=== PATIENT | female | born 1940 | race Caucasian/White ===

== ENCOUNTER 2016-08-02 05:22 | Inpatient (IN) | payer MEDICARE, OTHER ==
--- NOTE | 2016-08-02 05:38 | EDM.PDOC ---
<Rell Yoder M - Last Filed: 08/02/16 05:27> ED HPI GENERAL MEDICAL PROBLEM - General Chief Complaint: Cardiovascular Problem Stated Complaint: AMB Time Seen by Provider: 08/02/16 05:25 Source of Information: Reports: EMS History Limitations: Reports: Altered mental status - History of Present Illness INITIAL COMMENTS - FREE TEXT/NARRATIVE: This 76 yo female patient was brought to the ED by [facility] due to altered mentation. EMS reported that the patient was able to answer some questions, but could not speak in full sentences. The patient's spouse reports the patient was normal when they went to bed last night (2230), but her blood pressure was low ( systolic of upper 90's). This morning at about 0430, the reports the patient woke up shaking. The patient's heart rate was in the 140-150 and her blood pressure was 112/102, according to the . Over the past couple of days, the patient's blood pressure had been running low and she has been decreasing her blood pressure medications. Last night, the patient had several drinks with dinner, but was doing fine. The patient has a past history of CHF and atrial fib. Onset: today Onset Date: 08/02/16 Onset Time: 04:30 Duration: Constant Location: Reports: generalized Severity: severe Improves with: Reports: None Worsens with: Reports: None Associated Symptoms: Reports: weakness Treatments INSTRUCTOR OF EDUCATION: Reports: Oxygen - Related Data Allergies Allergy/AdvReac Type Severity Reaction Status Date / Time codeine Allergy Vomiting Verified 08/02/16 05:57 Home Meds: Home Meds Folic Acid 0.4 mg PO DAILY 08/01/13 [History] Gabapentin [Neurontin] 100 mg PO BID 08/01/13 [History] Methotrexate [Rheumatrex] 2.5 mg PO ASDIRECTED 08/01/13 [History] Warfarin Sodium [Jantoven] 3 mg PO DAILY 09/25/15 [History] Albuterol Sulfate [Proair Respiclick] 90 mcg IH ASDIRECTED PRN 08/02/16 [History ] Carvedilol [Carvedilol] 12.5 mg PO BID 08/02/16 [History] Fluticasone/Salmeterol [Advair Diskus 250-50] 1 puff INH BID 08/02/16 [History] Furosemide [Lasix] 20 mg PO DAILY 08/02/16 [History] Losartan [Cozaar] 25 mg PO BID 08/02/16 [History] Pravastatin [Pravachol] 40 mg PO DAILY 08/02/16 [History] Spironolactone [Aldactone] 25 mg PO DAILY 08/02/16 [History] Tolterodine Tartrate [Detrol LA] 4 mg PO DAILY 08/02/16 [History] Past Medical History HEENT History: Reports: Impaired vision Cardiovascular History: Reports: Hypertension, Other (see below) Other Cardiovascular History: Pt. reports of cardiac issues secondary to past chemotherapy Musculoskeletal History: Reports: Osteoarthritis, RA Oncologic (Cancer) History: Reports: Breast - Past Surgical History HEENT Surgical History: Reports: Cataract surgery GI Surgical History: Reports: Cholecystectomy Female Surgical History: Reports: Mastectomy Social & Family History - Tobacco Use Smoking Status *Q: Never Smoker Second Hand Smoke Exposure: No - Alcohol Use Days Per Week of Alcohol Use: 7 Number of Drinks Per Day: 1 Total Drinks Per Week: 7 - Recreational Drug Use Recreational Drug Use: No ED ROS GENERAL - Review of Systems Review Of Systems: ROS reveals no pertinent complaints other than HPI. ED EXAM, GENERAL - Physical Exam Exam: See Below Exam Limited By: Altered mental status General Appearance: alert, obtunded Eye Exam: bilateral eye: EOMI, normal inspection, PERRL Ears: normal external exam, normal canal, hearing grossly normal, normal TMs Nose: normal inspection, normal mucosa, no blood Throat/Mouth: Normal inspection, Normal lips, Normal teeth, Normal gums, Normal oropharynx, Normal voice, No airway compromise Head: atraumatic, normocephalic Neck: normal inspection, supple, non-tender, full range of motion Respiratory/Chest: no respiratory distress, lungs clear, normal breath sounds, no accessory muscle use, chest non-tender Cardiovascular: tachycardia, irregularly irregular GI/Abdominal: normal bowel sounds, soft, non tender, no organomegaly, no distention, no abnormal bruit, no mass (Female) Exam: Deferred Rectal (Female) Exam: Deferred Back Exam: normal inspection, full range of motion, NT Extremities: normal range of motion, non-tender, normal capillary refill, pedal edema (2+) Neurological: alert, oriented (upon return from CT), CN II-XII intact, normal cognition, confused (initially) Psychiatric: normal affect, normal mood Skin Exam: Warm, Dry, Intact, Normal color, No rash Lymphatic: no adenopathy Course - Vital Signs Last Recorded V/S: Last Vital Signs Temp 37.6 C 08/02/16 05:27 Pulse 132 H 08/02/16 05:27 Resp BP 142/101 H 08/02/16 05:27 Pulse Ox - Orders/Labs/Meds Orders: Active Orders 24 hr Category Date Time Status Sodium Chloride 0.9% [Normal Saline] 1,000 ml Med 08/02/16 06:45 Active IV ASDIRECTED Medication Orders Sodium Chloride (Normal Saline) 1,000 mls @ 125 mls/hr IV ASDIRECTED CHERRY Last Admin: 08/02/16 06:48 Dose: 125 mls/hr Labs: Laboratory Tests 08/02/16 08/02/16 08/02/16 Range/Units 05:33 05:33 05:33 WBC 10.6 H (5.0-10.0) 10^3/uL RBC 3.86 L (4.2-5.4) 10^6/uL Hgb 12.4 (12.0-16.0) g/dL Hct 37.7 (37.0-47.0) % MCV 97.7 (80-100) fL MCH 32.1 (27.0-34.0) pg MCHC 32.9 L (33.0-35.0) g/dL Plt Count 152 (150-450) 10^3/uL Neut % (Auto) 90.0 H (42.2-75.2) % Lymph % (Auto) 4.1 L (20.5-50.1) % Peach % (Auto) 4.5 (2-8) % Eos % (Auto) 1.2 (1.0-3.0) % Baso % (Auto) 0.2 (0.0-1.0) % PT 27.7 H (9.0-12.0) SEC INR 2.7 H (0.9-1.2) Sodium 134 L (135-145) mmol/L Potassium 5.2 H (3.6-5.0) mmol/L Chloride 103 (101-111) mmol/L Carbon Dioxide 23.0 (21.0-31.0) mmol/L Anion Gap 13.2 BUN 43 H (7-18) mg/dL Creatinine 1.5 H (0.6-1.3) mg/dL Est Cr Clr Drug Dosing 26.69 mL/min Estimated GFR (MDRD) 34 BUN/Creatinine Ratio 28.66 Glucose 139 H (74-105) mg/dL Calcium 9.0 (8.4-10.2) mg/dl Total Bilirubin 0.8 (0.2-1.0) mg/dL AST 23 (10-42) IU/L ALT 19 (10-60) IU/L Alkaline Phosphatase 72 (42-121) IU/L Troponin I 0.05 H* (0.00-0.02) ng/ml B-Natriuretic Peptide 653 H (0-100) pg/ml Total Protein 6.6 L (6.7-8.2) g/dl Albumin 3.8 (3.2-5.5) g/dl Globulin 2.8 Albumin/Globulin Ratio 1.36 Meds: Medications Generic Name Dose Route Start Last Admin Trade Name Freq PRN Reason Stop Dose Admin Sodium Chloride 1,000 mls @ 125 mls/hr 08/02/16 06:45 08/02/16 06:48 Normal Saline IV 125 mls/hr ASDIRECTED CHERRY Administration Discontinued Medications Generic Name Dose Route Start Last Admin Trade Name Freq PRN Reason Stop Dose Admin Diltiazem HCl 10 mg 08/02/16 05:51 08/02/16 05:58 Diltiazem IVPUSH 08/02/16 05:52 10 mg ONETIME ONE Administration - Re-Assessments/Exams Free Text/Narrative Re-Assessment/Exam: 08/02/16 05:56 The patient was initially confused and non-verbal upon arrival in the ED. Once the patient returned from the CT, the patient was able to answer questions in full sentences. The patient was oriented to person, place, but was slightly confused as to the date. Departure - Departure Disposition: Admitted As Inpatient 64 Clinical Impression: Atrial fibrillation with rapid ventricular response, Elevated troponin, History of CHF (congestive heart failure) <Jordin Calderon - Last Filed: 08/02/16 08:43> ED HPI GENERAL MEDICAL PROBLEM - General Source of Information: Reports: Family, Old records, RN, RN notes reviewed - History of Present Illness Quality: Reports: Other (denies pain) EKG INTERPRETATION EKG Date: 08/02/16 Time: 05:28 Rhythm: a-fib Rate (beats/min): 145 Bridgman: normal (baseline wander) P-wave: absent QRS: normal ST-T: depressed (probably rate related) QT: normal Comparison: NA - no prior EKG Departure - Departure Time of Disposition: 07:30 (admit to Dr. Wilkinson) Condition: serious
[2016-08-02] MEDS ORDERED: Diltiazem 25 MG/5 ML SDV IVPUSH ONE (05:51)
[2016-08-02] MEDS ORDERED: Sodium Chloride 0.9% 1,000 ML IV SCH (06:45)
[2016-08-02] MEDS ORDERED: ALBUTEROL SULFATE 90 MCG INH PRN (08:47)
[2016-08-02] MEDS ORDERED: Sodium Chloride 0.9% 10 ML Syringe FLUSH PRN (08:51)
[2016-08-02] MEDS ORDERED: Zolpidem 5 MG Tab PO PRN (08:51)
[2016-08-02] MEDS ORDERED: Morphine 2 MG/ML Syringe IVPUSH PRN (08:51)
[2016-08-02] MEDS ORDERED: Polyethylene Glycol 3350 Powder 17 GM Packet PO PRN (08:51)
[2016-08-02] MEDS ORDERED: Ondansetron 4 MG/2 ML SDV IVPUSH PRN (08:51)
[2016-08-02] MEDS ORDERED: Acetaminophen 325 MG Tab PO PRN (08:51)
[2016-08-02] MEDS ORDERED: SALMETEROL INH SCH (09:00)
[2016-08-02] MEDS ORDERED: Tolterodine 2 MG Cap.ER PO SCH (09:00)
[2016-08-02] MEDS ORDERED: Losartan 25 MG Tab PO SCH (09:00)
[2016-08-02] MEDS ORDERED: Spironolactone 25 MG Tab PO SCH (09:00)
[2016-08-02] MEDS ORDERED: METHOTREXATE 2.5 MG PO SCH (09:00)
[2016-08-02] MEDS ORDERED: FLUTICASONE INH SCH (09:00)
[2016-08-02] MEDS ORDERED: Pravastatin 20 MG Tab PO SCH (09:00)
[2016-08-02] MEDS ORDERED: FOLIC ACID 0.4 MG PO SCH (09:00)
[2016-08-02] MEDS ORDERED: Furosemide 20 MG Tab PO SCH (09:00)
[2016-08-02] MEDS ORDERED: Gabapentin 100 MG Cap PO SCH (09:00)
--- NOTE | 2016-08-02 09:10 | PCM.HP ---
H&P History of Present Illness - General Date of Service: 08/02/16 Admit Problem/Dx: Admission Diagnosis/Problem Admission Diagnosis/Problem Atrial fibrillation Source of Information: Patient, Family History Limitations: Reports: No limitations - History of Present Illness Initial Comments - Free Text/Narative: 76 yo female patient past medical history of atrial fibrillation, cardiomyopathy , dyslipidemia, hypertension, rheumatoid arthritis, breast cancer was brought to the ED by ambulance due to altered mentation. EMS reported that the patient was able to answer some questions, but could not speak in full sentences. The patient's reports the patient was normal when they went to bed last night (0), but her blood pressure was low (systolic of upper 90's). This morning at about 0430, he reported that the patient woke up shaking and was confused. The patient's heart rate was in the 140-150 and her blood pressure was 112/102, according to the . Over the past couple of days, the patient 's blood pressure had been running low so they called primary care provider office last Tuesday who suggested decrease in her losartan to half. Last night, the patient had 2 alcohol drinks with dinner, but was doing fine. she usually drinks one glass of wine with dinner. The patient has a past history of CHF and atrial fib. while in [place] she was admitted for acute congestive heart failure last April. During the hospitalization she lost 14 pounds. Also she had pulmonary function tests and was diagnosed with asthma. She has no history of smoking. She was placed on Advair And albuterol inhaler. she has not have asthma symptoms for the last few months. Others symptoms today a spell dry cough at home. patient denies fever, headache, sinus congestion, sore throat, chest pain, chest tightness, shortness breath, abdominal pain, urinary symptoms , increase in leg swelling, unilateral weakness, numbness, tingling, or areas of symptoms. she has appointment with her collar cutter at [facility] next month to discuss defibrillator insertion. Last echocardiogram was done last and showed with ejection fraction of 25-30% in the emergency room her heart rate was 132, EKG showed lateral fibrillation but no ST elevation. Chest x-ray did not show acute findings. WBC 10.6, hemoglobin 12.4, neutrophils 90.0, INR 2.7, sodium 134, potassium 5.2, creatinine 1.5 ( baseline is 0.9), troponin 0.05, BNP 653. she received Cardizem 10 mg IV once and both heart rate and mental status improved - Related Data Allergies/Adverse Reactions: Allergies Allergy/AdvReac Type Severity Reaction Status Date / Time codeine Allergy Vomiting Verified 08/02/16 05:57 Home Medications: Home Meds Methotrexate [Rheumatrex] 2.5 mg PO ASDIRECTED 08/01/13 [History] RX: Folic Acid 0.4 mg PO DAILY 08/01/13 [History] RX: Gabapentin [Neurontin] 100 mg PO BID 08/01/13 [History] Warfarin Sodium [Jantoven] 3 mg PO DAILY 09/25/15 [History] Albuterol Sulfate [Proair Respiclick] 90 mcg IH ASDIRECTED PRN 08/02/16 [History ] Fluticasone/Salmeterol [Advair Diskus 250-50] 1 puff INH BID 08/02/16 [History] Furosemide [Lasix] 20 mg PO DAILY 08/02/16 [History] Losartan [Cozaar] 12.5 mg PO BID 08/02/16 [History] RX: Carvedilol 25 mg PO BID 08/02/16 [History] RX: Non-Formulary Medication [NF Drug] 1 cap PO DAILY 08/02/16 [History] RX: Non-Formulary Medication [NF Drug] 1 pack PO DAILY 08/02/16 [History] RX: Pravastatin [Pravachol] 40 mg PO DAILY 08/02/16 [History] Spironolactone [Aldactone] 25 mg PO DAILY 08/02/16 [History] Tolterodine Tartrate [Detrol LA] 4 mg PO DAILY 08/02/16 [History] Past Medical History HEENT History: Reports: Impaired vision Cardiovascular History: Reports: Afib, Hypertension, Other (see below) Other Cardiovascular History: Pt. reports of cardiac issues secondary to past chemotherapy Respiratory History: Reports: Asthma, COPD, Other (see below) Other Respiratory History: questionable COPD Musculoskeletal History: Reports: Osteoarthritis, RA Oncologic (Cancer) History: Reports: Breast, Other (see below) Other Oncologic History: unspecified skin cancer - Infectious Disease History Infectious Disease History: Reports: Chicken pox, Measles, Shingles - Past Surgical History HEENT Surgical History: Reports: Cataract surgery GI Surgical History: Reports: Cholecystectomy Female Surgical History: Reports: Mastectomy Social & Family History - Family History Family Medical History: Unobtainable - Tobacco Use Smoking Status *Q: Never Smoker Second Hand Smoke Exposure: No - Caffeine Use Caffeine Use: Reports: Coffee - Alcohol Use Days Per Week of Alcohol Use: 7 Number of Drinks Per Day: 1 Total Drinks Per Week: 7 Date of Last Drink: 08/01/16 - Recreational Drug Use Recreational Drug Use: No H&P Review of Systems - Review of Systems: Review Of Systems: See Below General: Reports: no symptoms HEENT: Reports: no symptoms Pulmonary: Denies: Shortness of Breath, Wheezing Cardiovascular: Denies: chest pain, palpitations, syncope Gastrointestinal: Reports: No symptoms Genitourinary: Reports: no symptoms Musculoskeletal: Reports: no symptoms Skin: Reports: no symptoms Psychiatric: Reports: no symptoms Neurological: Reports: No Symptoms Hematologic/Lymphatic: Reports: no symptoms Immunologic: Reports: no symptoms Exam - Exam Exam: See Below - Vital Signs Vital Signs: Last Vital Signs Temp 37.6 C 08/02/16 05:27 Pulse 132 H 08/02/16 05:27 Resp BP 142/101 H 08/02/16 05:27 Pulse Ox Weight: 64.864 kg - Exam General: alert, oriented, cooperative. No: mild distress, moderate distress, severe distress, sedated, lethargic HEENT: Conjunctiva clear, EACs clear, EOMI, Hearing intact, Mucosa moist & pink , Nares patent, Normal nasal septum, Posterior pharynx clear, Pupils equal, Pupils reactive, TMs clear Neck: supple, trachea midline Lungs: Clear to auscultation, Normal respiratory effort. No: Decreased breath sounds, Crackles, Rales, Rhonchi, Rub, Stridor, Wheezing Cardiovascular: tachycardia ( ) Abdomen: normal bowel sounds, soft. No: organomegaly, peritoneal signs, distention, guarding, rigidity, rebound (Female) Exam: Deferred Rectal (Female) Exam: Deferred Back Exam: normal inspection Extremities: normal pulses, edema (+1in lower extremities ebilaterally). No: clubbing, cyanosis, calf tenderness Neurological: cranial nerves intact, reflexes equal bilateral, strength equal bilateral Neuro Extensive - Mental Status: alert, oriented x3, normal mood/affect, normal cognition Neuro Extensive - Motor, Sensory, Reflexes: CN II-XII intact, normal reflexes Psychiatric: normal affect, normal mood - Patient Data Result Diagrams: 08/02/16 05:33 08/02/16 05:33 *Q Meaningful Use (ADM) - VTE *Q VTE Criteria *Q: - Stroke *Q Stroke Criteria *Q: - AMI *Q AMI Criteria *Q: - Problem List (1) Chronic systolic (congestive) heart failure SNOMED Code(s): 312074766, 328702622 ICD Code: I50.22 - CHRONIC SYSTOLIC (CONGESTIVE) HEART FAILURE Status: Chronic Current Visit: Yes (2) Acute encephalopathy SNOMED Code(s): 3795119 ICD Code: G93.40 - ENCEPHALOPATHY, UNSPECIFIED Status: Acute Current Visit: Yes (3) Acute kidney injury SNOMED Code(s): 76414591 ICD Code: N17.9 - ACUTE KIDNEY FAILURE, UNSPECIFIED Status: Acute Current Visit: Yes (4) Hyperkalemia SNOMED Code(s): 14545615 ICD Code: E87.5 - HYPERKALEMIA Status: Acute Current Visit: Yes (5) Chronic anticoagulation SNOMED Code(s): 979407690 ICD Code: Z79.01 - UNDERCOVER AGENT (CURRENT) USE OF ANTICOAGULANTS Status: Chronic Current Visit: Yes (6) Rheumatoid arthritis SNOMED Code(s): 86668997 ICD Code: M06.9 - RHEUMATOID ARTHRITIS, UNSPECIFIED Status: Chronic Current Visit: Yes (7) Atrial fibrillation with rapid ventricular response SNOMED Code(s): 417424547139096 ICD Code: I48.91 - UNSPECIFIED ATRIAL FIBRILLATION Status: Acute Priority : High Current Visit: Yes (8) Elevated troponin SNOMED Code(s): 472578585, 008438471 ICD Code: R74.8 - ABNORMAL LEVELS OF OTHER SERUM ENZYMES Status: Acute Current Visit: Yes Problem List Initiated/Reviewed/Updated: Yes Orders Last 24hrs: Active Orders 24 hr Category Date Time Status Patient Status [ADT] Routine ADT 08/02/16 08:51 Ordered Bedrest Bathroom Privileges [RC] ASDIRECTED Care 08/02/16 08:51 Ordered Cardiac Monitoring [RC] CONTINUOUS Care 08/02/16 08:53 Ordered Communication Order [RC] ROUTINE Care 08/02/16 08:59 Ordered Height and Weight [RC] DAILY Care 08/02/16 08:51 Ordered Intake and Output [RC] Q6H Care 08/02/16 08:53 Ordered Oxygen Therapy [RC] PRN Care 08/02/16 08:51 Ordered VTE/DVT Education [RC] PER UNIT ROUTINE Care 08/02/16 08:51 Ordered Vital Signs [RC] Q4H Care 08/02/16 08:51 Ordered Nothing per Oral Now Diet [DIET] Diet 08/02/16 Breakfast Active BASIC METABOLIC PANEL,BMP [CHEM] AM Lab 08/03/16 05:11 Ordered CBC WITH AUTO DIFF [HEME] AM Lab 08/03/16 05:11 Ordered CK W CKMB [CHEM] Q8H Lab 08/02/16 11:59 Ordered CK W CKMB [CHEM] Q8H Lab 08/02/16 19:59 Ordered MAGNESIUM [CHEM] Routine Lab 08/02/16 08:51 Ordered TROPONIN I [CHEM] Q8H Lab 08/02/16 11:59 Ordered TROPONIN I [CHEM] Q8H Lab 08/02/16 19:59 Ordered Acetaminophen [Tylenol] Med 08/02/16 08:51 Ordered 650 mg PO Q4H PRN Albuterol Sulfate [Proair Respiclick] Med 08/02/16 08:47 Ordered 90 mcg IH ASDIRECTED PRN Carvedilol [Coreg] Med 08/02/16 09:00 Ordered 12.5 mg PO BID Fluticasone/Salmeterol [Advair Diskus 250-50] Med 08/02/16 09:00 Ordered 1 puff INH BID Folic Acid [Folic Acid] Med 08/02/16 09:00 Ordered 0.4 mg PO DAILY Furosemide [Lasix] Med 08/02/16 09:00 Ordered 20 mg PO DAILY Gabapentin [Neurontin] Med 08/02/16 09:00 Ordered 100 mg PO BID Losartan [Cozaar] Med 08/02/16 09:00 Ordered 25 mg PO Q24H Methotrexate [Rheumatrex] Med 08/02/16 09:00 Ordered 2.5 mg PO ASDIRECTED Morphine Med 08/02/16 08:51 Ordered 2 mg IVPUSH Q2H PRN Ondansetron [Zofran] Med 08/02/16 08:51 Ordered 4 mg IVPUSH Q6H PRN Polyethylene Glycol 3350 [MiraLAX] Med 08/02/16 08:51 Ordered 17 gm PO DAILY PRN Pravastatin Sodium Med 08/02/16 09:00 Ordered 40 mg PO DAILY Sodium Chloride 0.9% [Saline Flush] Med 08/02/16 08:51 Ordered 10 ml FLUSH ASDIRECTED PRN Spironolactone [Aldactone] Med 08/02/16 09:00 Ordered 25 mg PO DAILY Tolterodine Tartrate [Detrol LA] Med 08/02/16 09:00 Ordered 4 mg PO DAILY Warfarin Sodium Med 08/02/16 09:00 Ordered 3 mg PO DAILY Zolpidem [Ambien] Med 08/02/16 08:51 Ordered 5 mg PO BEDTIME PRN Saline Lock Insert [OM.PC] Routine Oth 08/02/16 08:51 Ordered Resuscitation Status Routine Resus Stat 08/02/16 08:51 Ordered Medication Orders Acetaminophen (Tylenol) 650 mg PO Q4H PRN PRN Reason: Pain (Mild 1-3)/fever Carvedilol (Coreg) 12.5 mg PO BID CHERRY Furosemide (Lasix) 20 mg PO DAILY CHERRY Gabapentin (Neurontin) 100 mg PO BID CHERRY Sodium Chloride (Normal Saline) 1,000 mls @ 125 mls/hr IV ASDIRECTED CHERRY Last Admin: 08/02/16 06:48 Dose: 125 mls/hr Losartan Potassium (Cozaar) 25 mg PO Q24H CHERRY Morphine Sulfate (Morphine) 2 mg IVPUSH Q2H PRN PRN Reason: Pain (severe 7-10) Non-Formulary Medication (Albuterol Sulfate [Proair Respiclick]) 90 mcg IH ASDIRECTED PRN PRN Reason: Dyspnea Non-Formulary Medication (Fluticasone/Salmeterol [Advair Diskus 250-50]) 1 puff INH BID CHERRY Non-Formulary Medication (Folic Acid [Folic Acid]) 0.4 mg PO DAILY CHERRY Non-Formulary Medication (Methotrexate [Rheumatrex]) 2.5 mg PO ASDIRECTED CHERRY Non-Formulary Medication (Pravastatin Sodium) 40 mg PO DAILY CHERRY Non-Formulary Medication (Tolterodine Tartrate [Detrol La]) 4 mg PO DAILY CHERRY Non-Formulary Medication (Warfarin Sodium) 3 mg PO DAILY CHERRY Ondansetron HCl (Zofran) 4 mg IVPUSH Q6H PRN PRN Reason: Nausea/Vomiting Polyethylene Glycol (Miralax) 17 gm PO DAILY PRN PRN Reason: Constipation Sodium Chloride (Saline Flush) 10 ml FLUSH ASDIRECTED PRN PRN Reason: Keep Vein Open Spironolactone (Aldactone) 25 mg PO DAILY CHERRY Zolpidem Tartrate (Ambien) 5 mg PO BEDTIME PRN PRN Reason: Sleep Assessment/Plan Comment:: atrial fibrillation with RVR Patient received Cardizem 10 mg IV once and heart rate and mental status improved we'll continue with home dose of carvedilol placed on telemetry and if heart rate goes up again then we'll consider consulting with collar cutter Continue warfarin I'll check TSH and magnesium Hypotension, Multifactorial Control the heart rate Hold Lasix and losartan today and decrease the dose of both medications to half tomorrow Elevated troponin, mild, could be do to atrial fibrillation with RVR and his acute kidney injury We'll repeat troponin and CK-MB in 6 hours. If troponin increases then we'll consult collar cutter Acute kidney injury Patient last 2 pounds in one week 500 cc of IV normal saline decrease Lasix from 20-10 mg p.o. daily. Hold the Lasix dose today Decrease losartan from 12.5 mg twice a day to 12.5 mg once a day. Hold losartan today Spell of cough Resolved No signs of pneumonia. We'll watch clinically and if she coughs again we will consider treating for possible pneumonia. At that status family and they agreed with this plan. Hyperkalemia, mild We give one dose of Kayexalate Acute encephalopathy, most likely from atrial fibrillation with RVR Resolved CT of the head did not show any acute findings Chronic anticoagulation for a true fibrillation Continue on same dose of Coumadin as INR is therapeutic Rheumatoid arthritis, chronic No flare up Continue on methotrexate history of asthma Recently diagnosed No signs of acute exacerbation continue with Advair scheduled, and albuterol as needed no need for pharmaceutical DVT prophylaxis since she is on Coumadin She wants to be full code repeat the troponin was elevated at 0.12. I spoke with collar cutter at [facility] , Dr. Romo, would not think that to troponin elevation is due to cardiac issue at this time and she did not recommend any further cardiac workup rather she recommended sepsis workup. 2 sets of blood cultures, urinalysis, urine culture, lactic acid are ordered. Zosyn was started empirically. I cannot exclude pneumonia at this time considering her spell of cough and confusion. Another 500 cc of normal saline is ordered to be given as a bolus. she will resume oral intake. I discussed the plan with her and her and they both agreed with the plan. I offered them transferred to higher care facility but they wanted stay here at our facility as long as there is no significant deterioration in her condition.
[2016-08-02] MEDS ORDERED: Carvedilol 6.25 MG Tab PO SCH (09:15)
[2016-08-02] MEDS ORDERED: Sodium Polystyrene Sulfonate 15 GM/60 ML Susp 60 ML Bot PO ONE (09:22)
[2016-08-02] MEDS ORDERED: Sodium Chloride 0.9% 500 ML IV SCH ×3 (09:30→17:30)
[2016-08-02] MEDS ORDERED: Carvedilol 25 MG Tab PO SCH (10:30)
[2016-08-02] MEDS ORDERED: AREDS PO SCH (12:00)
[2016-08-02] MEDS ORDERED: [UNRECOGNIZED DRUG - OTHER] PO SCH (12:00)
[2016-08-02] MEDS ORDERED: Piperacillin/Tazobactam 3.375 GM in Sodium Chloride 0.9% 100 ML IV SCH (14:00)
[2016-08-02] MEDS ORDERED: LORazepam 2 MG/ML Syringe IVPUSH ONE (17:12)
[2016-08-02] MEDS ORDERED: LORazepam 2 MG/ML Syringe ONE (17:15)
[2016-08-02 18:57] VITALS: BP 147/97
[2016-08-03] MEDS ORDERED: Furosemide 20 MG Tab PO SCH (09:00)
[2016-08-03] MEDS ORDERED: Losartan 25 MG Tab PO SCH (09:00)
--- NOTE | 2016-08-09 12:21 | EKG ---
08/02/2016 - RADHA CARREON - TIME: 1327 hours. I reviewed the EKG and agree with the machine's reading. [facility] /[id number]
--- NOTE | 2016-08-09 12:21 | EKG ---
08/02/2016 - RADHA CARREON - TIME: 0528 hours. I reviewed the EKG and agree with the machine's reading. [facility] /[id number]
== END 2016-08-02 17:40 | DRG 308 ==
LOC: DL.ED 05:22 → UNDOADMOB 08:00 → DL.MS 08:00 → INTOOBSV 08:00 → DL.MS 08:51 → OBSVTOIN 14:58
PROVIDERS: ADMIT Family Medicine; ATTEND Family Medicine
DX: I48.91 Unspecified atrial fibrillation (principal); I50.9 Heart failure, unspecified; R79.89 Other specified abnormal findings of blood chemistry; G93.40 Encephalopathy, unspecified; I50.22 Chronic systolic (congestive) heart failure; N17.9 Acute kidney failure, unspecified; E78.5 Hyperlipidemia, unspecified; M06.9 Rheumatoid arthritis, unspecified; I42.9 Cardiomyopathy, unspecified; J45.909 Unspecified asthma, uncomplicated; I11.0 Hypertensive heart disease with heart failure; Z79.01 Long term (current) use of anticoagulants; R74.8 Abnormal levels of other serum enzymes; I95.9 Hypotension, unspecified; E87.5 Hyperkalemia; Z85.3 Personal history of malignant neoplasm of breast
CPT/HCPCS: 36415; 70450; 71010; 80053; 82550; 82553; 83605; 83735; 83880; 84443; 84484 ×2; 85025; 85610; 87040 ×2; 87077; 87186; 93005 ×2; 93010; 96361; 96374; 99285; A9270 ×6; J2543; J7030; J7040 ×2; J7050; 51702; 81001; 87086; 87088; J2060; J3490

== ENCOUNTER 2017-02-25 12:35 | Observation (INO) | payer MEDICARE, OTHER ==
--- NOTE | 2017-02-25 12:43 | EDM.PDOC ---
ED HPI GENERAL MEDICAL PROBLEM - General Chief Complaint: Cardiovascular Problem Stated Complaint: FAST HEART RATE/BP [id number] Time Seen by Provider: 02/25/17 12:42 Source of Information: Reports: Patient, Family, RN, RN Notes Reviewed History Limitations: Reports: No Limitations - History of Present Illness INITIAL COMMENTS - FREE TEXT/NARRATIVE: Pt presents to the ER with her . Pt states her heart rate has been elevated and she has had some increased sob and generalized weakness. She states this has happened in the past. Pt denies N/V/D, or fever. She states she is always cold. She denies any pain at this time. Onset: Today, Gradual Associated Symptoms: Reports: Weakness - Related Data Allergies Allergy/AdvReac Type Severity Reaction Status Date / Time codeine Allergy Vomiting Verified 02/25/17 12:47 Home Meds: Home Meds Folic Acid 0.4 mg PO DAILY 08/01/13 [History] Gabapentin [Neurontin] 100 mg PO BID 08/01/13 [History] Methotrexate [Rheumatrex] 2.5 mg PO ASDIRECTED 08/01/13 [History] Warfarin Sodium [Jantoven] 3 mg PO DAILY 09/25/15 [History] Albuterol Sulfate [Proair Respiclick] 90 mcg IH ASDIRECTED PRN 08/02/16 [History ] Carvedilol 25 mg PO BID 08/02/16 [History] Fluticasone/Salmeterol [Advair Diskus 250-50] 1 puff INH BID 08/02/16 [History] Furosemide [Lasix] 20 mg PO DAILY 08/02/16 [History] Losartan [Cozaar] 12.5 mg PO BID 08/02/16 [History] Non-Formulary Medication [NF Drug] 1 cap PO DAILY 08/02/16 [History] Non-Formulary Medication [NF Drug] 1 pack PO DAILY 08/02/16 [History] Pravastatin [Pravachol] 40 mg PO DAILY 08/02/16 [History] Spironolactone [Aldactone] 25 mg PO DAILY 08/02/16 [History] Tolterodine Tartrate [Detrol LA] 4 mg PO DAILY 08/02/16 [History] Past Medical History HEENT History: Reports: Impaired Vision Cardiovascular History: Reports: Afib, Hypertension, Other (See Below) Other Cardiovascular History: Pt. reports of cardiac issues secondary to past chemotherapy Respiratory History: Reports: Asthma, COPD, Other (See Below) Other Respiratory History: questionable COPD Musculoskeletal History: Reports: Osteoarthritis, RA Oncologic (Cancer) History: Reports: Breast, Other (See Below) Other Oncologic History: unspecified skin cancer - Infectious Disease History Infectious Disease History: Reports: Chicken Pox, Measles, Shingles - Past Surgical History HEENT Surgical History: Reports: Cataract Surgery GI Surgical History: Reports: Cholecystectomy Female Surgical History: Reports: Mastectomy Social & Family History - Family History Family Medical History: Unobtainable - Tobacco Use Smoking Status *Q: Never Smoker Second Hand Smoke Exposure: No - Caffeine Use Caffeine Use: Reports: Coffee - Alcohol Use Days Per Week of Alcohol Use: 7 Number of Drinks Per Day: 1 Total Drinks Per Week: 7 - Recreational Drug Use Recreational Drug Use: No ED ROS GENERAL - Review of Systems Review Of Systems: ROS reveals no pertinent complaints other than HPI. ED EXAM, GENERAL - Physical Exam Exam: See Below Exam Limited By: No Limitations General Appearance: Alert, WD/WN, Mild Distress Eye Exam: Bilateral Eye: EOMI, Normal Inspection Ears: Normal External Exam, Hearing Grossly Normal Nose: Normal Inspection Throat/Mouth: Normal Inspection, Normal Voice, No Airway Compromise Head: Atraumatic, Normocephalic Neck: Normal Inspection, Supple, Non-Tender, Full Range of Motion Respiratory/Chest: Chest Non-Tender, Decreased Breath Sounds (decreased air exchange), Wheezing (expiratory in the bases) Cardiovascular: Normal Peripheral Pulses, Irregularly Irregular Peripheral Pulses: 1+: Radial (L), Radial (R) GI/Abdominal: Normal Bowel Sounds, Soft, Non-Tender, No Distention (Female) Exam: Deferred Rectal (Female) Exam: Deferred Back Exam: Normal Inspection, Full Range of Motion Extremities: Normal Inspection, Normal Range of Motion, Non-Tender, No Pedal Edema, Normal Capillary Refill Neurological: Alert, Oriented, Normal Cognition, No Motor/Sensory Deficits Psychiatric: Normal Affect, Normal Mood Skin Exam: Warm, Dry, Intact, Normal Color, No Rash Lymphatic: No Adenopathy EKG INTERPRETATION EKG Date: 02/25/17 Time: 12:51 Rhythm: A-Fib Rate (Beats/Min): 126 Comparison: No Change EKG Interpretation Comments: Atrial fib with RVR Course - Vital Signs Last Recorded V/S: Last Vital Signs Temp 98.2 F 02/25/17 12:35 Pulse 118 H 02/25/17 12:40 Resp 22 H 02/25/17 12:46 BP 134/85 02/25/17 12:35 Pulse Ox 100 02/25/17 12:46 - Orders/Labs/Meds Orders: Active Orders 24 hr Category Date Time Status EKG Documentation Completion [RC] STAT Care 02/25/17 12:47 Active Peripheral IV Care [RC] . DIRECTED Care 02/25/17 12:47 Active Sodium Chloride 0.9% [Saline Flush] Med 02/25/17 12:47 Active 10 ml FLUSH ASDIRECTED PRN Peripheral IV Insertion Adult [OM.PC] Stat Oth 02/25/17 12:47 Ordered Medication Orders Sodium Chloride (Saline Flush) 10 ml FLUSH ASDIRECTED PRN PRN Reason: Keep Vein Open Last Admin: 02/25/17 13:24 Dose: 10 ml Labs: Laboratory Tests 02/25/17 02/25/17 02/25/17 Range/Units 13:03 13:03 13:03 WBC 8.5 (5.0-10.0) 10^3/uL RBC 3.71 L (4.2-5.4) 10^6/uL Hgb 11.9 L (12.0-16.0) g/dL Hct 37.7 (37.0-47.0) % MCV 101.6 H D (80-100) fL MCH 32.1 (27.0-34.0) pg MCHC 31.6 L (33.0-35.0) g/dL Plt Count 184 (150-450) 10^3/uL Neut % (Auto) 79.3 H (42.2-75.2) % Lymph % (Auto) 6.7 L (20.5-50.1) % [place] % (Auto) 11.0 H (2-8) % Eos % (Auto) 2.2 (1.0-3.0) % Baso % (Auto) 0.8 (0.0-1.0) % PT 29.4 H (9.0-12.0) SEC INR 2.9 H (0.9-1.2) APTT 41.0 H (22.0-34.0) SEC Sodium 137 (135-145) mmol/L Potassium 4.7 (3.6-5.0) mmol/L Chloride 99 L (101-111) mmol/L Carbon Dioxide 25.0 (21.0-31.0) mmol/L Anion Gap 17.7 BUN 24 H (7-18) mg/dL Creatinine 1.3 (0.6-1.3) mg/dL Est Cr Clr Drug Dosing 30.30 mL/min Estimated GFR (MDRD) 40 BUN/Creatinine Ratio 18.46 Glucose 103 (74-105) mg/dL Calcium 9.1 (8.4-10.2) mg/dl Total Bilirubin 1.1 H (0.2-1.0) mg/dL AST 27 (10-42) IU/L ALT 14 (10-60) IU/L Alkaline Phosphatase 68 (42-121) IU/L Troponin I < 0.02 (0.00-0.02) ng/ml B-Natriuretic Peptide 496 H (0-100) pg/ml Total Protein 7.4 (6.7-8.2) g/dl Albumin 4.1 (3.2-5.5) g/dl Globulin 3.3 Albumin/Globulin Ratio 1.24 Urine Color (YELLOW) Urine Appearance (CLEAR) Urine pH (5.0-9.0) Ur Specific [place] (1.005-1.030) Urine Protein (NEGATIVE) Urine Glucose (UA) (NEGATIVE) Urine Ketones (NEGATIVE) Urine Occult Blood (NEGATIVE) Urine Nitrite (NEGATIVE) Urine Bilirubin (NEGATIVE) Urine Urobilinogen (0.2-1.0) mg/dL Ur Leukocyte Esterase (NEGATIVE) Urine RBC /HPF Urine WBC (0-5/HPF) /HPF Ur Epithelial Cells /HPF Urine Bacteria (0-FEW/HPF) /HPF Urine Mucus /LPF 02/25/17 Range/Units 14:06 WBC (5.0-10.0) 10^3/uL RBC (4.2-5.4) 10^6/uL Hgb (12.0-16.0) g/dL Hct (37.0-47.0) % MCV (80-100) fL MCH (27.0-34.0) pg MCHC (33.0-35.0) g/dL Plt Count (150-450) 10^3/uL Neut % (Auto) (42.2-75.2) % Lymph % (Auto) (20.5-50.1) % [place] % (Auto) (2-8) % Eos % (Auto) (1.0-3.0) % Baso % (Auto) (0.0-1.0) % PT (9.0-12.0) SEC INR (0.9-1.2) APTT (22.0-34.0) SEC Sodium (135-145) mmol/L Potassium (3.6-5.0) mmol/L Chloride (101-111) mmol/L Carbon Dioxide (21.0-31.0) mmol/L Anion Gap BUN (7-18) mg/dL Creatinine (0.6-1.3) mg/dL Est Cr Clr Drug Dosing mL/min Estimated GFR (MDRD) BUN/Creatinine Ratio Glucose (74-105) mg/dL Calcium (8.4-10.2) mg/dl Total Bilirubin (0.2-1.0) mg/dL AST (10-42) IU/L ALT (10-60) IU/L Alkaline Phosphatase (42-121) IU/L Troponin I (0.00-0.02) ng/ml B-Natriuretic Peptide (0-100) pg/ml Total Protein (6.7-8.2) g/dl Albumin (3.2-5.5) g/dl Globulin Albumin/Globulin Ratio Urine Color Yellow (YELLOW) Urine Appearance Slightly cloudy (CLEAR) Urine pH 6.5 (5.0-9.0) Ur Specific [place] 1.015 (1.005-1.030) Urine Protein Negative (NEGATIVE) Urine Glucose (UA) Negative (NEGATIVE) Urine Ketones Negative (NEGATIVE) Urine Occult Blood Negative (NEGATIVE) Urine Nitrite Negative (NEGATIVE) Urine Bilirubin Negative (NEGATIVE) Urine Urobilinogen 0.2 (0.2-1.0) mg/dL Ur Leukocyte Esterase Negative (NEGATIVE) Urine RBC 0-5 /HPF Urine WBC 0-5 (0-5/HPF) /HPF Ur Epithelial Cells Few /HPF Urine Bacteria Rare (0-FEW/HPF) /HPF Urine Mucus Rare /LPF Meds: Medications Generic Name Dose Route Start Last Admin Trade Name Freq PRN Reason Stop Dose Admin Sodium Chloride 10 ml 02/25/17 12:47 02/25/17 13:24 Saline Flush FLUSH 10 ml ASDIRECTED PRN Administration Keep Vein Open Discontinued Medications Generic Name Dose Route Start Last Admin Trade Name Rebecca PRN Reason Stop Dose Admin Diltiazem HCl 10 mg 02/25/17 12:59 02/25/17 13:24 Diltiazem IVPUSH 02/25/17 13:00 10 mg ONETIME ONE Administration - Radiology Interpretation Free Text/Narrative:: chest xray: no acute findings See rad report Departure - Departure Time of Disposition: 14:45 Disposition: Refer to Observation Condition: Fair Clinical Impression: Atrial fibrillation with rapid ventricular response Forms: ED Department Discharge - My Orders Last 24 Hours: My Active Orders 02/25/17 12:47 EKG Documentation Completion [RC] STAT Peripheral IV Care [RC] . DIRECTED Sodium Chloride 0.9% [Saline Flush] 10 ml FLUSH ASDIRECTED PRN Peripheral IV Insertion Adult [OM.PC] Stat - Assessment/Plan Last 24 Hours: My Active Orders 02/25/17 12:47 EKG Documentation Completion [RC] STAT Peripheral IV Care [RC] . DIRECTED Sodium Chloride 0.9% [Saline Flush] 10 ml FLUSH ASDIRECTED PRN Peripheral IV Insertion Adult [OM.PC] Stat
[2017-02-25] MEDS ORDERED: Sodium Chloride 0.9% 10 ML Syringe FLUSH PRN ×2 (12:47→15:31)
[2017-02-25] MEDS ORDERED: Diltiazem 25 MG/5 ML SDV IVPUSH ONE (12:59)
--- NOTE | 2017-02-25 13:24 | CR ---
Clinical history: 77-year-old female chest pain. Interpretation: Upright AP portable chest film confirms chronic mild cardiomegaly but no new cephaliz ation of vascular flow, signs of alveolar edema or dependent pleural fluid accumulation in the interv al since to July 2016 comparison film. Curvilinear atheromatous calcifications arch of the aorta. Right mastectomy. Cervical dorsal scoliosis, signs of multilevel disc disease and arthritis of the spine. No new lung mass, hilar lymphadenopathy or focal lobar pneumonia. No atelectasis/collapse. No pneumothorax. CONCLUSION: No acute new cardiopulmonary abnormality.
[2017-02-25 13:32] LABS: CHLORIDE,CL 99 mmol/L (101-111); SODIUM,NA 137 mmol/L (135-145)
[2017-02-25] MEDS ORDERED: Acetaminophen 325 MG Tab PO PRN (15:31)
[2017-02-25] MEDS ORDERED: Zolpidem 5 MG Tab PO PRN (15:31)
[2017-02-25] MEDS ORDERED: Albuterol 0.083% 2.5 MG/3 ML Neb Soln NEB PRN (15:33)
--- NOTE | 2017-02-25 15:47 | PCM.HP ---
H&P History of Present Illness - General Date of Service: 02/25/17 Admit Problem/Dx: Admission Diagnosis/Problem Admission Diagnosis/Problem Afib, Atrial fibrillation Source of Information: Patient, Family - History of Present Illness Initial Comments - Free Text/Narative: The patient is a 77-year-old lady with a history of atrial fibrillation, hypertension, COPD. The patient has a history of episodic Rapid atrial fibrillation. Today the patient felt general weakness, mild shortness of breath, palpitation. Presented to the emergency room and was noted to have rapid atrial fibrillation. She was given IV Cardizem push. Her heart rate become better controlled. She is feeling well now. She denies any other unusual symptoms. There is no increased coffeine intake. - Related Data Allergies/Adverse Reactions: Allergies Allergy/AdvReac Type Severity Reaction Status Date / Time codeine Allergy Vomiting Verified 02/25/17 15:26 Home Medications: Home Meds Folic Acid 3 tab PO DAILY 08/01/13 [History] Gabapentin [Neurontin] 100 mg PO BID 08/01/13 [History] Methotrexate [Rheumatrex] 6 tab PO WEEKLY 08/01/13 [History] Warfarin Sodium [Jantoven] 3 mg PO ..TUE..TUE.SAT 09/25/15 [History] Carvedilol 25 mg PO BID 08/02/16 [History] Fluticasone/Salmeterol [Advair Diskus 250-50] 1 puff INH DAILY 08/02/16 [History ] Furosemide [Lasix] 10 mg PO DAILY 08/02/16 [History] Losartan [Cozaar] 12.5 mg PO BID 08/02/16 [History] Pravastatin [Pravachol] 20 mg PO DAILY 08/02/16 [History] Spironolactone [Aldactone] 12.5 mg PO DAILY 08/02/16 [History] Tolterodine Tartrate [Detrol LA] 4 mg PO DAILY 08/02/16 [History] Albuterol [Proventil Neb Soln] 2.5 mg NEB BID PRN 02/25/17 [History] Warfarin [Coumadin] 2.5 mg PO .LANGE.MON 02/25/17 [History] Past Medical History HEENT History: Reports: Impaired Vision Cardiovascular History: Reports: Afib, Hypertension, Other (See Below) Other Cardiovascular History: Pt. reports of cardiac issues secondary to past chemotherapy Respiratory History: Reports: Asthma, COPD, Other (See Below) Other Respiratory History: questionable COPD Musculoskeletal History: Reports: Osteoarthritis, RA Oncologic (Cancer) History: Reports: Breast, Other (See Below) Other Oncologic History: unspecified skin cancer - Infectious Disease History Infectious Disease History: Reports: Chicken Pox, Measles, Shingles - Past Surgical History HEENT Surgical History: Reports: Cataract Surgery GI Surgical History: Reports: Cholecystectomy Female Surgical History: Reports: Mastectomy Social & Family History - Family History Family Medical History: Unobtainable - Tobacco Use Smoking Status *Q: Never Smoker Second Hand Smoke Exposure: No - Caffeine Use Caffeine Use: Reports: Coffee - Alcohol Use Days Per Week of Alcohol Use: 7 Number of Drinks Per Day: 1 Total Drinks Per Week: 7 - Recreational Drug Use Recreational Drug Use: No H&P Review of Systems - Review of Systems: Review Of Systems: See Below General: Denies: Fever, Chills Pulmonary: Reports: Shortness of Breath. Denies: Wheezing Cardiovascular: Reports: Palpitations. Denies: Chest Pain Gastrointestinal: Denies: Abdominal Pain Genitourinary: Denies: Dysuria Musculoskeletal: Denies: Neck Pain Psychiatric: Denies: Confusion Exam - Exam Exam: See Below - Vital Signs Vital Signs: Last Vital Signs Temp 37.0 C 02/25/17 15:31 Pulse 82 02/25/17 15:31 Resp 20 02/25/17 15:31 BP 132/84 02/25/17 15:31 Pulse Ox 100 02/25/17 15:31 Weight: 66.769 kg - Exam General: Alert, Oriented Neck: Supple Lungs: Normal Respiratory Effort, Decreased Breath Sounds Cardiovascular: Irregular Rhythm. No: Tachycardia GI/Abdominal Exam: Normal Bowel Sounds, Soft, Non-Tender Extremities: Pedal Edema (trace bilateral) Neuro Extensive - Mental Status: Alert, Oriented x3, Normal Mood/Affect - Patient Data Result Diagrams: 02/25/17 13:03 02/25/17 13:03 *Q Meaningful Use (ADM) - VTE *Q VTE Criteria *Q: - Stroke *Q Stroke Criteria *Q: - AMI *Q AMI Criteria *Q: - Problem List (1) Atrial fibrillation with rapid ventricular response SNOMED Code(s): 703957308464299 ICD Code: I48.91 - UNSPECIFIED ATRIAL FIBRILLATION Status: Acute Priority : High Current Visit: Yes Problem List Initiated/Reviewed/Updated: Yes Orders Last 24hrs: Active Orders 24 hr Category Date Time Status Patient Status [ADT] Routine ADT 02/25/17 15:31 Ordered Antiembolic Devices [RC] PER UNIT ROUTINE Care 02/25/17 15:32 Ordered Oxygen Therapy [RC] PRN Care 02/25/17 15:31 Ordered Telemetry Monitoring [Cardiac Monitoring] [RC] . Care 02/25/17 15:29 Ordered DIRECTED Up With Assistance [RC] ASDIRECTED Care 02/25/17 15:31 Ordered Vital Signs [RC] Q4H Care 02/25/17 15:31 Ordered 2 Gram Sodium Diet [DIET] Diet 02/25/17 Dinner Ordered BASIC METABOLIC PANEL,BMP [CHEM] AM Lab 02/26/17 05:15 Ordered CBC WITH AUTO DIFF [HEME] AM Lab 02/26/17 05:15 Ordered INR,PT,PROTHROMBIN TIME [COAG] AM Lab 02/26/17 05:15 Ordered TSH ULTRASENSITIVE [CHEM] AM Lab 02/26/17 05:11 Ordered Acetaminophen [Tylenol] Med 02/25/17 15:31 Ordered 650 mg PO Q4H PRN Albuterol [Proventil Neb Soln] Med 02/25/17 15:33 Ordered 2.5 mg NEB BID PRN Carvedilol [Coreg] Med 02/25/17 21:00 Ordered 25 mg PO BID Fluticasone/Salmeterol [Advair Diskus 250-50] Med 02/26/17 09:00 Ordered 1 puff INH DAILY Folic Acid [Folic Acid] Med 02/26/17 09:00 Ordered 3 tab PO DAILY Furosemide [Lasix] Med 02/26/17 09:00 Ordered 10 mg PO DAILY Gabapentin [Neurontin] Med 02/25/17 21:00 Ordered 100 mg PO BID Losartan [Cozaar] Med 02/25/17 21:00 Ordered 12.5 mg PO BID Pravastatin Sodium Med 02/26/17 09:00 Ordered 20 mg PO DAILY Sodium Chloride 0.9% [Saline Flush] Med 02/25/17 15:31 Ordered 10 ml FLUSH ASDIRECTED PRN Spironolactone [Aldactone] Med 02/26/17 09:00 Ordered 12.5 mg PO DAILY Tolterodine Tartrate [Detrol LA] Med 02/26/17 09:00 Ordered 4 mg PO DAILY Warfarin Sodium Med 02/25/17 15:30 Ordered 3 mg PO .SAT Warfarin [Coumadin] Med 02/25/17 15:45 Ordered 2.5 mg PO .LANGE.MON Zolpidem [Ambien] Med 02/25/17 15:31 Ordered 5 mg PO BEDTIME PRN Antiembolic Hose [OM.PC] Per Unit Routine Oth 02/25/17 15:32 Ordered Saline Lock Insert [OM.PC] Routine Oth 02/25/17 15:31 Ordered Resuscitation Status Routine Resus Stat 02/25/17 15:31 Ordered Medication Orders Acetaminophen (Tylenol) 650 mg PO Q4H PRN PRN Reason: Pain (Mild 1-3)/fever Albuterol (Proventil Neb Soln) 2.5 mg NEB BID PRN PRN Reason: Shortness of Breath Carvedilol (Coreg) 25 mg PO BID CHERRY Furosemide (Lasix) 10 mg PO DAILY CHERRY Gabapentin (Neurontin) 100 mg PO BID CHERRY Losartan Potassium (Cozaar) 12.5 mg PO BID CHERRY Non-Formulary Medication (Fluticasone/Salmeterol [Advair Diskus 250-50]) 1 puff INH DAILY CHERRY Non-Formulary Medication (Folic Acid [Folic Acid]) 3 tab PO DAILY CHERRY Non-Formulary Medication (Pravastatin Sodium) 20 mg PO DAILY CHERRY Non-Formulary Medication (Tolterodine Tartrate [Detrol La]) 4 mg PO DAILY CHERRY Non-Formulary Medication (Warfarin Sodium) 3 mg PO ..TUE.SAT CHERRY Sodium Chloride (Saline Flush) 10 ml FLUSH ASDIRECTED PRN PRN Reason: Keep Vein Open Last Admin: 02/25/17 13:24 Dose: 10 ml Sodium Chloride (Saline Flush) 10 ml FLUSH ASDIRECTED PRN PRN Reason: Keep Vein Open Spironolactone (Aldactone) 12.5 mg PO DAILY CHERRY Warfarin Sodium (Coumadin) 2.5 mg PO .LANGE.MON CHERRY Zolpidem Tartrate (Ambien) 5 mg PO BEDTIME PRN PRN Reason: Sleep Assessment/Plan Comment:: The patient is a 77-year-old lady with a history of atrial fibrillation. She presented with palpitation, shortness of breath, generalized weakness. #1 A. fib with RVR Heart rate has improved with the administration of IV Cardizem. We will continue Coreg, monitor on telemetry. We will check TSH Continue anticoagulation with Coumadin INR appears in target range Monitor the patient on telemetry for arrhythmia #2 hypertension Continue to treat with Vahe Fitzgeraldar #3 COPD No apparent acute exacerbation #4 DVT prophylaxis will be with full dose anticoagulation with Coumadin
[2017-02-25] MEDS: Carvedilol 25 MG Tab PO SCH (18:27)
[2017-02-25] MEDS: Gabapentin 100 MG Cap PO SCH (22:06)
[2017-02-25] MEDS: Losartan 25 MG Tab PO SCH (22:06)
[2017-02-26] MEDS: Gabapentin 100 MG Cap PO SCH (08:15)
[2017-02-26] MEDS: Losartan 25 MG Tab PO SCH (08:17)
[2017-02-26] MEDS: Carvedilol 25 MG Tab PO SCH (08:19)
[2017-02-26] MEDS ORDERED: Spironolactone 25 MG Tab PO SCH (09:00)
[2017-02-26] MEDS ORDERED: SALMETEROL INH SCH (09:00)
[2017-02-26] MEDS ORDERED: Furosemide 20 MG Tab PO SCH (09:00)
[2017-02-26] MEDS ORDERED: Pravastatin 20 MG Tab PO SCH (09:00)
[2017-02-26] MEDS ORDERED: Tolterodine 2 MG Cap.ER PO SCH (09:00)
[2017-02-26] MEDS ORDERED: FLUTICASONE INH SCH (09:00)
[2017-02-26] MEDS ORDERED: Folic Acid 1 MG Tab PO SCH (09:00)
--- NOTE | 2017-02-26 09:32 | PCM.DCSUM1 ---
Discharge Summary - Hospital Course Free Text/Narrative:: The pt was admitted with A-fib and now rate is well controlled. She has received IV cardizem push while admitted and now rate is well controlled The patient is a 77-year-old lady with a history of atrial fibrillation, hypertension, COPD. The patient has a history of episodic Rapid atrial fibrillation.The patient felt general weakness, mild shortness of breath, palpitation on 02/25/17 and Presented to the emergency room and was noted to have rapid atrial fibrillation.She was given IV Cardizem push. Her heart rate is now controlled.She is feeling well now and she will be going home today ( 02/26/17). The pt gets followed by Belting Inspector at [facility] and I advised her to contact her Belting Inspector at [facility] for adjustment of Medication as soon as possible. I did not make any changes to her Medication but discussed with for medication adjustment as recommended by her automatic oven operator Pt fellt weak after shower and did not have any fall, BP checked and it was in 90's, advise to stop taking Losartan [ was taking 12.5 mg BID]. will discuss with Belting Inspector on Tuesday (02/28/17) Brief History: The patient is a 77-year-old lady with a history of atrial fibrillation, hypertension, COPD. The patient has a history of episodic Rapid atrial fibrillation.The patient felt general weakness, mild shortness of breath , palpitation on 02/25/17 and. Presented to the emergency room and was noted to have rapid atrial fibrillation.She was given IV Cardizem push. Her heart rate is now well controlled.She is feeling well today and rate is well controlled. she had felt bad after taking shower but after resting she took a walk in the hallway and felt good and still wants to go home. Advise to follow with PMD in a week time. The pt gets followed by Belting Inspector at [facility] and I advised her to contact her Belting Inspector for adjustment of Medication as soon as possible. - Discharge Data Discharge Date: 02/26/17 Discharge Disposition: Home, Self-Care 01 Condition: Good - Discharge Diagnosis/Problem(s) (1) Atrial fibrillation with rapid ventricular response SNOMED Code(s): [id number] ICD Code: I48.91 - UNSPECIFIED ATRIAL FIBRILLATION Status: Acute Priority : High - Patient Instructions Diet: Heart Healthy Diet Activity: As Tolerated Showering/Bathing: May Shower Notify Provider of: Nausea and/or Vomiting Other/Special Instructions: The patient is a 77-year-old lady with a history of atrial fibrillation, hypertension, COPD. The patient has a history of episodic Rapid atrial fibrillation.The patient had general weakness, mild shortness of breath, palpitation on 02/25/17 and Presented to the emergency room and was noted to have rapid atrial fibrillation.She was given IV Cardizem push. Her heart rate become better controlled.She is feeling well today and rate is well controlled. The pt gets followed by Belting Inspector at [facility] and I advised her to contact her Belting Inspector for adjustment of Medication as soon as possible. Advise pt not to take Losartan [ was taking 12.5 mg 2 times a day], pt felt weak after shower and BP was in 90's. will discuss with Belting Inspector on Tuesday ( 02/28/17). Advise to follow with PMD in a week. Advise to Come back to ED if not feeling well after going home. - Discharge Plan Home Medications: Home Meds Folic Acid 3 tab PO DAILY 08/01/13 [History] Gabapentin [Neurontin] 100 mg PO BID 08/01/13 [History] Methotrexate [Rheumatrex] 6 tab PO WEEKLY 08/01/13 [History] Warfarin Sodium [Jantoven] 3 mg PO ..TUE.SAT 09/25/15 [History] Carvedilol 25 mg PO BID 08/02/16 [History] Fluticasone/Salmeterol [Advair Diskus 250-50] 1 puff INH DAILY 08/02/16 [History ] Furosemide [Lasix] 10 mg PO DAILY 08/02/16 [History] Losartan [Cozaar] 12.5 mg PO BID 08/02/16 [History] Pravastatin [Pravachol] 20 mg PO DAILY 08/02/16 [History] Spironolactone [Aldactone] 12.5 mg PO DAILY 08/02/16 [History] Tolterodine Tartrate [Detrol LA] 4 mg PO DAILY 08/02/16 [History] Albuterol Sulfate [Proair Hfa] 2 puff IH Q6HR PRN 02/25/17 [History] Albuterol [Proventil Neb Soln] 2.5 mg NEB BID PRN 02/25/17 [History] Warfarin [Coumadin] 2.5 mg PO .LANGE.MON 02/25/17 [History] Patient Handouts: Atrial Fibrillation, [id number] - Discharge Summary/Plan Comment DC Time >30 min.: Yes Discharge Summary/Plan Comment: The patient is a 77-year-old lady with a history of atrial fibrillation.She presented with palpitation, shortness of breath, generalized weakness. and noted to be in rapid A-Fib #1 A. fib with RVR Heart rate has improved with the administration of IV Cardizem. -We will continue Coreg, monitor on telemetry. -Continue anticoagulation with Coumadin -INR in target range -Advise to follow with Belting Inspector at [facility] as soon as possible for adjustment of medication as recommended by her Belting Inspector #2 hypertension: BP is acceptable and Continue Coreg at 25 mg 2 times a day - will stop Cozaar [ was at 12.5 mg 2 times a day] -will continue aldactone at 12.5 mg daily -Follow with automatic oven operator at [facility] as soon possible #3 COPD No apparent acute exacerbation #4 Disposition: Will go home today and follow with Belting Inspector at [facility] as soon as possible, says he will call automatic oven operator on Tuesday ( 02/28/17) - General Info Date of Service: 02/26/17 Admission Dx/Problem (Free Text: Admission Diagnosis/Problem Admission Diagnosis/Problem Afib, Atrial fibrillation Subjective Update: She is feeling well today, no more weakness, No nausea or vomiting, No chest pain or shortness of breath Functional Status: Reports: Tolerating Diet, Ambulating, Urinating - Review of Systems General: Reports: Appetite (good). Denies: Fever, Weakness, Chills HEENT: Denies: Sinus Congestion, Sore Throat, Visual Changes Pulmonary: Denies: Shortness of Breath, Pleuritic Chest Pain, Cough, Sputum, Wheezing Cardiovascular: Denies: Chest Pain, Edema, Lightheadedness Gastrointestinal: Denies: Abdominal Pain, Difficulty Swallowing, Nausea, Vomiting Genitourinary: Denies: Dysuria, Burning, Urgency, Flank Pain Musculoskeletal: Denies: Neck Pain, Shoulder Pain, Leg Pain, Joint Pain Skin: Denies: Jaundice, Dryness, Bruising, Pruritis, Rash Neurological: Denies: Numbness, Paresthesia, Tingling, Tremors Psychiatric: Denies: Confusion, Anxiety - Patient Data Vitals - Most Recent: Last Vital Signs Temp 36.6 C 02/26/17 07:00 Pulse 94 02/26/17 08:19 Resp 20 02/26/17 07:00 BP 126/66 02/26/17 08:19 Pulse Ox 96 02/26/17 07:00 Weight - Most Recent: 66.769 kg I&O - Last 24 hours: Intake & Output 02/25/17 02/26/17 02/26/17 22:59 06:59 14:59 Intake Total 350 150 200 Output Total 300 400 Balance 50 -250 200 Lab Results - Last 24 hrs: Laboratory Results - last 24 hr 02/26/17 02/26/17 02/26/17 Range/Units 05:40 05:40 05:40 WBC 5.9 (5.0-10.0) 10^3/uL RBC 3.22 L (4.2-5.4) 10^6/uL Hgb 10.3 L D (12.0-16.0) g/dL Hct 33.2 L (37.0-47.0) % MCV 103.1 H (80-100) fL MCH 32.0 (27.0-34.0) pg MCHC 31.0 L (33.0-35.0) g/dL Plt Count 171 (150-450) 10^3/uL Neut % (Auto) 64.6 (42.2-75.2) % Lymph % (Auto) 8.5 L (20.5-50.1) % Brooke % (Auto) 20.2 H (2-8) % Eos % (Auto) 5.8 H (1.0-3.0) % Baso % (Auto) 0.9 (0.0-1.0) % Add Manual Diff Yes Neutrophils % (Manual) 66 (42-75) % Band Neutrophils % 2 % Lymphocytes % (Manual) 18 L (20-50) % Monocytes % (Manual) 10 H (2-8) % Eosinophils % (Manual) 4 H (1-3) % PT 29.1 H (9.0-12.0) SEC INR 2.9 H (0.9-1.2) Sodium 137 (135-145) mmol/L Potassium 4.2 (3.6-5.0) mmol/L Chloride 101 (101-111) mmol/L Carbon Dioxide 27.0 (21.0-31.0) mmol/L Anion Gap 13.2 BUN 24 H (7-18) mg/dL Creatinine 1.2 (0.6-1.3) mg/dL Est Cr Clr Drug Dosing 30.07 mL/min Estimated GFR (MDRD) 43 Glucose 82 (74-105) mg/dL Calcium 8.7 (8.4-10.2) mg/dl TSH, Ultra Sensitive (0.45-5.33) uIu/mL 02/26/17 Range/Units 05:40 WBC (5.0-10.0) 10^3/uL RBC (4.2-5.4) 10^6/uL Hgb (12.0-16.0) g/dL Hct (37.0-47.0) % MCV (80-100) fL MCH (27.0-34.0) pg MCHC (33.0-35.0) g/dL Plt Count (150-450) 10^3/uL Neut % (Auto) (42.2-75.2) % Lymph % (Auto) (20.5-50.1) % Brooke % (Auto) (2-8) % Eos % (Auto) (1.0-3.0) % Baso % (Auto) (0.0-1.0) % Add Manual Diff Neutrophils % (Manual) (42-75) % Band Neutrophils % % Lymphocytes % (Manual) (20-50) % Monocytes % (Manual) (2-8) % Eosinophils % (Manual) (1-3) % PT (9.0-12.0) SEC INR (0.9-1.2) Sodium (135-145) mmol/L Potassium (3.6-5.0) mmol/L Chloride (101-111) mmol/L Carbon Dioxide (21.0-31.0) mmol/L Anion Gap BUN (7-18) mg/dL Creatinine (0.6-1.3) mg/dL Est Cr Clr Drug Dosing mL/min Estimated GFR (MDRD) Glucose (74-105) mg/dL Calcium (8.4-10.2) mg/dl TSH, Ultra Sensitive 1.94 (0.45-5.33) uIu/mL Med Orders - Current: Current Medications Acetaminophen (Tylenol) 650 mg PO Q4H PRN PRN Reason: Pain (Mild 1-3)/fever Albuterol (Proventil Neb Soln) 2.5 mg NEB BID PRN PRN Reason: Shortness of Breath Carvedilol (Coreg) 25 mg PO BIDMEALS [facility] Last Admin: 02/26/17 08:19 Dose: 25 mg Folic Acid (Folic Acid) 1 mg PO DAILY [facility] Last Admin: 02/26/17 08:15 Dose: 1 mg Furosemide (Lasix) 10 mg PO DAILY [facility] Last Admin: 02/26/17 08:15 Dose: 10 mg Gabapentin (Neurontin) 100 mg PO BID [facility] Last Admin: 02/26/17 08:15 Dose: 100 mg Losartan Potassium (Cozaar) 12.5 mg PO BID [facility] Last Admin: 02/26/17 08:17 Dose: 12.5 mg Non-Formulary Medication (Fluticasone/Salmeterol [Advair Diskus 250-50]) 1 puff INH DAILY [facility] Pravastatin Sodium (Pravachol) 20 mg PO DAILY [facility] Last Admin: 02/26/17 08:16 Dose: 20 mg Sodium Chloride (Saline Flush) 10 ml FLUSH ASDIRECTED PRN PRN Reason: Keep Vein Open Last Admin: 02/25/17 13:24 Dose: 10 ml Sodium Chloride (Saline Flush) 10 ml FLUSH ASDIRECTED PRN PRN Reason: Keep Vein Open Spironolactone (Aldactone) 12.5 mg PO DAILY [facility] Last Admin: 02/26/17 08:18 Dose: 12.5 mg Tolterodine Tartrate (Detrol La 24 Hr) 4 mg PO DAILY [facility] Last Admin: 02/26/17 08:16 Dose: 4 mg Warfarin Sodium (Coumadin) 3 mg PO TuWeThFrSa@1400 [facility] Last Admin: 02/25/17 16:20 Dose: 3 mg Warfarin Sodium (Coumadin) 2.5 mg PO SuMo@1400 [facility] Zolpidem Tartrate (Ambien) 5 mg PO BEDTIME PRN PRN Reason: Sleep Discontinued Medications Diltiazem HCl (Diltiazem) 10 mg IVPUSH ONETIME ONE Stop: 02/25/17 13:00 Last Admin: 02/25/17 13:24 Dose: 10 mg - Exam Quality Assessment: Reports: DVT Prophylaxis. Denies: Supplemental Oxygen, Urine Catheter General: Reports: Alert, Oriented, Cooperative, No Acute Distress HEENT: Reports: Pupils Equal, EOMI, Mucous Membr. Moist/[place] Neck: Reports: Supple, No JVD, No Thyromegaly. Denies: Lymphadenopathy Lungs: Reports: Clear to Auscultation, Normal Respiratory Effort. Denies: Crackles, Wheezing Cardiovascular: Reports: Irregular Rhythm, Murmurs GI/Abdominal Exam: Normal Bowel Sounds, Soft, Non-Tender. No: Guarding, Rebound , Tender (Female) Exam: Deferred Rectal (Female) Exam: Deferred Back Exam: Reports: Normal Inspection, Full Range of Motion Extremities: Normal Inspection, Non-Tender, No Pedal Edema Skin: Reports: Warm, Dry, Intact Neurological: Reports: No New Focal Deficit Psy/Mental Status: Reports: Alert, Normal Affect, Normal Mood *Q Meaningful Use (DIS) - VTE *Q VTE Criteria *Q: - Stroke *Q Stroke Criteria *Q: - AMI *Q AMI Criteria *Q:
[2017-02-26 11:23] VITALS: BP 99/59
[2017-02-27] MEDS ORDERED: Warfarin 2.5 MG Tab PO SCH (14:00)
[2017-02-28] MEDS ORDERED: METHOTREXATE 2.5 MG PO SCH (09:00)
--- NOTE | 2017-03-05 12:53 | EKG ---
02/25/2017 - RADHA CARREON - A 12-lead EKG shows atrial fibrillation with rapid ventricular response with heart rate of 126. No significant ST elevation or ST depression noted on this 12-lead EKG. Nonspecific ST-T wave changes noted on lead V2 and V3. [facility] /[id number]
== END 2017-02-26 13:45 | disposition home or self-care (01) ==
LOC: DL.ED 12:35 → UNDOADMOB 15:22 → DL.MS 15:22
PROVIDERS: ADMIT Internal Medicine; ATTEND Internal Medicine
DX: I48.91 Unspecified atrial fibrillation (principal); I10 Essential (primary) hypertension; J44.9 Chronic obstructive pulmonary disease, unspecified; Z79.01 Long term (current) use of anticoagulants; Z79.899 Other long term (current) drug therapy; Z88.8 Allergy status to other drugs, medicaments and biological substances; Z90.49 Acquired absence of other specified parts of digestive tract; Z98.890 Other specified postprocedural states
CPT/HCPCS: 36415; 71010; 80048; 80053; 81001; 83880; 84443; 84484; 85025; 85610; 85730; 93005; 96374; 99285; A9270; J3490; J7050; 93010; 99217; 99284; G0378

== ENCOUNTER 2017-11-18 15:48 | Emergency (ER) | payer MEDICARE, OTHER ==
[2017-11-18 16:58] VITALS: BP 138/87
[2017-11-18] MEDS ORDERED: Bacitracin Oint 1 GM U/D Packet TOP ONE (17:02)
--- NOTE | 2017-11-18 17:08 | EDM.PDOC ---
ED HPI GENERAL MEDICAL PROBLEM - General Chief Complaint: Skin Complaint Stated Complaint: SORE ON RT LEG [id number] Time Seen by Provider: 11/18/17 16:50 Source of Information: Reports: Patient History Limitations: Reports: No Limitations - History of Present Illness INITIAL COMMENTS - FREE TEXT/NARRATIVE: This 77 yo female patient reports to the ED with a laceration to her right anterior calf. The patient reports she hit her leg on the certified recreational therapist door 2 days ago and is now concerned that she is starting to get an infection in the area. The patient is on a blood thinner due to an irregular heartrate. Onset Date: 11/16/17 Duration: Constant, Getting Worse Location: Reports: Lower Extremity, Right Quality: Reports: Other Severity: Mild Improves with: Reports: None Worsens with: Reports: None Associated Symptoms: Reports: No Other Symptoms Treatments ESTIMATOR: Reports: Dressing(s) - Related Data Allergies Allergy/AdvReac Type Severity Reaction Status Date / Time codeine Allergy Vomiting Verified 02/25/17 15:26 Home Meds: Home Meds Folic Acid 3 tab PO DAILY 08/01/13 [History] Gabapentin [Neurontin] 100 mg PO BID 08/01/13 [History] Methotrexate [Rheumatrex] 6 tab PO WEEKLY 08/01/13 [History] Warfarin Sodium [Jantoven] 3 mg PO .SAT 09/25/15 [History] Carvedilol 25 mg PO BID 08/02/16 [History] Fluticasone/Salmeterol [Advair Diskus 250-50] 1 puff INH DAILY 08/02/16 [History ] Furosemide [Lasix] 10 mg PO DAILY 08/02/16 [History] Losartan [Cozaar] 12.5 mg PO BID 08/02/16 [History] Pravastatin [Pravachol] 20 mg PO DAILY 08/02/16 [History] Spironolactone [Aldactone] 12.5 mg PO DAILY 08/02/16 [History] Tolterodine Tartrate [Detrol LA] 4 mg PO DAILY 08/02/16 [History] Albuterol Sulfate [Proair Hfa] 2 puff IH Q6HR PRN 02/25/17 [History] Albuterol [Proventil Neb Soln] 2.5 mg NEB BID PRN 02/25/17 [History] Warfarin [Coumadin] 2.5 mg PO .LANGE.MON 02/25/17 [History] Past Medical History HEENT History: Reports: Impaired Vision Cardiovascular History: Reports: Afib, Hypertension, Other (See Below) Other Cardiovascular History: Pt. reports of cardiac issues secondary to past chemotherapy Respiratory History: Reports: Asthma, COPD, Other (See Below) Other Respiratory History: questionable COPD Musculoskeletal History: Reports: Osteoarthritis, RA Oncologic (Cancer) History: Reports: Breast, Other (See Below) Other Oncologic History: unspecified skin cancer - Infectious Disease History Infectious Disease History: Reports: Chicken Pox, Measles, Shingles - Past Surgical History HEENT Surgical History: Reports: Cataract Surgery GI Surgical History: Reports: Cholecystectomy Female Surgical History: Reports: Mastectomy Social & Family History - Family History Family Medical History: Unobtainable - Tobacco Use Smoking Status *Q: Never Smoker - Caffeine Use Caffeine Use: Reports: Coffee - Recreational Drug Use Recreational Drug Use: No ED ROS GENERAL - Review of Systems Review Of Systems: ROS reveals no pertinent complaints other than HPI. ED EXAM, SKIN/RASH Exam: See Below Exam Limited By: No Limitations General Appearance: Alert, WD/WN, Mild Distress Eye Exam: Bilateral Eye: EOMI, Normal Inspection, PERRL Ears: Normal External Exam, Normal Canal, Hearing Grossly Normal, Normal TMs Nose: Normal Inspection, Normal Mucosa, No Blood Throat/Mouth: Normal Inspection, Normal Lips, Normal Teeth, Normal Gums, Normal Oropharynx, Normal Voice, No Airway Compromise Head: Atraumatic, Normocephalic Neck: Normal Inspection, Supple, Non-Tender, Full Range of Motion Respiratory/Chest: No Respiratory Distress, Lungs Clear, Normal Breath Sounds, No Accessory Muscle Use, Chest Non-Tender Cardiovascular: Tachycardia, Irregularly Irregular GI/Abdominal: Normal Bowel Sounds, Soft, Non-Tender, No Organomegaly, No Distention, No Abnormal Bruit, No Mass (Female) Exam: Deferred Rectal (Female) Exam: Deferred Back Exam: Normal Inspection, Full Range of Motion, NT Extremities: Pedal Edema, Other (laceration to the right anterior inman) Neurological: Alert, Oriented, CN II-XII Intact, Normal Cognition, Normal Gait, Normal Reflexes, No Motor/Sensory Deficits Psychiatric: Normal Affect, Normal Mood Skin: Wound/Incision Location, Skin: Lower Extremity, Right Characteristics: Other (skin tear to the right anterior inman) Associated features: Warmth, Tenderness, Swelling Lymphatic: No Adenopathy Course - Vital Signs Last Recorded V/S: Last Vital Signs Temp 36.3 C 11/18/17 16:53 Pulse 85 11/18/17 16:53 Resp 14 11/18/17 16:53 BP 138/87 11/18/17 16:53 Pulse Ox 96 11/18/17 16:53 - Orders/Labs/Meds Orders: Active Orders 24 hr Category Date Time Status Bacitracin [Bacitracin Oint 1 GM] Med 11/18/17 17:02 Once 1 dose TOP ONETIME ONE Medication Orders Bacitracin (Bacitracin Oint 1 Gm) 1 dose TOP ONETIME ONE Stop: 11/18/17 17:03 Meds: Medications Generic Name Dose Route Start Last Admin Trade Name Freq PRN Reason Stop Dose Admin Bacitracin 1 dose 11/18/17 17:02 Bacitracin Oint 1 Gm TOP 11/18/17 17:03 ONETIME ONE Departure - Departure Time of Disposition: 17:07 Disposition: Home, Self-Care 01 Condition: Fair Clinical Impression: Skin tear of right lower leg without complication Qualifiers: Encounter type: initial encounter Qualified Code(s): S81.811A - Laceration without foreign body, right lower leg, initial encounter - Discharge Information *PRESCRIPTION DRUG MONITORING PROGRAM REVIEWED*: Not Applicable *COPY OF PRESCRIPTION DRUG MONITORING REPORT IN PATIENT DEREK: Not Applicable Instructions: Nonsutured Laceration Care, Skin Tear Care, Myym-so-Ltck Care Plan Goals: The patient was advised of the examination results during the visit. The patient 's wound was dressed during the visit in the ED. The patient was encouraged to keep the area clean and dry over the next 48 hours. If the patient has any additional symptoms or concerns, the patient should visit her primary care facility or return to the emergency department. - My Orders Last 24 Hours: My Active Orders 11/18/17 17:02 Bacitracin [Bacitracin Oint 1 GM] 1 dose TOP ONETIME ONE - Assessment/Plan Last 24 Hours: My Active Orders 11/18/17 17:02 Bacitracin [Bacitracin Oint 1 GM] 1 dose TOP ONETIME ONE
== END 2017-11-18 17:17 | disposition home or self-care (01) ==
LOC: DL.ED 15:48
DX: S81.811A Laceration without foreign body, right lower leg, initial encounter (principal); I10 Essential (primary) hypertension; J44.9 Chronic obstructive pulmonary disease, unspecified; Z88.5 Allergy status to narcotic agent; Z79.899 Other long term (current) drug therapy; W22.8XXA Striking against or struck by other objects, initial encounter
CPT/HCPCS: 99282; 99283

== ENCOUNTER 2018-09-07 08:55 | Day surgery (SDC) | payer MEDICARE, OTHER ==
[~2018-09-07 08:55] MED LIST: Clindamycin Phosphate 600 MG in Sodium Chloride 0.9% 100 ML IV ONE; Lactated Ringers 1,000 ML IV SCH; Sodium Chloride 0.9% 10 ML Syringe FLUSH PRN; ceFAZolin 2 GM in Premix Bag 1 BAG IV ONE
[2018-09-07] MEDS ORDERED: fentaNYL 100 MCG/2 ML SDV IV ONE (08:56)
[2018-09-07] MEDS ORDERED: Ondansetron 4 MG/2 ML SDV IV ONE (08:56)
[2018-09-07] MEDS ORDERED: ceFAZolin/Dextrose,Iso-Osmotic 2 GM/50 ML Duplex Bag IV ONE (08:56)
[2018-09-07] MEDS ORDERED: Propofol 200 MG/20 ML SDV IV ONE (08:56)
[2018-09-07] MEDS ORDERED: Bupivacaine 0.5% 30 ML SDV INJECT ONE ×2 (08:56→12:53)
[2018-09-07] MEDS ORDERED: Midazolam 1 MG/ML 2 ML SDV IV ONE (08:56)
[2018-09-07] MEDS ORDERED: Lidocaine 1% 30 ML SDV INJECT ONE ×2 (08:56→12:53)
[2018-09-07] MEDS ORDERED: Lidocaine 1% 30 ML SDV ONE (12:09)
[2018-09-07] MEDS ORDERED: Bupivacaine 0.5% 30 ML SDV ONE (12:09)
[2018-09-07] MEDS ORDERED: Acetaminophen/oxyCODONE 325-5 MG Tab PO PRN (13:39)
--- NOTE | 2018-09-07 13:43 | PCM.OPNOTE ---
- General Post-Op/Procedure Note Date of Surgery/Procedure: 09/07/18 Operative Procedure(s): Left foot 2nd digit PIPJ arthrodesis with smart toe implant Pre Op Diagnosis: left foot hammertoe 2nd digit Post-Op Diagnosis: jesus Anesthesia Technique: Local, MAC Primary Surgeon: Hellen Travis Anesthesia Provider: Reinaldo Yousif EBL in mLs: 5 Complications: none Condition: Good Free Text/Narrative:: pt tolerated procedure well and was transported to recovery with vascular status intact to left foot digits. Well padded compression dressing applied. Post op shoe applied.
[2018-09-08 07:43] VITALS: BP 123/66
--- NOTE | 2018-09-08 12:01 | OR ---
DATE: 09/07/2018 PREOPERATIVE DIAGNOSIS: Left foot second digit hammertoe. POSTOPERATIVE DIAGNOSIS: Left foot second digit hammertoe. PROCEDURE PERFORMED: Left foot second digit proximal interphalangeal joint arthrodesis, hammertoe correction. ANESTHESIA: Local MAC with preoperative local block of 10 mL 1:1 mixture of 1% lidocaine plain and 0.5% Marcaine plain. TOURNIQUET TIME: 29 minutes, pneumatic ankle tourniquet. ESTIMATED BLOOD LOSS: Minimal. COMPLICATIONS: None. INDICATIONS: Radha is an 78-year-old female who returns for painful hammertoe of the left second toe. I have seen her in the past, we have tried different hammertoe pads and Budin splint with no relief. She reports the toe was progressively worsened to the point now where she wants it fixed. The toe was very painful with any type of shoe, mostly on the top of the toe where she gets a painful callus. The patient voiced good understanding of proposed procedure and possible complications and elects to have surgery at this time. DESCRIPTION OF PROCEDURE: The patient was taken to the operating room, lying in supine position. After adequate anesthesia induction as described above, the left foot was prepped and draped in the usual sterile fashion. A pneumatic ankle tourniquet was inflated to 225 mmHg. Attention was then directed to the left foot second digit where a linear incision was made overlying the proximal interphalangeal joint. Sharp and blunt dissection were made down to the level of the joint. A linear capsulotomy tenotomy was made at the joint and the tissue was reflected to expose the head of the proximal phalanx. A sagittal saw was used to remove the head of the proximal phalanx and the base of the middle phalanx. A Smart Toe implant size 19 was then inserted into the proximal phalanx and the middle phalanx and the joint was compressed. Fluoroscopy was used to verify proper positioning of the implant and good compression of the joint. The toe was still noted to be in a slight dorsiflexed position, so dissection was performed down to the level of the metatarsophalangeal joint of the second toe and this was released at the dorsal aspect. The toe was then noted to be in a straight rectus alignment. The area was then irrigated with copious amounts of sterile saline. Deep closure was completed with 3-0 Vicryl and skin closure was completed with 4-0 nylon. The toe was then dressed with Xeroform to incision site, fluffs, Webril, and an Familia wrap. She was placed nonweightbearing with a walker. The patient tolerated anesthesia and the procedure well, was transported to recovery room with vital status intact and vascular status intact as noted by immediate hyperemia to all digits upon deflation of the ankle tourniquet. She was then discharged home when she met hospital discharge requirements. [facility] /[id number]
== END 2018-09-07 15:30 | disposition home or self-care (01) ==
LOC: DL.SDS 08:55
PROVIDERS: ATTEND Podiatrist
DX: M20.42 Other hammer toe(s) (acquired), left foot (principal); I48.2 Chronic atrial fibrillation; I10 Essential (primary) hypertension; I42.9 Cardiomyopathy, unspecified; G62.9 Polyneuropathy, unspecified; N28.9 Disorder of kidney and ureter, unspecified; J45.909 Unspecified asthma, uncomplicated; M06.9 Rheumatoid arthritis, unspecified; E66.9 Obesity, unspecified; Z68.30 Body mass index [BMI] 30.0-30.9, adult; Z85.3 Personal history of malignant neoplasm of breast; Z79.01 Long term (current) use of anticoagulants; Z79.899 Other long term (current) drug therapy; Z88.5 Allergy status to narcotic agent; Z88.8 Allergy status to other drugs, medicaments and biological substances
CPT/HCPCS: 93005; A4217; C1776; J0690; J2001; J2250; J2405; J2704; J3010; J3490; J7120

== ENCOUNTER 2018-11-17 19:59 | Emergency (ER) | payer MEDICARE, OTHER ==
[2018-11-17 20:11] VITALS: BP 125/72; PULSE 86
[2018-11-17] MEDS ORDERED: Diphtheria,Pertussis(Acell),Tetanus Vaccine 0.5 ML SDV IM ONE (20:16)
--- NOTE | 2018-11-17 20:22 | EDM.PDOC ---
ED HPI GENERAL MEDICAL PROBLEM - General Chief Complaint: Skin Complaint Stated Complaint: leg is bleeding Time Seen by Provider: 11/17/18 20:16 Source of Information: Reports: Patient History Limitations: Reports: No Limitations - History of Present Illness INITIAL COMMENTS - FREE TEXT/NARRATIVE: bumped right lower leg onto mainstreaming facilitator door tonight. - Related Data Allergies Allergy/AdvReac Type Severity Reaction Status Date / Time benazepril Allergy Other Verified 09/07/18 09:45 codeine Allergy Vomiting Verified 09/07/18 09:45 simvastatin Allergy Other Verified 09/07/18 09:45 Home Meds: Home Meds Folic Acid 3 tab PO DAILY 08/01/13 [History] Warfarin Sodium [Jantoven] 3 mg PO .Tuesday09/25/15 [History] Carvedilol 25 mg PO BID 08/02/16 [History] Fluticasone/Salmeterol [Advair Diskus 250-50] 1 puff INH DAILY 08/02/16 [History ] Furosemide [Lasix] 20 mg PO .EVERYOTHERDAY 08/02/16 [History] Losartan [Cozaar] 25 mg PO BID 08/02/16 [History] Pravastatin [Pravachol] 40 mg PO DAILY 08/02/16 [History] Spironolactone [Aldactone] 25 mg PO .EVERYOTHERDAY 08/02/16 [History] Tolterodine Tartrate [Detrol LA] 4 mg PO DAILY 08/02/16 [History] Albuterol Sulfate [Proair Hfa] 2 puff IH Q6HR PRN 02/25/17 [History] Albuterol [Proventil Neb Soln] 2.5 mg NEB BID PRN 02/25/17 [History] Warfarin [Coumadin] 2.5 mg PO .[id number] 02/25/17 [History] predniSONE 5 mg PO DAILY 03/08/18 [History] Loratadine 10 mg PO DAILY 09/04/18 [History] Mupirocin Calcium [Mupirocin] 1 applic TOP ASDIRECTED 09/04/18 [History] Past Medical History HEENT History: Reports: Impaired Vision, Macular Degeneration Cardiovascular History: Reports: Afib, Cardiomyopathy, High Cholesterol, Hypertension, Other (See Below) Other Cardiovascular History: Pt. 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: Musculoskeletal History: Reports: Arthritis, Osteoarthritis, RA Neurological History: Reports: Neuropathy, Peripheral Psychiatric History: Reports: None Endocrine/Metabolic History: Reports: Osteoporosis Hematologic History: Reports: Anemia Immunologic History: Reports: None Oncologic (Cancer) History: Reports: Breast, Other (See Below) Other Oncologic History: unspecified skin cancer Dermatologic History: Reports: None - Infectious Disease History Infectious Disease History: Reports: Chicken Pox, Measles, Shingles - Past Surgical History Head Surgeries/Procedures: Reports: None HEENT Surgical History: Reports: Cataract Surgery Cardiovascular Surgical History: Reports: None GI Surgical History: Reports: Cholecystectomy Female Surgical History: Reports: Mastectomy Other Female Surgeries/Procedures: right sided Musculoskeletal Surgical History: Reports: None Social & Family History - Family History Family Medical History: Unobtainable - Tobacco Use Smoking Status *Q: Never Smoker - Caffeine Use Caffeine Use: Reports: Coffee Other Caffeine Use: 16. oz daily - Alcohol Use Days Per Week of Alcohol Use: 7 Number of Drinks Per Day: 1 Total Drinks Per Week: 7 - Recreational Drug Use Recreational Drug Use: No ED ROS GENERAL - Review of Systems Review Of Systems: ROS reveals no pertinent complaints other than HPI. ED EXAM, SKIN/RASH Exam: See Below Exam Limited By: No Limitations General Appearance: Alert, WD/WN, No Apparent Distress Ears: Hearing Grossly Normal Throat/Mouth: Normal Voice, No Airway Compromise Head: Atraumatic Neck: Non-Tender, Full Range of Motion Respiratory/Chest: No Respiratory Distress Cardiovascular: Regular Rate, Rhythm GI/Abdominal: Soft, Non-Tender Extremities: Other (2" size skin tear right lower leg, NV wnl) Neurological: Alert (wnl), Normal Cognition, Normal Gait, No Motor/Sensory Deficits Psychiatric: Normal Affect, Normal Mood Skin: Warm, Dry, Normal Color Location, Skin: Lower Extremity, Right Lymphatic: No Adenopathy ED SKIN PROCEDURES - Laceration/Wound Repair Right Leg Appearance: Superficial, Clean, Other (2" size skin tear) Distal NVT: Neuro & Vascular Intact, No Tendon Injury Skin Prep: Chlorhexidine (Hibiciens) Exploration/Debridement/Repair: Wound Explored, In a Bloodless Field, No Foreign Material Found Closed with: Other (pressure dressing) Lac/Wound length In cm: 0.5 Sterile Dressing Applied: Provider Tetanus Status Addressed: Yes Complications: No Course - Vital Signs Last Recorded V/S: Last Vital Signs Temp 36.1 C 11/17/18 20:10 Pulse 86 11/17/18 20:10 Resp 18 11/17/18 20:10 BP 125/72 11/17/18 20:10 Pulse Ox 93 L 11/17/18 20:10 - Orders/Labs/Meds Labs: Laboratory Tests 11/17/18 Range/Units 20:25 PT 24.4 H (9.0-12.0) SEC INR 2.5 H (0.9-1.2) Meds: Medications Discontinued Medications Generic Name Dose Route Start Last Admin Trade Name Freq PRN Reason Stop Dose Admin Diphtheria/Tetanus/Acell Pertussis 0.5 ml 11/17/18 20:16 11/17/18 20:21 Adacel IM 11/17/18 20:17 0.5 ml .ONCE ONE Administration - Re-Assessments/Exams Free Text/Narrative Re-Assessment/Exam: 11/17/18 21:03 results discussed wiht pt Departure - Departure Time of Disposition: 21:05 Disposition: Home, Self-Care 01 Condition: Good Clinical Impression: Skin tear - Discharge Information *PRESCRIPTION DRUG MONITORING PROGRAM REVIEWED*: Not Applicable *COPY OF PRESCRIPTION DRUG MONITORING REPORT IN PATIENT DEREK: Not Applicable Instructions: Skin Tear Care, [id number] Referrals: PCP,None [Ordering Only Provider] - Forms: ED Department Discharge Additional Instructions: 1) keep wound clean dry covered over the weekend 2) wound check 48 hours 3) elevate leg as much as possible over the weekend
== END 2018-11-17 21:20 | disposition home or self-care (01) ==
LOC: DL.ED 19:59
DX: S81.811A Laceration without foreign body, right lower leg, initial encounter (principal); I10 Essential (primary) hypertension; I48.91 Unspecified atrial fibrillation; M06.9 Rheumatoid arthritis, unspecified; M19.90 Unspecified osteoarthritis, unspecified site; Z23 Encounter for immunization; Z98.49 Cataract extraction status, unspecified eye; Z90.49 Acquired absence of other specified parts of digestive tract; Z79.01 Long term (current) use of anticoagulants; Z79.899 Other long term (current) drug therapy; Z88.5 Allergy status to narcotic agent; Z88.8 Allergy status to other drugs, medicaments and biological substances; W27.4XXA Contact with kitchen utensil, initial encounter; Y92.009 Unspecified place in unspecified non-institutional (private) residence as the place of occurrence of the external cause
CPT/HCPCS: 36415; 85610; 90471; 90715; 99283

== ENCOUNTER 2020-08-16 11:51 | Inpatient (IN) | payer MEDICARE, OTHER ==
[2020-08-16 13:15] LABS: ANION GAP 9.4 mEq/L (7-13); CHLORIDE,CL 100 mmol/L (98-107); SODIUM,NA 138 mmol/L (136-145)
--- NOTE | 2020-08-16 13:46 | CR ---
PROCEDURE INFORMATION: Exam: XR Chest Exam date and time: 08/16/2020 1:14 PM Age: 80 years old Clinical indication: Pain; Chest pressure; Additional info: Chest pain TECHNIQUE: Imaging protocol: XR of the chest. Views: 1 view. COMPARISON: CR Chest 1V Frontal 03/07/2018 11:55 PM and 02/25/2017 FINDINGS: Lungs: The lungs are normally expanded and clear. Pleural spaces: Normal. Heart/Mediastinum: Chronic unchanged cardiomegaly. Vasculature: Chronic aortosclerosis. Normal caliber aorta. Bones/joints: Intact and normally aligned. No suspicious lesion. IMPRESSION: No interval change or acute disease. Incidentally noted atherosclerosis and mild cardiomegaly.
[2020-08-16] MEDS ORDERED: ceFAZolin 1 GM in Sodium Chloride 0.9% 50 ML IV ONE (13:56)
--- NOTE | 2020-08-16 14:01 | EDM.PDOC ---
Scribed by Idania Dawson 08/16/20 1401 for Mariza Yeboah NP ED HPI GENERAL MEDICAL PROBLEM - General Chief Complaint: Lower Extremity Injury/Pain Stated Complaint: RIGHT LEG INFECTION/RED,SWOLLEN Time Seen by Provider: 08/16/20 12:15 Source of Information: Reports: Patient, RN, RN Notes Reviewed History Limitations: Reports: No Limitations - History of Present Illness INITIAL COMMENTS - FREE TEXT/NARRATIVE: Patient is an 80-year-old female who presents to ER with with complaint of possible infection to the right lower extremity. Patient had initially had a skin tear to the medial right lower extremity from bumping the water attendant door while it was open. She has been seeing primary, last saw primary yesterday. Skin tear was debrided and redressed. This morning the patient and noticed the lower leg has some increased swelling and erythema. She admits to drainage (clear/yellow) from wound. states patient has had the chills today. Denies known fever. Denies nausea, vomiting or diarrhea. Patient is sleepy, but patient and state that is "normal" for her. states patient generally has heart rate in the 60s and 02 sats 93-95 as he checks daily. 02 sats 88.1 on room air when getting from wheelchair to bed. No home oxygen. - Related Data Allergies Allergy/AdvReac Type Severity Reaction Status Date / Time benazepril Allergy Other Verified 08/16/20 12:12 codeine Allergy Vomiting Verified 08/16/20 12:12 simvastatin Allergy Other Verified 08/16/20 12:12 Home Meds: Home Meds Warfarin Sodium [Jantoven] 2.5 mg PO .Tuesday09/25/15 [History] Fluticasone/Salmeterol [Advair Diskus 250-50] 1 puff INH DAILY 08/02/16 [History] Furosemide [Lasix] 20 mg PO DAILY 08/02/16 [History] Losartan [Cozaar] 25 mg PO BID 08/02/16 [History] Pravastatin [Pravachol] 40 mg PO DAILY 08/02/16 [History] Spironolactone [Aldactone] 25 mg PO .08/02/16 [History] Tolterodine Tartrate [Detrol LA] 4 mg PO DAILY 08/02/16 [History] carvediloL [Carvedilol] 25 mg PO BID 08/02/16 [History] Albuterol Sulfate [Proair Hfa] 2 puff IH Q6HR PRN 02/25/17 [History] Albuterol [Proventil Neb Soln] 2.5 mg NEB BID PRN 02/25/17 [History] Warfarin [Coumadin] 2 mg PO .[id number] 02/25/17 [History] predniSONE 5 mg PO DAILY 03/08/18 [History] Gabapentin [Neurontin] 100 mg PO DAILY 08/16/20 [History] Gabapentin [Neurontin] 200 mg PO BEDTIME 08/16/20 [History] Past Medical History HEENT History: Reports: Impaired Vision, Macular Degeneration Cardiovascular History: Reports: Afib, Cardiomyopathy, Heart Failure, High Cholesterol, Hypertension, Other (See Below) Other Cardiovascular History: Pt. 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: Musculoskeletal History: Reports: Arthritis, Neck Pain, Chronic, Osteoarthritis, RA Neurological History: Reports: Neuropathy, Peripheral Psychiatric History: Reports: None Endocrine/Metabolic History: Reports: Osteoporosis Hematologic History: Reports: Anemia Immunologic History: Reports: None Oncologic (Cancer) History: Reports: Breast, Other (See Below) Other Oncologic History: unspecified skin cancer Dermatologic History: Reports: None - Infectious Disease History Infectious Disease History: Reports: Chicken Pox, Measles, Shingles - Past Surgical History Head Surgeries/Procedures: Reports: None HEENT Surgical History: Reports: Cataract Surgery Cardiovascular Surgical History: Reports: None GI Surgical History: Reports: Cholecystectomy Female Surgical History: Reports: Mastectomy Other Female Surgeries/Procedures: right sided Musculoskeletal Surgical History: Reports: None Social & Family History - Family History Family Medical History: Unobtainable - Caffeine Use Caffeine Use: Reports: Coffee Other Caffeine Use: 16. oz daily - Living Situation & Occupation Living situation: Reports: with Spouse Review of Systems - Review of Systems Review Of Systems: Comprehensive ROS is negative, except as noted in HPI. ED EXAM, GENERAL - Physical Exam Exam: See Below Exam Limited By: No Limitations General Appearance: Lethargic Eye Exam: Bilateral Eye: EOMI, Normal Inspection, PERRL Ears: Normal External Exam, Normal Canal, Hearing Grossly Normal, Normal TMs Nose: Normal Inspection, Normal Mucosa, No Blood Throat/Mouth: Normal Inspection, Normal Lips, Normal Teeth, Normal Gums, Normal Oropharynx, Normal Voice, No Airway Compromise Head: Atraumatic, Normocephalic Neck: Normal Inspection, Supple, Non-Tender, Full Range of Motion Respiratory/Chest: Decreased Breath Sounds, Crackles (bases bilaterally) Cardiovascular: Irregularly Irregular GI/Abdominal: Normal Bowel Sounds, Soft, Non-Tender, No Organomegaly, No Distention, No Abnormal Bruit, No Mass (Female) Exam: Deferred Rectal (Female) Exam: Deferred Back Exam: Normal Inspection, Full Range of Motion, NT Extremities: Other (weak, walks with a cane) Neurological: Other (lethargic) Psychiatric: Normal Affect, Normal Mood Skin Exam: Other (skin tear medial right calf [id number]. ) Lymphatic: No Adenopathy Course - Vital Signs Last Recorded V/S: Last Vital Signs Temp 99.3 F 08/16/20 12:05 Pulse 93 08/16/20 12:05 Resp 20 08/16/20 12:05 BP 155/98 H 08/16/20 12:05 Pulse Ox 94 L 08/16/20 12:05 - Orders/Labs/Meds Orders: Active Orders 24 hr Category Date Time Status Admission Diagnosis [ADT] Stat ADT 08/16/20 13:57 Ordered Admission Status [Patient Status] [ADT] Routine ADT 08/16/20 13:57 Ordered BLOOD GAS ARTERIAL [BG] Stat Lab 08/16/20 13:56 Ordered CULTURE BLOOD [BC] Stat Lab 08/16/20 12:37 Received CULTURE BLOOD [BC] Stat Lab 08/16/20 12:44 Results ceFAZolin [Ancef] 1 gm Med 08/16/20 13:56 Ordered Sodium Chloride 0.9% [Normal Saline] 50 ml IV ONETIME Blood Culture x2 Reflex Set [OM.PC] Stat Oth 08/16/20 12:25 Ordered Medication Orders Cefazolin Sodium 1 gm/ Sodium (Chloride) 50 mls @ 100 mls/hr IV ONETIME ONE Stop: 08/16/20 14:25 Labs: Laboratory Tests 08/16/20 08/16/20 08/16/20 Range/Units 12:37 12:37 12:37 WBC 10.9 H (5.0-10.0) 10^3/uL RBC 4.62 (4.2-5.4) 10^6/uL Hgb 14.1 D (12.0-16.0) g/dL Hct 44.9 (37.0-47.0) % MCV 97.2 D (80-100) fL MCH 30.5 (27.0-34.0) pg MCHC 31.4 L (33.0-35.0) g/dL Plt Count 177 (150-450) 10^3/uL Neut % (Auto) 85.9 H (42.2-75.2) % Lymph % (Auto) 6.0 L (20.5-50.1) % [place] % (Auto) 7.1 (2-8) % Eos % (Auto) 0.8 L (1.0-3.0) % Baso % (Auto) 0.2 (0.0-1.0) % Sodium 138 (136-145) mmol/L Potassium 4.4 (3.5-5.1) mmol/L Chloride 100 (98-107) mmol/L Carbon Dioxide 33 H (21-32) mmol/L Anion Gap 9.4 (7-13) mEq/L BUN 25 H (7-18) mg/dL Creatinine 1.46 H (0.55-1.02) mg/dL Est Cr Clr Drug Dosing TNP Estimated GFR (MDRD) 34 BUN/Creatinine Ratio 17.1 (No establ ref range) Glucose 115 H (70-99) mg/dL Lactic Acid 1.1 (0.4-2.0) mmol/L Calcium 8.7 (8.5-10.1) mg/dL Total Bilirubin 1.2 H (0.2-1.0) mg/dL AST 20 (15-37) U/L ALT 28 (14-59) U/L Alkaline Phosphatase 71 (46-116) U/L C-Reactive Protein 0.8 (0.0-0.9) mg/dL B-Natriuretic Peptide 381 H (0-100) pg/ml Total Protein 7.0 (6.4-8.2) g/dL Albumin 3.4 (3.4-5.0) g/dL Globulin 3.6 Albumin/Globulin Ratio 0.9 Meds: Medications Generic Name Dose Route Start Last Admin Trade Name Freq PRN Reason Stop Dose Admin Cefazolin Sodium 1 gm/ Sodium 50 mls @ 100 mls/hr 08/16/20 13:56 Chloride IV 08/16/20 14:25 ONETIME ONE - Radiology Interpretation Free Text/Narrative:: Chest xray: PROCEDURE INFORMATION: Exam: XR Chest Exam date and time: 08/16/2020 1:14 PM Age: 80 years old Clinical indication: Pain; Chest pressure; Additional info: Chest pain TECHNIQUE: Imaging protocol: XR of the chest. Views: 1 view. COMPARISON: CR Chest 1V Frontal 03/07/2018 11:55 PM and 02/25/2017 FINDINGS: Lungs: The lungs are normally expanded and clear. Pleural spaces: Normal. Heart/Mediastinum: Chronic unchanged cardiomegaly. Vasculature: Chronic aortosclerosis. Normal caliber aorta. Bones/joints: Intact and normally aligned. No suspicious lesion. IMPRESSION: No interval change or acute disease. Incidentally noted atherosclerosis and mild cardiomegaly. Thank you for allowing us to participate in the care of your patient. Dictated and Authenticated by: Isaac Hammonds MD 08/16/2020 1:46 PM Central Time ([place] & [place]) See rad report - Re-Assessments/Exams Free Text/Narrative Re-Assessment/Exam: 08/16/20 13:59 Discussed patient case with Dr. Dutta who agreed to accept the patient for inpatient admission. Departure - Departure Time of Disposition: 14:00 Disposition: Admitted As Inpatient 64 Condition: Fair Clinical Impression: Hypoxia Afib Qualifiers: Atrial fibrillation type: longstanding persistent Qualified Code(s): I48.11 - Longstanding persistent atrial fibrillation Cellulitis Qualifiers: Site of cellulitis: extremity Site of cellulitis of extremity: lower extremity Laterality: right Qualified Code(s): L03.115 - Cellulitis of right lower limb Skin tear of right lower leg without complication Qualifiers: Encounter type: initial encounter Qualified Code(s): S81.811A - Laceration without foreign body, right lower leg, initial encounter - Discharge Information *PRESCRIPTION DRUG MONITORING PROGRAM REVIEWED*: No *COPY OF PRESCRIPTION DRUG MONITORING REPORT IN PATIENT DEREK: No Forms: ED Department Discharge Sepsis Event Note (ED) - Evaluation Sepsis Screening Result: No Definite Risk - Focused Exam Vital Signs: Vital Signs Temp Pulse Resp BP Pulse Ox 08/16/20 12:05 99.3 F 93 20 155/98 H 94 L - My Orders Last 24 Hours: My Active Orders 08/16/20 12:25 Blood Culture x2 Reflex Set [OM.PC] Stat 08/16/20 12:37 CULTURE BLOOD [BC] Stat 08/16/20 12:44 CULTURE BLOOD [BC] Stat 08/16/20 13:56 BLOOD GAS ARTERIAL [BG] Stat ceFAZolin [Ancef] 1 gm Sodium Chloride 0.9% [Normal Saline] 50 ml IV ONETIME 08/16/20 13:57 Admission Diagnosis [ADT] Stat Admission Status [Patient Status] [ADT] Routine - Assessment/Plan Last 24 Hours: My Active Orders 08/16/20 12:25 Blood Culture x2 Reflex Set [OM.PC] Stat 08/16/20 12:37 CULTURE BLOOD [BC] Stat 08/16/20 12:44 CULTURE BLOOD [BC] Stat 08/16/20 13:56 BLOOD GAS ARTERIAL [BG] Stat ceFAZolin [Ancef] 1 gm Sodium Chloride 0.9% [Normal Saline] 50 ml IV ONETIME 08/16/20 13:57 Admission Diagnosis [ADT] Stat Admission Status [Patient Status] [ADT] Routine I have read and agree with the documentation that has been completed regarding this visit. By signing this record, I attest that the documentation was completed in my physical presence and is an accurate record of the encounter.
[2020-08-16 14:11] LABS: O2 DELIVERY DEVICE NASAL CANNULA
[2020-08-16 14:12] LABS: ALLEN TEST POSITIVE; BASE EXCESS ARTERIAL 5 mmol/L ((-2)-(+3)); O2 SATURATION ARTERIAL 96 % (95-100); PCO2 ARTERIAL 43 mmHg (35-45); PO2 ARTERIAL 82 mmHg (70-100)
[2020-08-16 15:18] LABS: CORONAVIRUS COVID-19 NAA POSITIVE (NEGATIVE)
[2020-08-16] MEDS ORDERED: Acetaminophen 325 MG Tab PO PRN (16:44)
[2020-08-16] MEDS ORDERED: Formoterol/Mometasone 200-5 MCG 8.8 GM Inhaler IH PRN (16:47)
[2020-08-16] MEDS ORDERED: Losartan 25 MG Tab PO PRN (16:47)
--- NOTE | 2020-08-16 17:56 | CT ---
PROCEDURE INFORMATION: Exam: CT Chest Without Contrast; Diagnostic Exam date and time: 08/16/2020 5:13 PM Age: 80 years old Clinical indication: Other: Covid; Additional info: Evaluate for covid19 changes TECHNIQUE: Imaging protocol: Diagnostic computed tomography of the chest without contrast. Total images: 254 Radiation optimization: All CT scans at this facility use at least one of these dose optimization techniques: automated exposure control; mA and/or kV adjustment per patient size (includes targeted exams where dose is matched to clinical indication); or iterative reconstruction. COMPARISON: CR Chest 1V Frontal 08/16/2020 1:14 PM FINDINGS: Lungs: Minimal linear atelectasis bilaterally. No discrete focal consolidation. Pleural spaces: Unremarkable. No pneumothorax. No pleural effusion. Heart: [id number] cardiomegaly. Aorta: Distended ascending thoracic aorta measuring 4.3 cm. Lymph nodes: Unremarkable. No enlarged lymph nodes. Bones/joints: Marked left convex upper thoracic curvature of spine. Degenerative changes of thoracic spine. Soft tissues: Findings suggest right mastectomy. IMPRESSION: 1. Minimal linear atelectasis. No evidence for pneumonia. 2. Mildly distended ascending thoracic aorta measuring 4.3 cm. 3. [id number] cardiomegaly.
[2020-08-16] MEDS: Carvedilol 25 MG Tab PO SCH (21:30)
[2020-08-16] MEDS: Gabapentin 100 MG Cap PO SCH (21:30)
[2020-08-16] MEDS: ceFAZolin 1 GM in Sodium Chloride 0.9% 50 ML IV SCH (21:30)
[2020-08-17] MEDS: ceFAZolin 1 GM in Sodium Chloride 0.9% 50 ML IV SCH ×3 (06:41→22:19)
[2020-08-17 07:23] LABS: ANION GAP 8.8 mEq/L (7-13)
[2020-08-17] MEDS: Tolterodine 2 MG Cap.ER PO SCH (08:36)
[2020-08-17] MEDS: Carvedilol 25 MG Tab PO SCH ×2 (08:37→21:00)
[2020-08-17] MEDS: Gabapentin 100 MG Cap PO SCH ×2 (08:38→21:00)
[2020-08-17] MEDS: Pravastatin 20 MG Tab PO SCH (08:38)
[2020-08-17] MEDS: Furosemide 20 MG Tab PO SCH (08:38)
[2020-08-17] MEDS: predniSONE 5 MG Tab PO SCH (08:38)
--- NOTE | 2020-08-17 12:05 | PCM.HP ---
H&P History of Present Illness - General Date of Service: 08/16/20 Admit Problem/Dx: Admission Diagnosis/Problem Admission Diagnosis/Problem Hypoxia - History of Present Illness Initial Comments - Free Text/Narative: LATE ENTRY - PT SEEN AND EXAMINED 08/16/20 80F w/ pmh HT, HL, CAD, CHF, COPD/asthma (unsure), afib on coumadin, RA on prednisone, mild COVID19 dx 2/ and s/p BAM infusion p/w RLE pain. reports pt repeatedly hits her leg on the stone and concrete washer door. She recently hit the leg again and suffered a skin tear. This was debrided partially in clinic yesterday. Today the noted pt to be confused. She developed swelling, redness and pain in right inman surrounding the skin tear. No fever is reported but she did have shaking chills. Pt and denies any respiratory symptoms. She is not coughing or short of breath. She was incidentally noted mildly hypoxic in the ED to high 80s. She has also positive for COVID19 today. reports pt receiving first dose of [employer] COVID19 vaccine 1.5 weeks ago. - Related Data Allergies/Adverse Reactions: Allergies Allergy/AdvReac Type Severity Reaction Status Date / Time benazepril Allergy Other Verified 08/16/20 14:57 codeine Allergy Vomiting Verified 08/16/20 14:57 simvastatin Allergy Other Verified 08/16/20 14:57 Home Medications: Home Meds Warfarin Sodium [Jantoven] 2.5 mg PO .Tuesday09/25/15 [History] Fluticasone/Salmeterol [Advair Diskus 250-50] 1 puff INH DAILY PRN 08/02/16 [History] Furosemide [Lasix] 20 mg PO DAILY 08/02/16 [History] Losartan [Cozaar] 25 mg PO BID PRN 08/02/16 [History] Pravastatin [Pravachol] 40 mg PO DAILY 08/02/16 [History] Spironolactone [Aldactone] 25 mg PO .EVERY08/02/16 [History] Tolterodine Tartrate [Detrol LA] 4 mg PO DAILY 08/02/16 [History] carvediloL [Carvedilol] 25 mg PO BID 08/02/16 [History] Albuterol Sulfate [Proair Hfa] 2 puff IH Q6HR PRN 02/25/17 [History] Warfarin [Coumadin] 2 mg PO .[id number] 02/25/17 [History] predniSONE 5 mg PO DAILY 03/08/18 [History] Gabapentin [Neurontin] 100 mg PO DAILY 08/16/20 [History] Gabapentin [Neurontin] 200 mg PO BEDTIME 08/16/20 [History] Past Medical History HEENT History: Reports: Impaired Vision, Macular Degeneration Cardiovascular History: Reports: Afib, Cardiomyopathy, Heart Failure, High Cholesterol, Hypertension, Other (See Below) Other Cardiovascular History: Pt. reports of cardiac issues secondary to past chemotherapy Respiratory History: Reports: Asthma, COPD Other Respiratory History: questionable COPD Gastrointestinal History: Reports: None Genitourinary History: Reports: None REGISTRATION REP History: Reports: Musculoskeletal History: Reports: Arthritis, Neck Pain, Chronic, Osteoarthritis, RA Neurological History: Reports: Neuropathy, Peripheral Psychiatric History: Reports: None Endocrine/Metabolic History: Reports: Osteoporosis Hematologic History: Reports: Anemia Immunologic History: Reports: None Oncologic (Cancer) History: Reports: Breast, Other (See Below) Other Oncologic History: unspecified skin cancer Dermatologic History: Reports: None, Cellulitis - Infectious Disease History Infectious Disease History: Reports: Chicken Pox, Measles, Shingles - Past Surgical History Head Surgeries/Procedures: Reports: None HEENT Surgical History: Reports: Cataract Surgery Cardiovascular Surgical History: Reports: None GI Surgical History: Reports: Cholecystectomy Female Surgical History: Reports: Mastectomy Other Female Surgeries/Procedures: right sided Musculoskeletal Surgical History: Reports: None Social & Family History - Family History Family Medical History: Unobtainable - Tobacco Use Tobacco Use Status *Q: Never Tobacco User Second Hand Smoke Exposure: No - Caffeine Use Caffeine Use: Reports: Coffee Other Caffeine Use: 16. oz daily - Alcohol Use Days Per Week of Alcohol Use: 1 Number of Drinks Per Day: 0 Total Drinks Per Week: 0 - Recreational Drug Use Recreational Drug Use: No H&P Review of Systems - Review of Systems: Review Of Systems: See Below General: Reports: Chills, Weakness. Denies: Fever HEENT: Denies: Headaches Pulmonary: Denies: Shortness of Breath, Cough, Sputum Cardiovascular: Reports: Edema (chronic). Denies: Chest Pain Gastrointestinal: Denies: Abdominal Pain, Diarrhea Genitourinary: Denies: Dysuria Musculoskeletal: Denies: Neck Pain Skin: Denies: Jaundice Psychiatric: Reports: Confusion Neurological: Denies: Confusion Hematologic/Lymphatic: Denies: Easy Bleeding Exam - Exam Exam: See Below - Vital Signs Vital Signs: Last Vital Signs Temp 97.5 F 08/17/20 08:00 Pulse 70 08/17/20 08:37 Resp 20 08/17/20 08:00 BP 112/60 08/17/20 08:37 Pulse Ox 90 L 08/17/20 08:00 Weight: 163 lb 12.8 oz - Exam Quality Assessment: Supplemental Oxygen General: Alert, Oriented HEENT: Conjunctiva Clear Neck: Supple Lungs: Clear to Auscultation, Normal Respiratory Effort Cardiovascular: Regular Rate, Regular Rhythm GI/Abdominal Exam: Normal Bowel Sounds, Soft, Non-Tender, No Distention (Female) Exam: Normal External Exam Extremities: Other (b/l LE venous stasis dermatitis, R>L, oval skin tear on medial aspect R inman, dry, non inflamed, no purulence, covered by black eschar, TTP anterior aspect of the inman, 1+ pitting edema) Skin: Warm, Dry Neuro Extensive - Mental Status: Alert, Oriented x3 Neuro Extensive - Motor, Sensory, Reflexes: No: Tremor Psychiatric: Alert, Normal Affect, Normal Mood - Patient Data Lab Results Last 24 hrs: Laboratory Results - last 24 hr 08/16/20 08/16/20 08/16/20 Range/Units 12:37 12:37 12:37 WBC 10.9 H (5.0-10.0) 10^3/uL RBC 4.62 (4.2-5.4) 10^6/uL Hgb 14.1 D (12.0-16.0) g/dL Hct 44.9 (37.0-47.0) % MCV 97.2 D (80-100) fL MCH 30.5 (27.0-34.0) pg MCHC 31.4 L (33.0-35.0) g/dL Plt Count 177 (150-450) 10^3/uL Neut % (Auto) 85.9 H (42.2-75.2) % Lymph % (Auto) 6.0 L (20.5-50.1) % [place] % (Auto) 7.1 (2-8) % Eos % (Auto) 0.8 L (1.0-3.0) % Baso % (Auto) 0.2 (0.0-1.0) % PT (9.0-12.0) SEC INR (0.9-1.2) ABG pH (7.35-7.45) ABG pCO2 (35-45) mmHg ABG pO2 (70-100) mmHg ABG HCO3 (22-26) mmol/L ABG O2 Saturation (95-100) % ABG Base Excess ((-2)-(+3)) mmol/L Gray Test O2 Delivery Device Sodium 138 (136-145) mmol/L Potassium 4.4 (3.5-5.1) mmol/L Chloride 100 (98-107) mmol/L Carbon Dioxide 33 H (21-32) mmol/L Anion Gap 9.4 (7-13) mEq/L BUN 25 H (7-18) mg/dL Creatinine 1.46 H (0.55-1.02) mg/dL Est Cr Clr Drug Dosing TNP Estimated GFR (MDRD) 34 BUN/Creatinine Ratio 17.1 (No establ ref range) Glucose 115 H (70-99) mg/dL Lactic Acid 1.1 (0.4-2.0) mmol/L Calcium 8.7 (8.5-10.1) mg/dL Phosphorus (2.6-4.7) mg/dL Magnesium (1.8-2.4) mg/dL Total Bilirubin 1.2 H (0.2-1.0) mg/dL AST 20 (15-37) U/L ALT 28 (14-59) U/L Alkaline Phosphatase 71 (46-116) U/L C-Reactive Protein 0.8 (0.0-0.9) mg/dL B-Natriuretic Peptide 381 H (0-100) pg/ml Total Protein 7.0 (6.4-8.2) g/dL Albumin 3.4 (3.4-5.0) g/dL Globulin 3.6 Albumin/Globulin Ratio 0.9 Urine Color (YELLOW) Urine Appearance (CLEAR) Urine pH (5.0-9.0) Ur Specific [place] (1.005-1.030) Urine Protein (NEGATIVE) Urine Glucose (UA) (NEGATIVE) Urine Ketones (NEGATIVE) Urine Occult Blood (NEGATIVE) Urine Nitrite (NEGATIVE) Urine Bilirubin (NEGATIVE) Urine Urobilinogen (0.2-1.0) mg/dL Ur Leukocyte Esterase (NEGATIVE) Influenza Type A RNA (NEGATIVE) Influenza Type B RNA (NEGATIVE) SARS-CoV-2 RNA (MARGARET) (NEGATIVE) 08/16/20 08/16/20 08/16/20 Range/Units 13:56 14:00 14:27 WBC (5.0-10.0) 10^3/uL RBC (4.2-5.4) 10^6/uL Hgb (12.0-16.0) g/dL Hct (37.0-47.0) % MCV (80-100) fL MCH (27.0-34.0) pg MCHC (33.0-35.0) g/dL Plt Count (150-450) 10^3/uL Neut % (Auto) (42.2-75.2) % Lymph % (Auto) (20.5-50.1) % [place] % (Auto) (2-8) % Eos % (Auto) (1.0-3.0) % Baso % (Auto) (0.0-1.0) % PT (9.0-12.0) SEC INR (0.9-1.2) ABG pH 7.45 (7.35-7.45) ABG pCO2 43 (35-45) mmHg ABG pO2 82 (70-100) mmHg ABG HCO3 29.0 H (22-26) mmol/L ABG O2 Saturation 96 (95-100) % ABG Base Excess 5 H ((-2)-(+3)) mmol/L Gray Test Positive O2 Delivery Device Nasal cannula Sodium (136-145) mmol/L Potassium (3.5-5.1) mmol/L Chloride (98-107) mmol/L Carbon Dioxide (21-32) mmol/L Anion Gap (7-13) mEq/L BUN (7-18) mg/dL Creatinine (0.55-1.02) mg/dL Est Cr Clr Drug Dosing Estimated GFR (MDRD) BUN/Creatinine Ratio (No establ ref range) Glucose (70-99) mg/dL Lactic Acid (0.4-2.0) mmol/L Calcium (8.5-10.1) mg/dL Phosphorus (2.6-4.7) mg/dL Magnesium (1.8-2.4) mg/dL Total Bilirubin (0.2-1.0) mg/dL AST (15-37) U/L ALT (14-59) U/L Alkaline Phosphatase (46-116) U/L C-Reactive Protein (0.0-0.9) mg/dL B-Natriuretic Peptide (0-100) pg/ml Total Protein (6.4-8.2) g/dL Albumin (3.4-5.0) g/dL Globulin Albumin/Globulin Ratio Urine Color Yellow (YELLOW) Urine Appearance Clear (CLEAR) Urine pH 6.0 (5.0-9.0) Ur Specific [place] 1.020 (1.005-1.030) Urine Protein Negative (NEGATIVE) Urine Glucose (UA) Negative (NEGATIVE) Urine Ketones Negative (NEGATIVE) Urine Occult Blood Negative (NEGATIVE) Urine Nitrite Negative (NEGATIVE) Urine Bilirubin Negative (NEGATIVE) Urine Urobilinogen 0.2 (0.2-1.0) mg/dL Ur Leukocyte Esterase Negative (NEGATIVE) Influenza Type A RNA Negative (NEGATIVE) Influenza Type B RNA Negative (NEGATIVE) SARS-CoV-2 RNA (MARGARET) Positive H (NEGATIVE) 08/17/20 08/17/20 Range/Units 06:36 06:36 WBC (5.0-10.0) 10^3/uL RBC (4.2-5.4) 10^6/uL Hgb (12.0-16.0) g/dL Hct (37.0-47.0) % MCV (80-100) fL MCH (27.0-34.0) pg MCHC (33.0-35.0) g/dL Plt Count (150-450) 10^3/uL Neut % (Auto) (42.2-75.2) % Lymph % (Auto) (20.5-50.1) % [place] % (Auto) (2-8) % Eos % (Auto) (1.0-3.0) % Baso % (Auto) (0.0-1.0) % PT 19.6 H D (9.0-12.0) SEC INR 2.0 H (0.9-1.2) ABG pH (7.35-7.45) ABG pCO2 (35-45) mmHg ABG pO2 (70-100) mmHg ABG HCO3 (22-26) mmol/L ABG O2 Saturation (95-100) % ABG Base Excess ((-2)-(+3)) mmol/L Gray Test O2 Delivery Device Sodium 139 (136-145) mmol/L Potassium 3.8 (3.5-5.1) mmol/L Chloride 101 (98-107) mmol/L Carbon Dioxide 33 H (21-32) mmol/L Anion Gap 8.8 (7-13) mEq/L BUN 22 H (7-18) mg/dL Creatinine 1.26 H (0.55-1.02) mg/dL Est Cr Clr Drug Dosing 27.23 Estimated GFR (MDRD) 41 BUN/Creatinine Ratio 17.5 (No establ ref range) Glucose 86 (70-99) mg/dL Lactic Acid (0.4-2.0) mmol/L Calcium 8.0 L (8.5-10.1) mg/dL Phosphorus 3.4 (2.6-4.7) mg/dL Magnesium 1.8 (1.8-2.4) mg/dL Total Bilirubin 1.3 H (0.2-1.0) mg/dL AST 15 (15-37) U/L ALT 20 (14-59) U/L Alkaline Phosphatase 58 (46-116) U/L C-Reactive Protein (0.0-0.9) mg/dL B-Natriuretic Peptide (0-100) pg/ml Total Protein 5.4 L (6.4-8.2) g/dL Albumin 2.7 L (3.4-5.0) g/dL Globulin 2.7 Albumin/Globulin Ratio 1.00 Urine Color (YELLOW) Urine Appearance (CLEAR) Urine pH (5.0-9.0) Ur Specific [place] (1.005-1.030) Urine Protein (NEGATIVE) Urine Glucose (UA) (NEGATIVE) Urine Ketones (NEGATIVE) Urine Occult Blood (NEGATIVE) Urine Nitrite (NEGATIVE) Urine Bilirubin (NEGATIVE) Urine Urobilinogen (0.2-1.0) mg/dL Ur Leukocyte Esterase (NEGATIVE) Influenza Type A RNA (NEGATIVE) Influenza Type B RNA (NEGATIVE) SARS-CoV-2 RNA (MARGARET) (NEGATIVE) Result Diagrams: 08/16/20 12:37 08/17/20 06:36 Matthew Results Last 24 hrs: Microbiology 08/16/20 12:44 Anaerobic Blood Culture - Final Blood - Arm, Left Problem List Initiated/Reviewed/Updated: Yes Orders Last 24hrs: Active Orders 24 hr Category Date Time Status Admission Diagnosis [ADT] Stat ADT 08/16/20 13:57 Ordered Admission Status [Patient Status] [ADT] Routine ADT 08/16/20 13:57 Active Patient Status [ADT] Routine ADT 08/16/20 16:44 Active Communication Order [RC] Care 08/16/20 16:44 Active Oxygen Therapy [RC] .PRN Care 08/16/20 16:44 Active VTE/DVT Education [RC] Care 08/16/20 16:44 Active Vital Signs [RC] Q4H Care 08/16/20 16:44 Active 2 Gram Sodium Diet [DIET] Diet 08/16/20 Dinner Active CULTURE BLOOD [BC] Stat Lab 08/16/20 12:37 Received CULTURE BLOOD [BC] Stat Lab 08/16/20 12:44 Results Acetaminophen [TylenoL] Med 08/16/20 16:44 Active 650 mg PO Q4H PRN Furosemide [Lasix] Med 08/17/20 09:00 Active 20 mg PO DAILY Gabapentin [Neurontin] Med 08/17/20 09:00 Active 100 mg PO DAILY Gabapentin [Neurontin] Med 08/16/20 21:00 Active 200 mg PO BEDTIME Losartan [Cozaar] Med 08/16/20 16:47 Active 25 mg PO BID PRN Mometasone/Formoterol [Dulera 200-5 MCG] Med 08/16/20 16:47 Active 2 puff IH DAILY PRN Pravastatin [Pravachol] Med 08/17/20 09:00 Active 40 mg PO DAILY Spironolactone [Aldactone] Med 08/17/20 17:00 Active 25 mg PO .EVERYOTHERDAY Tolterodine [Detrol LA 24 Hr] Med 08/17/20 09:00 Active 4 mg PO DAILY carvediloL [Coreg] Med 08/16/20 21:00 Active 25 mg PO BID ceFAZolin [Ancef] 1 gm Med 08/16/20 22:00 Active Sodium Chloride 0.9% [Normal Saline] 50 ml IV Q8HR predniSONE Med 08/17/20 09:00 Active 5 mg PO DAILY Blood Culture x2 Reflex Set [OM.PC] Stat Oth 08/16/20 12:25 Ordered Resuscitation Status Routine Resus Stat 08/16/20 16:44 Ordered Medication Orders Acetaminophen (Acetaminophen 325 Mg Tab) 650 mg PO Q4H PRN PRN Reason: Pain (Mild 1-3)/fever Carvedilol (Carvedilol 25 Mg Tab) 25 mg PO BID [facility] Last Admin: 08/17/20 08:37 Dose: 25 mg Documented by: Admin: 08/16/20 21:30 Dose: 25 mg Documented by: ARSLAN Furosemide (Furosemide 20 Mg Tab) 20 mg PO DAILY [facility] Last Admin: 08/17/20 08:38 Dose: 20 mg Documented by: LINDA Gabapentin (Gabapentin 100 Mg Cap) 100 mg PO DAILY [facility] Last Admin: 08/17/20 08:38 Dose: 100 mg Documented by: LINDA Gabapentin (Gabapentin 100 Mg Cap) 200 mg PO BEDTIME [facility] Last Admin: 08/16/20 21:30 Dose: 200 mg Documented by: ARSLAN Cefazolin Sodium 1 gm/ Sodium (Chloride) 50 mls @ 100 mls/hr IV Q8HR [facility] Last Admin: 08/17/20 06:41 Dose: 100 mls/hr Documented by: Infusion: 08/16/20 22:00 Dose: 100 mls/hr Documented by: Admin: 08/16/20 21:30 Dose: 100 mls/hr Documented by: ARSLAN Losartan Potassium (Losartan 25 Mg Tab) 25 mg PO BID PRN PRN Reason: Tachycardia Mometasone Furoate/Formoterol Fumar (Formoterol/Mometasone 200-5 Mcg 8.8 Gm Inhaler) 2 puff IH DAILY PRN PRN Reason: Shortness of Breath Pravastatin Sodium (Pravastatin 20 Mg Tab) 40 mg PO DAILY [facility] Last Admin: 08/17/20 08:38 Dose: 40 mg Documented by: LINDA Prednisone (Prednisone 5 Mg Tab) 5 mg PO DAILY [facility] Last Admin: 08/17/20 08:38 Dose: 5 mg Documented by: LINDA Spironolactone (Spironolactone 25 Mg Tab) 25 mg PO .EVERYOTHERDAY [facility] Tolterodine Tartrate (Tolterodine 2 Mg Cap.Er) 4 mg PO DAILY [facility] Last Admin: 08/17/20 08:36 Dose: 4 mg Documented by: LINDA Assessment/Plan Comment:: #RLE cellulitis - in setting of skin tear and chronic venous stasis - start cefazolin - limb elevation is essential #afib - rate controlled - dose coumadin as needed #presumed COVID19 re-infection - it has been >90 day since pt's prior dx and she is again noted PCR positive - albeit asymptomatic - CT chest does not reveal any COVID19 changes therefore suspect the mild hypoxia is due to her COPD diagnosis #acute hypoxic respiratory failure - pt w/o known o2 requirement but may have gone unnoticed as outpatient - will monitor and evaluate for need for home o2 prior to d/c #RA - c/w prednisone #chronic congestive CHF - type unknown - appears euvolemic PPX - on coumadin
[2020-08-17] MEDS ORDERED: Warfarin 2.5 MG Tab PO ONE (12:14)
--- NOTE | 2020-08-17 12:20 | PCM.PN ---
- General Info Date of Service: 08/17/20 Admission Dx/Problem (Free Text): Leg appears less swollen but pt reports pain unchanged. Small o2 requirement. No other complaints. No cough. - Patient Data Vitals - Most Recent: Last Vital Signs Temp 97.5 F 08/17/20 08:00 Pulse 70 08/17/20 08:37 Resp 20 08/17/20 08:00 BP 112/60 08/17/20 08:37 Pulse Ox 90 L 08/17/20 08:00 Weight - Most Recent: 163 lb 12.8 oz I&O - Last 24 Hours: Intake & Output 08/16/20 08/17/20 08/17/20 22:59 06:59 14:59 Intake Total 200 475 Output Total 100 400 Balance -100 -200 475 Lab Results Last 24 Hours: Laboratory Results - last 24 hr 08/16/20 08/16/20 08/16/20 Range/Units 12:37 12:37 12:37 WBC 10.9 H (5.0-10.0) 10^3/uL RBC 4.62 (4.2-5.4) 10^6/uL Hgb 14.1 D (12.0-16.0) g/dL Hct 44.9 (37.0-47.0) % MCV 97.2 D (80-100) fL MCH 30.5 (27.0-34.0) pg MCHC 31.4 L (33.0-35.0) g/dL Plt Count 177 (150-450) 10^3/uL Neut % (Auto) 85.9 H (42.2-75.2) % Lymph % (Auto) 6.0 L (20.5-50.1) % Graves % (Auto) 7.1 (2-8) % Eos % (Auto) 0.8 L (1.0-3.0) % Baso % (Auto) 0.2 (0.0-1.0) % PT (9.0-12.0) SEC INR (0.9-1.2) ABG pH (7.35-7.45) ABG pCO2 (35-45) mmHg ABG pO2 (70-100) mmHg ABG HCO3 (22-26) mmol/L ABG O2 Saturation (95-100) % ABG Base Excess ((-2)-(+3)) mmol/L Gray Test O2 Delivery Device Sodium 138 (136-145) mmol/L Potassium 4.4 (3.5-5.1) mmol/L Chloride 100 (98-107) mmol/L Carbon Dioxide 33 H (21-32) mmol/L Anion Gap 9.4 (7-13) mEq/L BUN 25 H (7-18) mg/dL Creatinine 1.46 H (0.55-1.02) mg/dL Est Cr Clr Drug Dosing TNP Estimated GFR (MDRD) 34 BUN/Creatinine Ratio 17.1 (No establ ref range) Glucose 115 H (70-99) mg/dL Lactic Acid 1.1 (0.4-2.0) mmol/L Calcium 8.7 (8.5-10.1) mg/dL Phosphorus (2.6-4.7) mg/dL Magnesium (1.8-2.4) mg/dL Total Bilirubin 1.2 H (0.2-1.0) mg/dL AST 20 (15-37) U/L ALT 28 (14-59) U/L Alkaline Phosphatase 71 (46-116) U/L C-Reactive Protein 0.8 (0.0-0.9) mg/dL B-Natriuretic Peptide 381 H (0-100) pg/ml Total Protein 7.0 (6.4-8.2) g/dL Albumin 3.4 (3.4-5.0) g/dL Globulin 3.6 Albumin/Globulin Ratio 0.9 Urine Color (YELLOW) Urine Appearance (CLEAR) Urine pH (5.0-9.0) Ur Specific Weston (1.005-1.030) Urine Protein (NEGATIVE) Urine Glucose (UA) (NEGATIVE) Urine Ketones (NEGATIVE) Urine Occult Blood (NEGATIVE) Urine Nitrite (NEGATIVE) Urine Bilirubin (NEGATIVE) Urine Urobilinogen (0.2-1.0) mg/dL Ur Leukocyte Esterase (NEGATIVE) Influenza Type A RNA (NEGATIVE) Influenza Type B RNA (NEGATIVE) SARS-CoV-2 RNA (MARGARET) (NEGATIVE) 08/16/20 08/16/20 08/16/20 Range/Units 13:56 14:00 14:27 WBC (5.0-10.0) 10^3/uL RBC (4.2-5.4) 10^6/uL Hgb (12.0-16.0) g/dL Hct (37.0-47.0) % MCV (80-100) fL MCH (27.0-34.0) pg MCHC (33.0-35.0) g/dL Plt Count (150-450) 10^3/uL Neut % (Auto) (42.2-75.2) % Lymph % (Auto) (20.5-50.1) % Graves % (Auto) (2-8) % Eos % (Auto) (1.0-3.0) % Baso % (Auto) (0.0-1.0) % PT (9.0-12.0) SEC INR (0.9-1.2) ABG pH 7.45 (7.35-7.45) ABG pCO2 43 (35-45) mmHg ABG pO2 82 (70-100) mmHg ABG HCO3 29.0 H (22-26) mmol/L ABG O2 Saturation 96 (95-100) % ABG Base Excess 5 H ((-2)-(+3)) mmol/L Gray Test Positive O2 Delivery Device Nasal cannula Sodium (136-145) mmol/L Potassium (3.5-5.1) mmol/L Chloride (98-107) mmol/L Carbon Dioxide (21-32) mmol/L Anion Gap (7-13) mEq/L BUN (7-18) mg/dL Creatinine (0.55-1.02) mg/dL Est Cr Clr Drug Dosing Estimated GFR (MDRD) BUN/Creatinine Ratio (No establ ref range) Glucose (70-99) mg/dL Lactic Acid (0.4-2.0) mmol/L Calcium (8.5-10.1) mg/dL Phosphorus (2.6-4.7) mg/dL Magnesium (1.8-2.4) mg/dL Total Bilirubin (0.2-1.0) mg/dL AST (15-37) U/L ALT (14-59) U/L Alkaline Phosphatase (46-116) U/L C-Reactive Protein (0.0-0.9) mg/dL B-Natriuretic Peptide (0-100) pg/ml Total Protein (6.4-8.2) g/dL Albumin (3.4-5.0) g/dL Globulin Albumin/Globulin Ratio Urine Color Yellow (YELLOW) Urine Appearance Clear (CLEAR) Urine pH 6.0 (5.0-9.0) Ur Specific Weston 1.020 (1.005-1.030) Urine Protein Negative (NEGATIVE) Urine Glucose (UA) Negative (NEGATIVE) Urine Ketones Negative (NEGATIVE) Urine Occult Blood Negative (NEGATIVE) Urine Nitrite Negative (NEGATIVE) Urine Bilirubin Negative (NEGATIVE) Urine Urobilinogen 0.2 (0.2-1.0) mg/dL Ur Leukocyte Esterase Negative (NEGATIVE) Influenza Type A RNA Negative (NEGATIVE) Influenza Type B RNA Negative (NEGATIVE) SARS-CoV-2 RNA (MARGARET) Positive H (NEGATIVE) 08/17/20 08/17/20 Range/Units 06:36 06:36 WBC (5.0-10.0) 10^3/uL RBC (4.2-5.4) 10^6/uL Hgb (12.0-16.0) g/dL Hct (37.0-47.0) % MCV (80-100) fL MCH (27.0-34.0) pg MCHC (33.0-35.0) g/dL Plt Count (150-450) 10^3/uL Neut % (Auto) (42.2-75.2) % Lymph % (Auto) (20.5-50.1) % Graves % (Auto) (2-8) % Eos % (Auto) (1.0-3.0) % Baso % (Auto) (0.0-1.0) % PT 19.6 H D (9.0-12.0) SEC INR 2.0 H (0.9-1.2) ABG pH (7.35-7.45) ABG pCO2 (35-45) mmHg ABG pO2 (70-100) mmHg ABG HCO3 (22-26) mmol/L ABG O2 Saturation (95-100) % ABG Base Excess ((-2)-(+3)) mmol/L Gray Test O2 Delivery Device Sodium 139 (136-145) mmol/L Potassium 3.8 (3.5-5.1) mmol/L Chloride 101 (98-107) mmol/L Carbon Dioxide 33 H (21-32) mmol/L Anion Gap 8.8 (7-13) mEq/L BUN 22 H (7-18) mg/dL Creatinine 1.26 H (0.55-1.02) mg/dL Est Cr Clr Drug Dosing 27.23 Estimated GFR (MDRD) 41 BUN/Creatinine Ratio 17.5 (No establ ref range) Glucose 86 (70-99) mg/dL Lactic Acid (0.4-2.0) mmol/L Calcium 8.0 L (8.5-10.1) mg/dL Phosphorus 3.4 (2.6-4.7) mg/dL Magnesium 1.8 (1.8-2.4) mg/dL Total Bilirubin 1.3 H (0.2-1.0) mg/dL AST 15 (15-37) U/L ALT 20 (14-59) U/L Alkaline Phosphatase 58 (46-116) U/L C-Reactive Protein (0.0-0.9) mg/dL B-Natriuretic Peptide (0-100) pg/ml Total Protein 5.4 L (6.4-8.2) g/dL Albumin 2.7 L (3.4-5.0) g/dL Globulin 2.7 Albumin/Globulin Ratio 1.00 Urine Color (YELLOW) Urine Appearance (CLEAR) Urine pH (5.0-9.0) Ur Specific Weston (1.005-1.030) Urine Protein (NEGATIVE) Urine Glucose (UA) (NEGATIVE) Urine Ketones (NEGATIVE) Urine Occult Blood (NEGATIVE) Urine Nitrite (NEGATIVE) Urine Bilirubin (NEGATIVE) Urine Urobilinogen (0.2-1.0) mg/dL Ur Leukocyte Esterase (NEGATIVE) Influenza Type A RNA (NEGATIVE) Influenza Type B RNA (NEGATIVE) SARS-CoV-2 RNA (MARGARET) (NEGATIVE) Matthew Results Last 24 Hours: Microbiology 08/16/20 12:44 Anaerobic Blood Culture - Final Blood - Arm, Left Med Orders - Current: Current Medications Acetaminophen (Acetaminophen 325 Mg Tab) 650 mg PO Q4H PRN PRN Reason: Pain (Mild 1-3)/fever Carvedilol (Carvedilol 25 Mg Tab) 25 mg PO BID [facility] Last Admin: 08/17/20 08:37 Dose: 25 mg Documented by: Furosemide (Furosemide 20 Mg Tab) 20 mg PO DAILY [facility] Last Admin: 08/17/20 08:38 Dose: 20 mg Documented by: Gabapentin (Gabapentin 100 Mg Cap) 100 mg PO DAILY [facility] Last Admin: 08/17/20 08:38 Dose: 100 mg Documented by: Gabapentin (Gabapentin 100 Mg Cap) 200 mg PO BEDTIME [facility] Last Admin: 08/16/20 21:30 Dose: 200 mg Documented by: Cefazolin Sodium 1 gm/ Sodium (Chloride) 50 mls @ 100 mls/hr IV Q8HR [facility] Last Admin: 08/17/20 06:41 Dose: 100 mls/hr Documented by: Losartan Potassium (Losartan 25 Mg Tab) 25 mg PO BID PRN PRN Reason: Tachycardia Mometasone Furoate/Formoterol Fumar (Formoterol/Mometasone 200-5 Mcg 8.8 Gm Inhaler) 2 puff IH DAILY PRN PRN Reason: Shortness of Breath Pravastatin Sodium (Pravastatin 20 Mg Tab) 40 mg PO DAILY [facility] Last Admin: 08/17/20 08:38 Dose: 40 mg Documented by: Prednisone (Prednisone 5 Mg Tab) 5 mg PO DAILY [facility] Last Admin: 08/17/20 08:38 Dose: 5 mg Documented by: Spironolactone (Spironolactone 25 Mg Tab) 25 mg PO .EVERYOTHERDAY [facility] Tolterodine Tartrate (Tolterodine 2 Mg Cap.Er) 4 mg PO DAILY [facility] Last Admin: 08/17/20 08:36 Dose: 4 mg Documented by: Warfarin Sodium (Warfarin 2.5 Mg Tab) 2.5 mg PO ONETIME ONE Stop: 08/17/20 12:15 Discontinued Medications Cefazolin Sodium 1 gm/ Sodium (Chloride) 50 mls @ 100 mls/hr IV ONETIME ONE Stop: 08/16/20 14:25 Last Admin: 08/16/20 14:17 Dose: 100 mls/hr Documented by: - Exam Quality Assessment: Supplemental Oxygen General: Alert, Oriented HEENT: Pupils Equal Neck: Supple Lungs: Clear to Auscultation Cardiovascular: Regular Rate, Regular Rhythm GI/Abdominal Exam: Normal Bowel Sounds, Soft, Non-Tender, No Distention Back Exam: Normal Inspection Extremities: Other (RLE less swollen w/ pruning, b/l venous stasis dermatitis R > L, R inman TTP, dry well appearing medial R inman skin tear, no purulence) Skin: Warm, Dry Wound/Incisions: Healing Well Neurological: No New Focal Deficit Psy/Mental Status: Alert, Normal Affect, Normal Mood - Patient Data Lab Results Last 24 hrs: Laboratory Results - last 24 hr 08/16/20 08/16/20 08/16/20 Range/Units 12:37 12:37 12:37 WBC 10.9 H (5.0-10.0) 10^3/uL RBC 4.62 (4.2-5.4) 10^6/uL Hgb 14.1 D (12.0-16.0) g/dL Hct 44.9 (37.0-47.0) % MCV 97.2 D (80-100) fL MCH 30.5 (27.0-34.0) pg MCHC 31.4 L (33.0-35.0) g/dL Plt Count 177 (150-450) 10^3/uL Neut % (Auto) 85.9 H (42.2-75.2) % Lymph % (Auto) 6.0 L (20.5-50.1) % Graves % (Auto) 7.1 (2-8) % Eos % (Auto) 0.8 L (1.0-3.0) % Baso % (Auto) 0.2 (0.0-1.0) % PT (9.0-12.0) SEC INR (0.9-1.2) ABG pH (7.35-7.45) ABG pCO2 (35-45) mmHg ABG pO2 (70-100) mmHg ABG HCO3 (22-26) mmol/L ABG O2 Saturation (95-100) % ABG Base Excess ((-2)-(+3)) mmol/L Gray Test O2 Delivery Device Sodium 138 (136-145) mmol/L Potassium 4.4 (3.5-5.1) mmol/L Chloride 100 (98-107) mmol/L Carbon Dioxide 33 H (21-32) mmol/L Anion Gap 9.4 (7-13) mEq/L BUN 25 H (7-18) mg/dL Creatinine 1.46 H (0.55-1.02) mg/dL Est Cr Clr Drug Dosing TNP Estimated GFR (MDRD) 34 BUN/Creatinine Ratio 17.1 (No establ ref range) Glucose 115 H (70-99) mg/dL Lactic Acid 1.1 (0.4-2.0) mmol/L Calcium 8.7 (8.5-10.1) mg/dL Phosphorus (2.6-4.7) mg/dL Magnesium (1.8-2.4) mg/dL Total Bilirubin 1.2 H (0.2-1.0) mg/dL AST 20 (15-37) U/L ALT 28 (14-59) U/L Alkaline Phosphatase 71 (46-116) U/L C-Reactive Protein 0.8 (0.0-0.9) mg/dL B-Natriuretic Peptide 381 H (0-100) pg/ml Total Protein 7.0 (6.4-8.2) g/dL Albumin 3.4 (3.4-5.0) g/dL Globulin 3.6 Albumin/Globulin Ratio 0.9 Urine Color (YELLOW) Urine Appearance (CLEAR) Urine pH (5.0-9.0) Ur Specific Weston (1.005-1.030) Urine Protein (NEGATIVE) Urine Glucose (UA) (NEGATIVE) Urine Ketones (NEGATIVE) Urine Occult Blood (NEGATIVE) Urine Nitrite (NEGATIVE) Urine Bilirubin (NEGATIVE) Urine Urobilinogen (0.2-1.0) mg/dL Ur Leukocyte Esterase (NEGATIVE) Influenza Type A RNA (NEGATIVE) Influenza Type B RNA (NEGATIVE) SARS-CoV-2 RNA (MARGARET) (NEGATIVE) 08/16/20 08/16/20 08/16/20 Range/Units 13:56 14:00 14:27 WBC (5.0-10.0) 10^3/uL RBC (4.2-5.4) 10^6/uL Hgb (12.0-16.0) g/dL Hct (37.0-47.0) % MCV (80-100) fL MCH (27.0-34.0) pg MCHC (33.0-35.0) g/dL Plt Count (150-450) 10^3/uL Neut % (Auto) (42.2-75.2) % Lymph % (Auto) (20.5-50.1) % Graves % (Auto) (2-8) % Eos % (Auto) (1.0-3.0) % Baso % (Auto) (0.0-1.0) % PT (9.0-12.0) SEC INR (0.9-1.2) ABG pH 7.45 (7.35-7.45) ABG pCO2 43 (35-45) mmHg ABG pO2 82 (70-100) mmHg ABG HCO3 29.0 H (22-26) mmol/L ABG O2 Saturation 96 (95-100) % ABG Base Excess 5 H ((-2)-(+3)) mmol/L Gray Test Positive O2 Delivery Device Nasal cannula Sodium (136-145) mmol/L Potassium (3.5-5.1) mmol/L Chloride (98-107) mmol/L Carbon Dioxide (21-32) mmol/L Anion Gap (7-13) mEq/L BUN (7-18) mg/dL Creatinine (0.55-1.02) mg/dL Est Cr Clr Drug Dosing Estimated GFR (MDRD) BUN/Creatinine Ratio (No establ ref range) Glucose (70-99) mg/dL Lactic Acid (0.4-2.0) mmol/L Calcium (8.5-10.1) mg/dL Phosphorus (2.6-4.7) mg/dL Magnesium (1.8-2.4) mg/dL Total Bilirubin (0.2-1.0) mg/dL AST (15-37) U/L ALT (14-59) U/L Alkaline Phosphatase (46-116) U/L C-Reactive Protein (0.0-0.9) mg/dL B-Natriuretic Peptide (0-100) pg/ml Total Protein (6.4-8.2) g/dL Albumin (3.4-5.0) g/dL Globulin Albumin/Globulin Ratio Urine Color Yellow (YELLOW) Urine Appearance Clear (CLEAR) Urine pH 6.0 (5.0-9.0) Ur Specific Weston 1.020 (1.005-1.030) Urine Protein Negative (NEGATIVE) Urine Glucose (UA) Negative (NEGATIVE) Urine Ketones Negative (NEGATIVE) Urine Occult Blood Negative (NEGATIVE) Urine Nitrite Negative (NEGATIVE) Urine Bilirubin Negative (NEGATIVE) Urine Urobilinogen 0.2 (0.2-1.0) mg/dL Ur Leukocyte Esterase Negative (NEGATIVE) Influenza Type A RNA Negative (NEGATIVE) Influenza Type B RNA Negative (NEGATIVE) SARS-CoV-2 RNA (MARGARET) Positive H (NEGATIVE) 08/17/20 08/17/20 Range/Units 06:36 06:36 WBC (5.0-10.0) 10^3/uL RBC (4.2-5.4) 10^6/uL Hgb (12.0-16.0) g/dL Hct (37.0-47.0) % MCV (80-100) fL MCH (27.0-34.0) pg MCHC (33.0-35.0) g/dL Plt Count (150-450) 10^3/uL Neut % (Auto) (42.2-75.2) % Lymph % (Auto) (20.5-50.1) % Graves % (Auto) (2-8) % Eos % (Auto) (1.0-3.0) % Baso % (Auto) (0.0-1.0) % PT 19.6 H D (9.0-12.0) SEC INR 2.0 H (0.9-1.2) ABG pH (7.35-7.45) ABG pCO2 (35-45) mmHg ABG pO2 (70-100) mmHg ABG HCO3 (22-26) mmol/L ABG O2 Saturation (95-100) % ABG Base Excess ((-2)-(+3)) mmol/L Gray Test O2 Delivery Device Sodium 139 (136-145) mmol/L Potassium 3.8 (3.5-5.1) mmol/L Chloride 101 (98-107) mmol/L Carbon Dioxide 33 H (21-32) mmol/L Anion Gap 8.8 (7-13) mEq/L BUN 22 H (7-18) mg/dL Creatinine 1.26 H (0.55-1.02) mg/dL Est Cr Clr Drug Dosing 27.23 Estimated GFR (MDRD) 41 BUN/Creatinine Ratio 17.5 (No establ ref range) Glucose 86 (70-99) mg/dL Lactic Acid (0.4-2.0) mmol/L Calcium 8.0 L (8.5-10.1) mg/dL Phosphorus 3.4 (2.6-4.7) mg/dL Magnesium 1.8 (1.8-2.4) mg/dL Total Bilirubin 1.3 H (0.2-1.0) mg/dL AST 15 (15-37) U/L ALT 20 (14-59) U/L Alkaline Phosphatase 58 (46-116) U/L C-Reactive Protein (0.0-0.9) mg/dL B-Natriuretic Peptide (0-100) pg/ml Total Protein 5.4 L (6.4-8.2) g/dL Albumin 2.7 L (3.4-5.0) g/dL Globulin 2.7 Albumin/Globulin Ratio 1.00 Urine Color (YELLOW) Urine Appearance (CLEAR) Urine pH (5.0-9.0) Ur Specific Weston (1.005-1.030) Urine Protein (NEGATIVE) Urine Glucose (UA) (NEGATIVE) Urine Ketones (NEGATIVE) Urine Occult Blood (NEGATIVE) Urine Nitrite (NEGATIVE) Urine Bilirubin (NEGATIVE) Urine Urobilinogen (0.2-1.0) mg/dL Ur Leukocyte Esterase (NEGATIVE) Influenza Type A RNA (NEGATIVE) Influenza Type B RNA (NEGATIVE) SARS-CoV-2 RNA (MARGARET) (NEGATIVE) Result Diagrams: 08/16/20 12:37 08/17/20 06:36 Matthew Results Last 24 hrs: Microbiology 08/16/20 12:44 Anaerobic Blood Culture - Final Blood - Arm, Left Sepsis Event Note - Evaluation Sepsis Screening Result: No Definite Risk - Focused Exam Vital Signs: Vital Signs Temp Pulse Pulse Resp BP BP Pulse Ox 08/17/20 08:37 70 112/60 08/17/20 08:00 97.5 F 70 20 112/65 90 L 08/17/20 04:00 97.6 F 95 20 152/80 H 95 - Problem List Review Problem List Initiated/Reviewed/Updated: Yes - My Orders Last 24 Hours: My Active Orders 08/16/20 16:44 Patient Status [ADT] Routine Communication Order [RC] Oxygen Therapy [RC] .PRN VTE/DVT Education [RC] Vital Signs [RC] Q4H Acetaminophen [TylenoL] 650 mg PO Q4H PRN Resuscitation Status Routine 08/16/20 16:47 Losartan [Cozaar] 25 mg PO BID PRN Mometasone/Formoterol [Dulera 200-5 MCG] 2 puff IH DAILY PRN 08/16/20 Dinner 2 Gram Sodium Diet [DIET] 08/16/20 21:00 Gabapentin [Neurontin] 200 mg PO BEDTIME carvediloL [Coreg] 25 mg PO BID 08/16/20 22:00 ceFAZolin [Ancef] 1 gm Sodium Chloride 0.9% [Normal Saline] 50 ml IV Q8HR 08/17/20 09:00 Furosemide [Lasix] 20 mg PO DAILY Gabapentin [Neurontin] 100 mg PO DAILY Pravastatin [Pravachol] 40 mg PO DAILY Tolterodine [Detrol LA 24 Hr] 4 mg PO DAILY predniSONE 5 mg PO DAILY 08/17/20 12:14 Warfarin [Coumadin] 2.5 mg PO ONETIME ONE 08/17/20 17:00 Spironolactone [Aldactone] 25 mg PO .EVERYOTHERDAY 08/18/20 05:11 INR,PT,PROTHROMBIN TIME [COAG] AM - Plan Plan:: #RLE cellulitis - in setting of skin tear and chronic venous stasis - start cefazolin - limb elevation is essential #afib - rate controlled - dose coumadin as needed #presumed COVID19 re-infection - it has been >90 day since pt's prior dx and she is again noted PCR positive - albeit asymptomatic - CT chest does not reveal any COVID19 changes therefore suspect the mild hypoxia is due to her COPD diagnosis #acute hypoxic respiratory failure - pt w/o known o2 requirement but may have gone unnoticed as outpatient - will monitor and evaluate for need for home o2 prior to d/c #RA - c/w prednisone #chronic congestive CHF - type unknown - appears euvolemic PPX - on coumadin
[2020-08-17] MEDS ORDERED: Spironolactone 25 MG Tab PO SCH (17:00)
[2020-08-18] MEDS: ceFAZolin 1 GM in Sodium Chloride 0.9% 50 ML IV SCH (05:56)
[2020-08-18] MEDS: Tolterodine 2 MG Cap.ER PO SCH (09:24)
[2020-08-18] MEDS: Furosemide 20 MG Tab PO SCH (09:24)
[2020-08-18] MEDS: Gabapentin 100 MG Cap PO SCH (09:24)
[2020-08-18] MEDS: Carvedilol 25 MG Tab PO SCH (09:25)
[2020-08-18] MEDS: predniSONE 5 MG Tab PO SCH (09:25)
[2020-08-18] MEDS: Pravastatin 20 MG Tab PO SCH (09:25)
[2020-08-18 09:28] VITALS: BP 121/74; PULSE 84
[2020-08-18] MEDS ORDERED: Warfarin 2.5 MG Tab PO ONE (10:27)
--- NOTE | 2020-08-18 10:42 | PCM.DCSUM1 ---
Discharge Summary - Hospital Course Free Text/Narrative:: 80F w/ pmh HT, HL, CAD, CHF, COPD/asthma (unsure), afib on coumadin, RA on prednisone, mild COVID19 dx 2/6 and s/p BAM infusion p/w RLE pain. reports pt repeatedly hits her leg on the carcass washer door. She recently hit the leg again and suffered a skin tear. This was debrided partially in clinic yesterday. Today the noted pt to be confused. She developed swelling, redness and pain in right inman surrounding the skin tear. No fever is reported but she did have shaking chills. Pt and denies any respiratory symptoms. She is not coughing or short of breath. She was incidentally noted mildly hypoxic in the ED to high 80s. She has also positive for COVID19 today. reports pt receiving first dose of [employer] COVID19 vaccine [address] chest does not show any COVID19 changes. Although we presume an asymptomatic re-infection there was no indication to initiate dexamethasone/remdesivir therapy. The RLE cellulitis was treated w/ cefazolin and leg elevation w/ rapid improvement. She is being d/c to complete a course of PO cephalexin. - Discharge Data Discharge Date: 08/18/20 Discharge Disposition: Home, W Home Health Agency 06 Condition: Good - Referral to Home Health Date of Face to Face Encounter: 08/18/20 Reason for Homebound Status: COVID19 isolation, cognitive impairment Primary Care Physician: PCP Unobtainable Skilled Need: leg wound evaluation, infection site monitoring, med teaching, a dherence - Discharge Plan *PRESCRIPTION DRUG MONITORING PROGRAM REVIEWED*: No *COPY OF PRESCRIPTION DRUG MONITORING REPORT IN PATIENT DEREK: No Prescriptions/Med Rec: cephALEXin [Cephalexin] 500 mg PO Q6H #36 capsule Home Medications: Home Meds Warfarin Sodium [Jantoven] 2.5 mg PO .Tuesday09/25/15 [History] Fluticasone/Salmeterol [Advair Diskus 250-50] 1 puff INH DAILY PRN 08/02/16 [History] Furosemide [Lasix] 20 mg PO DAILY 08/02/16 [History] Losartan [Cozaar] 25 mg PO BID PRN 08/02/16 [History] Pravastatin [Pravachol] 40 mg PO DAILY 08/02/16 [History] Spironolactone [Aldactone] 25 mg PO .EVERYOTHERDAY 08/02/16 [History] Tolterodine Tartrate [Detrol LA] 4 mg PO DAILY 08/02/16 [History] carvediloL [Carvedilol] 25 mg PO BID 08/02/16 [History] Albuterol Sulfate [Proair Hfa] 2 puff IH Q6HR PRN 02/25/17 [History] Warfarin [Coumadin] 2 mg PO .[id number] 02/25/17 [History] predniSONE 5 mg PO DAILY 03/08/18 [History] Gabapentin [Neurontin] 100 mg PO DAILY 08/16/20 [History] Gabapentin [Neurontin] 200 mg PO BEDTIME 08/16/20 [History] cephALEXin [Cephalexin] 500 mg PO Q6H #36 capsule 08/18/20 [Rx] Forms: ED Department Discharge Referrals: Kristal Avitia NP [Ordering Only Provider] - - Discharge Summary/Plan Comment DC Time >30 min.: Yes (35 min) - Patient Data Vitals - Most Recent: Last Vital Signs Temp 97.7 F 08/18/20 08:00 Pulse 84 08/18/20 09:25 Resp 18 08/18/20 08:00 BP 121/74 08/18/20 09:25 Pulse Ox 92 L 08/18/20 08:00 Weight - Most Recent: 160 lb 6 oz I&O - Last 24 hours: Intake & Output 08/17/20 08/18/20 08/18/20 22:59 06:59 14:59 Intake Total 100 150 240 Output Total 300 900 Balance -200 -750 240 Lab Results - Last 24 hrs: Laboratory Results - last 24 hr 08/18/20 Range/Units 06:30 PT 18.3 H (9.0-12.0) SEC INR 1.8 H (0.9-1.2) ERNESTINA Results - Last 24 hrs: Microbiology 08/16/20 12:44 Aerobic Blood Culture - Preliminary Blood - Arm, Left NO GROWTH AFTER 1 DAY Anaerobic Blood Culture - Final 08/16/20 12:37 Aerobic Blood Culture - Preliminary Blood - Arm, Right NO GROWTH AFTER 1 DAY Anaerobic Blood Culture - Preliminary NO GROWTH AFTER 1 DAY Med Orders - Current: Current Medications Acetaminophen (Acetaminophen 325 Mg Tab) 650 mg PO Q4H PRN PRN Reason: Pain (Mild 1-3)/fever Carvedilol (Carvedilol 25 Mg Tab) 25 mg PO BID [facility] Last Admin: 08/18/20 09:25 Dose: 25 mg Documented by: Furosemide (Furosemide 20 Mg Tab) 20 mg PO DAILY [facility] Last Admin: 08/18/20 09:24 Dose: 20 mg Documented by: Gabapentin (Gabapentin 100 Mg Cap) 100 mg PO DAILY [facility] Last Admin: 08/18/20 09:24 Dose: 100 mg Documented by: Gabapentin (Gabapentin 100 Mg Cap) 200 mg PO BEDTIME [facility] Last Admin: 08/17/20 21:00 Dose: 200 mg Documented by: Cefazolin Sodium 1 gm/ Sodium (Chloride) 50 mls @ 100 mls/hr IV Q8HR [facility] Last Admin: 08/18/20 05:56 Dose: 100 mls/hr Documented by: Losartan Potassium (Losartan 25 Mg Tab) 25 mg PO BID PRN PRN Reason: Tachycardia Mometasone Furoate/Formoterol Fumar (Formoterol/Mometasone 200-5 Mcg 8.8 Gm Inhaler) 2 puff IH DAILY PRN PRN Reason: Shortness of Breath Pravastatin Sodium (Pravastatin 20 Mg Tab) 40 mg PO DAILY [facility] Last Admin: 08/18/20 09:25 Dose: 40 mg Documented by: Prednisone (Prednisone 5 Mg Tab) 5 mg PO DAILY [facility] Last Admin: 08/18/20 09:25 Dose: 5 mg Documented by: Spironolactone (Spironolactone 25 Mg Tab) 25 mg PO .EVERYOTHERDAY [facility] Tolterodine Tartrate (Tolterodine 2 Mg Cap.Er) 4 mg PO DAILY [facility] Last Admin: 08/18/20 09:24 Dose: 4 mg Documented by: Discontinued Medications Cefazolin Sodium 1 gm/ Sodium (Chloride) 50 mls @ 100 mls/hr IV ONETIME ONE Stop: 08/16/20 14:25 Last Admin: 08/16/20 14:17 Dose: 100 mls/hr Documented by: Warfarin Sodium (Warfarin 2.5 Mg Tab) 2.5 mg PO ONETIME ONE Stop: 08/17/20 12:15 Last Admin: 08/17/20 13:21 Dose: 2.5 mg Documented by: Warfarin Sodium (Warfarin 2.5 Mg Tab) 2.5 mg PO ONETIME ONE Stop: 08/18/20 10:28 - Exam Quality Assessment: Denies: Supplemental Oxygen General: Reports: Alert, Oriented HEENT: Reports: Pupils Equal Neck: Reports: Supple Lungs: Reports: Clear to Auscultation Cardiovascular: Reports: Regular Rate, Regular Rhythm GI/Abdominal Exam: Normal Bowel Sounds, Soft, Non-Tender, No Distention Back Exam: Reports: Normal Inspection Extremities: Other (trace pitting b/l, b/l venous stasis dermatitis R > L, medial right inman oval skin tear is dry, non purulent, non infected, pruning due to swelling resolution) Skin: Reports: Warm Wound/Incisions: Reports: Healing Well Neurological: Reports: No New Focal Deficit Psy/Mental Status: Reports: Alert, Normal Affect, Normal Mood
== END 2020-08-18 13:00 | disposition home health service (06) | DRG 602 ==
LOC: DL.ED 11:51 → DL.MS 13:57
PROVIDERS: ADMIT Internal Medicine; ATTEND Internal Medicine
DX: R09.02 Hypoxemia (principal); L03.115 Cellulitis of right lower limb; U07.1 COVID-19; S81.811A Laceration without foreign body, right lower leg, initial encounter; J96.01 Acute respiratory failure with hypoxia; W22.8XXA Striking against or struck by other objects, initial encounter; I42.9 Cardiomyopathy, unspecified; H35.30 Unspecified macular degeneration; I48.11 Longstanding persistent atrial fibrillation; E78.5 Hyperlipidemia, unspecified; I25.10 Atherosclerotic heart disease of native coronary artery without angina pectoris; I50.9 Heart failure, unspecified; J44.9 Chronic obstructive pulmonary disease, unspecified; Z79.01 Long term (current) use of anticoagulants; M06.9 Rheumatoid arthritis, unspecified; Z79.52 Long term (current) use of systemic steroids; Z79.899 Other long term (current) drug therapy; I11.0 Hypertensive heart disease with heart failure; Z88.5 Allergy status to narcotic agent; Z88.8 Allergy status to other drugs, medicaments and biological substances; H54.7 Unspecified visual loss; E78.00 Pure hypercholesterolemia, unspecified; M19.90 Unspecified osteoarthritis, unspecified site; M54.2 Cervicalgia; G89.29 Other chronic pain; G62.9 Polyneuropathy, unspecified; M81.0 Age-related osteoporosis without current pathological fracture; D64.9 Anemia, unspecified; Z85.3 Personal history of malignant neoplasm of breast; Z92.21 Personal history of antineoplastic chemotherapy; Z85.828 Personal history of other malignant neoplasm of skin; Z86.19 Personal history of other infectious and parasitic diseases; Z98.49 Cataract extraction status, unspecified eye; Z90.49 Acquired absence of other specified parts of digestive tract; Z90.11 Acquired absence of right breast and nipple; I87.8 Other specified disorders of veins
CPT/HCPCS: 0240U; 36415; 36600; 71045; 71250; 80053; 81003; 82803; 83605; 83735; 83880; 84100; 85025; 85610; 86140; 87040; 96365; 96366; 99284; 99285-25; A9270-GY; J0690; J7512

== ENCOUNTER 2020-10-08 10:33 | Inpatient (IN) | payer MEDICARE, OTHER ==
[2020-10-08] MEDS ORDERED: Sodium Chloride 0.9% 1,000 ML IV ONE (11:50)
--- NOTE | 2020-10-08 11:57 | EDM.PDOC ---
ED HPI GENERAL MEDICAL PROBLEM - General Chief Complaint: General Time Seen by Provider: 10/08/20 11:45 Source of Information: Reports: Patient History Limitations: Reports: No Limitations - History of Present Illness INITIAL COMMENTS - FREE TEXT/NARRATIVE: This 80 yo female patient was brought to the ED by [facility] due to increased weakness this morning. This patient reports she has not been drinking as much fluids as she should. The patient's family reports the patient has been dealing with a right lower extremity wound that got infected. The patient was seen by wound management yesterday and her wound appears to be healing well. The patient's family reports she did have a change in antibiotics (changed from Doxycycline to Bactrim) with wound healing. The patient's family reports the patient seemed very tired this morning. The patient did go to the bathroom. After being in the bathroom for a long time, the family went into the bathroom to check on the patient and found her on the floor. The family did assist her up, but the patient was not able to stand on her own. The patient denies hitting her head, but reports she was "too weak" to stand up. The patient denies any current areas of pain or discomfort. Onset: Today Duration: Constant Location: Reports: Other Quality: Reports: Other Severity: Moderate Improves with: Reports: None Worsens with: Reports: None Context: Reports: Other Associated Symptoms: Reports: No Other Symptoms - Related Data Allergies Allergy/AdvReac Type Severity Reaction Status Date / Time benazepril Allergy Other Verified 10/08/20 10:44 codeine Allergy Vomiting Verified 10/08/20 10:44 simvastatin Allergy Other Verified 10/08/20 10:44 Home Meds: Home Meds Furosemide [Lasix] 20 mg PO DAILY 08/02/16 [History] Losartan [Cozaar] 25 mg PO BID PRN 08/02/16 [History] Pravastatin [Pravachol] 40 mg PO QPM 08/02/16 [History] Spironolactone [Aldactone] 25 mg PO .EVERYOTHERDAY 08/02/16 [History] Tolterodine Tartrate [Detrol LA] 4 mg PO DAILY 08/02/16 [History] carvediloL [Carvedilol] 25 mg PO BID 08/02/16 [History] Albuterol Sulfate [Proair Hfa] 2 puff IH Q6HR PRN 02/25/17 [History] Warfarin [Coumadin] 2 mg PO DAILY 02/25/17 [History] predniSONE 5 mg PO DAILY 03/08/18 [History] Gabapentin [Neurontin] 200 mg PO BID 08/16/20 [History] Triamcinolone Acetonide [Triamcinolone Acetonide 0.1% Oint] 1 applic TOP ASDIRECTED 08/18/20 [History] Fluticasone Propion/Salmeterol [Advair Hfa 230-21 Mcg Inhaler] 1 puff INH DAILY PRN 09/25/20 [History] Sulfamethoxazole/Trimethoprim [Sulfamethoxazole-Tmp Ds Tablet] 1 tab PO BID 10/08/20 [History] Past Medical History HEENT History: Reports: Impaired Vision, Macular Degeneration Other HEENT History: weas glasses Cardiovascular History: Reports: Afib, Cardiomyopathy, Heart Failure, High Cholesterol, Hypertension, Other (See Below) Other Cardiovascular History: Pt. reports of cardiac issues secondary to past chemotherapy Respiratory History: Reports: Asthma, COPD Other Respiratory History: questionable COPD Gastrointestinal History: Reports: None Genitourinary History: Reports: None [employer] History: Reports: Musculoskeletal History: Reports: Arthritis, Neck Pain, Chronic, Osteoarthritis, RA Neurological History: Reports: Neuropathy, Peripheral Psychiatric History: Reports: None Endocrine/Metabolic History: Reports: Osteoporosis Hematologic History: Reports: Anemia Immunologic History: Reports: None Oncologic (Cancer) History: Reports: Breast, Other (See Below) Other Oncologic History: unspecified skin cancer Dermatologic History: Reports: None, Cellulitis - Infectious Disease History Infectious Disease History: Reports: Chicken Pox, Measles, Shingles - Past Surgical History Head Surgeries/Procedures: Reports: None HEENT Surgical History: Reports: Cataract Surgery Cardiovascular Surgical History: Reports: None GI Surgical History: Reports: Cholecystectomy Female Surgical History: Reports: Mastectomy Other Female Surgeries/Procedures: right sided Musculoskeletal Surgical History: Reports: None Social & Family History - Family History Family Medical History: No Pertinent Family History - Tobacco Use Tobacco Use Status *Q: Never Tobacco User Second Hand Smoke Exposure: No - Caffeine Use Caffeine Use: Reports: Coffee Other Caffeine Use: 16. oz daily - Recreational Drug Use Recreational Drug Use: No ED ROS GENERAL - Review of Systems Review Of Systems: Comprehensive ROS is negative, except as noted in HPI. ED EXAM, GENERAL - Physical Exam Exam: See Below Exam Limited By: No Limitations General Appearance: Alert, WD/WN, No Apparent Distress Eye Exam: Bilateral Eye: EOMI, Normal Inspection, PERRL Ears: Normal External Exam, Normal Canal, Hearing Grossly Normal, Normal TMs Nose: Normal Inspection, Normal Mucosa, No Blood Throat/Mouth: Normal Inspection, Normal Lips, Normal Teeth, Normal Gums, Normal Oropharynx, Normal Voice, No Airway Compromise Head: Atraumatic, Normocephalic Neck: Normal Inspection, Supple, Non-Tender, Full Range of Motion Respiratory/Chest: No Respiratory Distress, Lungs Clear, Normal Breath Sounds, No Accessory Muscle Use, Chest Non-Tender Cardiovascular: Normal Peripheral Pulses, Regular Rate, Rhythm, No Edema, No Gallop, No JVD, No Murmur, No Rub GI/Abdominal: Normal Bowel Sounds, Soft, Non-Tender, No Organomegaly, No Distention, No Abnormal Bruit, No Mass (Female) Exam: Deferred Rectal (Female) Exam: Deferred Back Exam: Normal Inspection, Full Range of Motion, NT Extremities: Normal Inspection, Normal Range of Motion, Non-Tender, Normal Capillary Refill, No Pedal Edema Neurological: Alert, Oriented, CN II-XII Intact, Normal Cognition, Normal Gait, Normal Reflexes, No Motor/Sensory Deficits Psychiatric: Normal Affect, Normal Mood Skin Exam: Warm, Dry, Normal Color, No Rash Lymphatic: No Adenopathy Course - Vital Signs Last Recorded V/S: Last Vital Signs Temp 98.6 F 10/08/20 12:50 Pulse 97 10/08/20 10:38 Resp 26 H 10/08/20 10:38 BP 151/90 H 10/08/20 10:38 Pulse Ox 91 L 10/08/20 10:38 Orthostatic Blood Pressure [ 129/72 Standing] Orthostatic Blood Pressure [ 130/81 Sitting] Orthostatic Blood Pressure [ 150/82 Supine] - Orders/Labs/Meds Orders: Active Orders 24 hr Category Date Time Status Admission Diagnosis [ADT] Urgent ADT 10/08/20 16:21 Ordered Admission Status [Patient Status] [ADT] Routine ADT 10/08/20 16:21 Ordered Labs: Laboratory Tests 10/08/20 10/08/20 10/08/20 Range/Units 12:00 12:00 12:00 WBC 6.9 (5.0-10.0) 10^3/uL RBC 4.28 (4.2-5.4) 10^6/uL Hgb 12.9 (12.0-16.0) g/dL Hct 40.0 (37.0-47.0) % MCV 93.5 D (80-100) fL MCH 30.1 (27.0-34.0) pg MCHC 32.3 L (33.0-35.0) g/dL Plt Count 144 L (150-450) 10^3/uL Neut % (Auto) 80.2 H (42.2-75.2) % Lymph % (Auto) 5.6 L (20.5-50.1) % [place] % (Auto) 10.9 H (2-8) % Eos % (Auto) 2.7 (1.0-3.0) % Baso % (Auto) 0.6 (0.0-1.0) % PT 35.2 H D (9.0-12.0) SEC INR 3.6 H (0.9-1.2) Sodium 137 (136-145) mmol/L Potassium 4.6 (3.5-5.1) mmol/L Chloride 99 (98-107) mmol/L Carbon Dioxide 28 (21-32) mmol/L Anion Gap 14.6 H (7-13) mEq/L BUN 23 H (7-18) mg/dL Creatinine 1.62 H (0.55-1.02) mg/dL Est Cr Clr Drug Dosing 23.12 mL/min Estimated GFR (MDRD) 30 BUN/Creatinine Ratio 14.2 (No establ ref range) Glucose 103 H (70-99) mg/dL Calcium 8.7 (8.5-10.1) mg/dL Total Bilirubin 0.4 (0.2-1.0) mg/dL AST 21 (15-37) U/L ALT 21 (14-59) U/L Alkaline Phosphatase 71 (46-116) U/L B-Natriuretic Peptide 588 H (0-100) pg/ml Total Protein 6.8 (6.4-8.2) g/dL Albumin 3.3 L (3.4-5.0) g/dL Globulin 3.5 Albumin/Globulin Ratio 0.94 Urine Color (YELLOW) Urine Appearance (CLEAR) Urine pH (5.0-9.0) Ur Specific Phillips (1.005-1.030) Urine Protein (NEGATIVE) Urine Glucose (UA) (NEGATIVE) Urine Ketones (NEGATIVE) Urine Occult Blood (NEGATIVE) Urine Nitrite (NEGATIVE) Urine Bilirubin (NEGATIVE) Urine Urobilinogen (0.2-1.0) mg/dL Ur Leukocyte Esterase (NEGATIVE) Urine RBC /HPF Urine WBC (0-5/HPF) /HPF Ur Epithelial Cells (NOT SEEN) /HPF Amorphous Sediment (NOT SEEN) /HPF Urine Bacteria (0-FEW/HPF) /HPF Urine Mucus (NOT SEEN) /LPF 10/08/20 Range/Units 13:12 WBC (5.0-10.0) 10^3/uL RBC (4.2-5.4) 10^6/uL Hgb (12.0-16.0) g/dL Hct (37.0-47.0) % MCV (80-100) fL MCH (27.0-34.0) pg MCHC (33.0-35.0) g/dL Plt Count (150-450) 10^3/uL Neut % (Auto) (42.2-75.2) % Lymph % (Auto) (20.5-50.1) % [place] % (Auto) (2-8) % Eos % (Auto) (1.0-3.0) % Baso % (Auto) (0.0-1.0) % PT (9.0-12.0) SEC INR (0.9-1.2) Sodium (136-145) mmol/L Potassium (3.5-5.1) mmol/L Chloride (98-107) mmol/L Carbon Dioxide (21-32) mmol/L Anion Gap (7-13) mEq/L BUN (7-18) mg/dL Creatinine (0.55-1.02) mg/dL Est Cr Clr Drug Dosing mL/min Estimated GFR (MDRD) BUN/Creatinine Ratio (No establ ref range) Glucose (70-99) mg/dL Calcium (8.5-10.1) mg/dL Total Bilirubin (0.2-1.0) mg/dL AST (15-37) U/L ALT (14-59) U/L Alkaline Phosphatase (46-116) U/L B-Natriuretic Peptide (0-100) pg/ml Total Protein (6.4-8.2) g/dL Albumin (3.4-5.0) g/dL Globulin Albumin/Globulin Ratio Urine Color Yellow (YELLOW) Urine Appearance Clear (CLEAR) Urine pH 7.0 (5.0-9.0) Ur Specific [place] 1.020 (1.005-1.030) Urine Protein Negative (NEGATIVE) Urine Glucose (UA) Negative (NEGATIVE) Urine Ketones Negative (NEGATIVE) Urine Occult Blood Trace-intact H (NEGATIVE) Urine Nitrite Negative (NEGATIVE) Urine Bilirubin Negative (NEGATIVE) Urine Urobilinogen 0.2 (0.2-1.0) mg/dL Ur Leukocyte Esterase Negative (NEGATIVE) Urine RBC 5-10 H /HPF Urine WBC 0-5 (0-5/HPF) /HPF Ur Epithelial Cells Moderate H (NOT SEEN) /HPF Amorphous Sediment Moderate H (NOT SEEN) /HPF Urine Bacteria Few (0-FEW/HPF) /HPF Urine Mucus Rare (NOT SEEN) /LPF Meds: Medications Discontinued Medications Generic Name Dose Route Start Last Admin Trade Name Freq PRN Reason Stop Dose Admin Sodium Chloride 1,000 mls @ 999 mls/hr 10/08/20 11:50 10/08/20 11:59 Normal Saline IV 10/08/20 12:50 999 mls/hr .BOLUS ONE Administration Departure - Departure Time of Disposition: 16:25 Disposition: Admitted As Inpatient 64 Condition: Fair Clinical Impression: Weakness, Impaired mobility and ADLs, Shortness of breath - Discharge Information *PRESCRIPTION DRUG MONITORING PROGRAM REVIEWED*: Not Applicable *COPY OF PRESCRIPTION DRUG MONITORING REPORT IN PATIENT DEREK: Not Applicable Care Plan Goals: Discussed the patient's history, examination, lab results, x-ray result and CT results with Dr. Johnson. Dr. Johnson accepted the patient for continued evaluation and further care as an inpatient at [facility]. Sepsis Event Note (ED) - Evaluation Sepsis Screening Result: No Definite Risk - Focused Exam Vital Signs: Vital Signs Temp Pulse Resp BP Pulse Ox 10/08/20 12:50 98.6 F 10/08/20 10:38 99.2 F 97 26 H 151/90 H 91 L - My Orders Last 24 Hours: My Active Orders 10/08/20 16:21 Admission Diagnosis [ADT] Urgent Admission Status [Patient Status] [ADT] Routine - Assessment/Plan Last 24 Hours: My Active Orders 10/08/20 16:21 Admission Diagnosis [ADT] Urgent Admission Status [Patient Status] [ADT] Routine
[2020-10-08 12:25] LABS: ANION GAP 14.6 mEq/L (7-13)
--- NOTE | 2020-10-08 15:43 | CR ---
EXAMINATION: Chest 1V Frontal SEX: Female AGE: 80 years CLINICAL HISTORY: 80-year-old somnolent female with increased shortness of breath was had previous right mastectomy. Comparison exam to July 2020. Interpretation: 1. *Subtle new patchy, peripheral right lung densities. Covid? 2. Chronic large cardiac silhouette unchanged since July 2020. No new pulmonary vascular congestion, cephalization of flow, alveolar edema or dependent pleural fluid accumulation (effusion). 3. No new lung mass or hilar lymphadenopathy. 4. No alveolar consolidation or air bronchograms. 5. Midline tracheobronchial airway unremarkable. No pneumothorax or pneumomediastinum. 6. Surgical clips right axilla. CONCLUSION: No signs of heart failure. Patchy new parenchymal densities, right lung (see above).
--- NOTE | 2020-10-08 16:07 | CT ---
EXAMINATION: Head wo Cont SEX: Female AGE: 80 years CLINICAL HISTORY: 80-year-old hypertensive "somnolent" female with history of breast cancer and short of breath (SOB). Comparison CT head 02 Aug 2016. Scan technique: Volume acquisition of data emergency unenhanced CT scan of the head and brain obtained with the patient lying supine on the Siemens multislice scanner [place], [place]. All data archived in the PACS system for storage, reformatting axial/sagittal/coronal planes and study (bone/brain windows). Interpretation: Abnormal but no new evidence of intracranial abnormality since July 2016 CT exam head. 1. Scattered hypodensities (ischemic infarcts) throughout the periventricular white matter both cerebral hemispheres with bilateral basal ganglia lacunae that are evident in retrospect on [address] exam. 2. Chronic atrophy pattern consistent with age. 3. No new supratentorial or posterior fossa mass lesion. No hydrocephalus. 4. No sign of acute intracerebral, intraventricular or subarachnoid bleed. No abnormal extracerebral/intracranial epidural or subdural hematoma. 5. Cerebellum and brainstem unremarkable. Dense midline pineal calcification. 6 symmetric clear pneumatization of the paranasal and mastoid sinuses. No inflammatory changes. CONCLUSION: Chronic atrophy and scattered microvascular ischemic changes (infarcts). No new evidence of intracranial mass, hydrocephalus or bleed.
[2020-10-08] MEDS ORDERED: Sodium Chloride 0.9% 10 ML Syringe FLUSH PRN (17:13)
[2020-10-08] MEDS ORDERED: Ondansetron 4 MG/2 ML SDV IVPUSH PRN (17:13)
[2020-10-08] MEDS ORDERED: Acetaminophen 325 MG Tab PO PRN (17:13)
[2020-10-08] MEDS ORDERED: Sodium Chloride 0.9% 1,000 ML IV SCH (17:15)
[2020-10-08] MEDS ORDERED: 50% Dextrose in Water 50 ML Syringe IVPUSH PRN (17:23)
[2020-10-08] MEDS ORDERED: Glucagon,Human Recombinant 1 MG Vial IM PRN (17:23)
[2020-10-08] MEDS ORDERED: methylPREDNISolone Sodium Succinate 40 MG/1 ML SDV IVPUSH SCH (17:30)
--- NOTE | 2020-10-08 17:33 | PCM.HP ---
H&P History of Present Illness - General Date of Service: 10/08/20 Admit Problem/Dx: Admission Diagnosis/Problem Admission Diagnosis/Problem Weakness - History of Present Illness Initial Comments - Free Text/Narative: The patient is an 80-year-old female who presents to complain of weakness. The patient was found on her hands and knees at her bathroom at home. Upon further questioning she gets that she started feeling unwell on October 07, 2020. She had an onset of nausea and vomiting wheezing, and dyspnea. 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 The patient denies fever, rigors, cough, abdominal pain, diarrhea, myalgia, dysuria, chest pain, diaphoresis, palpitations, since his rapid heartbeat, sensation irregular heartbeat. The patient admits to dyspnea, lightheadedness, dizziness. She denies diplopia, blurry vision, dysphasia, dysphagia, paresthesia/myesthesia/anesthesia of any part of her body except for, as mentioned above, generalized weakness. She presents for further evaluation - Related Data Allergies/Adverse Reactions: Allergies Allergy/AdvReac Type Severity Reaction Status Date / Time benazepril Allergy Other Verified 10/08/20 10:44 codeine Allergy Vomiting Verified 10/08/20 10:44 simvastatin Allergy Other Verified 10/08/20 10:44 Home Medications: Home Meds RX: Furosemide [Lasix] 20 mg PO DAILY 08/02/16 [History] RX: Losartan [Cozaar] 25 mg PO BID PRN 08/02/16 [History] RX: Pravastatin [Pravachol] 40 mg PO QPM 08/02/16 [History] RX: Spironolactone [Aldactone] 25 mg PO .EVERYOTHERDAY 08/02/16 [History] RX: Tolterodine Tartrate [Detrol LA] 4 mg PO DAILY 08/02/16 [History] RX: carvediloL [Carvedilol] 25 mg PO BID 08/02/16 [History] RX: Albuterol Sulfate [Proair Hfa] 2 puff IH Q6HR PRN 02/25/17 [History] RX: Warfarin [Coumadin] 2 mg PO DAILY 02/25/17 [History] RX: predniSONE 5 mg PO DAILY 12/12/18 [History] RX: Gabapentin [Neurontin] 200 mg PO BID 08/16/20 [History] Triamcinolone Acetonide [Triamcinolone Acetonide 0.1% Oint] 1 applic TOP ASDIRECTED 08/18/20 [History] Fluticasone Propion/Salmeterol [Advair Hfa 230-21 Mcg Inhaler] 1 puff INH DAILY PRN 09/25/20 [History] Sulfamethoxazole/Trimethoprim [Sulfamethoxazole-Tmp Ds Tablet] 1 tab PO BID 10/08/20 [History] Past Medical History HEENT History: Reports: Impaired Vision, Macular Degeneration Other HEENT History: weas glasses Cardiovascular History: Reports: Afib, Cardiomyopathy, Heart Failure, High Cholesterol, Hypertension, Other (See Below) Other Cardiovascular History: Pt. 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: Musculoskeletal History: Reports: Arthritis, Neck Pain, Chronic, Osteoarthritis, RA Neurological History: Reports: Neuropathy, Peripheral Psychiatric History: Reports: None Endocrine/Metabolic History: Reports: Osteoporosis Hematologic History: Reports: Anemia Immunologic History: Reports: None Oncologic (Cancer) History: Reports: Breast, Other (See Below) Other Oncologic History: unspecified skin cancer Dermatologic History: Reports: None, Cellulitis - Infectious Disease History Infectious Disease History: Reports: Chicken Pox, Measles, Shingles - Past Surgical History Head Surgeries/Procedures: Reports: None HEENT Surgical History: Reports: Cataract Surgery Cardiovascular Surgical History: Reports: None GI Surgical History: Reports: Cholecystectomy Female Surgical History: Reports: Mastectomy Other Female Surgeries/Procedures: right sided Musculoskeletal Surgical History: Reports: None Social & Family History - Family History Family Medical History: No Pertinent Family History - Tobacco Use Tobacco Use Status *Q: Never Tobacco User Second Hand Smoke Exposure: No - Caffeine Use Caffeine Use: Reports: Coffee Other Caffeine Use: 16. oz daily - Recreational Drug Use Recreational Drug Use: No H&P Review of Systems - Review of Systems: Review Of Systems: See Below General: Reports: Weakness HEENT: Reports: No Symptoms Pulmonary: Reports: Shortness of Breath, Wheezing Cardiovascular: Reports: No Symptoms Gastrointestinal: Reports: No Symptoms Genitourinary: Reports: No Symptoms Musculoskeletal: Reports: No Symptoms Skin: Reports: No Symptoms Psychiatric: Reports: No Symptoms Neurological: Reports: Difficulty Walking, Weakness Hematologic/Lymphatic: Reports: No Symptoms Immunologic: Reports: No Symptoms Exam - Exam Exam: See Below - Vital Signs Vital Signs: Last Vital Signs Temp 98.6 F 10/08/20 12:50 Pulse 97 10/08/20 10:38 Resp 26 H 10/08/20 10:38 BP 151/90 H 10/08/20 10:38 Pulse Ox 91 L 10/08/20 10:38 Orthostatic Blood Pressure [ 129/72 Standing] Orthostatic Blood Pressure [ 130/81 Sitting] Orthostatic Blood Pressure [ 150/82 Supine] Weight: 168 lb 6.4 oz - Exam General: Lethargic HEENT: PERRLA, Hearing Intact, Mucosa Moist & [place], Nares Patent, Normal Nasal Septum, Posterior Pharynx Clear, Conjunctiva Clear, EOMI, EACs Clear, TMs Clear Neck: Supple, Trachea Midline, 2 Lungs: Decreased Breath Sounds, Wheezing Cardiovascular: Regular Rate, Normal S1, Normal S2, Irregular Rhythm GI/Abdominal Exam: Normal Bowel Sounds, Soft, Non-Tender, No Organomegaly, No Distention, No Abnormal Bruit, No Mass, Pelvis Stable Back Exam: Normal Inspection, Full Range of Motion, NT Extremities: Pedal Edema Peripheral Pulses: 2+: Carotid (L), Carotid (R), Brachial (L), Brachial (R), Radial (L), Radial (R), Femoral (L), Femoral (R), Popliteal (L), Popliteal (R), Posterior Tibial (L), Posterior Tibial (R), Dorsalis Pedis (L), Dorsalis Pedis (R) Skin: Warm, Dry, Intact Neurological: Cranial Nerves Intact, Reflexes Equal Bilateral Neuro Extensive - Mental Status: Alert, Oriented x3, Normal Mood/Affect, Normal Cognition Neuro Extensive - Motor, Sensory, Reflexes: CN II-XII Intact, Normal Gait, Yazmin l Reflexes DTR: 2+: Bicep (L), Bicep (R), Tricep (L), Tricep (R), Patella (L), Patella (R), Achilles (L), Achilles (R) Psychiatric: Alert, Normal Affect, Normal Mood - Patient Data Lab Results Last 24 hrs: Laboratory Results - last 24 hr 10/08/20 10/08/20 10/08/20 Range/Units 12:00 12:00 12:00 WBC 6.9 (5.0-10.0) 10^3/uL RBC 4.28 (4.2-5.4) 10^6/uL Hgb 12.9 (12.0-16.0) g/dL Hct 40.0 (37.0-47.0) % MCV 93.5 D (80-100) fL MCH 30.1 (27.0-34.0) pg MCHC 32.3 L (33.0-35.0) g/dL Plt Count 144 L (150-450) 10^3/uL Neut % (Auto) 80.2 H (42.2-75.2) % Lymph % (Auto) 5.6 L (20.5-50.1) % Wilkinson % (Auto) 10.9 H (2-8) % Eos % (Auto) 2.7 (1.0-3.0) % Baso % (Auto) 0.6 (0.0-1.0) % PT 35.2 H D (9.0-12.0) SEC INR 3.6 H (0.9-1.2) Sodium 137 (136-145) mmol/L Potassium 4.6 (3.5-5.1) mmol/L Chloride 99 (98-107) mmol/L Carbon Dioxide 28 (21-32) mmol/L Anion Gap 14.6 H (7-13) mEq/L BUN 23 H (7-18) mg/dL Creatinine 1.62 H (0.55-1.02) mg/dL Est Cr Clr Drug Dosing 23.12 mL/min Estimated GFR (MDRD) 30 BUN/Creatinine Ratio 14.2 (No establ ref range) Glucose 103 H (70-99) mg/dL Calcium 8.7 (8.5-10.1) mg/dL Total Bilirubin 0.4 (0.2-1.0) mg/dL AST 21 (15-37) U/L ALT 21 (14-59) U/L Alkaline Phosphatase 71 (46-116) U/L B-Natriuretic Peptide 588 H (0-100) pg/ml Total Protein 6.8 (6.4-8.2) g/dL Albumin 3.3 L (3.4-5.0) g/dL Globulin 3.5 Albumin/Globulin Ratio 0.94 Urine Color (YELLOW) Urine Appearance (CLEAR) Urine pH (5.0-9.0) Ur Specific [place] (1.005-1.030) Urine Protein (NEGATIVE) Urine Glucose (UA) (NEGATIVE) Urine Ketones (NEGATIVE) Urine Occult Blood (NEGATIVE) Urine Nitrite (NEGATIVE) Urine Bilirubin (NEGATIVE) Urine Urobilinogen (0.2-1.0) mg/dL Ur Leukocyte Esterase (NEGATIVE) Urine RBC /HPF Urine WBC (0-5/HPF) /HPF Ur Epithelial Cells (NOT SEEN) /HPF Amorphous Sediment (NOT SEEN) /HPF Urine Bacteria (0-FEW/HPF) /HPF Urine Mucus (NOT SEEN) /LPF 10/08/ Range/Units 13:12 WBC (5.0-10.0) 10^3/uL RBC (4.2-5.4) 10^6/uL Hgb (12.0-16.0) g/dL Hct (37.0-47.0) % MCV (80-100) fL MCH (27.0-34.0) pg MCHC (33.0-35.0) g/dL Plt Count (150-450) 10^3/uL Neut % (Auto) (42.2-75.2) % Lymph % (Auto) (20.5-50.1) % Wilkinson % (Auto) (2-8) % Eos % (Auto) (1.0-3.0) % Baso % (Auto) (0.0-1.0) % PT (9.0-12.0) SEC INR (0.9-1.2) Sodium (136-145) mmol/L Potassium (3.5-5.1) mmol/L Chloride (98-107) mmol/L Carbon Dioxide (21-32) mmol/L Anion Gap (7-13) mEq/L BUN (7-18) mg/dL Creatinine (0.55-1.02) mg/dL Est Cr Clr Drug Dosing mL/min Estimated GFR (MDRD) BUN/Creatinine Ratio (No establ ref range) Glucose (70-99) mg/dL Calcium (8.5-10.1) mg/dL Total Bilirubin (0.2-1.0) mg/dL AST (15-37) U/L ALT (14-59) U/L Alkaline Phosphatase (46-116) U/L B-Natriuretic Peptide (0-100) pg/ml Total Protein (6.4-8.2) g/dL Albumin (3.4-5.0) g/dL Globulin Albumin/Globulin Ratio Urine Color Yellow (YELLOW) Urine Appearance Clear (CLEAR) Urine pH 7.0 (5.0-9.0) Ur Specific [place] 1.020 (1.005-1.030) Urine Protein Negative (NEGATIVE) Urine Glucose (UA) Negative (NEGATIVE) Urine Ketones Negative (NEGATIVE) Urine Occult Blood Trace-intact H (NEGATIVE) Urine Nitrite Negative (NEGATIVE) Urine Bilirubin Negative (NEGATIVE) Urine Urobilinogen 0.2 (0.2-1.0) mg/dL Ur Leukocyte Esterase Negative (NEGATIVE) Urine RBC 5-10 H /HPF Urine WBC 0-5 (0-5/HPF) /HPF Ur Epithelial Cells Moderate H (NOT SEEN) /HPF Amorphous Sediment Moderate H (NOT SEEN) /HPF Urine Bacteria Few (0-FEW/HPF) /HPF Urine Mucus Rare (NOT SEEN) /LPF Result Diagrams: 10/08/20 12:00 10/08/20 12:00 Problem List Initiated/Reviewed/Updated: Yes Orders Last 24hrs: Active Orders 24 hr Category Date Time Status Admission Diagnosis [ADT] Urgent ADT 10/08/20 16:21 Ordered Admission Status [Patient Status] [ADT] Routine ADT 10/08/20 16:21 Active Antiembolic Devices [RC] PER UNIT ROUTINE Care 10/08/20 17:16 Ordered Blood Glucose Check, Bedside [RC] WITHMEALSANDBED Care 10/08/20 17:13 Ordered Cardiac Monitoring [RC] CONTINUOUS Care 10/08/20 17:14 Ordered EKG 12 Lead [EKG Documentation Completion] [RC] ROUTINE Care 10/08/20 17:20 Ordered EKG 12 Lead [EKG Documentation Completion] [RC] ROUTINE Care 10/09/20 06:00 Ordered Height and Weight [RC] DAILY Care 10/08/20 17:13 Ordered Intake and Output [RC] QSHIFT Care 10/08/20 17:15 Ordered Neuro Check [RC] Q4H Care 10/08/20 17:21 Ordered Oxygen Therapy [RC] PRN Care 10/08/20 17:14 Ordered Peripheral IV Care [RC] . DIRECTED Care 10/08/20 17:16 Ordered Pulse Oximetry [RC] CONTINUOUS Care 10/08/20 17:15 Ordered RT Aerosol Therapy [RC] ASDIRECTED Care 10/08/20 17:22 Ordered Up With Assistance [RC] ASDIRECTED Care 10/08/20 17:13 Ordered Vital Signs [RC] Q4H Care 10/08/20 17:14 Ordered Wound Care [RC] DAILY Care 10/08/20 17:23 Ordered OT Evaluation and Treatment [CONS] Routine Cons 10/08/20 17:13 Ordered PT Evaluation and Treatment [CONS] Routine Cons 10/08/20 17:13 Ordered Consistent Carbohydrate Diet [DIET] Diet 10/08/20 Dinner Ordered ABG [BLOOD GAS ARTERIAL] [BG] Stat Lab 10/08/20 17:19 Ordered AMMONIA [REF] Routine Lab 10/08/20 17:19 Ordered BASIC METABOLIC PANEL,BMP [CHEM] Routine Lab 10/09/20 05:00 Ordered FOLIC ACID [CHEM] Routine Lab 10/08/20 17:20 Ordered INR,PT,PROTHROMBIN TIME [COAG] Routine Lab 10/09/20 05:00 Ordered LIPID PANEL [CHEM] Routine Lab 10/09/20 05:00 Ordered MAGNESIUM [CHEM] Routine Lab 10/08/20 17:18 Ordered PHOSPHORUS [CHEM] Routine Lab 10/08/20 17:18 Ordered PTH, INTACT [REF] Routine Lab 10/08/20 17:18 Ordered T4 FREE [CHEM] Routine Lab 10/08/20 17:20 Ordered TROPONIN I HIGH SENSITIVITY [CHEM] Q6H Lab 10/08/20 17:19 Ordered TROPONIN I HIGH SENSITIVITY [CHEM] Q6H Lab 10/08/20 23:19 Ordered TROPONIN I HIGH SENSITIVITY [CHEM] Q6H Lab 10/09/20 05:19 Ordered TSH ULTRASENSITIVE [CHEM] Routine Lab 10/08/20 17:20 Ordered VITAMIN B12 [CHEM] Routine Lab 10/08/20 17:20 Ordered Acetaminophen [TylenoL] Med 10/08/20 17:13 Ordered 650 mg PO Q4H PRN Albuterol/Ipratropium [DuoNeb 3.0-0.5 MG/3 ML] Med 10/08/20 19:00 Ordered 3 ml NEB Q4HRRT Aspirin Med 10/08/20 21:00 Ordered 81 mg PO BEDTIME Dextrose 50% in Water Med 10/08/20 17:23 Ordered 50 ml IVPUSH Q15M PRN Glucagon,Human Recombinant [GlucaGen] Med 10/08/20 17:23 Ordered 1 mg IM Q15M PRN Insulin Lispro [HumaLOG] Med 10/08/20 18:00 Ordered See Protocol SUBCUT WITHMEALSANDBED Ondansetron [Zofran] Med 10/08/20 17:13 Ordered 4 mg IVPUSH Q4H PRN Pantoprazole [ProTONIX] Med 10/09/20 06:00 Ordered 40 mg PO ACBREAKFAST Sodium Chloride 0.9% [Normal Saline] 1,000 ml Med 10/08/20 17:15 Ordered IV ASDIRECTED Sodium Chloride 0.9% [Saline Flush] Med 10/08/20 17:13 Ordered 10 ml FLUSH ASDIRECTED PRN methylPREDNISolone Sod Succ [Solu-MEDROL] Med 10/08/20 17:30 Ordered 60 mg IVPUSH Q8H Antiembolic Hose [OM.PC] Per Unit Routine Oth 10/08/20 17:15 Ordered Peripheral IV Insertion Adult [OM.PC] Routine Oth 10/08/20 17:13 Ordered Resuscitation Status Routine Resus Stat 10/08/20 17:13 Ordered Medication Orders Acetaminophen (Acetaminophen 325 Mg Tab) 650 mg PO Q4H PRN PRN Reason: Pain (Mild 1-3)/fever Albuterol/Ipratropium (Albuterol/Ipratropium 3.0-0.5 Mg/3 Ml Neb Soln) 3 ml NEB Q4HRRT CHERRY Aspirin (Aspirin 81 Mg Tab.Chew) 81 mg PO BEDTIME CHERRY Dextrose/Water (50% Dextrose In Water 50 Ml Syringe) 50 ml IVPUSH Q15M PRN PRN Reason: Hypoglycemia Glucagon (Glucagon,Human Recombinant 1 Mg Vial) 1 mg IM Q15M PRN PRN Reason: Hypoglycemia Sodium Chloride (Normal Saline) 1,000 mls @ 50 mls/hr IV ASDIRECTED CHERRY Insulin Human Lispro (Insulin Lispro 100 Units/Ml 3 Ml Vial) 0 unit SUBCUT WITHMEALSANDBED CHERRY; Protocol Methylprednisolone Sodium Succinate (Methylprednisolone Sodium Succinate 40 Mg/1 Ml Sdv) 60 mg IVPUSH Q8H CHERRY Ondansetron HCl (Ondansetron 4 Mg/2 Ml Sdv) 4 mg IVPUSH Q4H PRN PRN Reason: Nausea/Vomiting Pantoprazole Sodium (Pantoprazole 40 Mg Tab.Cr) 40 mg PO ACBREAKFAST CHERRY Sodium Chloride (Sodium Chloride 0.9% 10 Ml Syringe) 10 ml FLUSH ASDIRECTED PRN PRN Reason: Keep Vein Open Assessment/Plan Comment:: Surgical History: Cholecystectomy, tonsillectomy, adenoidectomy, left second hammertoe surgery, right modified radical mastectomy, bilateral cataract surgery, strabismus surgerybelieved to be on the right side Family History: Cancer, hypertension Social History: Tobacco: Never Alcohol: 1 to 2 glass of wine nightly Caffeine: Coffee Drugs: Never Allergies: Documented history of allergy to benazepril of which the patient is uncertain. Documented history of allergy to codeine which patient denies. Documented history of allergy to Zocor for which the patient is uncertain of Code Status: DNR but request intubation if necessary Assessment / Plan: Generalized weakness, possibly sequelae of dehydration. Query history of ence phalopathy. Will monitor trend telemetry and checks her cardiac enzymes and check TSH and free T4 and B12 and folate and magnesium level. In the morning will check EKG and fasting lipid panel. Ammonia level pending. ABG pending to rule out CO2 narcosis. Urinalysis unremarkable. Neurochecks every 4 hours. Aspirin 81 mg p.o. daily plus IV normal saline 50 mils per hour. Physical therapy consult pending. Occupational therapy consult pending. Acute on chronic kidney disease, baseline creatinine approximately 1.2. Monitor creatinine intermittently. IV normal saline at 50 mils per hour Thrombocytopenia. Monitor platelet count intermittently Overactive bladder Neuropathy Atrial fibrillation. Telemetry monitoring. Monitor PT/INR periodically Query pneumonia. DuoNeb every 4 hours plus empiric treatment with doxycycline 100 mg IV every 12 hours Microscopic hematuria. Outpatient follow with urology upon discharge Osteoarthritis Rheumatoid arthritis COPD, not O2 dependent. Sign that all 6 mg IV every 8 hours plus DuoNeb every 4 hours plus doxycycline 100 mg IV every 12 hours CHF, ejection fraction 50 to 55% with grade 2 diastolic dysfunction per echocardiogram from March 18, 2020. Strict I's/O. Daily weight. Coronary artery disease Diabetes. Will check fasting glucose before every meal and at bedtime and provide sulci scale Hyperlipidemia Hypertension Obesity. Patient becomes regarding lifestyle modification Macular degeneration Chronic pain Osteoporosis History of breast cancer: Stage III infiltrating ductal breast carcinoma. Patient status post chemotherapy, status post radiation therapy, status post right modified radical mastectomy. The patient indicates that she is in remission and no longer requires to be monitored for this medical condition by Dr. Danya lehman thoracic thoracic aortic aneurysm. Outpatient monitoring with her [facility] physician or with a provider Gout Degenerative joint disease Seasonal allergies Right leg wound. We will continue wound care per home regimen/frequency. Outpatient follow-up with wound care clinic/surgery GI prophylaxis. Protonix 40 mg p.o. daily DVT prophylaxis. Bilateral SCD Disposition: Anticipate discharge in 48 to 72 hours. At the time of admission, the patient's home medications were pending input to the EMR/DHR system. Once their input, they will be reviewed and reconciled END OF DOCTOR EMAMIS HISTORY AND PHYSICAL / CONSULTATION NOTE
[2020-10-08] MEDS ORDERED: Insulin Lispro 100 Units/ML 3 ML Vial SUBCUT SCH (18:00)
[2020-10-08] MEDS: Albuterol/Ipratropium 3.0-0.5 MG/3 ML Neb Soln NEB SCH ×2 (19:32→23:18)
[2020-10-08] MEDS: methylPREDNISolone Sodium Succinate 40 MG/1 ML SDV IVPUSH SCH (20:33)
[2020-10-08] MEDS: Gabapentin 100 MG Cap PO SCH (20:34)
[2020-10-08] MEDS: Doxycycline 100 MG in Sodium Chloride 0.9% 100 ML IV SCH (20:35)
[2020-10-08] MEDS ORDERED: Pravastatin 20 MG Tab PO SCH (21:00)
[2020-10-08] MEDS ORDERED: Aspirin 81 MG Tab.Chew PO SCH (21:00)
[2020-10-09] MEDS: Albuterol/Ipratropium 3.0-0.5 MG/3 ML Neb Soln NEB SCH ×4 (03:30→17:14)
[2020-10-09] MEDS: methylPREDNISolone Sodium Succinate 40 MG/1 ML SDV IVPUSH SCH ×2 (05:14→14:02)
[2020-10-09] MEDS ORDERED: Pantoprazole 40 MG Tab.CR PO SCH (06:00)
[2020-10-09 06:39] LABS: ANION GAP 16.1 mEq/L (7-13)
--- NOTE | 2020-10-09 07:18 | PCM.PN ---
- General Info Date of Service: 10/09/20 Subjective Update: Patient indicates that overall she is feeling much better compared to my encounter with her on October 08, 2020. She states that she had an episode of emesis overnight however aside from this she endorses no complaints. She denies fever, rigors, cough, wheeze, abdominal pain, chest pain, dyspnea, or any other constitutional complaint. I explained to the patient her current medical condition and plan of care and I have answered all of her questions - Review of Systems General: Reports: No Symptoms HEENT: Reports: No Symptoms Pulmonary: Reports: No Symptoms Cardiovascular: Reports: No Symptoms Gastrointestinal: Reports: No Symptoms Genitourinary: Reports: No Symptoms Musculoskeletal: Reports: No Symptoms Skin: Reports: No Symptoms Neurological: Reports: No Symptoms Psychiatric: Reports: No Symptoms - Patient Data Vitals - Most Recent: Last Vital Signs Temp 97.1 F 10/09/20 03:31 Pulse 96 10/09/20 03:31 Resp 19 10/09/20 03:31 BP 131/67 10/09/20 03:31 Pulse Ox 99 10/09/20 03:31 Orthostatic Blood Pressure [ 129/72 Standing] Orthostatic Blood Pressure [ 130/81 Sitting] Orthostatic Blood Pressure [ 150/82 Supine] Weight - Most Recent: 164 lb 9.6 oz I&O - Last 24 Hours: Intake & Output 10/08/20 10/09/20 10/09/20 22:59 06:59 14:59 Output Total 500 Balance -500 Lab Results Last 24 Hours: Laboratory Results - last 24 hr 10/08/20 10/08/20 10/08/20 Range/Units 12:00 12:00 12:00 WBC 6.9 (5.0-10.0) 10^3/uL RBC 4.28 (4.2-5.4) 10^6/uL Hgb 12.9 (12.0-16.0) g/dL Hct 40.0 (37.0-47.0) % MCV 93.5 D (80-100) fL MCH 30.1 (27.0-34.0) pg MCHC 32.3 L (33.0-35.0) g/dL Plt Count 144 L (150-450) 10^3/uL Neut % (Auto) 80.2 H (42.2-75.2) % Lymph % (Auto) 5.6 L (20.5-50.1) % [place] % (Auto) 10.9 H (2-8) % Eos % (Auto) 2.7 (1.0-3.0) % Baso % (Auto) 0.6 (0.0-1.0) % PT 35.2 H D (9.0-12.0) SEC INR 3.6 H (0.9-1.2) Sodium 137 (136-145) mmol/L Potassium 4.6 (3.5-5.1) mmol/L Chloride 99 (98-107) mmol/L Carbon Dioxide 28 (21-32) mmol/L Anion Gap 14.6 H (7-13) mEq/L BUN 23 H (7-18) mg/dL Creatinine 1.62 H (0.55-1.02) mg/dL Est Cr Clr Drug Dosing 23.12 mL/min Estimated GFR (MDRD) 30 BUN/Creatinine Ratio 14.2 (No establ ref range) Glucose 103 H (70-99) mg/dL Calcium 8.7 (8.5-10.1) mg/dL Phosphorus (2.6-4.7) mg/dL Magnesium (1.8-2.4) mg/dL Total Bilirubin 0.4 (0.2-1.0) mg/dL AST 21 (15-37) U/L ALT 21 (14-59) U/L Alkaline Phosphatase 71 (46-116) U/L Ammonia (11-32) umol/L Troponin I High Sens (<=51) pg/mL B-Natriuretic Peptide 588 H (0-100) pg/ml Total Protein 6.8 (6.4-8.2) g/dL Albumin 3.3 L (3.4-5.0) g/dL Globulin 3.5 Albumin/Globulin Ratio 0.94 Triglycerides (0-149) mg/dL Cholesterol (0-199) mg/dL LDL Cholesterol, Calc (0-100) mg/dL HDL Cholesterol (40-59) mg/dL Vitamin B12 (193-986) pg/mL Folate (8.6-58.9) ng/mL Free T4 (0.76-1.46) ng/dL TSH, Ultra Sensitive (0.36-3.74) uIU/mL Urine Color (YELLOW) Urine Appearance (CLEAR) Urine pH (5.0-9.0) Ur Specific [place] (1.005-1.030) Urine Protein (NEGATIVE) Urine Glucose (UA) (NEGATIVE) Urine Ketones (NEGATIVE) Urine Occult Blood (NEGATIVE) Urine Nitrite (NEGATIVE) Urine Bilirubin (NEGATIVE) Urine Urobilinogen (0.2-1.0) mg/dL Ur Leukocyte Esterase (NEGATIVE) Urine RBC /HPF Urine WBC (0-5/HPF) /HPF Ur Epithelial Cells (NOT SEEN) /HPF Amorphous Sediment (NOT SEEN) /HPF Urine Bacteria (0-FEW/HPF) /HPF Urine Mucus (NOT SEEN) /LPF 10/08/20 10/08/20 10/08/20 Range/Units 13:12 18:00 18:00 WBC (5.0-10.0) 10^3/uL RBC (4.2-5.4) 10^6/uL Hgb (12.0-16.0) g/dL Hct (37.0-47.0) % MCV (80-100) fL MCH (27.0-34.0) pg MCHC (33.0-35.0) g/dL Plt Count (150-450) 10^3/uL Neut % (Auto) (42.2-75.2) % Lymph % (Auto) (20.5-50.1) % [place] % (Auto) (2-8) % Eos % (Auto) (1.0-3.0) % Baso % (Auto) (0.0-1.0) % PT (9.0-12.0) SEC INR (0.9-1.2) Sodium (136-145) mmol/L Potassium (3.5-5.1) mmol/L Chloride (98-107) mmol/L Carbon Dioxide (21-32) mmol/L Anion Gap (7-13) mEq/L BUN (7-18) mg/dL Creatinine (0.55-1.02) mg/dL Est Cr Clr Drug Dosing mL/min Estimated GFR (MDRD) BUN/Creatinine Ratio (No establ ref range) Glucose (70-99) mg/dL Calcium (8.5-10.1) mg/dL Phosphorus 3.9 (2.6-4.7) mg/dL Magnesium 1.9 (1.8-2.4) mg/dL Total Bilirubin (0.2-1.0) mg/dL AST (15-37) U/L ALT (14-59) U/L Alkaline Phosphatase (46-116) U/L Ammonia < 10 L (11-32) umol/L Troponin I High Sens 17 (<=51) pg/mL B-Natriuretic Peptide (0-100) pg/ml Total Protein (6.4-8.2) g/dL Albumin (3.4-5.0) g/dL Globulin Albumin/Globulin Ratio Triglycerides (0-149) mg/dL Cholesterol (0-199) mg/dL LDL Cholesterol, Calc (0-100) mg/dL HDL Cholesterol (40-59) mg/dL Vitamin B12 357 (193-986) pg/mL Folate 16.8 (8.6-58.9) ng/mL Free T4 1.22 (0.76-1.46) ng/dL TSH, Ultra Sensitive 0.73 (0.36-3.74) uIU/mL Urine Color Yellow (YELLOW) Urine Appearance Clear (CLEAR) Urine pH 7.0 (5.0-9.0) Ur Specific [place] 1.020 (1.005-1.030) Urine Protein Negative (NEGATIVE) Urine Glucose (UA) Negative (NEGATIVE) Urine Ketones Negative (NEGATIVE) Urine Occult Blood Trace-intact H (NEGATIVE) Urine Nitrite Negative (NEGATIVE) Urine Bilirubin Negative (NEGATIVE) Urine Urobilinogen 0.2 (0.2-1.0) mg/dL Ur Leukocyte Esterase Negative (NEGATIVE) Urine RBC 5-10 H /HPF Urine WBC 0-5 (0-5/HPF) /HPF Ur Epithelial Cells Moderate H (NOT SEEN) /HPF Amorphous Sediment Moderate H (NOT SEEN) /HPF Urine Bacteria Few (0-FEW/HPF) /HPF Urine Mucus Rare (NOT SEEN) /LPF 10/08/20 10/09/20 10/09/20 Range/Units 23:28 06:05 06:05 WBC (5.0-10.0) 10^3/uL RBC (4.2-5.4) 10^6/uL Hgb (12.0-16.0) g/dL Hct (37.0-47.0) % MCV (80-100) fL MCH (27.0-34.0) pg MCHC (33.0-35.0) g/dL Plt Count (150-450) 10^3/uL Neut % (Auto) (42.2-75.2) % Lymph % (Auto) (20.5-50.1) % [place] % (Auto) (2-8) % Eos % (Auto) (1.0-3.0) % Baso % (Auto) (0.0-1.0) % PT 26.4 H (9.0-12.0) SEC INR 2.7 H (0.9-1.2) Sodium 137 (136-145) mmol/L Potassium 5.1 (3.5-5.1) mmol/L Chloride 101 (98-107) mmol/L Carbon Dioxide 25 (21-32) mmol/L Anion Gap 16.1 H (7-13) mEq/L BUN 22 H (7-18) mg/dL Creatinine 1.44 H (0.55-1.02) mg/dL Est Cr Clr Drug Dosing 24.92 mL/min Estimated GFR (MDRD) 35 BUN/Creatinine Ratio (No establ ref range) Glucose 118 H (70-99) mg/dL Calcium 8.3 L (8.5-10.1) mg/dL Phosphorus (2.6-4.7) mg/dL Magnesium (1.8-2.4) mg/dL Total Bilirubin (0.2-1.0) mg/dL AST (15-37) U/L ALT (14-59) U/L Alkaline Phosphatase (46-116) U/L Ammonia (11-32) umol/L Troponin I High Sens 16 (<=51) pg/mL B-Natriuretic Peptide (0-100) pg/ml Total Protein (6.4-8.2) g/dL Albumin (3.4-5.0) g/dL Globulin Albumin/Globulin Ratio Triglycerides 56 (0-149) mg/dL Cholesterol 161 (0-199) mg/dL LDL Cholesterol, Calc 89 (0-100) mg/dL HDL Cholesterol 61 H (40-59) mg/dL Vitamin B12 (193-986) pg/mL Folate (8.6-58.9) ng/mL Free T4 (0.76-1.46) ng/dL TSH, Ultra Sensitive (0.36-3.74) uIU/mL Urine Color (YELLOW) Urine Appearance (CLEAR) Urine pH (5.0-9.0) Ur Specific [place] (1.005-1.030) Urine Protein (NEGATIVE) Urine Glucose (UA) (NEGATIVE) Urine Ketones (NEGATIVE) Urine Occult Blood (NEGATIVE) Urine Nitrite (NEGATIVE) Urine Bilirubin (NEGATIVE) Urine Urobilinogen (0.2-1.0) mg/dL Ur Leukocyte Esterase (NEGATIVE) Urine RBC /HPF Urine WBC (0-5/HPF) /HPF Ur Epithelial Cells (NOT SEEN) /HPF Amorphous Sediment (NOT SEEN) /HPF Urine Bacteria (0-FEW/HPF) /HPF Urine Mucus (NOT SEEN) /LPF 10/09/20 10/09/20 Range/Units 06:05 06:05 WBC 6.8 (5.0-10.0) 10^3/uL RBC 4.16 L (4.2-5.4) 10^6/uL Hgb 12.5 (12.0-16.0) g/dL Hct 39.1 (37.0-47.0) % MCV 94.0 (80-100) fL MCH 30.0 (27.0-34.0) pg MCHC 32.0 L (33.0-35.0) g/dL Plt Count 145 L (150-450) 10^3/uL Neut % (Auto) 89.8 H (42.2-75.2) % Lymph % (Auto) 7.8 L (20.5-50.1) % [place] % (Auto) 2.1 (2-8) % Eos % (Auto) 0.0 L (1.0-3.0) % Baso % (Auto) 0.3 (0.0-1.0) % PT (9.0-12.0) SEC INR (0.9-1.2) Sodium (136-145) mmol/L Potassium (3.5-5.1) mmol/L Chloride (98-107) mmol/L Carbon Dioxide (21-32) mmol/L Anion Gap (7-13) mEq/L BUN (7-18) mg/dL Creatinine (0.55-1.02) mg/dL Est Cr Clr Drug Dosing mL/min Estimated GFR (MDRD) BUN/Creatinine Ratio (No establ ref range) Glucose (70-99) mg/dL Calcium (8.5-10.1) mg/dL Phosphorus (2.6-4.7) mg/dL Magnesium (1.8-2.4) mg/dL Total Bilirubin (0.2-1.0) mg/dL AST (15-37) U/L ALT (14-59) U/L Alkaline Phosphatase (46-116) U/L Ammonia (11-32) umol/L Troponin I High Sens 14 (<=51) pg/mL B-Natriuretic Peptide (0-100) pg/ml Total Protein (6.4-8.2) g/dL Albumin (3.4-5.0) g/dL Globulin Albumin/Globulin Ratio Triglycerides (0-149) mg/dL Cholesterol (0-199) mg/dL LDL Cholesterol, Calc (0-100) mg/dL HDL Cholesterol (40-59) mg/dL Vitamin B12 (193-986) pg/mL Folate (8.6-58.9) ng/mL Free T4 (0.76-1.46) ng/dL TSH, Ultra Sensitive (0.36-3.74) uIU/mL Urine Color (YELLOW) Urine Appearance (CLEAR) Urine pH (5.0-9.0) Ur Specific [place] (1.005-1.030) Urine Protein (NEGATIVE) Urine Glucose (UA) (NEGATIVE) Urine Ketones (NEGATIVE) Urine Occult Blood (NEGATIVE) Urine Nitrite (NEGATIVE) Urine Bilirubin (NEGATIVE) Urine Urobilinogen (0.2-1.0) mg/dL Ur Leukocyte Esterase (NEGATIVE) Urine RBC /HPF Urine WBC (0-5/HPF) /HPF Ur Epithelial Cells (NOT SEEN) /HPF Amorphous Sediment (NOT SEEN) /HPF Urine Bacteria (0-FEW/HPF) /HPF Urine Mucus (NOT SEEN) /LPF Med Orders - Current: Current Medications Acetaminophen (Acetaminophen 325 Mg Tab) 650 mg PO Q4H PRN PRN Reason: Pain (Mild 1-3)/fever Albuterol/Ipratropium (Albuterol/Ipratropium 3.0-0.5 Mg/3 Ml Neb Soln) 3 ml NEB Q4HRRT [facility] Last Admin: 10/09/20 03:30 Dose: 3 ml Documented by: Aspirin (Aspirin 81 Mg Tab.Chew) 81 mg PO BEDTIME [facility] Last Admin: 10/08/20 20:34 Dose: 81 mg Documented by: Carvedilol (Carvedilol 25 Mg Tab) 25 mg PO BIDMEALS [facility] Gabapentin (Gabapentin 100 Mg Cap) 200 mg PO BID [facility] Last Admin: 10/08/20 20:34 Dose: 200 mg Documented by: Sodium Chloride (Normal Saline) 1,000 mls @ 50 mls/hr IV ASDIRECTED [facility] Last Admin: 10/08/20 19:11 Dose: 50 mls/hr Documented by: Doxycycline Hyclate 100 mg/ (Sodium Chloride) 100 mls @ 100 mls/hr IV Q12HR [facility] Last Admin: 10/08/20 20:35 Dose: 100 mls/hr Documented by: Methylprednisolone Sodium Succinate (Methylprednisolone Sodium Succinate 40 Mg/1 Ml Sdv) 60 mg IVPUSH TID@0600,1400,2200 [facility] Last Admin: 10/09/20 05:14 Dose: 60 mg Documented by: Ondansetron HCl (Ondansetron 4 Mg/2 Ml Sdv) 4 mg IVPUSH Q4H PRN PRN Reason: Nausea/Vomiting Pantoprazole Sodium (Pantoprazole 40 Mg Tab.Cr) 40 mg PO ACBREAKFAST [facility] Last Admin: 10/09/20 05:13 Dose: 40 mg Documented by: Pravastatin Sodium (Pravastatin 20 Mg Tab) 40 mg PO BEDTIME [facility] Last Admin: 10/08/20 20:34 Dose: 40 mg Documented by: Sodium Chloride (Sodium Chloride 0.9% 10 Ml Syringe) 10 ml FLUSH ASDIRECTED PRN PRN Reason: Keep Vein Open Tolterodine Tartrate (Tolterodine 2 Mg Cap.Er) 4 mg PO DAILY [facility] Discontinued Medications Dextrose/Water (50% Dextrose In Water 50 Ml Syringe) 50 ml IVPUSH Q15M PRN PRN Reason: Hypoglycemia Glucagon (Glucagon,Human Recombinant 1 Mg Vial) 1 mg IM Q15M PRN PRN Reason: Hypoglycemia Sodium Chloride (Normal Saline) 1,000 mls @ 999 mls/hr IV .BOLUS ONE Stop: 10/08/20 12:50 Last Admin: 10/08/20 11:59 Dose: 999 mls/hr Documented by: Insulin Human Lispro (Insulin Lispro 100 Units/Ml 3 Ml Vial) 0 unit SUBCUT WIT HMEALSANDBED [facility]; Protocol Methylprednisolone Sodium Succinate (Methylprednisolone Sodium Succinate 40 Mg/1 Ml Sdv) 60 mg IVPUSH Q8H [facility] Last Admin: 10/08/20 21:13 Dose: Not Given Documented by: - Exam General: Alert, Oriented HEENT: Pupils Equal, Pupils Reactive, EOMI, Mucous Membr. Moist/[place] Neck: Supple Lungs: Clear to Auscultation, Normal Respiratory Effort Cardiovascular: Regular Rate, Irregular Rhythm GI/Abdominal Exam: Normal Bowel Sounds, Soft, Non-Tender, No Organomegaly, No Distention, No Abnormal Bruit, No Mass, Pelvis Stable Back Exam: Normal Inspection, Full Range of Motion Extremities: Normal Inspection, Normal Range of Motion, Non-Tender, No Pedal Edema, Normal Capillary Refill Peripheral Pulses: 2+: Carotid (L), Carotid (R), Brachial (L), Brachial (R), Radial (L), Radial (R), Femoral (L), Femoral (R), Popliteal (L), Popliteal (R), Posterior Tibial (L), Posterior Tibial (R), Dorsalis Pedis (L), Dorsalis Pedis (R) Skin: Warm, Dry, Intact Wound/Incisions: Healing Well Neurological: No New Focal Deficit Psy/Mental Status: Alert, Normal Affect, Normal Mood - Patient Data Lab Results Last 24 hrs: Laboratory Results - last 24 hr 10/08/20 10/08/20 10/08/20 Range/Units 12:00 12:00 12:00 WBC 6.9 (5.0-10.0) 10^3/uL RBC 4.28 (4.2-5.4) 10^6/uL Hgb 12.9 (12.0-16.0) g/dL Hct 40.0 (37.0-47.0) % MCV 93.5 D (80-100) fL MCH 30.1 (27.0-34.0) pg MCHC 32.3 L (33.0-35.0) g/dL Plt Count 144 L (150-450) 10^3/uL Neut % (Auto) 80.2 H (42.2-75.2) % Lymph % (Auto) 5.6 L (20.5-50.1) % [place] % (Auto) 10.9 H (2-8) % Eos % (Auto) 2.7 (1.0-3.0) % Baso % (Auto) 0.6 (0.0-1.0) % PT 35.2 H D (9.0-12.0) SEC INR 3.6 H (0.9-1.2) Sodium 137 (136-145) mmol/L Potassium 4.6 (3.5-5.1) mmol/L Chloride 99 (98-107) mmol/L Carbon Dioxide 28 (21-32) mmol/L Anion Gap 14.6 H (7-13) mEq/L BUN 23 H (7-18) mg/dL Creatinine 1.62 H (0.55-1.02) mg/dL Est Cr Clr Drug Dosing 23.12 mL/min Estimated GFR (MDRD) 30 BUN/Creatinine Ratio 14.2 (No establ ref range) Glucose 103 H (70-99) mg/dL Calcium 8.7 (8.5-10.1) mg/dL Phosphorus (2.6-4.7) mg/dL Magnesium (1.8-2.4) mg/dL Total Bilirubin 0.4 (0.2-1.0) mg/dL AST 21 (15-37) U/L ALT 21 (14-59) U/L Alkaline Phosphatase 71 (46-116) U/L Ammonia (11-32) umol/L Troponin I High Sens (<=51) pg/mL B-Natriuretic Peptide 588 H (0-100) pg/ml Total Protein 6.8 (6.4-8.2) g/dL Albumin 3.3 L (3.4-5.0) g/dL Globulin 3.5 Albumin/Globulin Ratio 0.94 Triglycerides (0-149) mg/dL Cholesterol (0-199) mg/dL LDL Cholesterol, Calc (0-100) mg/dL HDL Cholesterol (40-59) mg/dL Vitamin B12 (193-986) pg/mL Folate (8.6-58.9) ng/mL Free T4 (0.76-1.46) ng/dL TSH, Ultra Sensitive (0.36-3.74) uIU/mL Urine Color (YELLOW) Urine Appearance (CLEAR) Urine pH (5.0-9.0) Ur Specific [place] (1.005-1.030) Urine Protein (NEGATIVE) Urine Glucose (UA) (NEGATIVE) Urine Ketones (NEGATIVE) Urine Occult Blood (NEGATIVE) Urine Nitrite (NEGATIVE) Urine Bilirubin (NEGATIVE) Urine Urobilinogen (0.2-1.0) mg/dL Ur Leukocyte Esterase (NEGATIVE) Urine RBC /HPF Urine WBC (0-5/HPF) /HPF Ur Epithelial Cells (NOT SEEN) /HPF Amorphous Sediment (NOT SEEN) /HPF Urine Bacteria (0-FEW/HPF) /HPF Urine Mucus (NOT SEEN) /LPF 10/08/20 10/08/20 10/08/20 Range/Units 13:12 18:00 18:00 WBC (5.0-10.0) 10^3/uL RBC (4.2-5.4) 10^6/uL Hgb (12.0-16.0) g/dL Hct (37.0-47.0) % MCV (80-100) fL MCH (27.0-34.0) pg MCHC (33.0-35.0) g/dL Plt Count (150-450) 10^3/uL Neut % (Auto) (42.2-75.2) % Lymph % (Auto) (20.5-50.1) % [place] % (Auto) (2-8) % Eos % (Auto) (1.0-3.0) % Baso % (Auto) (0.0-1.0) % PT (9.0-12.0) SEC INR (0.9-1.2) Sodium (136-145) mmol/L Potassium (3.5-5.1) mmol/L Chloride (98-107) mmol/L Carbon Dioxide (21-32) mmol/L Anion Gap (7-13) mEq/L BUN (7-18) mg/dL Creatinine (0.55-1.02) mg/dL Est Cr Clr Drug Dosing mL/min Estimated GFR (MDRD) BUN/Creatinine Ratio (No establ ref range) Glucose (70-99) mg/dL Calcium (8.5-10.1) mg/dL Phosphorus 3.9 (2.6-4.7) mg/dL Magnesium 1.9 (1.8-2.4) mg/dL Total Bilirubin (0.2-1.0) mg/dL AST (15-37) U/L ALT (14-59) U/L Alkaline Phosphatase (46-116) U/L Ammonia < 10 L (11-32) umol/L Troponin I High Sens 17 (<=51) pg/mL B-Natriuretic Peptide (0-100) pg/ml Total Protein (6.4-8.2) g/dL Albumin (3.4-5.0) g/dL Globulin Albumin/Globulin Ratio Triglycerides (0-149) mg/dL Cholesterol (0-199) mg/dL LDL Cholesterol, Calc (0-100) mg/dL HDL Cholesterol (40-59) mg/dL Vitamin B12 357 (193-986) pg/mL Folate 16.8 (8.6-58.9) ng/mL Free T4 1.22 (0.76-1.46) ng/dL TSH, Ultra Sensitive 0.73 (0.36-3.74) uIU/mL Urine Color Yellow (YELLOW) Urine Appearance Clear (CLEAR) Urine pH 7.0 (5.0-9.0) Ur Specific [place] 1.020 (1.005-1.030) Urine Protein Negative (NEGATIVE) Urine Glucose (UA) Negative (NEGATIVE) Urine Ketones Negative (NEGATIVE) Urine Occult Blood Trace-intact H (NEGATIVE) Urine Nitrite Negative (NEGATIVE) Urine Bilirubin Negative (NEGATIVE) Urine Urobilinogen 0.2 (0.2-1.0) mg/dL Ur Leukocyte Esterase Negative (NEGATIVE) Urine RBC 5-10 H /HPF Urine WBC 0-5 (0-5/HPF) /HPF Ur Epithelial Cells Moderate H (NOT SEEN) /HPF Amorphous Sediment Moderate H (NOT SEEN) /HPF Urine Bacteria Few (0-FEW/HPF) /HPF Urine Mucus Rare (NOT SEEN) /LPF 10/08/20 10/09/20 10/09/20 Range/Units 23:28 06:05 06:05 WBC (5.0-10.0) 10^3/uL RBC (4.2-5.4) 10^6/uL Hgb (12.0-16.0) g/dL Hct (37.0-47.0) % MCV (80-100) fL MCH (27.0-34.0) pg MCHC (33.0-35.0) g/dL Plt Count (150-450) 10^3/uL Neut % (Auto) (42.2-75.2) % Lymph % (Auto) (20.5-50.1) % [place] % (Auto) (2-8) % Eos % (Auto) (1.0-3.0) % Baso % (Auto) (0.0-1.0) % PT 26.4 H (9.0-12.0) SEC INR 2.7 H (0.9-1.2) Sodium 137 (136-145) mmol/L Potassium 5.1 (3.5-5.1) mmol/L Chloride 101 (98-107) mmol/L Carbon Dioxide 25 (21-32) mmol/L Anion Gap 16.1 H (7-13) mEq/L BUN 22 H (7-18) mg/dL Creatinine 1.44 H (0.55-1.02) mg/dL Est Cr Clr Drug Dosing 24.92 mL/min Estimated GFR (MDRD) 35 BUN/Creatinine Ratio (No establ ref range) Glucose 118 H (70-99) mg/dL Calcium 8.3 L (8.5-10.1) mg/dL Phosphorus (2.6-4.7) mg/dL Magnesium (1.8-2.4) mg/dL Total Bilirubin (0.2-1.0) mg/dL AST (15-37) U/L ALT (14-59) U/L Alkaline Phosphatase (46-116) U/L Ammonia (11-32) umol/L Troponin I High Sens 16 (<=51) pg/mL B-Natriuretic Peptide (0-100) pg/ml Total Protein (6.4-8.2) g/dL Albumin (3.4-5.0) g/dL Globulin Albumin/Globulin Ratio Triglycerides 56 (0-149) mg/dL Cholesterol 161 (0-199) mg/dL LDL Cholesterol, Calc 89 (0-100) mg/dL HDL Cholesterol 61 H (40-59) mg/dL Vitamin B12 (193-986) pg/mL Folate (8.6-58.9) ng/mL Free T4 (0.76-1.46) ng/dL TSH, Ultra Sensitive (0.36-3.74) uIU/mL Urine Color (YELLOW) Urine Appearance (CLEAR) Urine pH (5.0-9.0) Ur Specific [place] (1.005-1.030) Urine Protein (NEGATIVE) Urine Glucose (UA) (NEGATIVE) Urine Ketones (NEGATIVE) Urine Occult Blood (NEGATIVE) Urine Nitrite (NEGATIVE) Urine Bilirubin (NEGATIVE) Urine Urobilinogen (0.2-1.0) mg/dL Ur Leukocyte Esterase (NEGATIVE) Urine RBC /HPF Urine WBC (0-5/HPF) /HPF Ur Epithelial Cells (NOT SEEN) /HPF Amorphous Sediment (NOT SEEN) /HPF Urine Bacteria (0-FEW/HPF) /HPF Urine Mucus (NOT SEEN) /LPF 10/09/20 10/09/20 Range/Units 06:05 06:05 WBC 6.8 (5.0-10.0) 10^3/uL RBC 4.16 L (4.2-5.4) 10^6/uL Hgb 12.5 (12.0-16.0) g/dL Hct 39.1 (37.0-47.0) % MCV 94.0 (80-100) fL MCH 30.0 (27.0-34.0) pg MCHC 32.0 L (33.0-35.0) g/dL Plt Count 145 L (150-450) 10^3/uL Neut % (Auto) 89.8 H (42.2-75.2) % Lymph % (Auto) 7.8 L (20.5-50.1) % [place] % (Auto) 2.1 (2-8) % Eos % (Auto) 0.0 L (1.0-3.0) % Baso % (Auto) 0.3 (0.0-1.0) % PT (9.0-12.0) SEC INR (0.9-1.2) Sodium (136-145) mmol/L Potassium (3.5-5.1) mmol/L Chloride (98-107) mmol/L Carbon Dioxide (21-32) mmol/L Anion Gap (7-13) mEq/L BUN (7-18) mg/dL Creatinine (0.55-1.02) mg/dL Est Cr Clr Drug Dosing mL/min Estimated GFR (MDRD) BUN/Creatinine Ratio (No establ ref range) Glucose (70-99) mg/dL Calcium (8.5-10.1) mg/dL Phosphorus (2.6-4.7) mg/dL Magnesium (1.8-2.4) mg/dL Total Bilirubin (0.2-1.0) mg/dL AST (15-37) U/L ALT (14-59) U/L Alkaline Phosphatase (46-116) U/L Ammonia (11-32) umol/L Troponin I High Sens 14 (<=51) pg/mL B-Natriuretic Peptide (0-100) pg/ml Total Protein (6.4-8.2) g/dL Albumin (3.4-5.0) g/dL Globulin Albumin/Globulin Ratio Triglycerides (0-149) mg/dL Cholesterol (0-199) mg/dL LDL Cholesterol, Calc (0-100) mg/dL HDL Cholesterol (40-59) mg/dL Vitamin B12 (193-986) pg/mL Folate (8.6-58.9) ng/mL Free T4 (0.76-1.46) ng/dL TSH, Ultra Sensitive (0.36-3.74) uIU/mL Urine Color (YELLOW) Urine Appearance (CLEAR) Urine pH (5.0-9.0) Ur Specific [place] (1.005-1.030) Urine Protein (NEGATIVE) Urine Glucose (UA) (NEGATIVE) Urine Ketones (NEGATIVE) Urine Occult Blood (NEGATIVE) Urine Nitrite (NEGATIVE) Urine Bilirubin (NEGATIVE) Urine Urobilinogen (0.2-1.0) mg/dL Ur Leukocyte Esterase (NEGATIVE) Urine RBC /HPF Urine WBC (0-5/HPF) /HPF Ur Epithelial Cells (NOT SEEN) /HPF Amorphous Sediment (NOT SEEN) /HPF Urine Bacteria (0-FEW/HPF) /HPF Urine Mucus (NOT SEEN) /LPF Result Diagrams: 10/09/20 06:05 10/09/20 06:05 Sepsis Event Note - Evaluation Sepsis Screening Result: Severe Sepsis Risk - Focused Exam Vital Signs: Vital Signs Temp Pulse Resp BP Pulse Ox 10/09/20 03:31 97.1 F 96 19 131/67 99 10/08/20 23:34 98.5 F 107 H 20 129/82 94 L 10/08/20 19:18 99.1 F 139 H 22 H 153/82 H 98 - Problem List Review Problem List Initiated/Reviewed/Updated: Yes - My Orders Last 24 Hours: My Active Orders 10/08/20 12:00 PTH, INTACT [REF] Routine 10/08/20 17:13 Height and Weight [RC] 06 Up With Assistance [RC] , OT Evaluation and Treatment [CONS] Routine PT Evaluation and Treatment [CONS] Routine Acetaminophen [TylenoL] 650 mg PO Q4H PRN Ondansetron [Zofran] 4 mg IVPUSH Q4H PRN Sodium Chloride 0.9% [Saline Flush] 10 ml FLUSH ASDIRECTED PRN Peripheral IV Insertion Adult [OM.PC] Routine Resuscitation Status Routine 10/08/20 17:14 Cardiac Monitoring [RC] , Oxygen Therapy [RC] .PRN Vital Signs [RC] 00,04,08,12,16,20 10/08/20 17:15 Intake and Output [RC] ,,22 Cardiac [Heart Healthy Diet] [DIET] Sodium Chloride 0.9% [Normal Saline] 1,000 ml IV ASDIRECTED Antiembolic Hose [OM.PC] Per Unit Routine 10/08/20 17:16 Antiembolic Devices [RC] , Peripheral IV Care [RC] ,10/08/20 17:21 Neuro Check [RC] 00,04,08,12,16,20 10/08/20 17:22 RT Aerosol Therapy [RC] .PRN 10/08/20 17:23 Wound Care [RC] 10/08/20 19:00 Albuterol/Ipratropium [DuoNeb 3.0-0.5 MG/3 ML] 3 ml NEB Q4HRRT 10/08/20 19:45 methylPREDNISolone Sod Succ [Solu-MEDROL] 60 mg IVPUSH TID@0600,1400,2200 10/08/20 21:00 Aspirin 81 mg PO BEDTIME Doxycycline [Vibramycin] 100 mg Sodium Chloride 0.9% [Normal Saline] 100 ml IV Q12HR Gabapentin [Neurontin] 200 mg PO BID Pravastatin [Pravachol] 40 mg PO BEDTIME 10/09/20 06:00 EKG 12 Lead [EKG Documentation Completion] [RC] 07 Pantoprazole [ProTONIX] 40 mg PO ACBREAKFAST 10/09/20 07:12 Communication Order [RC] 10/09/20 08:00 carvediloL [Coreg] 25 mg PO BIDMEALS 10/09/20 09:00 Tolterodine [Detrol LA 24 Hr] 4 mg PO DAILY 10/10/20 05:00 BASIC METABOLIC PANEL,BMP [CHEM] Routine INR,PT,PROTHROMBIN TIME [COAG] Routine - Plan Plan:: Surgical History: Cholecystectomy, tonsillectomy, adenoidectomy, left second hammertoe surgery, right modified radical mastectomy, bilateral cataract surgery, strabismus surgerybelieved to be on the right side Family History: Cancer, hypertension Social History: Tobacco: Never Alcohol: 1 to 2 glass of wine nightly Caffeine: Coffee Drugs: Never Allergies: Documented history of allergy to benazepril of which the patient is uncertain. Documented history of allergy to codeine which patient denies. Documented histo ry of allergy to Zocor for which the patient is uncertain of Code Status: DNR but request intubation if necessary Assessment / Plan: Generalized weakness, possibly sequelae of dehydration. Query history of encephalopathy. Will monitor trend telemetry. Neurochecks every 4 hours. Aspirin 81 mg p.o. daily plus pravastatin 40 mg p.o. nightly plus IV normal saline 50 mils per hour. Physical therapy consult pending. Occupational therapy consult pending. Acute on chronic kidney disease, baseline creatinine approximately 1.2. Monitor creatinine intermittently. IV normal saline at 50 mils per hour Thrombocytopenia. Monitor platelet count intermittently Overactive bladder. Detrol LA 4 mg p.o. daily Neuropathy. Gabapentin 200 mg p.o. twice daily Atrial fibrillation. Telemetry monitoring. Monitor PT/INR periodically. Coreg 25 mg p.o. twice daily Query pneumonia. DuoNeb every 4 hours plus empiric treatment with doxycycline 100 mg IV every 12 hours Microscopic hematuria. Outpatient follow with urology upon discharge Osteoarthritis Rheumatoid arthritis COPD, not O2 dependent. Sign that all 6 mg IV every 8 hours plus DuoNeb every 4 hours plus doxycycline 100 mg IV every 12 hours CHF, ejection fraction 50 to 55% with grade 2 diastolic dysfunction per echocardiogram from March 18, 2020. Strict I's/O. Daily weight. Coreg 25 mg p.o. twice daily Coronary artery disease. Coreg 25 mg p.o. twice daily plus aspirin 81 mg p.o. daily plus pravastatin 40 mg p.o. nightly Hyperlipidemia. Pravastatin 40 mg p.o. nightly Hypertension. Coreg 25 mg p.o. twice daily Obesity. Patient becomes regarding lifestyle modification Macular degeneration Chronic pain Osteoporosis History of breast cancer: Stage III infiltrating ductal breast carcinoma. Patient status post chemotherapy, status post radiation therapy, status post right modified radical mastectomy. The patient indicates that she is in remission and no longer requires to be monitored for this medical condition by Dr. Danya lehman thoracic thoracic aortic aneurysm. Outpatient monitoring with her [facility] physician or with a provider Gout Degenerative joint disease Seasonal allergies Right leg wound. We will continue wound care per home regimen/frequency. Outpatient follow-up with wound care clinic/surgery GI prophylaxis. Protonix 40 mg p.o. daily DVT prophylaxis. Bilateral SCD Disposition: The patient may be a candidate for discharge on this day of October 09, 2020 if we are able to wean her off of supplemental oxygen and depending on recommendations by physical therapy/Occupational Therapy END OF DOCTOR EMAMIS HISTORY AND PHYSICAL / CONSULTATION NOTE
[2020-10-09] MEDS ORDERED: Carvedilol 25 MG Tab PO SCH (08:00)
[2020-10-09] MEDS: Gabapentin 100 MG Cap PO SCH (08:57)
[2020-10-09] MEDS ORDERED: Tolterodine 2 MG Cap.ER PO SCH (09:00)
[2020-10-09] MEDS: Doxycycline 100 MG in Sodium Chloride 0.9% 100 ML IV SCH (09:28)
--- NOTE | 2020-10-09 13:14 | PCM.DCSUM1 ---
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 Patient status post chemotherapy, status post radiation therapy, status post right modified radical mastectomy. The patient Osmar that she is in remission and no longer requires to be monitored for this medical condition by Dr. Hagan sending thoracic aortic aneurysm Gout Degenerative joint disease Seasonal allergies Right leg wound, chronic Consultations: None Condition on Discharge: Fair Disposition: The patient be advised to follow-up with her primary care physician or with a provider as needed for monitoring of her history of a sending thoracic aortic aneurysm The patient is advised follow-up with surgery or the wound care clinic as directed for her right leg wound, chronic Patient is advised follow-up with urology 1 to 2-week post discharge for diagnosis of microscopic hematuria Discharge Medications: Prednisone 5 mg p.o.: 8 tabs daily x3 days then 6 tabs daily x3 days then 4 tabs daily x3 days then 2 tabs daily x3 days then 1 tab daily indefinitely. Quantity sufficient for 1 month. 0 refills Coumadin 2 mg p.o. daily Bactrim DS 1 tab p.o. twice daily per prescription prior to her hospitalization Aldactone 5 mg p.o. daily Losartan 25 mg p.o. daily Lasix 20 mg p.o. daily Advair HFA: 230/21 mc inhalation twice daily Proventil HFA: 90 ahmet as per spray: 2 puffs every 6 hours as needed shortness of breath/wheeze Detrol LA 4 mg p.o. daily Pravastatin 40 mg p.o. nightly Gabapentin 200 mg p.o. twice daily Coreg 25 mg p.o. twice daily Protonix 40 mg p.o. daily for GI prophylaxis as the patient is chronically on prednisone and is not for dyspepsia/GERD END OF DOCTOR EMAMIS DISCHARGE SUMMARY - Discharge Data Discharge Date: 10/09/20 Discharge Disposition: Home, Self-Care 01 Condition: Fair - Referral to Home Health Primary Care Physician: PCP None - Patient Summary/Data Consults: Consultations 10/08/20 17:13 OT Evaluation and Treatment [CONS] Routine PT Evaluation and Treatment [CONS] Routine - Patient Instructions Diet: Heart Healthy Diet, Low Sodium, Fluid Restriction, Renal Diet Activity: As Tolerated - Discharge Plan *PRESCRIPTION DRUG MONITORING PROGRAM REVIEWED*: Not Applicable *COPY OF PRESCRIPTION DRUG MONITORING REPORT IN PATIENT DEREK: Not Applicable Prescriptions/Med Rec: predniSONE [Prednisone] 5 mg PO DAILY 1 Days #1 solution Pantoprazole [ProTONIX] 40 mg PO ACBREAKFAST 30 Days #30 tab.cr Home Medications: Home Meds Furosemide [Lasix] 20 mg PO DAILY 08/02/16 [History] Losartan [Cozaar] 25 mg PO BID PRN 08/02/16 [History] Pravastatin [Pravachol] 40 mg PO BEDTIME 08/02/16 [History] Spironolactone [Aldactone] 25 mg PO DAILY 08/02/16 [History] Tolterodine Tartrate [Detrol LA] 4 mg PO DAILY 08/02/16 [History] carvediloL [Carvedilol] 25 mg PO BID 08/02/16 [History] Albuterol Sulfate [Proair Hfa] 2 puff IH Q6HR PRN 02/25/17 [History] Gabapentin [Neurontin] 200 mg PO BID 08/16/20 [History] Fluticasone Propion/Salmeterol [Advair Hfa 230-21 Mcg Inhaler] 1 puff INH BID 09/25/20 [History] Sulfamethoxazole/Trimethoprim [Sulfamethoxazole-Tmp Ds Tablet] 1 tab PO BID 10/08/20 [History] Warfarin Sodium [Jantoven] 1 mg PO DAILY 10/08/20 [History] Pantoprazole [ProTONIX] 40 mg PO ACBREAKFAST 30 Days #30 tab.cr 10/09/20 [Rx] predniSONE [Prednisone] 5 mg PO DAILY 1 Days #1 solution 10/09/20 [Rx] Referrals: Kristal Avitia, DIRECTOR OF PUBLIC HEALTH [Ordering Only Provider] - - Discharge Summary/Plan Comment DC Time >30 min.: Yes - General Info Date of Service: 10/09/20 - Review of Systems General: Reports: No Symptoms HEENT: Reports: No Symptoms Pulmonary: Reports: No Symptoms Cardiovascular: Reports: No Symptoms Gastrointestinal: Reports: No Symptoms Genitourinary: Reports: No Symptoms Musculoskeletal: Reports: No Symptoms Skin: Reports: No Symptoms Neurological: Reports: No Symptoms Psychiatric: Reports: No Symptoms - Patient Data Vitals - Most Recent: Last Vital Signs Temp 97.2 F 10/09/20 08:00 Pulse 93 10/09/20 08:58 Resp 20 10/09/20 08:00 BP 133/93 H 10/09/20 08:58 Pulse Ox 91 L 10/09/20 11:10 Orthostatic Blood Pressure [ 129/72 Standing] Orthostatic Blood Pressure [ 130/81 Sitting] Orthostatic Blood Pressure [ 150/82 Supine] Weight - Most Recent: 164 lb 9.6 oz I&O - Last 24 hours: Intake & Output 10/08/20 10/09/20 10/09/20 22:59 06:59 14:59 Intake Total 200 Output Total 500 Balance -500 200 Lab Results - Last 24 hrs: Laboratory Results - last 24 hr 10/08/20 10/08/20 10/08/20 Range/Units 13:12 18:00 18:00 WBC (5.0-10.0) 10^3/uL RBC (4.2-5.4) 10^6/uL Hgb (12.0-16.0) g/dL Hct (37.0-47.0) % MCV (80-100) fL MCH (27.0-34.0) pg MCHC (33.0-35.0) g/dL Plt Count (150-450) 10^3/uL Neut % (Auto) (42.2-75.2) % Lymph % (Auto) (20.5-50.1) % Phillips % (Auto) (2-8) % Eos % (Auto) (1.0-3.0) % Baso % (Auto) (0.0-1.0) % PT (9.0-12.0) SEC INR (0.9-1.2) Sodium (136-145) mmol/L Potassium (3.5-5.1) mmol/L Chloride (98-107) mmol/L Carbon Dioxide (21-32) mmol/L Anion Gap (7-13) mEq/L BUN (7-18) mg/dL Creatinine (0.55-1.02) mg/dL Est Cr Clr Drug Dosing mL/min Estimated GFR (MDRD) Glucose (70-99) mg/dL Calcium (8.5-10.1) mg/dL Phosphorus 3.9 (2.6-4.7) mg/dL Magnesium 1.9 (1.8-2.4) mg/dL Ammonia < 10 L (11-32) umol/L Troponin I High Sens 17 (<=51) pg/mL Triglycerides (0-149) mg/dL Cholesterol (0-199) mg/dL LDL Cholesterol, Calc (0-100) mg/dL HDL Cholesterol (40-59) mg/dL Vitamin B12 357 (193-986) pg/mL Folate 16.8 (8.6-58.9) ng/mL Free T4 1.22 (0.76-1.46) ng/dL TSH, Ultra Sensitive 0.73 (0.36-3.74) uIU/mL Urine Color Yellow (YELLOW) Urine Appearance Clear (CLEAR) Urine pH 7.0 (5.0-9.0) Ur Specific [place] 1.020 (1.005-1.030) Urine Protein Negative (NEGATIVE) Urine Glucose (UA) Negative (NEGATIVE) Urine Ketones Negative (NEGATIVE) Urine Occult Blood Trace-intact H (NEGATIVE) Urine Nitrite Negative (NEGATIVE) Urine Bilirubin Negative (NEGATIVE) Urine Urobilinogen 0.2 (0.2-1.0) mg/dL Ur Leukocyte Esterase Negative (NEGATIVE) Urine RBC 5-10 H /HPF Urine WBC 0-5 (0-5/HPF) /HPF Ur Epithelial Cells Moderate H (NOT SEEN) /HPF Amorphous Sediment Moderate H (NOT SEEN) /HPF Urine Bacteria Few (0-FEW/HPF) /HPF Urine Mucus Rare (NOT SEEN) /LPF 10/08/20 10/09/20 10/09/20 Range/Units 23:28 06:05 06:05 WBC (5.0-10.0) 10^3/uL RBC (4.2-5.4) 10^6/uL Hgb (12.0-16.0) g/dL Hct (37.0-47.0) % MCV (80-100) fL MCH (27.0-34.0) pg MCHC (33.0-35.0) g/dL Plt Count (150-450) 10^3/uL Neut % (Auto) (42.2-75.2) % Lymph % (Auto) (20.5-50.1) % Phillips % (Auto) (2-8) % Eos % (Auto) (1.0-3.0) % Baso % (Auto) (0.0-1.0) % PT 26.4 H (9.0-12.0) SEC INR 2.7 H (0.9-1.2) Sodium 137 (136-145) mmol/L Potassium 5.1 (3.5-5.1) mmol/L Chloride 101 (98-107) mmol/L Carbon Dioxide 25 (21-32) mmol/L Anion Gap 16.1 H (7-13) mEq/L BUN 22 H (7-18) mg/dL Creatinine 1.44 H (0.55-1.02) mg/dL Est Cr Clr Drug Dosing 24.92 mL/min Estimated GFR (MDRD) 35 Glucose 118 H (70-99) mg/dL Calcium 8.3 L (8.5-10.1) mg/dL Phosphorus (2.6-4.7) mg/dL Magnesium (1.8-2.4) mg/dL Ammonia (11-32) umol/L Troponin I High Sens 16 (<=51) pg/mL Triglycerides 56 (0-149) mg/dL Cholesterol 161 (0-199) mg/dL LDL Cholesterol, Calc 89 (0-100) mg/dL HDL Cholesterol 61 H (40-59) mg/dL Vitamin B12 (193-986) pg/mL Folate (8.6-58.9) ng/mL Free T4 (0.76-1.46) ng/dL TSH, Ultra Sensitive (0.36-3.74) uIU/mL Urine Color (YELLOW) Urine Appearance (CLEAR) Urine pH (5.0-9.0) Ur Specific [place] (1.005-1.030) Urine Protein (NEGATIVE) Urine Glucose (UA) (NEGATIVE) Urine Ketones (NEGATIVE) Urine Occult Blood (NEGATIVE) Urine Nitrite (NEGATIVE) Urine Bilirubin (NEGATIVE) Urine Urobilinogen (0.2-1.0) mg/dL Ur Leukocyte Esterase (NEGATIVE) Urine RBC /HPF Urine WBC (0-5/HPF) /HPF Ur Epithelial Cells (NOT SEEN) /HPF Amorphous Sediment (NOT SEEN) /HPF Urine Bacteria (0-FEW/HPF) /HPF Urine Mucus (NOT SEEN) /LPF 10/09/20 10/09/20 Range/Units 06:05 06:05 WBC 6.8 (5.0-10.0) 10^3/uL RBC 4.16 L (4.2-5.4) 10^6/uL Hgb 12.5 (12.0-16.0) g/dL Hct 39.1 (37.0-47.0) % MCV 94.0 (80-100) fL MCH 30.0 (27.0-34.0) pg MCHC 32.0 L (33.0-35.0) g/dL Plt Count 145 L (150-450) 10^3/uL Neut % (Auto) 89.8 H (42.2-75.2) % Lymph % (Auto) 7.8 L (20.5-50.1) % Phillips % (Auto) 2.1 (2-8) % Eos % (Auto) 0.0 L (1.0-3.0) % Baso % (Auto) 0.3 (0.0-1.0) % PT (9.0-12.0) SEC INR (0.9-1.2) Sodium (136-145) mmol/L Potassium (3.5-5.1) mmol/L Chloride (98-107) mmol/L Carbon Dioxide (21-32) mmol/L Anion Gap (7-13) mEq/L BUN (7-18) mg/dL Creatinine (0.55-1.02) mg/dL Est Cr Clr Drug Dosing mL/min Estimated GFR (MDRD) Glucose (70-99) mg/dL Calcium (8.5-10.1) mg/dL Phosphorus (2.6-4.7) mg/dL Magnesium (1.8-2.4) mg/dL Ammonia (11-32) umol/L Troponin I High Sens 14 (<=51) pg/mL Triglycerides (0-149) mg/dL Cholesterol (0-199) mg/dL LDL Cholesterol, Calc (0-100) mg/dL HDL Cholesterol (40-59) mg/dL Vitamin B12 (193-986) pg/mL Folate (8.6-58.9) ng/mL Free T4 (0.76-1.46) ng/dL TSH, Ultra Sensitive (0.36-3.74) uIU/mL Urine Color (YELLOW) Urine Appearance (CLEAR) Urine pH (5.0-9.0) Ur Specific [place] (1.005-1.030) Urine Protein (NEGATIVE) Urine Glucose (UA) (NEGATIVE) Urine Ketones (NEGATIVE) Urine Occult Blood (NEGATIVE) Urine Nitrite (NEGATIVE) Urine Bilirubin (NEGATIVE) Urine Urobilinogen (0.2-1.0) mg/dL Ur Leukocyte Esterase (NEGATIVE) Urine RBC /HPF Urine WBC (0-5/HPF) /HPF Ur Epithelial Cells (NOT SEEN) /HPF Amorphous Sediment (NOT SEEN) /HPF Urine Bacteria (0-FEW/HPF) /HPF Urine Mucus (NOT SEEN) /LPF Med Orders - Current: Current Medications Acetaminophen (Acetaminophen 325 Mg Tab) 650 mg PO Q4H PRN PRN Reason: Pain (Mild 1-3)/fever Albuterol/Ipratropium (Albuterol/Ipratropium 3.0-0.5 Mg/3 Ml Neb Soln) 3 ml NEB Q4HRRT [facility] Last Admin: 10/09/20 13:04 Dose: Not Given Documented by: Aspirin (Aspirin 81 Mg Tab.Chew) 81 mg PO BEDTIME [facility] Last Admin: 10/08/20 20:34 Dose: 81 mg Documented by: Carvedilol (Carvedilol 25 Mg Tab) 25 mg PO BIDMEALS [facility] Last Admin: 10/09/20 08:58 Dose: 25 mg Documented by: Gabapentin (Gabapentin 100 Mg Cap) 200 mg PO BID [facility] Last Admin: 10/09/20 08:57 Dose: 200 mg Documented by: Sodium Chloride (Normal Saline) 1,000 mls @ 50 mls/hr IV ASDIRECTED [facility] Last Admin: 10/08/20 19:11 Dose: 50 mls/hr Documented by: Doxycycline Hyclate 100 mg/ (Sodium Chloride) 100 mls @ 100 mls/hr IV Q12HR [facility] Last Admin: 10/09/20 09:28 Dose: 100 mls/hr Documented by: Methylprednisolone Sodium Succinate (Methylprednisolone Sodium Succinate 40 Mg/1 Ml Sdv) 60 mg IVPUSH TID@0600,1400,2200 [facility] Last Admin: 10/09/20 05:14 Dose: 60 mg Documented by: Ondansetron HCl (Ondansetron 4 Mg/2 Ml Sdv) 4 mg IVPUSH Q4H PRN PRN Reason: Nausea/Vomiting Pantoprazole Sodium (Pantoprazole 40 Mg Tab.Cr) 40 mg PO ACBREAKFAST [facility] Last Admin: 10/09/20 05:13 Dose: 40 mg Documented by: Pravastatin Sodium (Pravastatin 20 Mg Tab) 40 mg PO BEDTIME [facility] Last Admin: 10/08/20 20:34 Dose: 40 mg Documented by: Sodium Chloride (Sodium Chloride 0.9% 10 Ml Syringe) 10 ml FLUSH ASDIRECTED PRN PRN Reason: Keep Vein Open Tolterodine Tartrate (Tolterodine 2 Mg Cap.Er) 4 mg PO DAILY [facility] Last Admin: 10/09/20 08:58 Dose: 4 mg Documented by: Discontinued Medications Dextrose/Water (50% Dextrose In Water 50 Ml Syringe) 50 ml IVPUSH Q15M PRN PRN Reason: Hypoglycemia Glucagon (Glucagon,Human Recombinant 1 Mg Vial) 1 mg IM Q15M PRN PRN Reason: Hypoglycemia Sodium Chloride (Normal Saline) 1,000 mls @ 999 mls/hr IV .BOLUS ONE Stop: 10/08/20 12:50 Last Admin: 10/08/20 11:59 Dose: 999 mls/hr Documented by: Insulin Human Lispro (Insulin Lispro 100 Units/Ml 3 Ml Vial) 0 unit SUBCUT WITHMEALSANDBED [facility]; Protocol Methylprednisolone Sodium Succinate (Methylprednisolone Sodium Succinate 40 Mg/1 Ml Sdv) 60 mg IVPUSH Q8H [facility] Last Admin: 10/08/20 21:13 Dose: Not Given Documented by: - Exam General: Reports: Alert, Oriented HEENT: Reports: Pupils Equal, Pupils Reactive, EOMI, Mucous Membr. Moist/[place] Neck: Reports: Supple Lungs: Reports: Decreased Breath Sounds Cardiovascular: Reports: Regular Rate, No Murmurs, Irregular Rhythm GI/Abdominal Exam: Normal Bowel Sounds, Soft, Non-Tender, No Organomegaly, No Distention, No Abnormal Bruit, No Mass, Pelvis Stable Back Exam: Reports: Normal Inspection, Full Range of Motion Extremities: Normal Inspection, Normal Range of Motion, Non-Tender, No Pedal Edema, Normal Capillary Refill Skin: Reports: Warm (Right leg wound), Dry, Intact Wound/Incisions: Reports: Healing Well Neurological: Reports: No New Focal Deficit Psy/Mental Status: Reports: Alert, Normal Affect, Normal Mood
[2020-10-09 16:17] VITALS: BP 123/74; PULSE 92
== END 2020-10-09 15:40 | disposition home or self-care (01) | DRG 640 ==
LOC: DL.ED 10:33 → DL.MS 16:21
PROVIDERS: ADMIT Internal Medicine; ATTEND Internal Medicine
DX: R53.1 Weakness (principal); R06.02 Shortness of breath; E86.0 Dehydration; J18.9 Pneumonia, unspecified organism; I13.0 Hypertensive heart and chronic kidney disease with heart failure and stage 1 through stage 4 chronic kidney disease, or unspecified chronic kidney disease; I50.30 Unspecified diastolic (congestive) heart failure; I42.9 Cardiomyopathy, unspecified; N18.9 Chronic kidney disease, unspecified; I11.0 Hypertensive heart disease with heart failure; I50.9 Heart failure, unspecified; J44.9 Chronic obstructive pulmonary disease, unspecified; D69.6 Thrombocytopenia, unspecified; G62.9 Polyneuropathy, unspecified; I48.91 Unspecified atrial fibrillation; R31.29 Other microscopic hematuria; M19.90 Unspecified osteoarthritis, unspecified site; Z66 Do not resuscitate; D64.9 Anemia, unspecified; I25.10 Atherosclerotic heart disease of native coronary artery without angina pectoris; E78.5 Hyperlipidemia, unspecified; E66.9 Obesity, unspecified; M06.9 Rheumatoid arthritis, unspecified; M54.2 Cervicalgia; E78.00 Pure hypercholesterolemia, unspecified; N32.81 Overactive bladder; H35.30 Unspecified macular degeneration; G89.29 Other chronic pain; M81.0 Age-related osteoporosis without current pathological fracture; M10.9 Gout, unspecified; I71.2 Thoracic aortic aneurysm, without rupture; C50.911 Malignant neoplasm of unspecified site of right female breast; Z74.09 Other reduced mobility; H54.7 Unspecified visual loss; Z79.52 Long term (current) use of systemic steroids; Z79.51 Long term (current) use of inhaled steroids; Z79.899 Other long term (current) drug therapy; Z88.5 Allergy status to narcotic agent; Z88.8 Allergy status to other drugs, medicaments and biological substances; Z85.828 Personal history of other malignant neoplasm of skin; Z90.49 Acquired absence of other specified parts of digestive tract; Z98.41 Cataract extraction status, right eye; Z98.42 Cataract extraction status, left eye; Z68.29 Body mass index [BMI] 29.0-29.9, adult; Z85.3 Personal history of malignant neoplasm of breast; Z79.01 Long term (current) use of anticoagulants
CPT/HCPCS: 36415; 70450; 71045; 80053; 81001; 83880; 83970; 85025; 85610; J7030; 80048; 80061; 82140; 82607; 82746; 83735; 84100; 84439; 84443; 84484; 93005; 94640; 97165-GO; 99284; 99285-25; A9270-GY; J2920; J3490; J7620-GY

== ENCOUNTER 2021-01-23 04:05 | Emergency (ER) | payer MEDICARE, OTHER ==
--- NOTE | 2021-01-23 04:21 | EDM.PDOC ---
ED HPI GENERAL MEDICAL PROBLEM - General Stated Complaint: PV Time Seen by Provider: 01/23/21 05:00 Source of Information: Reports: Patient History Limitations: Reports: No Limitations - History of Present Illness INITIAL COMMENTS - FREE TEXT/NARRATIVE: This 80 yo female patient was brought to the ED by her due to increased shortness of breath. The patient did not take a breathing treatment prior to coming to the ED. Onset: Today Duration: Constant Location: Reports: Chest Quality: Reports: Other Severity: Moderate Improves with: Reports: None Worsens with: Reports: None Context: Reports: Other Associated Symptoms: Reports: Cough, Shortness of Breath - Related Data Allergies Allergy/AdvReac Type Severity Reaction Status Date / Time benazepril Allergy Other Verified 01/23/21 04:23 codeine Allergy Vomiting Verified 01/23/21 04:23 simvastatin Allergy Other Verified 01/23/21 04:23 doxycycline AdvReac Mild Other Verified 01/23/21 04:23 Home Meds: Home Meds Furosemide [Lasix] 20 mg PO DAILY 08/02/16 [History] Losartan [Cozaar] 25 mg PO BID PRN 08/02/16 [History] Pravastatin [Pravachol] 40 mg PO BEDTIME 08/02/16 [History] Spironolactone [Aldactone] 25 mg PO DAILY 08/02/16 [History] Tolterodine Tartrate [Detrol LA] 4 mg PO DAILY 08/02/16 [History] carvediloL [Carvedilol] 25 mg PO BID 08/02/16 [History] Albuterol Sulfate [Proair Hfa] 2 puff IH Q6HR PRN 02/25/17 [History] Gabapentin [Neurontin] 200 mg PO BID 08/16/20 [History] Fluticasone Propion/Salmeterol [Advair Hfa 230-21 Mcg Inhaler] 1 puff INH BID 09/25/20 [History] Sulfamethoxazole/Trimethoprim [Sulfamethoxazole-Tmp Ds Tablet] 1 tab PO BID 10/08/20 [History] Warfarin Sodium [Jantoven] 1 mg PO DAILY 10/08/20 [History] Pantoprazole [ProTONIX] 40 mg PO ACBREAKFAST 30 Days #30 tab.cr 10/09/20 [Rx] predniSONE [Prednisone] 5 mg PO DAILY 1 Days #1 solution 10/09/20 [Rx] Past Medical History HEENT History: Reports: Cataract, Impaired Vision, Macular Degeneration Other HEENT History: weas glasses Cardiovascular History: Reports: Afib, Cardiomyopathy, Heart Failure, High Cholesterol, Hypertension, Other (See Below) Other Cardiovascular History: Pt. reports of cardiac issues secondary to past chemotherapy Respiratory History: Reports: Asthma, COPD Other Respiratory History: questionable COPD Gastrointestinal History: Reports: None Genitourinary History: Reports: Urinary Incontinence [employer] History: Reports: Musculoskeletal History: Reports: Arthritis, Neck Pain, Chronic, Osteoarthritis, RA Neurological History: Reports: Neuropathy, Peripheral Psychiatric History: Reports: None, Other (See Below) Other Psychiatric History: forgetful at times Endocrine/Metabolic History: Reports: Osteoporosis Hematologic History: Reports: Anemia Immunologic History: Reports: None Oncologic (Cancer) History: Reports: Breast, Other (See Below) Other Oncologic History: unspecified skin cancer Dermatologic History: Reports: Cellulitis - Infectious Disease History Infectious Disease History: Reports: Chicken Pox, Measles, Novel Coronavirus, Shingles - Past Surgical History Head Surgeries/Procedures: Reports: None HEENT Surgical History: Reports: Cataract Surgery Cardiovascular Surgical History: Reports: None GI Surgical History: Reports: Cholecystectomy Female Surgical History: Reports: Mastectomy Other Female Surgeries/Procedures: right sided Musculoskeletal Surgical History: Reports: None Social & Family History - Family History Family Medical History: No Pertinent Family History - Caffeine Use Caffeine Use: Reports: Coffee Other Caffeine Use: 16. oz daily ED ROS GENERAL - Review of Systems Review Of Systems: Comprehensive ROS is negative, except as noted in HPI. ED EXAM, GENERAL - Physical Exam Exam: See Below Exam Limited By: No Limitations General Appearance: Alert, WD/WN, Moderate Distress Eye Exam: Bilateral Eye: EOMI, Normal Inspection, PERRL Ears: Normal External Exam, Normal Canal, Hearing Grossly Normal, Normal TMs Nose: Normal Inspection, Normal Mucosa, No Blood Throat/Mouth: Normal Inspection, Normal Lips, Normal Teeth, Normal Gums, Normal Oropharynx, Normal Voice, No Airway Compromise Head: Atraumatic, Normocephalic Neck: Normal Inspection, Supple, Non-Tender, Full Range of Motion Respiratory/Chest: Decreased Breath Sounds, Rhonchi (diffuse) Cardiovascular: Normal Peripheral Pulses, Regular Rate, Rhythm, No Edema, No Gallop, No JVD, No Murmur, No Rub GI/Abdominal: Normal Bowel Sounds, Soft, Non-Tender, No Organomegaly, No Distention, No Abnormal Bruit, No Mass (Female) Exam: Deferred Rectal (Female) Exam: Deferred Back Exam: Normal Inspection, Full Range of Motion, NT Extremities: Normal Inspection, Normal Range of Motion, Non-Tender, Normal Capillary Refill, No Pedal Edema Neurological: Alert, Oriented, CN II-XII Intact, Normal Cognition, Normal Gait, Normal Reflexes, No Motor/Sensory Deficits Psychiatric: Normal Affect, Normal Mood Skin Exam: Warm, Dry, Intact, Normal Color, No Rash Lymphatic: No Adenopathy #1 Interpretation EKG Date: 01/23/21 Time: 04:14 Rhythm: A-Fib Rate (Beats/Min): 93 [place]: Normal P-Wave: Absent QRS: Normal ST-T: Normal QT: Normal Comparison: No Change Course - Vital Signs Last Recorded V/S: Last Vital Signs Temp 97.5 F 01/23/21 04:23 Pulse 89 01/23/21 04:23 Resp 32 H 01/23/21 04:23 BP 140/108 H 01/23/21 04:23 Pulse Ox 97 01/23/21 04:23 - Orders/Labs/Meds Orders: Active Orders 24 hr Category Date Time Status RT Aerosol Therapy [RC] ASDIRECTED Care 01/23/21 05:33 Ordered CULTURE BLOOD [BC] Stat Lab 01/23/21 04:20 Received UA RFX ERNESTINA AND CULT IF INDIC [URIN] Urgent Lab 01/23/21 04:07 Ordered Labs: Laboratory Tests 01/23/21 01/23/21 01/23/21 Range/Units 04:07 04:20 04:20 WBC 5.7 (5.0-10.0) 10^3/uL RBC 4.18 L (4.2-5.4) 10^6/uL Hgb 13.0 (12.0-16.0) g/dL Hct 40.5 (37.0-47.0) % MCV 96.9 (80-100) fL MCH 31.1 (27.0-34.0) pg MCHC 32.1 L (33.0-35.0) g/dL Plt Count 169 (150-450) 10^3/uL Neut % (Auto) 72.4 (42.2-75.2) % Lymph % (Auto) 12.5 L (20.5-50.1) % Mcdowell % (Auto) 11.7 H (2-8) % Eos % (Auto) 2.7 (1.0-3.0) % Baso % (Auto) 0.7 (0.0-1.0) % PT (9.0-12.0) SEC INR (0.9-1.2) D-Dimer, Quantitative (0-400) ng/mL Sodium 139 (136-145) mmol/L Potassium 4.1 (3.5-5.1) mmol/L Chloride 101 (98-107) mmol/L Carbon Dioxide 30 (21-32) mmol/L Anion Gap 12.1 (7-13) mEq/L BUN 15 (7-18) mg/dL Creatinine 1.25 H (0.55-1.02) mg/dL Est Cr Clr Drug Dosing TNP Estimated GFR (MDRD) 41 BUN/Creatinine Ratio 12.0 (No establ ref range) Glucose 102 H (70-99) mg/dL Lactic Acid (0.4-2.0) mmol/L Calcium 8.5 (8.5-10.1) mg/dL Total Bilirubin 0.4 (0.2-1.0) mg/dL AST 18 (15-37) U/L ALT 22 (14-59) U/L Alkaline Phosphatase 68 (46-116) U/L Troponin I High Sens 13 (<=51) pg/mL B-Natriuretic Peptide 424 H (0-100) pg/ml Total Protein 6.5 (6.4-8.2) g/dL Albumin 3.2 L (3.4-5.0) g/dL Globulin 3.3 Albumin/Globulin Ratio 0.97 Influenza Type A RNA Negative (NEGATIVE) Influenza Type B RNA Negative (NEGATIVE) SARS-CoV-2 RNA (MARGARET) Negative (NEGATIVE) 01/23/21 01/23/21 Range/Units 04:20 04:20 WBC (5.0-10.0) 10^3/uL RBC (4.2-5.4) 10^6/uL Hgb (12.0-16.0) g/dL Hct (37.0-47.0) % MCV (80-100) fL MCH (27.0-34.0) pg MCHC (33.0-35.0) g/dL Plt Count (150-450) 10^3/uL Neut % (Auto) (42.2-75.2) % Lymph % (Auto) (20.5-50.1) % [place]cdowell % (Auto) (2-8) % Eos % (Auto) (1.0-3.0) % Baso % (Auto) (0.0-1.0) % PT 21.5 H (9.0-12.0) SEC INR 2.2 H (0.9-1.2) D-Dimer, Quantitative 301 (0-400) ng/mL Sodium (136-145) mmol/L Potassium (3.5-5.1) mmol/L Chloride (98-107) mmol/L Carbon Dioxide (21-32) mmol/L Anion Gap (7-13) mEq/L BUN (7-18) mg/dL Creatinine (0.55-1.02) mg/dL Est Cr Clr Drug Dosing Estimated GFR (MDRD) BUN/Creatinine Ratio (No establ ref range) Glucose (70-99) mg/dL Lactic Acid 0.6 (0.4-2.0) mmol/L Calcium (8.5-10.1) mg/dL Total Bilirubin (0.2-1.0) mg/dL AST (15-37) U/L ALT (14-59) U/L Alkaline Phosphatase (46-116) U/L Troponin I High Sens (<=51) pg/mL B-Natriuretic Peptide (0-100) pg/ml Total Protein (6.4-8.2) g/dL Albumin (3.4-5.0) g/dL Globulin Albumin/Globulin Ratio Influenza Type A RNA (NEGATIVE) Influenza Type B RNA (NEGATIVE) SARS-CoV-2 RNA (MARGARET) (NEGATIVE) Meds: Medications Discontinued Medications Generic Name Dose Route Start Last Admin Trade Name Freq PRN Reason Stop Dose Admin Albuterol/Ipratropium 3 ml 01/23/21 05:33 01/23/21 05:47 Albuterol/Ipratropium 3.0-0.5 Mg/3 Ml Neb Soln NEB 01/23/21 05:34 3 ml ONETIME ONE Administration Ceftriaxone Sodium 1 gm/ 50 mls @ 100 mls/hr 01/23/21 05:36 01/23/21 05:46 Sodium Chloride IV 01/23/21 06:05 100 mls/hr ONETIME ONE Administration Methylprednisolone Sodium Succinate 125 mg 01/23/21 04:24 01/23/21 04:35 Methylprednisolone Sodium Succinate 125 Mg/2 Ml Sdv IVPUSH 01/23/21 04:25 125 mg ONETIME ONE Administration Departure - Departure Time of Disposition: 06:16 Disposition: Home, Self-Care 01 Condition: Fair Clinical Impression: Bronchitis Exacerbation of asthma Qualifiers: Asthma severity: moderate Asthma persistence: persistent Qualified Code(s): J45.41 - Moderate persistent asthma with (acute) exacerbation - Discharge Information *PRESCRIPTION DRUG MONITORING PROGRAM REVIEWED*: Not Applicable *COPY OF PRESCRIPTION DRUG MONITORING REPORT IN PATIENT DEREK: Not Applicable Instructions: Upper Respiratory Infection, Adult, [id number] Referrals: Neida Palomares PA-C [Primary Care Provider] - Forms: ED Department Discharge Care Plan Goals: The patient was advised of the examination, lab and EKG results during the visit. The patient was given an IV dose of Rocephin, IV SoluMedrol and a nebulizer treatment during the visit in the ED. The patient was discharged with a script for Azithromycin (250 mg) #6 to take 2 by mouth on day 1 and 1 by mouth on days 2-5 as well as a script for Prednisone (20 mg) #10 to take 2 by mouth daily starting 01/24/21. The patient was encouraged to follow-up with her primary care early next week. If the patient has any additional symptoms or concerns, the patient should either return to the emergency department or visit her primary are facility. Sepsis Event Note (ED) - Focused Exam Vital Signs: Vital Signs Temp Pulse Resp BP Pulse Ox 01/23/21 04:23 97.5 F 89 32 H 140/108 H 97 - My Orders Last 24 Hours: My Active Orders 01/23/21 04:07 UA RFX ERNESTINA AND CULT IF INDIC [URIN] Urgent 01/23/21 04:20 CULTURE BLOOD [BC] Stat 01/23/21 05:33 RT Aerosol Therapy [RC] ASDIRECTED - Assessment/Plan Last 24 Hours: My Active Orders 01/23/21 04:07 UA RFX ERNESTINA AND CULT IF INDIC [URIN] Urgent 01/23/21 04:20 CULTURE BLOOD [BC] Stat 01/23/21 05:33 RT Aerosol Therapy [RC] ASDIRECTED
[2021-01-23] MEDS ORDERED: methylPREDNISolone Sodium Succinate 125 MG/2 ML SDV IVPUSH ONE (04:24)
[2021-01-23 04:31] VITALS: BP 140/108; PULSE 89
[2021-01-23 04:46] LABS: ANION GAP 12.1 mEq/L (7-13); CHLORIDE,CL 101 mmol/L (98-107); SODIUM,NA 139 mmol/L (136-145)
[2021-01-23 05:31] LABS: CORONAVIRUS COVID-19 NAA NEGATIVE (NEGATIVE)
[2021-01-23] MEDS ORDERED: Albuterol/Ipratropium 3.0-0.5 MG/3 ML Neb Soln NEB ONE (05:33)
[2021-01-23] MEDS ORDERED: cefTRIAXone 1 GM in Sodium Chloride 0.9% 50 ML IV ONE (05:36)
== END 2021-01-23 06:35 | disposition home or self-care (01) ==
LOC: DL.ED 04:05
DX: J45.41 Moderate persistent asthma with (acute) exacerbation (principal); I48.91 Unspecified atrial fibrillation; I11.0 Hypertensive heart disease with heart failure; I50.9 Heart failure, unspecified; Z88.8 Allergy status to other drugs, medicaments and biological substances; Z88.5 Allergy status to narcotic agent; Z88.1 Allergy status to other antibiotic agents; Z79.01 Long term (current) use of anticoagulants; Z79.899 Other long term (current) drug therapy; Z20.822 Contact with and (suspected) exposure to COVID-19
CPT/HCPCS: 0240U; 36415; 80053; 83605; 83880; 84484; 85025; 85379; 85610; 87040; 96365; 96375; 99285; J0696; J2930; J7620-GY

== ENCOUNTER 2021-01-25 03:53 | Inpatient (IN) | payer MEDICARE, OTHER ==
[2021-01-25] MEDS ORDERED: Furosemide 40 MG/4 ML VIAL IVPUSH ONE (04:12)
--- NOTE | 2021-01-25 04:28 | EDM.PDOC ---
ED HPI GENERAL MEDICAL PROBLEM - General Chief Complaint: Respiratory Problem Stated Complaint: CHEST PAIN Time Seen by Provider: 01/25/21 04:00 Source of Information: Reports: Patient History Limitations: Reports: No Limitations - History of Present Illness INITIAL COMMENTS - FREE TEXT/NARRATIVE: ED with c/o worsening SOB, Has been sick for one week, in ER on . Loose cough, reports increase weight 2 # in last couple days. No vomiting or diarrhea. 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 Chest Pain Score (Numeric/FACES): 5 - Related Data Allergies Allergy/AdvReac Type Severity Reaction Status Date / Time benazepril Allergy Other Verified 01/25/21 11:29 codeine Allergy Vomiting Verified 01/25/21 11:29 simvastatin Allergy Other Verified 01/25/21 11:29 doxycycline AdvReac Mild Other Verified 01/25/21 11:29 Home Meds: Home Meds Furosemide [Lasix] 20 mg PO DAILY 08/02/16 [History] Losartan [Cozaar] 25 mg PO BID PRN 08/02/16 [History] Pravastatin [Pravachol] 40 mg PO BEDTIME 08/02/16 [History] Spironolactone [Aldactone] 25 mg PO Q2D 08/02/16 [History] carvediloL [Carvedilol] 25 mg PO BID 08/02/16 [History] Albuterol Sulfate [Proair Hfa] 2 puff IH Q6HR PRN 02/25/17 [History] Gabapentin [Neurontin] 100 mg PO DAILY 08/16/20 [History] Fluticasone Propion/Salmeterol [Advair Hfa 230-21 Mcg Inhaler] 1 puff INH BID 09/25/20 [History] Warfarin Sodium [Jantoven] 2 mg PO DAILY 10/08/20 [History] Acetaminophen [Acetaminophen Extra Strength] 500 mg PO DAILY PRN 01/25/21 [History] Acetaminophen [Tylenol Arthritis] 650 mg PO DAILY PRN 01/25/21 [History] Azithromycin 250 mg PO DAILY 01/25/21 [History] Gabapentin [Neurontin] 200 mg PO DAILY 01/25/21 [History] Trospium Chloride [Trospium Chloride ER] 60 mg PO DAILY 01/25/21 [History] predniSONE 20 mg PO DAILY 01/25/21 [History] Past Medical History HEENT History: Reports: Cataract, Impaired Vision, Macular Degeneration Other HEENT History: weas glasses Cardiovascular History: Reports: Afib, Cardiomyopathy, Heart Failure, High Cholesterol, Hypertension, Other (See Below) Other Cardiovascular History: Pt. 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: Musculoskeletal History: Reports: Arthritis, Neck Pain, Chronic, Osteoarthritis, RA Neurological History: Reports: Neuropathy, Peripheral Psychiatric History: Reports: Other (See Below) Other Psychiatric History: forgetful at times Endocrine/Metabolic History: Reports: Osteoporosis Hematologic History: Reports: Anemia Immunologic History: Reports: None Oncologic (Cancer) History: Reports: Breast, Other (See Below) Other Oncologic History: unspecified skin cancer Dermatologic History: Reports: Cellulitis - Infectious Disease History Infectious Disease History: Reports: Chicken Pox, Measles, Novel Coronavirus, Shingles - Past Surgical History Head Surgeries/Procedures: Reports: None HEENT Surgical History: Reports: Cataract Surgery Cardiovascular Surgical History: Reports: None Respiratory Surgical History: Reports: None GI Surgical History: Reports: Cholecystectomy Female Surgical History: Reports: Mastectomy Other Female Surgeries/Procedures: right sided Endocrine Surgical History: Reports: None Musculoskeletal Surgical History: Reports: None Other Musculoskeletal Surgeries/Procedures:: Hammer toe repair Oncologic Surgical History: Reports: Mastectomy, Other (See Below) Other Oncologic Surgeries/Procedures: right mastectomy Social & Family History - Family History Family Medical History: No Pertinent Family History - Tobacco Use Tobacco Use Status *Q: Never Tobacco User - Caffeine Use Caffeine Use: Reports: Coffee Other Caffeine Use: 16. oz daily - Recreational Drug Use Recreational Drug Use: No ED ROS GENERAL - Review of Systems Review Of Systems: Comprehensive ROS is negative, except as noted in HPI. ED EXAM, GENERAL - Physical Exam Exam: See Below Exam Limited By: No Limitations General Appearance: Alert, Mild Distress Eye Exam: Bilateral Eye: EOMI Ears: Normal External Exam, Hearing Loss Nose: Normal Inspection Throat/Mouth: Normal Inspection Head: Atraumatic, Normocephalic Respiratory/Chest: Crackles (bases blilateral), Rhonchi, Wheezing Cardiovascular: Regular Rate, Rhythm. No: No Edema (trace) GI/Abdominal: Normal Bowel Sounds, Soft Extremities: Other (generalized stiffness and weakness) Neurological: Alert, Oriented (person place, forgetful recent) Psychiatric: Flat Affect Skin Exam: Warm, Dry, Intact, Normal Color #1 Interpretation EKG Date: 01/25/21 Time: 03:58 Rhythm: A-Fib Rate (Beats/Min): 101 QRS: Normal Comparison: NA - No Prior EKG Course - Vital Signs Last Recorded V/S: Last Vital Signs Temp 99.0 F 01/26/21 04:00 Pulse 104 H 01/26/21 04:00 Resp 22 H 01/26/21 04:00 BP 149/95 H 01/26/21 04:00 Pulse Ox 96 01/26/21 04:00 - Orders/Labs/Meds Orders: Medication Orders Acetaminophen (Acetaminophen 325 Mg Tab) 650 mg PO Q4H PRN PRN Reason: Pain (Mild 1-3)/fever Last Admin: 01/25/21 17:52 Dose: 650 mg Documented by: KYLAH Albuterol/Ipratropium (Albuterol/Ipratropium 3.0-0.5 Mg/3 Ml Neb Soln) 3 ml NEB Q6HRRT [facility] Last Admin: 01/26/21 01:14 Dose: 3 ml Documented by: Admin: 01/25/21 17:38 Dose: 3 ml Documented by: Admin: 01/25/21 14:10 Dose: 3 ml Documented by: PAVEL Albuterol/Ipratropium (Albuterol/Ipratropium 3.0-0.5 Mg/3 Ml Neb Soln) 3 ml NEB Q2H PRN PRN Reason: sob Budesonide (Budesonide 0.5 Mg/2 Ml Neb Susp) 0.5 mg NEB BIDRT [facility] Last Admin: 01/25/21 17:38 Dose: 0.5 mg Documented by: PAVEL Carvedilol (Carvedilol 25 Mg Tab) 25 mg PO BID [facility] Last Admin: 01/25/21 20:49 Dose: 25 mg Documented by: Admin: 01/25/21 10:52 Dose: 25 mg Documented by: KYLAH Docusate Sodium (Docusate Sodium 100 Mg Cap) 100 mg PO BID PRN PRN Reason: Constipation Furosemide (Furosemide 20 Mg/2 Ml Vial) 20 mg IVPUSH BIDDIURETIC [facility] Last Admin: 01/25/21 14:43 Dose: 20 mg Documented by: Admin: 01/25/21 10:53 Dose: 20 mg Documented by: KYLAH Gabapentin (Gabapentin 100 Mg Cap) 200 mg PO BEDTIME [facility] Last Admin: 01/25/21 20:50 Dose: 200 mg Documented by: VEENA Gabapentin (Gabapentin 100 Mg Cap) 100 mg PO DAILY [facility] Azithromycin 500 mg/ Sodium (Chloride) 250 mls @ 250 mls/hr IV Q24H [facility] Last Admin: 01/25/21 11:03 Dose: 250 mls/hr Documented by: KYLAH Losartan Potassium (Losartan 25 Mg Tab) 25 mg PO BID PRN PRN Reason: Tachycardia Methylprednisolone Sodium Succinate (Methylprednisolone Sodium Succinate 40 Mg/1 Ml Sdv) 40 mg IVPUSH Q8H [facility] Last Admin: 01/26/21 01:01 Dose: 40 mg Documented by: Admin: 01/25/21 18:00 Dose: 40 mg Documented by: Admin: 01/25/21 11:02 Dose: 40 mg Documented by: KYLAH Ondansetron HCl (Ondansetron 4 Mg/2 Ml Sdv) 4 mg IVPUSH Q6H PRN PRN Reason: Nausea/Vomiting Pantoprazole Sodium (Pantoprazole 40 Mg Tab.Cr) 40 mg PO ACBREAKFAST [facility] Last Admin: 01/25/21 11:06 Dose: Not Given Documented by: KYLAH Pravastatin Sodium (Pravastatin 20 Mg Tab) 40 mg PO BEDTIME [facility] Last Admin: 01/25/21 20:51 Dose: 40 mg Documented by: VEENA Sodium Chloride (Sodium Chloride 0.9% 10 Ml Syringe) 10 ml FLUSH ASDIRECTED PRN PRN Reason: Keep Vein Open Spironolactone (Spironolactone 25 Mg Tab) 25 mg PO DAILY [facility] Temazepam (Temazepam 15 Mg Cap) 15 mg PO BEDTIME PRN PRN Reason: Sleep Warfarin Sodium (Pharmacy To Dose - Warfarin) 1 dose .XX ASDIRECTED [facility] Labs: Laboratory Tests 01/25/21 01/25/21 01/25/21 Range/Units 04:10 04:10 04:10 WBC 11.2 H (5.0-10.0) 10^3/uL RBC 4.14 L (4.2-5.4) 10^6/uL Hgb 12.6 (12.0-16.0) g/dL Hct 39.9 (37.0-47.0) % MCV 96.4 (80-100) fL MCH 30.4 (27.0-34.0) pg MCHC 31.6 L (33.0-35.0) g/dL Plt Count 180 (150-450) 10^3/uL Neut % (Auto) 85.9 H (42.2-75.2) % Lymph % (Auto) 5.5 L (20.5-50.1) % [place]hin % (Auto) 8.2 H (2-8) % Eos % (Auto) 0.1 L (1.0-3.0) % Baso % (Auto) 0.3 (0.0-1.0) % PT (9.0-12.0) SEC INR (0.9-1.2) Sodium 134 L (136-145) mmol/L Potassium 4.2 (3.5-5.1) mmol/L Chloride 98 (98-107) mmol/L Carbon Dioxide 29 (21-32) mmol/L Anion Gap 11.2 (7-13) mEq/L BUN 20 H (7-18) mg/dL Creatinine 1.10 H (0.55-1.02) mg/dL Est Cr Clr Drug Dosing 34.05 mL/min Estimated GFR (MDRD) 48 BUN/Creatinine Ratio 18.2 (No establ ref range) Glucose 116 H (70-99) mg/dL Lactic Acid 0.9 (0.4-2.0) mmol/L Calcium 8.5 (8.5-10.1) mg/dL Magnesium 1.9 (1.8-2.4) mg/dL Total Bilirubin 0.6 (0.2-1.0) mg/dL AST 39 H (15-37) U/L ALT 40 (14-59) U/L Alkaline Phosphatase 61 (46-116) U/L Troponin I High Sens 18 (<=51) pg/mL B-Natriuretic Peptide 524 H (0-100) pg/ml Total Protein 6.4 (6.4-8.2) g/dL Albumin 3.1 L (3.4-5.0) g/dL Globulin 3.3 Albumin/Globulin Ratio 0.94 Influenza Type A RNA (NEGATIVE) RSV RNA (INAAT) (NEGATIVE) Influenza Type B RNA (NEGATIVE) SARS-CoV-2 RNA (MARGARET) (NEGATIVE) 01/25/21 01/25/21 Range/Units 04:10 04:26 WBC (5.0-10.0) 10^3/uL RBC (4.2-5.4) 10^6/uL Hgb (12.0-16.0) g/dL Hct (37.0-47.0) % MCV (80-100) fL MCH (27.0-34.0) pg MCHC (33.0-35.0) g/dL Plt Count (150-450) 10^3/uL Neut % (Auto) (42.2-75.2) % Lymph % (Auto) (20.5-50.1) % [place] % (Auto) (2-8) % Eos % (Auto) (1.0-3.0) % Baso % (Auto) (0.0-1.0) % PT 22.0 H (9.0-12.0) SEC INR 2.2 H (0.9-1.2) Sodium (136-145) mmol/L Potassium (3.5-5.1) mmol/L Chloride (98-107) mmol/L Carbon Dioxide (21-32) mmol/L Anion Gap (7-13) mEq/L BUN (7-18) mg/dL Creatinine (0.55-1.02) mg/dL Est Cr Clr Drug Dosing mL/min Estimated GFR (MDRD) BUN/Creatinine Ratio (No establ ref range) Glucose (70-99) mg/dL Lactic Acid (0.4-2.0) mmol/L Calcium (8.5-10.1) mg/dL Magnesium (1.8-2.4) mg/dL Total Bilirubin (0.2-1.0) mg/dL AST (15-37) U/L ALT (14-59) U/L Alkaline Phosphatase (46-116) U/L Troponin I High Sens (<=51) pg/mL B-Natriuretic Peptide (0-100) pg/ml Total Protein (6.4-8.2) g/dL Albumin (3.4-5.0) g/dL Globulin Albumin/Globulin Ratio Influenza Type A RNA Negative (NEGATIVE) RSV RNA (INAAT) Positive H (NEGATIVE) Influenza Type B RNA Negative (NEGATIVE) SARS-CoV-2 RNA (MARGARET) Negative (NEGATIVE) Meds: Medications Generic Name Dose Route Start Last Admin Trade Name Freq PRN Reason Stop Dose Admin Acetaminophen 650 mg 01/25/21 09:20 01/25/21 17:52 Acetaminophen 325 Mg Tab PO 650 mg Q4H PRN Administration Pain (Mild 1-3)/fever Albuterol/Ipratropium 3 ml 01/25/21 13:00 01/26/21 01:14 Albuterol/Ipratropium 3.0-0.5 Mg/3 Ml Neb Soln NEB 3 ml Q6HRRT CHERRY Administration Albuterol/Ipratropium 3 ml 01/25/21 09:14 Albuterol/Ipratropium 3.0-0.5 Mg/3 Ml Neb Soln NEB Q2H PRN sob Budesonide 0.5 mg 01/25/21 18:00 01/25/21 17:38 Budesonide 0.5 Mg/2 Ml Neb Susp NEB 0.5 mg BIDRT CHERRY Administration Carvedilol 25 mg 01/25/21 09:15 01/25/21 20:49 Carvedilol 25 Mg Tab PO 25 mg BID CHERRY Administration Docusate Sodium 100 mg 01/25/21 09:20 Docusate Sodium 100 Mg Cap PO BID PRN Constipation Furosemide 20 mg 01/25/21 09:18 01/25/21 14:43 Furosemide 20 Mg/2 Ml Vial IVPUSH 20 mg BIDDIURETIC CHERRY Administration Gabapentin 200 mg 01/25/21 21:00 01/25/21 20:50 Gabapentin 100 Mg Cap PO 200 mg BEDTIME CHERRY Administration Gabapentin 100 mg 01/26/21 09:00 Gabapentin 100 Mg Cap PO DAILY CHERRY Azithromycin 500 mg/ Sodium 250 mls @ 250 mls/hr 01/25/21 09:30 01/25/21 11:03 Chloride IV 250 mls/hr Q24H CHERRY Administration Losartan Potassium 25 mg 01/25/21 09:14 Losartan 25 Mg Tab PO BID PRN Tachycardia Methylprednisolone Sodium Succinate 40 mg 01/25/21 09:30 01/26/21 01:01 Methylprednisolone Sodium Succinate 40 Mg/1 Ml Sdv IVPUSH 40 mg Q8H CHERRY Administration Ondansetron HCl 4 mg 01/25/21 09:20 Ondansetron 4 Mg/2 Ml Sdv IVPUSH Q6H PRN Nausea/Vomiting Pantoprazole Sodium 40 mg 01/25/21 10:00 01/25/21 11:06 Pantoprazole 40 Mg Tab.Cr PO Not Given ACBREAKFAST CHERRY Pravastatin Sodium 40 mg 01/25/21 21:00 01/25/21 20:51 Pravastatin 20 Mg Tab PO 40 mg BEDTIME CHERRY Administration Sodium Chloride 10 ml 01/25/21 09:20 Sodium Chloride 0.9% 10 Ml Syringe FLUSH ASDIRECTED PRN Keep Vein Open Spironolactone 25 mg 01/26/21 09:00 Spironolactone 25 Mg Tab PO DAILY CHERRY Temazepam 15 mg 01/25/21 09:20 Temazepam 15 Mg Cap PO BEDTIME PRN Sleep Warfarin Sodium 1 dose 01/25/21 09:30 Pharmacy To Dose - Warfarin .XX ASDIRECTED CHERRY Discontinued Medications Generic Name Dose Route Start Last Admin Trade Name Freq PRN Reason Stop Dose Admin Albuterol 2.5 mg 01/25/21 04:39 01/25/21 04:48 Albuterol 0.083% 2.5 Mg/3 Ml Neb Soln NEB 01/25/21 04:40 2.5 mg ONETIME ONE Administration Furosemide 40 mg 01/25/21 04:12 01/25/21 04:22 Furosemide 40 Mg/4 Ml Vial IVPUSH 01/25/21 04:13 40 mg ONETIME ONE Administration Gabapentin 200 mg 01/25/21 21:00 Gabapentin 100 Mg Cap PO BID [facility] Methylprednisolone Sodium Succinate 125 mg 01/25/21 04:38 01/25/21 04:48 Methylprednisolone Sodium Succinate 125 Mg/2 Ml Sdv IVPUSH 01/25/21 04:39 125 mg ONETIME ONE Administration Tolterodine Tartrate 4 mg 01/25/21 09:30 01/25/21 11:02 Tolterodine 2 Mg Cap.Er PO Not Given DAILY CHERRY Warfarin Sodium 1 mg 01/25/21 14:00 01/25/21 14:43 Warfarin 1 Mg Tab PO 01/25/21 14:01 1 mg ONETIME ONE Administration Departure - Departure Time of Disposition: 08:10 Disposition: Admitted As Inpatient 64 Condition: Fair Clinical Impression: Hypoxemia, Hyponatremia, Chronic anticoagulation, Pneumonia due to respiratory syncytial virus (RSV), Chronic atrial fibrillation CHF (congestive heart failure) Qualifiers: Heart failure type: unspecified Heart failure chronicity: acute on chronic Qualified Code(s): I50.9 - Heart failure, unspecified - Discharge Information Sepsis Event Note (ED) - Evaluation Sepsis Screening Result: No Definite Risk
[2021-01-25] MEDS ORDERED: methylPREDNISolone Sodium Succinate 125 MG/2 ML SDV IVPUSH ONE (04:38)
[2021-01-25] MEDS ORDERED: Albuterol 0.083% 2.5 MG/3 ML Neb Soln NEB ONE (04:39)
[2021-01-25 04:46] LABS: ANION GAP 11.2 mEq/L (7-13)
--- NOTE | 2021-01-25 04:52 | CR ---
PROCEDURE INFORMATION: Exam: XR Chest Exam date and time: 01/25/2021 4:26 AM Age: 80 years old Clinical indication: Shortness of breath; Additional info: Dyspnea TECHNIQUE: Imaging protocol: XR of the chest. Views: 1 view. COMPARISON: CR Chest 1V Frontal 10/08/2020 3:09 PM FINDINGS: Tubes, catheters and devices: Cardiac lead wires are present. Lungs: The linear areas of increased density lateral and inferior to the right hilus likely represent atelectasis and/or pneumonia. Loss of definition of the left hemidiaphragm and increased density behind the heart is consistent with parenchymal opacification left lower lobe medially also. Pleural spaces: Unremarkable. No pleural effusion. No pneumothorax. Heart/Mediastinum: Unremarkable. No cardiomegaly. Bones/joints: Unremarkable. Soft tissues: Surgical clips are noted in the right axilla. IMPRESSION: Bilateral areas of parenchymal opacification as above.
[2021-01-25 05:12] LABS: CORONAVIRUS COVID-19 NAA NEGATIVE (NEGATIVE)
[2021-01-25 09:05] LABS: RESPIRATORY SYNCYTIAL VIR NAA POSITIVE (NEGATIVE)
[2021-01-25] MEDS ORDERED: Losartan 25 MG Tab PO PRN (09:14)
[2021-01-25] MEDS ORDERED: Albuterol/Ipratropium 3.0-0.5 MG/3 ML Neb Soln NEB PRN (09:14)
[2021-01-25] MEDS ORDERED: Docusate Sodium 100 MG Cap PO PRN (09:20)
[2021-01-25] MEDS ORDERED: Ondansetron 4 MG/2 ML SDV IVPUSH PRN (09:20)
[2021-01-25] MEDS ORDERED: Temazepam 15 MG Cap PO PRN (09:20)
[2021-01-25] MEDS ORDERED: Sodium Chloride 0.9% 10 ML Syringe FLUSH PRN (09:20)
--- NOTE | 2021-01-25 09:27 | PCM.HP ---
H&P History of Present Illness - General Date of Service: 01/25/21 Admit Problem/Dx: Admission Diagnosis/Problem Admission Diagnosis/Problem Pneumonia Source of Information: Patient - History of Present Illness Initial Comments - Free Text/Narative: h/o chf, copd, not on home oxygen c/o increasing sob, cough, no associated sputum for 1 week was in er a few days ago, improved with nebs last noght severe sob, temporary improvement with nebs only wght gain noted by family in er hypoxemic on RA Chest Pain Score (Numeric/FACES): 5 - Related Data Allergies/Adverse Reactions: Allergies Allergy/AdvReac Type Severity Reaction Status Date / Time benazepril Allergy Other Verified 01/25/21 04:18 codeine Allergy Vomiting Verified 01/25/21 04:18 simvastatin Allergy Other Verified 01/25/21 04:18 doxycycline AdvReac Mild Other Verified 01/25/21 04:18 Home Medications: Home Meds Furosemide [Lasix] 20 mg PO DAILY 08/02/16 [History] Losartan [Cozaar] 25 mg PO BID PRN 08/02/16 [History] Pravastatin [Pravachol] 40 mg PO BEDTIME 08/02/16 [History] Spironolactone [Aldactone] 25 mg PO DAILY 08/02/16 [History] Tolterodine Tartrate [Detrol LA] 4 mg PO DAILY 08/02/16 [History] carvediloL [Carvedilol] 25 mg PO BID 08/02/16 [History] Albuterol Sulfate [Proair Hfa] 2 puff IH Q6HR PRN 02/25/17 [History] Gabapentin [Neurontin] 200 mg PO BID 08/16/20 [History] Fluticasone Propion/Salmeterol [Advair Hfa 230-21 Mcg Inhaler] 1 puff INH BID 09/25/20 [History] Sulfamethoxazole/Trimethoprim [Sulfamethoxazole-Tmp Ds Tablet] 1 tab PO BID 10/08/20 [History] Warfarin Sodium [Jantoven] 1 mg PO DAILY 10/08/20 [History] Pantoprazole [ProTONIX] 40 mg PO ACBREAKFAST 30 Days #30 tab.cr 10/09/20 [Rx] predniSONE [Prednisone] 5 mg PO DAILY 1 Days #1 solution 10/09/20 [Rx] Past Medical History HEENT History: Reports: Cataract, Impaired Vision, Macular Degeneration Other HEENT History: weas glasses Cardiovascular History: Reports: Afib, Cardiomyopathy, Heart Failure, High Cholesterol, Hypertension, Other (See Below) Other Cardiovascular History: Pt. 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: Musculoskeletal History: Reports: Arthritis, Neck Pain, Chronic, Osteoarthritis, RA Neurological History: Reports: Neuropathy, Peripheral Psychiatric History: Reports: Other (See Below) Other Psychiatric History: forgetful at times Endocrine/Metabolic History: Reports: Osteoporosis Hematologic History: Reports: Anemia Immunologic History: Reports: None Oncologic (Cancer) History: Reports: Breast, Other (See Below) Other Oncologic History: unspecified skin cancer Dermatologic History: Reports: Cellulitis - Infectious Disease History Infectious Disease History: Reports: Chicken Pox, Measles, Novel Coronavirus, Shingles - Past Surgical History Head Surgeries/Procedures: Reports: None HEENT Surgical History: Reports: Cataract Surgery Cardiovascular Surgical History: Reports: None Respiratory Surgical History: Reports: None GI Surgical History: Reports: Cholecystectomy Female Surgical History: Reports: Mastectomy Other Female Surgeries/Procedures: right sided Endocrine Surgical History: Reports: None Musculoskeletal Surgical History: Reports: None Other Musculoskeletal Surgeries/Procedures:: Hammer toe repair Oncologic Surgical History: Reports: Mastectomy, Other (See Below) Other Oncologic Surgeries/Procedures: right mastectomy Social & Family History - Family History Family Medical History: No Pertinent Family History - Tobacco Use Tobacco Use Status *Q: Never Tobacco User - Caffeine Use Caffeine Use: Reports: Coffee Other Caffeine Use: 16. oz daily - Recreational Drug Use Recreational Drug Use: No H&P Review of Systems - Review of Systems: Review Of Systems: See Below General: Reports: Malaise, Weakness. Denies: Fever, Chills Pulmonary: Reports: Shortness of Breath, Wheezing, Cough. Denies: Pleuritic Chest Pain, Sputum, Hemoptysis Cardiovascular: Reports: Dyspnea on Exertion, Orthopnea, Edema. Denies: Chest Pain, Palpitations Gastrointestinal: Denies: Abdominal Pain Genitourinary: Denies: Dysuria, Hematuria Musculoskeletal: Denies: Neck Pain, Muscle Pain Psychiatric: Denies: Confusion Exam - Exam Exam: See Below - Vital Signs Vital Signs: Last Vital Signs Temp 97.8 F 01/25/21 08:17 Pulse 98 01/25/21 08:17 Resp 26 H 01/25/21 08:17 BP 148/82 H 01/25/21 08:17 Pulse Ox 94 L 01/25/21 08:17 Weight: 169 lb - Exam Quality Assessment: Supplemental Oxygen General: Alert, Oriented Neck: Supple Lungs: Decreased Breath Sounds, Rales, Wheezing. No: Normal Respiratory Effort Cardiovascular: Irregular Rhythm GI/Abdominal Exam: Normal Bowel Sounds, Soft, Non-Tender Extremities: Pedal Edema (1+ b/l) Skin: Warm, Dry Neuro Extensive - Mental Status: Alert, Oriented x3, Normal Mood/Affect Psychiatric: Alert, Normal Affect, Normal Mood - Patient Data Lab Results Last 24 hrs: Laboratory Results - last 24 hr 01/25/21 01/25/21 01/25/21 Range/Units 04:10 04:10 04:10 WBC 11.2 H (5.0-10.0) 10^3/uL RBC 4.14 L (4.2-5.4) 10^6/uL Hgb 12.6 (12.0-16.0) g/dL Hct 39.9 (37.0-47.0) % MCV 96.4 (80-100) fL MCH 30.4 (27.0-34.0) pg MCHC 31.6 L (33.0-35.0) g/dL Plt Count 180 (150-450) 10^3/uL Neut % (Auto) 85.9 H (42.2-75.2) % Lymph % (Auto) 5.5 L (20.5-50.1) % [place] % (Auto) 8.2 H (2-8) % Eos % (Auto) 0.1 L (1.0-3.0) % Baso % (Auto) 0.3 (0.0-1.0) % PT (9.0-12.0) SEC INR (0.9-1.2) Sodium 134 L (136-145) mmol/L Potassium 4.2 (3.5-5.1) mmol/L Chloride 98 (98-107) mmol/L Carbon Dioxide 29 (21-32) mmol/L Anion Gap 11.2 (7-13) mEq/L BUN 20 H (7-18) mg/dL Creatinine 1.10 H (0.55-1.02) mg/dL Est Cr Clr Drug Dosing 34.05 mL/min Estimated GFR (MDRD) 48 BUN/Creatinine Ratio 18.2 (No establ ref range) Glucose 116 H (70-99) mg/dL Lactic Acid 0.9 (0.4-2.0) mmol/L Calcium 8.5 (8.5-10.1) mg/dL Magnesium 1.9 (1.8-2.4) mg/dL Total Bilirubin 0.6 (0.2-1.0) mg/dL AST 39 H (15-37) U/L ALT 40 (14-59) U/L Alkaline Phosphatase 61 (46-116) U/L Troponin I High Sens 18 (<=51) pg/mL B-Natriuretic Peptide 524 H (0-100) pg/ml Total Protein 6.4 (6.4-8.2) g/dL Albumin 3.1 L (3.4-5.0) g/dL Globulin 3.3 Albumin/Globulin Ratio 0.94 Influenza Type A RNA (NEGATIVE) RSV RNA (INAAT) (NEGATIVE) Influenza Type B RNA (NEGATIVE) SARS-CoV-2 RNA (MARGARET) (NEGATIVE) 01/25/21 01/25/21 Range/Units 04:10 04:26 WBC (5.0-10.0) 10^3/uL RBC (4.2-5.4) 10^6/uL Hgb (12.0-16.0) g/dL Hct (37.0-47.0) % MCV (80-100) fL MCH (27.0-34.0) pg MCHC (33.0-35.0) g/dL Plt Count (150-450) 10^3/uL Neut % (Auto) (42.2-75.2) % Lymph % (Auto) (20.5-50.1) % [place] % (Auto) (2-8) % Eos % (Auto) (1.0-3.0) % Baso % (Auto) (0.0-1.0) % PT 22.0 H (9.0-12.0) SEC INR 2.2 H (0.9-1.2) Sodium (136-145) mmol/L Potassium (3.5-5.1) mmol/L Chloride (98-107) mmol/L Carbon Dioxide (21-32) mmol/L Anion Gap (7-13) mEq/L BUN (7-18) mg/dL Creatinine (0.55-1.02) mg/dL Est Cr Clr Drug Dosing mL/min Estimated GFR (MDRD) BUN/Creatinine Ratio (No establ ref range) Glucose (70-99) mg/dL Lactic Acid (0.4-2.0) mmol/L Calcium (8.5-10.1) mg/dL Magnesium (1.8-2.4) mg/dL Total Bilirubin (0.2-1.0) mg/dL AST (15-37) U/L ALT (14-59) U/L Alkaline Phosphatase (46-116) U/L Troponin I High Sens (<=51) pg/mL B-Natriuretic Peptide (0-100) pg/ml Total Protein (6.4-8.2) g/dL Albumin (3.4-5.0) g/dL Globulin Albumin/Globulin Ratio Influenza Type A RNA Negative (NEGATIVE) RSV RNA (INAAT) Positive H (NEGATIVE) Influenza Type B RNA Negative (NEGATIVE) SARS-CoV-2 RNA (MARGARET) Negative (NEGATIVE) Result Diagrams: 01/25/21 04:10 01/25/21 04:10 Matthew Results Last 24 hrs: Microbiology 01/25/21 04:10 Anaerobic Blood Culture - Final Blood - Arm, Left Imaging Impressions Last 24 hrs: per reading b/l basilar opacities - Problem List (1) Hyponatremia SNOMED Code(s): 84389784 ICD Code: E87.1 - HYPO-OSMOLALITY AND HYPONATREMIA Status: Acute Current Visit: Yes (2) Acute diastolic (congestive) heart failure SNOMED Code(s): 755937326, 973824439 ICD Code: I50.31 - ACUTE DIASTOLIC (CONGESTIVE) HEART FAILURE Status: Acute Current Visit: Yes (3) Afib SNOMED Code(s): 95805093 ICD Code: I48.91 - UNSPECIFIED ATRIAL FIBRILLATION Status: Acute Current Visit: Yes (4) Acute exacerbation of chronic obstructive pulmonary disease (COPD) SNOMED Code(s): 115943179 ICD Code: J44.1 - CHRONIC OBSTRUCTIVE PULMONARY DISEASE W (ACUTE) EXACERBATION Status: Acute Current Visit: Yes (5) Acute hypoxemic respiratory failure SNOMED Code(s): 697721524 ICD Code: J96.01 - ACUTE RESPIRATORY FAILURE WITH HYPOXIA Status: Acute Current Visit: Yes (6) RSV (respiratory syncytial virus pneumonia) Status: Acute Current Visit: Yes (7) Afib SNOMED Code(s): 55263402 ICD Code: I48.91 - UNSPECIFIED ATRIAL FIBRILLATION Status: Acute Current Visit: No Qualifiers: Atrial fibrillation type: longstanding persistent Qualified Code(s): I48.11 - Longstanding persistent atrial fibrillation (8) History of CHF (congestive heart failure) SNOMED Code(s): 428319142 ICD Code: Z86.79 - PERSONAL HISTORY OF OTHER DISEASES OF THE CIRCULATORY SYSTEM Status: Acute Current Visit: No (9) Hypertension SNOMED Code(s): 58098717 ICD Code: I10 - ESSENTIAL (PRIMARY) HYPERTENSION Status: Acute Current Visit: No (10) Chronic anticoagulation SNOMED Code(s): 735350820 ICD Code: Z79.01 - 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 DIRECTED Care 01/25/21 09:21 Ordered RT Aerosol Therapy [RC] ASDIRECTED Care 01/25/21 04:39 Active RT Aerosol Therapy [RC] ASDIRECTED Care 01/25/21 09:14 Ordered Up With Assistance [RC] ASDIRECTED Care 01/25/21 09:20 Ordered VTE/DVT Education [RC] PER UNIT ROUTINE Care 01/25/21 09:20 Ordered Vital Signs [RC] Q4H Care 01/25/21 09:20 Ordered Regular Diet [DIET] Diet 01/25/21 Lunch Ordered CULTURE BLOOD [BC] Stat Lab 01/25/21 04:10 Results CULTURE SPUTUM + SMEAR [RM] Routine Lab 01/25/21 09:06 Ordered Acetaminophen [TylenoL] Med 01/25/21 09:20 Ordered 650 mg PO Q4H PRN Albuterol/Ipratropium [DuoNeb 3.0-0.5 MG/3 ML] Med 01/25/21 09:14 Ordered 3 ml NEB Q2H PRN Albuterol/Ipratropium [DuoNeb 3.0-0.5 MG/3 ML] Med 01/25/21 13:00 Ordered 3 ml NEB Q6HRRT Budesonide [Pulmicort] Med 01/25/21 18:00 Ordered 0.5 mg NEB BIDRT Docusate Sodium [Colace] Med 01/25/21 09:20 Ordered 100 mg PO BID PRN Furosemide [Lasix] Med 01/25/21 09:18 Ordered 20 mg IVPUSH BIDDIURETIC Gabapentin [Neurontin] Med 01/25/21 21:00 Ordered 200 mg PO BID Losartan [Cozaar] Med 01/25/21 09:14 Ordered 25 mg PO BID PRN Ondansetron [Zofran] Med 01/25/21 09:20 Ordered 4 mg IVPUSH Q6H PRN Pantoprazole [ProTONIX] Med 01/25/21 10:00 Ordered 40 mg PO ACBREAKFAST Pharmacy to Dose - Warfarin Med 01/25/21 09:30 Ordered 1 dose .XX ASDIRECTED Pravastatin Sodium Med 01/25/21 21:00 Ordered 40 mg PO BEDTIME Sodium Chloride 0.9% [Saline Flush] Med 01/25/21 09:20 Ordered 10 ml FLUSH ASDIRECTED PRN Spironolactone [Aldactone] Med 01/26/21 09:00 Ordered 25 mg PO DAILY Temazepam [Restoril] Med 01/25/21 09:20 Ordered 15 mg PO BEDTIME PRN Tolterodine Tartrate [Detrol LA] Med 01/25/21 09:30 Ordered 4 mg PO DAILY carvediloL [Coreg] Med 01/25/21 09:15 Ordered 25 mg PO BID methylPREDNISolone Sod Succ [Solu-MEDROL] Med 01/25/21 09:15 Ordered 40 mg IVPUSH Q8H Antiembolic Hose [OM.PC] Per Unit Routine Oth 01/25/21 09:20 Ordered Blood Culture x2 Reflex Set [OM.PC] Stat Oth 01/25/21 04:13 Ordered Peripheral IV Insertion Adult [OM.PC] Routine Oth 01/25/21 09:20 Ordered Saline Lock Insert [OM.PC] Routine Oth 01/25/21 09:20 Ordered Resuscitation Status Routine Resus Stat 01/25/21 09:20 Ordered Medication Orders Albuterol/Ipratropium (Albuterol/Ipratropium 3.0-0.5 Mg/3 Ml Neb Soln) 3 ml NEB Q6HRRT CHERRY Albuterol/Ipratropium (Albuterol/Ipratropium 3.0-0.5 Mg/3 Ml Neb Soln) 3 ml NEB Q2H PRN PRN Reason: sob Budesonide (Budesonide 0.5 Mg/2 Ml Neb Susp) 0.5 mg NEB BIDRT CHERRY Carvedilol (Carvedilol 25 Mg Tab) 25 mg PO BID CHERRY Furosemide (Furosemide 20 Mg/2 Ml Vial) 20 mg IVPUSH BIDDIURETIC CHERRY Gabapentin (Gabapentin 100 Mg Cap) 200 mg PO BID CHERRY Losartan Potassium (Losartan 25 Mg Tab) 25 mg PO BID PRN PRN Reason: Tachycardia Methylprednisolone Sodium Succinate (Methylprednisolone Sodium Succinate 40 Mg/1 Ml Sdv) 40 mg IVPUSH Q8H CHERRY Non-Formulary Medication (Pravastatin Sodium) 40 mg PO BEDTIME CHERRY Non-Formulary Medication (Tolterodine Tartrate [Detrol La]) 4 mg PO DAILY CHERRY Pantoprazole Sodium (Pantoprazole 40 Mg Tab.Cr) 40 mg PO ACBREAKFAST CHERRY Spironolactone (Spironolactone 25 Mg Tab) 25 mg PO DAILY [facility] Warfarin Sodium (Pharmacy To Dose - Warfarin) 1 dose .XX ASDIRECTED [facility] Assessment/Plan Comment:: Acute hypoxemic respiratory failure Will supplement oxygen as needed Acute pneumonia, Obtain sputum cx Blood cx: pending Likely viral RSV positive respiratory isolation Possible bacterial superinfection check Procalcitonin cont azithromycin Acute copd exacerbation Treat with iv solumedrol, duoneb, pulmicort Acute chf diastolic h/o EF 50-55%, grade II diastolic dysfunction Treat with IV Lasix, spironolactone Continue coreg Afib Rate control with coreg Anticoagulation for afib Coumadin Check INR daily Adjust for goal INR 2-3 Htn Treat with losartan, coreg CKD stage III Follow elytes and renal fx with diuretics Code status:DNR as d/w pt
[2021-01-25] MEDS ORDERED: Tolterodine 2 MG Cap.ER PO SCH (09:30)
[2021-01-25] MEDS: Carvedilol 25 MG Tab PO SCH ×2 (10:52→20:49)
[2021-01-25] MEDS: Furosemide 20 MG/2 ML VIAL IVPUSH SCH ×2 (10:53→14:43)
[2021-01-25] MEDS: methylPREDNISolone Sodium Succinate 40 MG/1 ML SDV IVPUSH SCH ×2 (11:02→18:00)
[2021-01-25] MEDS: Azithromycin 500 MG in Sodium Chloride 0.9% 250 ML IV SCH (11:03)
[2021-01-25] MEDS: Pantoprazole 40 MG Tab.CR PO SCH (11:06)
[2021-01-25] MEDS: Albuterol/Ipratropium 3.0-0.5 MG/3 ML Neb Soln NEB SCH ×2 (14:10→17:38)
[2021-01-25] MEDS: Budesonide 0.5 MG/2 ML Neb Susp NEB SCH (17:38)
[2021-01-25] MEDS: Acetaminophen 325 MG Tab PO PRN (17:52)
[2021-01-25] MEDS: Gabapentin 100 MG Cap PO SCH (20:50)
[2021-01-25] MEDS: Pravastatin 20 MG Tab PO SCH (20:51)
[2021-01-25] MEDS ORDERED: Gabapentin 100 MG Cap PO SCH (21:00)
[2021-01-26] MEDS: methylPREDNISolone Sodium Succinate 40 MG/1 ML SDV IVPUSH SCH ×3 (01:01→17:35)
[2021-01-26] MEDS: Albuterol/Ipratropium 3.0-0.5 MG/3 ML Neb Soln NEB SCH ×4 (01:14→18:48)
[2021-01-26] MEDS: Pantoprazole 40 MG Tab.CR PO SCH (05:44)
[2021-01-26 06:18] LABS: ANION GAP 10.8 mEq/L (7-13)
[2021-01-26] MEDS: Budesonide 0.5 MG/2 ML Neb Susp NEB SCH ×2 (08:35→18:48)
[2021-01-26] MEDS: Carvedilol 25 MG Tab PO SCH ×2 (09:19→20:43)
[2021-01-26] MEDS: Spironolactone 25 MG Tab PO SCH (09:19)
[2021-01-26] MEDS: Gabapentin 100 MG Cap PO SCH ×2 (09:19→20:41)
[2021-01-26] MEDS: Furosemide 20 MG/2 ML VIAL IVPUSH SCH ×2 (09:20→15:08)
--- NOTE | 2021-01-26 11:01 | PCM.PN ---
- General Info Date of Service: 01/26/21 Admission Dx/Problem (Free Text): Admission Diagnosis/Problem Admission Diagnosis/Problem Pneumonia Subjective Update: continues to have moderate sob, worse with activity better with nebs associated with wheezing no CP continues to have LE edema Functional Status: Reports: Pain Controlled, Tolerating Diet - Review of Systems General: Reports: Weakness. Denies: Fever Pulmonary: Reports: Shortness of Breath, Wheezing Cardiovascular: Reports: Edema. Denies: Chest Pain Gastrointestinal: Denies: Abdominal Pain Neurological: Denies: Confusion - Patient Data Vitals - Most Recent: Last Vital Signs Temp 98.5 F 01/26/21 07:35 Pulse 84 01/26/21 09:19 Resp 20 01/26/21 07:35 BP 130/89 01/26/21 09:19 Pulse Ox 98 01/26/21 07:35 Weight - Most Recent: 165 lb 3.2 oz I&O - Last 24 Hours: Intake & Output 01/25/21 01/26/21 01/26/21 22:59 06:59 14:59 Intake Total 260 400 Balance 260 400 Lab Results Last 24 Hours: Laboratory Results - last 24 hr 01/26/21 01/26/21 01/26/21 Range/Units 05:35 05:35 05:35 WBC 8.4 (5.0-10.0) 10^3/uL RBC 4.10 L (4.2-5.4) 10^6/uL Hgb 12.6 (12.0-16.0) g/dL Hct 39.6 (37.0-47.0) % MCV 96.6 (80-100) fL MCH 30.7 (27.0-34.0) pg MCHC 31.8 L (33.0-35.0) g/dL Plt Count 185 (150-450) 10^3/uL Neut % (Auto) 92.6 H (42.2-75.2) % Lymph % (Auto) 3.1 L (20.5-50.1) % Ross % (Auto) 4.2 (2-8) % Eos % (Auto) 0.0 L (1.0-3.0) % Baso % (Auto) 0.1 (0.0-1.0) % PT 24.0 H (9.0-12.0) SEC INR 2.4 H (0.9-1.2) Sodium 139 (136-145) mmol/L Potassium 3.8 (3.5-5.1) mmol/L Chloride 98 (98-107) mmol/L Carbon Dioxide 34 H (21-32) mmol/L Anion Gap 10.8 (7-13) mEq/L BUN 23 H (7-18) mg/dL Creatinine 1.13 H (0.55-1.02) mg/dL Est Cr Clr Drug Dosing 33.14 mL/min Estimated GFR (MDRD) 46 Glucose 140 H (70-99) mg/dL Calcium 8.1 L (8.5-10.1) mg/dL Matthew Results Last 24 Hours: Microbiology 01/25/21 04:10 Aerobic Blood Culture - Preliminary Blood - Arm, Left NO GROWTH AFTER 1 DAY Anaerobic Blood Culture - Final Med Orders - Current: Current Medications Acetaminophen (Acetaminophen 325 Mg Tab) 650 mg PO Q4H PRN PRN Reason: Pain (Mild 1-3)/fever Last Admin: 01/25/21 17:52 Dose: 650 mg Documented by: Albuterol/Ipratropium (Albuterol/Ipratropium 3.0-0.5 Mg/3 Ml Neb Soln) 3 ml NEB Q6HRRT [facility] Last Admin: 01/26/21 08:35 Dose: 3 ml Documented by: Albuterol/Ipratropium (Albuterol/Ipratropium 3.0-0.5 Mg/3 Ml Neb Soln) 3 ml NEB Q2H PRN PRN Reason: sob Budesonide (Budesonide 0.5 Mg/2 Ml Neb Susp) 0.5 mg NEB BIDRT [facility] Last Admin: 01/26/21 08:35 Dose: 0.5 mg Documented by: Carvedilol (Carvedilol 25 Mg Tab) 25 mg PO BID [facility] Last Admin: 01/26/21 09:19 Dose: 25 mg Documented by: Docusate Sodium (Docusate Sodium 100 Mg Cap) 100 mg PO BID PRN PRN Reason: Constipation Furosemide (Furosemide 20 Mg/2 Ml Vial) 20 mg IVPUSH BIDDIURETIC [facility] Last Admin: 01/26/21 09:20 Dose: 20 mg Documented by: Gabapentin (Gabapentin 100 Mg Cap) 200 mg PO BEDTIME [facility] Last Admin: 01/25/21 20:50 Dose: 200 mg Documented by: Gabapentin (Gabapentin 100 Mg Cap) 100 mg PO DAILY [facility] Last Admin: 01/26/21 09:19 Dose: 100 mg Documented by: Azithromycin 500 mg/ Sodium (Chloride) 250 mls @ 250 mls/hr IV Q24H [facility] Last Admin: 01/25/21 11:03 Dose: 250 mls/hr Documented by: Losartan Potassium (Losartan 25 Mg Tab) 25 mg PO BID PRN PRN Reason: Tachycardia Methylprednisolone Sodium Succinate (Methylprednisolone Sodium Succinate 40 Mg/1 Ml Sdv) 40 mg IVPUSH Q8H [facility] Last Admin: 01/26/21 01:01 Dose: 40 mg Documented by: Ondansetron HCl (Ondansetron 4 Mg/2 Ml Sdv) 4 mg IVPUSH Q6H PRN PRN Reason: Nausea/Vomiting Pantoprazole Sodium (Pantoprazole 40 Mg Tab.Cr) 40 mg PO ACBREAKFAST [facility] Last Admin: 01/26/21 05:44 Dose: 40 mg Documented by: Pravastatin Sodium (Pravastatin 20 Mg Tab) 40 mg PO BEDTIME [facility] Last Admin: 01/25/21 20:51 Dose: 40 mg Documented by: Sodium Chloride (Sodium Chloride 0.9% 10 Ml Syringe) 10 ml FLUSH ASDIRECTED PRN PRN Reason: Keep Vein Open Spironolactone (Spironolactone 25 Mg Tab) 25 mg PO DAILY [facility] Last Admin: 01/26/21 09:19 Dose: 25 mg Documented by: Temazepam (Temazepam 15 Mg Cap) 15 mg PO BEDTIME PRN PRN Reason: Sleep Warfarin Sodium (Pharmacy To Dose - Warfarin) 1 dose .XX ASDIRECTED [facility] Warfarin Sodium (Warfarin 1 Mg Tab) 1 mg PO ONETIME ONE Stop: 01/26/21 14:01 Discontinued Medications Albuterol (Albuterol 0.083% 2.5 Mg/3 Ml Neb Soln) 2.5 mg NEB ONETIME ONE Stop: 01/25/21 04:40 Last Admin: 01/25/21 04:48 Dose: 2.5 mg Documented by: Furosemide (Furosemide 40 Mg/4 Ml Vial) 40 mg IVPUSH ONETIME ONE Stop: 01/25/21 04:13 Last Admin: 01/25/21 04:22 Dose: 40 mg Documented by: Gabapentin (Gabapentin 100 Mg Cap) 200 mg PO BID [facility] Methylprednisolone Sodium Succinate (Methylprednisolone Sodium Succinate 125 Mg/2 Ml Sdv) 125 mg IVPUSH ONETIME ONE Stop: 01/25/21 04:39 Last Admin: 01/25/21 04:48 Dose: 125 mg Documented by: Tolterodine Tartrate (Tolterodine 2 Mg Cap.Er) 4 mg PO DAILY [facility] Last Admin: 01/25/21 11:02 Dose: Not Given Documented by: Warfarin Sodium (Warfarin 1 Mg Tab) 1 mg PO ONETIME ONE Stop: 01/25/21 14:01 Last Admin: 01/25/21 14:43 Dose: 1 mg Documented by: - Exam General: Alert, Oriented Neck: Supple Lungs: Wheezing. No: Normal Respiratory Effort Cardiovascular: Regular Rate, Regular Rhythm GI/Abdominal Exam: Normal Bowel Sounds, Soft, Non-Tender Extremities: Pedal Edema Neurological: No New Focal Deficit Psy/Mental Status: Alert, Normal Affect, Normal Mood - Patient Data Lab Results Last 24 hrs: Laboratory Results - last 24 hr 01/26/21 01/26/21 01/26/21 Range/Units 05:35 05:35 05:35 WBC 8.4 (5.0-10.0) 10^3/uL RBC 4.10 L (4.2-5.4) 10^6/uL Hgb 12.6 (12.0-16.0) g/dL Hct 39.6 (37.0-47.0) % MCV 96.6 (80-100) fL MCH 30.7 (27.0-34.0) pg MCHC 31.8 L (33.0-35.0) g/dL Plt Count 185 (150-450) 10^3/uL Neut % (Auto) 92.6 H (42.2-75.2) % Lymph % (Auto) 3.1 L (20.5-50.1) % Ross % (Auto) 4.2 (2-8) % Eos % (Auto) 0.0 L (1.0-3.0) % Baso % (Auto) 0.1 (0.0-1.0) % PT 24.0 H (9.0-12.0) SEC INR 2.4 H (0.9-1.2) Sodium 139 (136-145) mmol/L Potassium 3.8 (3.5-5.1) mmol/L Chloride 98 (98-107) mmol/L Carbon Dioxide 34 H (21-32) mmol/L Anion Gap 10.8 (7-13) mEq/L BUN 23 H (7-18) mg/dL Creatinine 1.13 H (0.55-1.02) mg/dL Est Cr Clr Drug Dosing 33.14 mL/min Estimated GFR (MDRD) 46 Glucose 140 H (70-99) mg/dL Calcium 8.1 L (8.5-10.1) mg/dL Result Diagrams: 01/26/21 05:35 01/26/21 05:35 Matthew Results Last 24 hrs: Microbiology 01/25/21 04:10 Aerobic Blood Culture - Preliminary Blood - Arm, Left NO GROWTH AFTER 1 DAY Anaerobic Blood Culture - Final Sepsis Event Note - Evaluation Sepsis Screening Result: Sepsis Risk - Focused Exam Vital Signs: Vital Signs Temp Pulse Pulse Resp BP BP BP 01/26/21 09:19 84 130/89 01/26/21 07:35 98.5 F 94 20 130/89 01/26/21 04:00 99.0 F 104 H 22 H 149/95 H 01/26/21 01:48 98 01/26/21 01:00 136/90 01/26/21 00:00 97.9 F 99 24 H 148/106 H Pulse Ox Pulse Ox 01/26/21 09:19 01/26/21 07:35 98 01/26/21 04:00 96 01/26/21 01:48 98 01/26/21 01:00 01/26/21 00:00 99 - Problem List & Annotations (1) Hyponatremia SNOMED Code(s): 59226836 Code(s): E87.1 - HYPO-OSMOLALITY AND HYPONATREMIA Status: Acute Current Visit: Yes (2) Acute diastolic (congestive) heart failure SNOMED Code(s): 630110809, 815969082 Code(s): I50.31 - ACUTE DIASTOLIC (CONGESTIVE) HEART FAILURE Status: Acute Current Visit: Yes (3) Afib SNOMED Code(s): 01294278 Code(s): I48.91 - UNSPECIFIED ATRIAL FIBRILLATION Status: Acute Current Visit: Yes (4) Acute exacerbation of chronic obstructive pulmonary disease (COPD) SNOMED Code(s): 208172036 Code(s): J44.1 - CHRONIC OBSTRUCTIVE PULMONARY DISEASE W (ACUTE) EXACERBATION Status: Acute Current Visit: Yes (5) Acute hypoxemic respiratory failure SNOMED Code(s): 537176344 Code(s): J96.01 - ACUTE RESPIRATORY FAILURE WITH HYPOXIA Status: Acute Current Visit: Yes (6) RSV (respiratory syncytial virus pneumonia) Status: Acute Current Visit: Yes (7) Afib SNOMED Code(s): 65739079 Code(s): I48.91 - UNSPECIFIED ATRIAL FIBRILLATION Status: Acute Current Visit: No Qualifiers: Atrial fibrillation type: longstanding persistent Qualified Code(s): I48.11 - Longstanding persistent atrial fibrillation (8) History of CHF (congestive heart failure) SNOMED Code(s): 049102507 Code(s): Z86.79 - PERSONAL HISTORY OF OTHER DISEASES OF THE CIRCULATORY SYSTEM Status: Acute Current Visit: No (9) Hypertension SNOMED Code(s): 16914371 Code(s): I10 - ESSENTIAL (PRIMARY) HYPERTENSION Status: Acute Current Visit: No (10) Chronic anticoagulation SNOMED Code(s): 632339858 Code(s): Z79.01 - D[employer] (CURRENT) USE OF ANTICOAGULANTS Status: Chronic Current Visit: Yes - Problem List Review Problem List Initiated/Reviewed/Updated: Yes - My Orders Last 24 Hours: My Active Orders 01/25/21 Lunch Regular Diet [DIET] 01/25/21 13:00 Albuterol/Ipratropium [DuoNeb 3.0-0.5 MG/3 ML] 3 ml NEB Q6HRRT 01/25/21 18:00 Budesonide [Pulmicort] 0.5 mg NEB BIDRT 01/25/21 21:00 Gabapentin [Neurontin] 200 mg PO BEDTIME Pravastatin [Pravachol] 40 mg PO BEDTIME 01/26/21 09:00 Gabapentin [Neurontin] 100 mg PO DAILY Spironolactone [Aldactone] 25 mg PO DAILY 01/26/21 09:27 OT Evaluation and Treatment [CONS] Routine PT Evaluation and Treatment [CONS] Routine 01/26/21 14:00 Warfarin [Coumadin] 1 mg PO ONETIME ONE 01/27/21 05:15 BASIC METABOLIC PANEL,BMP [CHEM] AM CBC WITH AUTO DIFF [HEME] AM - Plan Plan:: Acute hypoxemic respiratory failure Will supplement oxygen as needed Acute pneumonia, Obtain sputum cx Blood cx: pending Likely viral RSV positive respiratory isolation Possible bacterial superinfection check Procalcitonin - cont azithromycin for now Acute copd exacerbation still sob and wheezing Treat with iv solumedrol, duoneb, pulmicort Acute chf diastolic h/o EF 50-55%, grade II diastolic dysfunction Treat with IV Lasix - bid, spironolactone Continue coreg Afib Rate control with coreg Anticoagulation for afib Coumadin Check INR daily Adjust for goal INR 2-3 Htn Treat with losartan, coreg CKD stage III Follow elytes and renal fx with diuretics in AM Code status:DNR as d/w pt
[2021-01-26] MEDS: Azithromycin 500 MG in Sodium Chloride 0.9% 250 ML IV SCH (12:44)
[2021-01-26] MEDS: [UNRECOGNIZED DRUG - OTHER] PO SCH (12:53)
[2021-01-26] MEDS: Pravastatin 20 MG Tab PO SCH (20:42)
[2021-01-27] MEDS: Albuterol/Ipratropium 3.0-0.5 MG/3 ML Neb Soln NEB SCH ×4 (01:02→18:07)
[2021-01-27] MEDS: methylPREDNISolone Sodium Succinate 40 MG/1 ML SDV IVPUSH SCH ×3 (01:03→20:52)
[2021-01-27] MEDS: Pantoprazole 40 MG Tab.CR PO SCH (06:05)
[2021-01-27 06:32] LABS: ANION GAP 7.5 mEq/L (7-13)
[2021-01-27] MEDS: Gabapentin 100 MG Cap PO SCH ×2 (08:54→20:51)
[2021-01-27] MEDS: Spironolactone 25 MG Tab PO SCH (08:54)
[2021-01-27] MEDS: Carvedilol 25 MG Tab PO SCH ×2 (08:55→20:50)
[2021-01-27] MEDS: Furosemide 20 MG/2 ML VIAL IVPUSH SCH ×2 (08:56→13:19)
[2021-01-27] MEDS: Azithromycin 500 MG in Sodium Chloride 0.9% 250 ML IV SCH (09:05)
[2021-01-27] MEDS: Budesonide 0.5 MG/2 ML Neb Susp NEB SCH ×2 (10:10→20:10)
[2021-01-27] MEDS: [UNRECOGNIZED DRUG - OTHER] PO SCH (10:26)
--- NOTE | 2021-01-27 12:28 | PCM.PN ---
- General Info Date of Service: 01/27/21 Admission Dx/Problem (Free Text): Admission Diagnosis/Problem Admission Diagnosis/Problem Pneumonia Subjective Update: continues to have moderate sob, worse with activity still requiring oxygen better with nebs associated with less wheezing no CP continues to have LE edema htn noted Functional Status: Reports: Tolerating Diet, Ambulating - Review of Systems Pulmonary: Reports: Shortness of Breath Cardiovascular: Reports: Edema. Denies: Chest Pain Neurological: Denies: Confusion - Patient Data Vitals - Most Recent: Last Vital Signs Temp 95.0 F L 01/27/21 11:47 Pulse 78 01/27/21 11:47 Resp 18 01/27/21 11:47 BP 118/73 01/27/21 11:47 Pulse Ox 95 01/27/21 11:47 Weight - Most Recent: 164 lb I&O - Last 24 Hours: Intake & Output 01/26/21 01/27/21 01/27/21 22:59 06:59 14:59 Intake Total 350 540 200 Output Total 500 Balance 350 40 200 Lab Results Last 24 Hours: Laboratory Results - last 24 hr 01/27/21 01/27/21 01/27/21 Range/Units 05:35 05:35 05:35 WBC 8.9 (5.0-10.0) 10^3/uL RBC 3.93 L (4.2-5.4) 10^6/uL Hgb 12.0 (12.0-16.0) g/dL Hct 38.2 (37.0-47.0) % MCV 97.2 (80-100) fL MCH 30.5 (27.0-34.0) pg MCHC 31.4 L (33.0-35.0) g/dL Plt Count 181 (150-450) 10^3/uL Neut % (Auto) 90.5 H (42.2-75.2) % Lymph % (Auto) 4.8 L (20.5-50.1) % Mccracken % (Auto) 4.6 (2-8) % Eos % (Auto) 0.0 L (1.0-3.0) % Baso % (Auto) 0.1 (0.0-1.0) % Add Manual Diff Yes Neutrophils % (Manual) 94 H (42-75) % Lymphocytes % (Manual) 2 L (20-50) % Monocytes % (Manual) 4 (2-8) % PT 23.5 H (9.0-12.0) SEC INR 2.4 H (0.9-1.2) Sodium 139 (136-145) mmol/L Potassium 3.5 (3.5-5.1) mmol/L Chloride 99 (98-107) mmol/L Carbon Dioxide 36 H (21-32) mmol/L Anion Gap 7.5 (7-13) mEq/L BUN 29 H (7-18) mg/dL Creatinine 1.15 H (0.55-1.02) mg/dL Est Cr Clr Drug Dosing 32.57 mL/min Estimated GFR (MDRD) 45 Glucose 140 H (70-99) mg/dL Calcium 8.3 L (8.5-10.1) mg/dL Matthew Results Last 24 Hours: Microbiology 01/25/21 04:10 Aerobic Blood Culture - Preliminary Blood - Arm, Left NO GROWTH AFTER 2 DAYS Anaerobic Blood Culture - Final Med Orders - Current: Current Medications Acetaminophen (Acetaminophen 325 Mg Tab) 650 mg PO Q4H PRN PRN Reason: Pain (Mild 1-3)/fever Last Admin: 01/25/21 17:52 Dose: 650 mg Documented by: Albuterol/Ipratropium (Albuterol/Ipratropium 3.0-0.5 Mg/3 Ml Neb Soln) 3 ml NEB Q6HRRT [facility] Last Admin: 01/27/21 10:10 Dose: Not Given Documented by: Albuterol/Ipratropium (Albuterol/Ipratropium 3.0-0.5 Mg/3 Ml Neb Soln) 3 ml NEB Q2H PRN PRN Reason: sob Budesonide (Budesonide 0.5 Mg/2 Ml Neb Susp) 0.5 mg NEB BIDRT [facility] Last Admin: 01/27/21 10:10 Dose: Not Given Documented by: Carvedilol (Carvedilol 25 Mg Tab) 25 mg PO BID [facility] Last Admin: 01/27/21 08:55 Dose: 25 mg Documented by: Docusate Sodium (Docusate Sodium 100 Mg Cap) 100 mg PO BID PRN PRN Reason: Constipation Furosemide (Furosemide 20 Mg/2 Ml Vial) 20 mg IVPUSH BIDDIURETIC [facility] Last Admin: 01/27/21 08:56 Dose: 20 mg Documented by: Gabapentin (Gabapentin 100 Mg Cap) 200 mg PO BEDTIME [facility] Last Admin: 01/26/21 20:41 Dose: 200 mg Documented by: Gabapentin (Gabapentin 100 Mg Cap) 100 mg PO DAILY [facility] Last Admin: 01/27/21 08:54 Dose: 100 mg Documented by: Azithromycin 500 mg/ Sodium (Chloride) 250 mls @ 250 mls/hr IV Q24H [facility] Last Admin: 01/27/21 09:05 Dose: 250 mls/hr Documented by: Losartan Potassium (Losartan 25 Mg Tab) 25 mg PO BID [facility] Methylprednisolone Sodium Succinate (Methylprednisolone Sodium Succinate 40 Mg/1 Ml Sdv) 40 mg IVPUSH BID [facility] Vit C/E/Zn/Coppr/Lutein/Zeaxan [ Preservision Areds 2 Soft Gel] *Own Med* 2 cap PO DAILY [facility] Last Admin: 01/27/21 10:26 Dose: 2 cap Documented by: Ondansetron HCl (Ondansetron 4 Mg/2 Ml Sdv) 4 mg IVPUSH Q6H PRN PRN Reason: Nausea/Vomiting Pantoprazole Sodium (Pantoprazole 40 Mg Tab.Cr) 40 mg PO ACBREAKFAST [facility] Last Admin: 01/27/21 06:05 Dose: 40 mg Documented by: Pravastatin Sodium (Pravastatin 20 Mg Tab) 40 mg PO BEDTIME [facility] Last Admin: 01/26/21 20:42 Dose: 40 mg Documented by: Sodium Chloride (Sodium Chloride 0.9% 10 Ml Syringe) 10 ml FLUSH ASDIRECTED PRN PRN Reason: Keep Vein Open Spironolactone (Spironolactone 25 Mg Tab) 25 mg PO DAILY [facility] Last Admin: 01/27/21 08:54 Dose: 25 mg Documented by: Temazepam (Temazepam 15 Mg Cap) 15 mg PO BEDTIME PRN PRN Reason: Sleep Warfarin Sodium (Pharmacy To Dose - Warfarin) 1 dose .XX ASDIRECTED [facility] Warfarin Sodium (Warfarin 1 Mg Tab) 1 mg PO ONETIME ONE Stop: 01/27/21 14:01 Discontinued Medications Albuterol (Albuterol 0.083% 2.5 Mg/3 Ml Neb Soln) 2.5 mg NEB ONETIME ONE Stop: 01/25/21 04:40 Last Admin: 01/25/21 04:48 Dose: 2.5 mg Documented by: Furosemide (Furosemide 40 Mg/4 Ml Vial) 40 mg IVPUSH ONETIME ONE Stop: 01/25/21 04:13 Last Admin: 01/25/21 04:22 Dose: 40 mg Documented by: Gabapentin (Gabapentin 100 Mg Cap) 200 mg PO BID [facility] Losartan Potassium (Losartan 25 Mg Tab) 25 mg PO BID PRN PRN Reason: Tachycardia Methylprednisolone Sodium Succinate (Methylprednisolone Sodium Succinate 125 Mg/2 Ml Sdv) 125 mg IVPUSH ONETIME ONE Stop: 01/25/21 04:39 Last Admin: 01/25/21 04:48 Dose: 125 mg Documented by: Methylprednisolone Sodium Succinate (Methylprednisolone Sodium Succinate 40 Mg/1 Ml Sdv) 40 mg IVPUSH Q8H [facility] Last Admin: 01/27/21 08:56 Dose: 40 mg Documented by: Tolterodine Tartrate (Tolterodine 2 Mg Cap.Er) 4 mg PO DAILY [facility] Last Admin: 01/25/21 11:02 Dose: Not Given Documented by: Warfarin Sodium (Warfarin 1 Mg Tab) 1 mg PO ONETIME ONE Stop: 01/25/21 14:01 Last Admin: 01/25/21 14:43 Dose: 1 mg Documented by: Warfarin Sodium (Warfarin 1 Mg Tab) 1 mg PO ONETIME ONE Stop: 01/26/21 14:01 Last Admin: 01/26/21 15:11 Dose: Not Given Documented by: - Exam General: Alert, Oriented Neck: Supple Lungs: Decreased Breath Sounds, Wheezing (mild b/l ) GI/Abdominal Exam: Soft, Non-Tender Extremities: Pedal Edema (trace b/l ) Skin: Warm, Dry Neurological: No New Focal Deficit Psy/Mental Status: Alert, Normal Affect, Normal Mood - Patient Data Lab Results Last 24 hrs: Laboratory Results - last 24 hr 01/27/21 01/27/21 01/27/21 Range/Units 05:35 05:35 05:35 WBC 8.9 (5.0-10.0) 10^3/uL RBC 3.93 L (4.2-5.4) 10^6/uL Hgb 12.0 (12.0-16.0) g/dL Hct 38.2 (37.0-47.0) % MCV 97.2 (80-100) fL MCH 30.5 (27.0-34.0) pg MCHC 31.4 L (33.0-35.0) g/dL Plt Count 181 (150-450) 10^3/uL Neut % (Auto) 90.5 H (42.2-75.2) % Lymph % (Auto) 4.8 L (20.5-50.1) % Mccracken % (Auto) 4.6 (2-8) % Eos % (Auto) 0.0 L (1.0-3.0) % Baso % (Auto) 0.1 (0.0-1.0) % Add Manual Diff Yes Neutrophils % (Manual) 94 H (42-75) % Lymphocytes % (Manual) 2 L (20-50) % Monocytes % (Manual) 4 (2-8) % PT 23.5 H (9.0-12.0) SEC INR 2.4 H (0.9-1.2) Sodium 139 (136-145) mmol/L Potassium 3.5 (3.5-5.1) mmol/L Chloride 99 (98-107) mmol/L Carbon Dioxide 36 H (21-32) mmol/L Anion Gap 7.5 (7-13) mEq/L BUN 29 H (7-18) mg/dL Creatinine 1.15 H (0.55-1.02) mg/dL Est Cr Clr Drug Dosing 32.57 mL/min Estimated GFR (MDRD) 45 Glucose 140 H (70-99) mg/dL Calcium 8.3 L (8.5-10.1) mg/dL Result Diagrams: 01/27/21 05:35 01/27/21 05:35 Matthew Results Last 24 hrs: Microbiology 01/25/21 04:10 Aerobic Blood Culture - Preliminary Blood - Arm, Left NO GROWTH AFTER 2 DAYS Anaerobic Blood Culture - Final Sepsis Event Note - Evaluation Sepsis Screening Result: No Definite Risk - Focused Exam Vital Signs: Vital Signs Temp Pulse Pulse Resp BP BP BP 01/27/21 11:47 95.0 F L 78 18 118/73 01/27/21 08:55 105 H 158/89 H 01/27/21 07:38 98.2 F 123 H 20 161/105 H 01/27/21 04:10 169/97 H 01/27/21 04:00 99.4 F 100 20 154/105 H 01/27/21 01:23 99 Pulse Ox Pulse Ox 01/27/21 11:47 95 01/27/21 08:55 01/27/21 07:38 95 01/27/21 04:10 01/27/21 04:00 95 01/27/21 01:23 95 - Problem List & Annotations (1) Hyponatremia SNOMED Code(s): 64733257 Code(s): E87.1 - HYPO-OSMOLALITY AND HYPONATREMIA Status: Acute Current Visit: Yes (2) Acute diastolic (congestive) heart failure SNOMED Code(s): 347177174, 955188483 Code(s): I50.31 - ACUTE DIASTOLIC (CONGESTIVE) HEART FAILURE Status: Acute Current Visit: Yes (3) Afib SNOMED Code(s): 57616716 Code(s): I48.91 - UNSPECIFIED ATRIAL FIBRILLATION Status: Acute Current Visit: Yes (4) Acute exacerbation of chronic obstructive pulmonary disease (COPD) SNOMED Code(s): 645040855 Code(s): J44.1 - CHRONIC OBSTRUCTIVE PULMONARY DISEASE W (ACUTE) EXACERBATION Status: Acute Current Visit: Yes (5) Acute hypoxemic respiratory failure SNOMED Code(s): 505068854 Code(s): J96.01 - ACUTE RESPIRATORY FAILURE WITH HYPOXIA Status: Acute Current Visit: Yes (6) RSV (respiratory syncytial virus pneumonia) Status: Acute Current Visit: Yes (7) Afib SNOMED Code(s): 45565637 Code(s): I48.91 - UNSPECIFIED ATRIAL FIBRILLATION Status: Acute Current Visit: No Qualifiers: Atrial fibrillation type: longstanding persistent Qualified Code(s): I48.11 - Longstanding persistent atrial fibrillation (8) History of CHF (congestive heart failure) SNOMED Code(s): 754978430 Code(s): Z86.79 - PERSONAL HISTORY OF OTHER DISEASES OF THE CIRCULATORY SYSTEM Status: Acute Current Visit: No (9) Hypertension SNOMED Code(s): 88390081 Code(s): I10 - ESSENTIAL (PRIMARY) HYPERTENSION Status: Acute Current Visit: No (10) Chronic anticoagulation SNOMED Code(s): 201892782 Code(s): Z79.01 - HALF-WAY (CURRENT) USE OF ANTICOAGULANTS Status: Chronic Current Visit: Yes - Problem List Review Problem List Initiated/Reviewed/Updated: Yes - My Orders Last 24 Hours: My Active Orders 01/26/21 12:00 Vit C/E/Zn/Coppr/Lutein/Zeaxan [Preservision Areds 2 Softgel] 2 cap PO DAILY 01/27/21 14:00 Warfarin [Coumadin] 1 mg PO ONETIME ONE 01/27/21 21:00 Losartan [Cozaar] 25 mg PO BID methylPREDNISolone Sod Succ [Solu-MEDROL] 40 mg IVPUSH BID 01/28/21 06:00 INR,PT,PROTHROMBIN TIME [COAG] DAILY 01/29/21 06:00 INR,PT,PROTHROMBIN TIME [COAG] DAILY 01/30/21 06:00 INR,PT,PROTHROMBIN TIME [COAG] DAILY 01/31/21 06:00 INR,PT,PROTHROMBIN TIME [COAG] DAILY 02/01/21 06:00 INR,PT,PROTHROMBIN TIME [COAG] DAILY 02/02/21 06:00 INR,PT,PROTHROMBIN TIME [COAG] DAILY - Plan Plan:: Acute hypoxemic respiratory failure Will supplement oxygen as needed try to taper and stop today Acute pneumonia, Obtain sputum cx Blood cx: pending - neg for now Likely viral RSV positive respiratory isolation Possible bacterial superinfection check Procalcitonin - cont azithromycin for now Acute copd exacerbation still sob and wheezing but improved Treat with iv solumedrol, duoneb, pulmicort decrease solumedrol Acute chf diastolic h/o EF 50-55%, grade II diastolic dysfunction continue to treat with IV Lasix - bid, spironolactone Continue coreg Afib Rate control with coreg Anticoagulation for afib Coumadin Check INR daily Adjust for goal INR 2-3 Htn Treat with coreg cont losartan CKD stage III Follow elytes and renal fx with diuretics in AM Code status:DNR as d/w pt
[2021-01-27] MEDS: Losartan 25 MG Tab PO SCH (20:50)
[2021-01-27] MEDS: Pravastatin 20 MG Tab PO SCH (20:52)
[2021-01-28] MEDS: Albuterol/Ipratropium 3.0-0.5 MG/3 ML Neb Soln NEB SCH ×4 (01:12→20:15)
[2021-01-28] MEDS: Pantoprazole 40 MG Tab.CR PO SCH (06:29)
[2021-01-28 06:51] LABS: ANION GAP 8.4 mEq/L (7-13)
[2021-01-28] MEDS: Budesonide 0.5 MG/2 ML Neb Susp NEB SCH ×2 (07:22→20:18)
[2021-01-28] MEDS ORDERED: Spironolactone 25 MG Tab PO ONE (09:10)
[2021-01-28] MEDS: Azithromycin 500 MG in Sodium Chloride 0.9% 250 ML IV SCH (09:17)
[2021-01-28] MEDS: methylPREDNISolone Sodium Succinate 40 MG/1 ML SDV IVPUSH SCH (09:18)
[2021-01-28] MEDS: Gabapentin 100 MG Cap PO SCH ×2 (09:18→20:16)
[2021-01-28] MEDS: Furosemide 20 MG/2 ML VIAL IVPUSH SCH ×2 (09:18→14:29)
[2021-01-28] MEDS: Losartan 25 MG Tab PO SCH (09:19)
[2021-01-28] MEDS: Carvedilol 25 MG Tab PO SCH ×2 (09:19→20:16)
[2021-01-28] MEDS: [UNRECOGNIZED DRUG - OTHER] PO SCH (09:23)
--- NOTE | 2021-01-28 09:34 | CR ---
PROCEDURE INFORMATION: Exam: XR Chest Exam date and time: 01/28/2021 9:20 AM Age: 80 years old Clinical indication: Cough and shortness of breath; Additional info: Repeat, increased renal labs TECHNIQUE: Imaging protocol: XR of the chest. Views: 2 views. COMPARISON: CR Chest 1V Frontal 01/25/2021 4:26 AM FINDINGS: Lungs: Low lung volumes. No airspace disease or consolidation. Pleural spaces: Unremarkable. No pleural effusion. No pneumothorax. Heart/Mediastinum: Cardiomegaly. Bones/joints: Unremarkable. Soft tissues: Surgical clips right axilla. IMPRESSION: Stable cardiomegaly.
[2021-01-28] MEDS ORDERED: Losartan 25 MG Tab PO ONE (10:00)
[2021-01-28] MEDS: Spironolactone 25 MG Tab PO SCH (10:53)
--- NOTE | 2021-01-28 13:05 | PCM.PN ---
- General Info Date of Service: 01/28/21 Admission Dx/Problem (Free Text): Admission Diagnosis/Problem Admission Diagnosis/Problem Pneumonia Subjective Update: 01/28/21 afebrile b.p elavated / vss otherwise. cough loosening up some . on o2 sats stable rsv positive serology. chest xray atelectasis and no consolidation day 3 antibiotics// ster oids//o2 little forward progress yet. eating better. diuresis attempts net neutral // edema 3plus no ulcers. lungs decreased throughout with wheezes rt base. cor irreg/irreg 80s abd benign. ext: edema 2-3 plus induration of lower legs repeat chest xray no infiltrate but atelectasis and increased marking c/w rsv pneumonia cultures neg x 3 days. increased spironolactone to 50 mg day increase losartin to 100 mg day to impact heart failure better and help correct k. cont i.v. lasix today change to oral steroids. taper over one week sec. to rsv. p.t stable. repeat lab in am for k and other. boh Functional Status: Reports: Pain Controlled - Review of Systems General: Reports: No Symptoms HEENT: Reports: No Symptoms Pulmonary: Reports: No Symptoms, Shortness of Breath, Cough, Wheezing Cardiovascular: Reports: No Symptoms, Edema Gastrointestinal: Reports: No Symptoms Genitourinary: Reports: No Symptoms Musculoskeletal: Reports: No Symptoms, Leg Pain Skin: Reports: No Symptoms Neurological: Reports: No Symptoms Psychiatric: Reports: No Symptoms - Patient Data Vitals - Most Recent: Last Vital Signs Temp 36.4 C 01/28/21 12:00 Pulse 103 H 01/28/21 12:00 Resp 18 01/28/21 12:00 BP 134/96 H 01/28/21 12:00 Pulse Ox 94 L 01/28/21 12:00 Weight - Most Recent: 74.389 kg I&O - Last 24 Hours: Intake & Output 01/27/21 01/28/21 01/28/21 22:59 06:59 14:59 Intake Total 350 520 Output Total 100 200 Balance 250 320 Lab Results Last 24 Hours: Laboratory Results - last 24 hr 01/28/21 01/28/21 01/28/21 Range/Units 06:05 06:05 06:05 WBC 8.3 (5.0-10.0) 10^3/uL RBC 4.15 L (4.2-5.4) 10^6/uL Hgb 12.6 (12.0-16.0) g/dL Hct 40.4 (37.0-47.0) % MCV 97.3 (80-100) fL MCH 30.4 (27.0-34.0) pg MCHC 31.2 L (33.0-35.0) g/dL Plt Count 190 (150-450) 10^3/uL Neut % (Auto) 91.2 H (42.2-75.2) % Lymph % (Auto) 4.4 L (20.5-50.1) % [place] % (Auto) 4.4 (2-8) % Eos % (Auto) 0.0 L (1.0-3.0) % Baso % (Auto) 0.0 (0.0-1.0) % PT 22.3 H (9.0-12.0) SEC INR 2.3 H (0.9-1.2) Sodium 139 (136-145) mmol/L Potassium 3.4 L (3.5-5.1) mmol/L Chloride 98 (98-107) mmol/L Carbon Dioxide 36 H (21-32) mmol/L Anion Gap 8.4 (7-13) mEq/L BUN 36 H (7-18) mg/dL Creatinine 1.23 H (0.55-1.02) mg/dL Est Cr Clr Drug Dosing 30.45 mL/min Estimated GFR (MDRD) 42 Glucose 137 H (70-99) mg/dL Calcium 8.0 L (8.5-10.1) mg/dL Matthew Results Last 24 Hours: Microbiology 01/25/21 04:10 Aerobic Blood Culture - Preliminary Blood - Arm, Left NO GROWTH AFTER 3 DAYS Anaerobic Blood Culture - Final Med Orders - Current: Current Medications Acetaminophen (Acetaminophen 325 Mg Tab) 650 mg PO Q4H PRN PRN Reason: Pain (Mild 1-3)/fever Last Admin: 01/25/21 17:52 Dose: 650 mg Documented by: Albuterol/Ipratropium (Albuterol/Ipratropium 3.0-0.5 Mg/3 Ml Neb Soln) 3 ml NEB Q6HRRT CHERRY Last Admin: 01/28/21 07:22 Dose: Not Given Documented by: Albuterol/Ipratropium (Albuterol/Ipratropium 3.0-0.5 Mg/3 Ml Neb Soln) 3 ml NEB Q2H PRN PRN Reason: sob Budesonide (Budesonide 0.5 Mg/2 Ml Neb Susp) 0.5 mg NEB BIDRT [facility] Last Admin: 01/28/21 07:22 Dose: Not Given Documented by: Carvedilol (Carvedilol 25 Mg Tab) 25 mg PO BID [facility] Last Admin: 01/28/21 09:19 Dose: 25 mg Documented by: Docusate Sodium (Docusate Sodium 100 Mg Cap) 100 mg PO BID PRN PRN Reason: Constipation Furosemide (Furosemide 20 Mg/2 Ml Vial) 20 mg IVPUSH BIDDIURETIC [facility] Last Admin: 01/28/21 09:18 Dose: 20 mg Documented by: Gabapentin (Gabapentin 100 Mg Cap) 200 mg PO BEDTIME [facility] Last Admin: 01/27/21 20:51 Dose: 200 mg Documented by: Gabapentin (Gabapentin 100 Mg Cap) 100 mg PO DAILY [facility] Last Admin: 01/28/21 09:18 Dose: 100 mg Documented by: Azithromycin 500 mg/ Sodium (Chloride) 250 mls @ 250 mls/hr IV Q24H [facility] Last Admin: 01/28/21 09:17 Dose: 250 mls/hr Documented by: Losartan Potassium (Losartan 50 Mg Tab) 100 mg PO DAILY [facility] Vit C/E/Zn/Coppr/Lutein/Zeaxan [ Preservision Areds 2 Soft Gel] *Own Med* 2 cap PO DAILY [facility] Last Admin: 01/28/21 09:23 Dose: 2 cap Documented by: Ondansetron HCl (Ondansetron 4 Mg/2 Ml Sdv) 4 mg IVPUSH Q6H PRN PRN Reason: Nausea/Vomiting Pantoprazole Sodium (Pantoprazole 40 Mg Tab.Cr) 40 mg PO ACBREAKFAST [facility] Last Admin: 01/28/21 06:29 Dose: 40 mg Documented by: Pravastatin Sodium (Pravastatin 20 Mg Tab) 40 mg PO BEDTIME [facility] Last Admin: 01/27/21 20:52 Dose: 40 mg Documented by: Prednisone (Prednisone 20 Mg Tab) 20 mg PO BIDMEALS [facility] Stop: 01/30/21 08:01 Prednisone (Prednisone 10 Mg Tab) 10 mg PO BIDMEALS [facility] Stop: 02/01/21 08:01 Prednisone (Prednisone 5 Mg Tab) 5 mg PO BIDMEALS [facility] Stop: 02/03/21 08:01 Prednisone (Prednisone 5 Mg Tab) 5 mg PO DAILY@0800 [facility] Stop: 02/05/21 08:01 Sodium Chloride (Sodium Chloride 0.9% 10 Ml Syringe) 10 ml FLUSH ASDIRECTED PRN PRN Reason: Keep Vein Open Spironolactone (Spironolactone 25 Mg Tab) 50 mg PO DAILY [facility] Temazepam (Temazepam 15 Mg Cap) 15 mg PO BEDTIME PRN PRN Reason: Sleep Last Admin: 01/28/21 02:15 Dose: 15 mg Documented by: Warfarin Sodium (Pharmacy To Dose - Warfarin) 1 dose .XX ASDIRECTED [facility] Warfarin Sodium (Warfarin 1 Mg Tab) 1 mg PO ONETIME ONE Stop: 01/28/21 14:01 Discontinued Medications Albuterol (Albuterol 0.083% 2.5 Mg/3 Ml Neb Soln) 2.5 mg NEB ONETIME ONE Stop: 01/25/21 04:40 Last Admin: 01/25/21 04:48 Dose: 2.5 mg Documented by: Furosemide (Furosemide 40 Mg/4 Ml Vial) 40 mg IVPUSH ONETIME ONE Stop: 01/25/21 04:13 Last Admin: 01/25/21 04:22 Dose: 40 mg Documented by: Gabapentin (Gabapentin 100 Mg Cap) 200 mg PO BID [facility] Losartan Potassium (Losartan 25 Mg Tab) 25 mg PO BID PRN PRN Reason: Tachycardia Losartan Potassium (Losartan 25 Mg Tab) 25 mg PO BID [facility] Last Admin: 01/28/21 09:19 Dose: 25 mg Documented by: Losartan Potassium (Losartan 25 Mg Tab) 75 mg PO ONETIME ONE Stop: 01/28/21 10:01 Last Admin: 01/28/21 10:37 Dose: 75 mg Documented by: Methylprednisolone Sodium Succinate (Methylprednisolone Sodium Succinate 125 Mg/2 Ml Sdv) 125 mg IVPUSH ONETIME ONE Stop: 01/25/21 04:39 Last Admin: 01/25/21 04:48 Dose: 125 mg Documented by: Methylprednisolone Sodium Succinate (Methylprednisolone Sodium Succinate 40 Mg/1 Ml Sdv) 40 mg IVPUSH Q8H [facility] Last Admin: 01/27/21 08:56 Dose: 40 mg Documented by: Methylprednisolone Sodium Succinate (Methylprednisolone Sodium Succinate 40 Mg/1 Ml Sdv) 40 mg IVPUSH BID [facility] Last Admin: 01/28/21 09:18 Dose: 40 mg Documented by: Spironolactone (Spironolactone 25 Mg Tab) 25 mg PO DAILY [facility] Last Admin: 01/28/21 10:53 Dose: Not Given Documented by: Spironolactone (Spironolactone 25 Mg Tab) 25 mg PO ONETIME ONE Stop: 01/28/21 09:11 Last Admin: 01/28/21 10:37 Dose: 25 mg Documented by: Tolterodine Tartrate (Tolterodine 2 Mg Cap.Er) 4 mg PO DAILY [facility] Last Admin: 01/25/21 11:02 Dose: Not Given Documented by: Warfarin Sodium (Warfarin 1 Mg Tab) 1 mg PO ONETIME ONE Stop: 01/25/21 14:01 Last Admin: 01/25/21 14:43 Dose: 1 mg Documented by: Warfarin Sodium (Warfarin 1 Mg Tab) 1 mg PO ONETIME ONE Stop: 01/26/21 14:01 Last Admin: 01/26/21 15:11 Dose: Not Given Documented by: Warfarin Sodium (Warfarin 1 Mg Tab) 1 mg PO ONETIME ONE Stop: 01/27/21 14:01 Last Admin: 01/27/21 13:19 Dose: 1 mg Documented by: - Exam Quality Assessment: Supplemental Oxygen General: Alert, Oriented HEENT: Pupils Equal, Pupils Reactive, EOMI, Mucous Membr. Moist/[place] Neck: Supple Lungs: Clear to Auscultation, Normal Respiratory Effort, Decreased Breath Sounds, Wheezing Cardiovascular: Irregular Rhythm GI/Abdominal Exam: Normal Bowel Sounds, Soft, Non-Tender, No Organomegaly, No Distention, No Abnormal Bruit, No Mass, Pelvis Stable (Female) Exam: Normal Speculum Exam, Normal Bimanual Exam Back Exam: Normal Inspection, Full Range of Motion Extremities: Pedal Edema, Joint Swelling, Limited Range of Motion Skin: Cool Wound/Incisions: Healing Well Neurological: No New Focal Deficit Psy/Mental Status: Alert, Normal Affect, Normal Mood - Patient Data Lab Results Last 24 hrs: Laboratory Results - last 24 hr 01/28/21 01/28/21 01/28/21 Range/Units 06:05 06:05 06:05 WBC 8.3 (5.0-10.0) 10^3/uL RBC 4.15 L (4.2-5.4) 10^6/uL Hgb 12.6 (12.0-16.0) g/dL Hct 40.4 (37.0-47.0) % MCV 97.3 (80-100) fL MCH 30.4 (27.0-34.0) pg MCHC 31.2 L (33.0-35.0) g/dL Plt Count 190 (150-450) 10^3/uL Neut % (Auto) 91.2 H (42.2-75.2) % Lymph % (Auto) 4.4 L (20.5-50.1) % [place] % (Auto) 4.4 (2-8) % Eos % (Auto) 0.0 L (1.0-3.0) % Baso % (Auto) 0.0 (0.0-1.0) % PT 22.3 H (9.0-12.0) SEC INR 2.3 H (0.9-1.2) Sodium 139 (136-145) mmol/L Potassium 3.4 L (3.5-5.1) mmol/L Chloride 98 (98-107) mmol/L Carbon Dioxide 36 H (21-32) mmol/L Anion Gap 8.4 (7-13) mEq/L BUN 36 H (7-18) mg/dL Creatinine 1.23 H (0.55-1.02) mg/dL Est Cr Clr Drug Dosing 30.45 mL/min Estimated GFR (MDRD) 42 Glucose 137 H (70-99) mg/dL Calcium 8.0 L (8.5-10.1) mg/dL Result Diagrams: 01/28/21 06:05 01/28/21 06:05 Matthew Results Last 24 hrs: Microbiology 01/25/21 04:10 Aerobic Blood Culture - Preliminary Blood - Arm, Left NO GROWTH AFTER 3 DAYS Anaerobic Blood Culture - Final Sepsis Event Note - Evaluation Sepsis Screening Result: No Definite Risk - Focused Exam Vital Signs: Vital Signs Temp Pulse Pulse Resp BP BP Pulse Ox 01/28/21 12:00 36.4 C 103 H 18 134/96 H 94 L 01/28/21 10:37 129/81 01/28/21 09:19 68 169/98 H 01/28/21 07:44 35.6 C L 92 18 151/99 H 96 01/28/21 04:00 36.6 C 100 20 121/94 H 93 L 01/28/21 01:29 88 Pulse Ox 01/28/21 12:00 01/28/21 10:37 01/28/21 09:19 01/28/21 07:44 01/28/21 04:00 01/28/21 01:29 95 - Problem List & Annotations (1) History of CHF (congestive heart failure) SNOMED Code(s): 291231715 Code(s): Z86.79 - PERSONAL HISTORY OF OTHER DISEASES OF THE CIRCULATORY SYSTEM Status: Acute Priority: Medium Current Visit: No Onset Date: ~01/28/21 Annotation/Comment:: not able to diures or improve/ delay dc cont i.v. lasix/ increased losartin and added back spironolactone. prev. hx of hyperkalemia noted. (2) Chronic anticoagulation SNOMED Code(s): 236614587 Code(s): Z79.01 - [employer] (CURRENT) USE OF ANTICOAGULANTS Status: Chronic Priority: Medium Current Visit: Yes Onset Date: ~01/28/21 Annotation/Comment:: pantonia ruiz. (3) Afib SNOMED Code(s): 14193749 Code(s): I48.91 - UNSPECIFIED ATRIAL FIBRILLATION Status: Acute Priority: Medium Current Visit: No Onset Date: ~01/28/21 Qualifiers: Atrial fibrillation type: longstanding persistent Qualified Code(s): I48.11 - Longstanding persistent atrial fibrillation (4) Hypertension SNOMED Code(s): 77606549 Code(s): I10 - ESSENTIAL (PRIMARY) HYPERTENSION Status: Acute Priority: Medium Current Visit: No Onset Date: ~01/28/21 Qualifiers: Hypertension type: primary hypertension Qualified Code(s): I10 - Essential (primary) hypertension Annotation/Comment:: renal dysfunction with gfr 35-49 (5) Hypoxia SNOMED Code(s): 748063160 Code(s): R09.02 - HYPOXEMIA Status: Acute Priority: Medium Current Visit: No Onset Date: ~01/28/21 Annotation/Comment:: rsv bronchiolitis (6) Bronchitis SNOMED Code(s): 55719638 Code(s): J40 - BRONCHITIS, NOT SPECIFIED ACUTE OR CHRONIC Status: Acute Priority: Medium Current Visit: No Onset Date: ~01/28/21 Annotation/Comment:: start oral steriods today and follow up aas ou tpatien taper slowed down sec to copd no pn[place] seen on xray today // atelectasis and getting to chair (7) Acute diastolic (congestive) heart failure SNOMED Code(s): 209018916, 203828926 Code(s): I50.31 - ACUTE DIASTOLIC (CONGESTIVE) HEART FAILURE Status: Acute Priority: Medium Current Visit: Yes Onset Date: ~01/28/21 - Problem List Review Problem List Initiated/Reviewed/Updated: Yes - My Orders Last 24 Hours: My Active Orders 01/28/21 14:00 Warfarin [Coumadin] 1 mg PO ONETIME ONE 01/28/21 18:00 predniSONE 20 mg PO BIDMEALS 01/29/21 06:00 B-TYPE NATRIURETIC PEPTIDE,BNP [CHEM] Routine BMP [BASIC METABOLIC PANEL,BMP] [CHEM] Routine CBC WITH MANUAL DIFF [HEME] Routine 01/29/21 09:00 Losartan [Cozaar] 100 mg PO DAILY Spironolactone [Aldactone] 50 mg PO DAILY 01/30/21 18:00 predniSONE 10 mg PO BIDMEALS 02/01/21 18:00 predniSONE 5 mg PO BIDMEALS 02/04/21 08:00 predniSONE 5 mg PO DAILY@0800 - Assessment Assessment:: 01/28/21 rsv bronchiolitis copdexacerbation with atel. chf diastolic and syst. afib. renal insuff. hypokalemia . hx of hyponatremia. edema /low protien. weaning steroids and increasing arb and spironolactone . recheck labs in am boh - Plan Plan:: 01/28/21 afebrile b.p elavated / vss otherwise. cough loosening up some . on o2 sats stable rsv positive serology. chest xray atelectasis and no consolidation day 3 antibiotics// steroids//o2 little forward progress yet. eating better. diuresis attempts net neutral // edema 3plus no ulcers. lungs decreased throughout with wheezes rt base. cor irreg/irreg 80s abd benign. ext: edema 2-3 plus induration of lower legs repeat chest xray no infiltrate but atelectasis and increased marking c/w rsv pneumonia cultures neg x 3 days. increased spironolactone to 50 mg day increase losartin to 100 mg day to impact heart failure better and help correct k. cont i.v. lasix today change to oral steroids. taper over one week sec. to rsv. p.t stable. repeat lab in am for k and other. boh
[2021-01-28] MEDS ORDERED: LORazepam 0.5 MG Tab PO PRN (15:49)
[2021-01-28] MEDS: predniSONE 20 MG Tab PO SCH (17:04)
[2021-01-28] MEDS: Pravastatin 20 MG Tab PO SCH (20:17)
[2021-01-29] MEDS: Albuterol/Ipratropium 3.0-0.5 MG/3 ML Neb Soln NEB SCH ×4 (00:03→21:01)
[2021-01-29] MEDS: Pantoprazole 40 MG Tab.CR PO SCH (06:05)
[2021-01-29 06:45] LABS: ANION GAP 5.4 mEq/L (7-13)
[2021-01-29] MEDS: Budesonide 0.5 MG/2 ML Neb Susp NEB SCH ×2 (08:11→21:01)
[2021-01-29] MEDS: Spironolactone 25 MG Tab PO SCH (08:44)
[2021-01-29] MEDS: Carvedilol 25 MG Tab PO SCH ×2 (08:44→21:00)
[2021-01-29] MEDS: Losartan 50 MG Tab PO SCH (08:44)
[2021-01-29] MEDS: predniSONE 20 MG Tab PO SCH ×2 (08:44→17:31)
[2021-01-29] MEDS: Gabapentin 100 MG Cap PO SCH ×2 (08:45→21:01)
[2021-01-29] MEDS: [UNRECOGNIZED DRUG - OTHER] PO SCH (08:45)
[2021-01-29] MEDS: Furosemide 20 MG/2 ML VIAL IVPUSH SCH ×2 (08:46→13:38)
[2021-01-29] MEDS: Azithromycin 500 MG in Sodium Chloride 0.9% 250 ML IV SCH (09:21)
[2021-01-29 11:03] LABS: BASE EXCESS ARTERIAL 10 mmol/L ((-2)-(+3)); BICARBONATE,ARTERIAL 35.3 mmol/L (22-26); O2 DELIVERY DEVICE ROOM AIR; O2 SATURATION ARTERIAL 88 % (95-100); PCO2 ARTERIAL 50 mmHg (35-45); PO2 ARTERIAL 56 mmHg (70-100)
[2021-01-29 11:04] LABS: ALLEN TEST PERFORMED
[2021-01-29] MEDS: Acetaminophen 325 MG Tab PO PRN ×2 (13:36→21:17)
[2021-01-29] MEDS: Benzonatate 100 MG Cap PO SCH ×2 (13:36→21:00)
[2021-01-29] MEDS: Saccharomyces Boulardii (Probiotic) 250 MG Cap PO SCH (21:01)
[2021-01-29] MEDS: Pravastatin 20 MG Tab PO SCH (21:01)
--- NOTE | 2021-01-29 21:23 | PCM.PN ---
- General Info Date of Service: 01/29/21 Admission Dx/Problem (Free Text): Admission Diagnosis/Problem Pneumonia Subjective Update: Radha is feeling better today and was relieved to know that she did not have bacterial pneumonia but was positive for RSV. Her cough is improving. She denies fever, chills, nausea, and vomiting. Functional Status: Reports: Pain Controlled - Review of Systems General: Reports: No Symptoms HEENT: Reports: No Symptoms Pulmonary: Reports: Cough Cardiovascular: Reports: No Symptoms Musculoskeletal: Reports: No Symptoms Skin: Reports: No Symptoms - Patient Data Vitals - Most Recent: Last Vital Signs Temp 97.3 F 01/29/21 20:18 Pulse 76 01/29/21 21:00 Resp 20 01/29/21 20:18 BP 136/66 01/29/21 21:00 Pulse Ox 93 L 01/29/21 20:18 Weight - Most Recent: 163 lb 3.2 oz I&O - Last 24 Hours: Intake & Output 01/29/21 01/29/21 01/29/21 06:59 14:59 22:59 Intake Total 830 Balance 830 Lab Results Last 24 Hours: Laboratory Results - last 24 hr 01/29/21 01/29/21 01/29/21 Range/Units 06:00 06:00 06:00 WBC 9.0 (5.0-10.0) 10^3/uL RBC 4.30 (4.2-5.4) 10^6/uL Hgb 13.2 (12.0-16.0) g/dL Hct 42.5 (37.0-47.0) % MCV 98.8 (80-100) fL MCH 30.7 (27.0-34.0) pg MCHC 31.1 L (33.0-35.0) g/dL RDW Not Reportable RDW Coeff of Sallie Not Reportable Plt Count 187 (150-450) 10^3/uL MPV Not Reportable Neutrophils % (Manual) 88 H (42-75) % Band Neutrophils % 3 % Lymphocytes % (Manual) 6 L (20-50) % Monocytes % (Manual) 3 (2-8) % PT 23.6 H (9.0-12.0) SEC INR 2.4 H (0.9-1.2) ABG pH (7.35-7.45) ABG pCO2 (35-45) mmHg ABG pO2 (70-100) mmHg ABG HCO3 (22-26) mmol/L ABG O2 Saturation (95-100) % ABG Base Excess ((-2)-(+3)) mmol/L Gray Test O2 Delivery Device Sodium 144 (136-145) mmol/L Potassium 3.4 L (3.5-5.1) mmol/L Chloride 100 (98-107) mmol/L Carbon Dioxide 42 H* (21-32) mmol/L Anion Gap 5.4 L (7-13) mEq/L BUN 38 H (7-18) mg/dL Creatinine 1.28 H (0.55-1.02) mg/dL Est Cr Clr Drug Dosing 29.26 mL/min Estimated GFR (MDRD) 40 Glucose 124 H (70-99) mg/dL Calcium 8.2 L (8.5-10.1) mg/dL B-Natriuretic Peptide 192 H (0-100) pg/ml 01/29/21 Range/Units 10:59 WBC (5.0-10.0) 10^3/uL RBC (4.2-5.4) 10^6/uL Hgb (12.0-16.0) g/dL Hct (37.0-47.0) % MCV (80-100) fL MCH (27.0-34.0) pg MCHC (33.0-35.0) g/dL RDW RDW Coeff of Sallie Plt Count (150-450) 10^3/uL MPV Neutrophils % (Manual) (42-75) % Band Neutrophils % % Lymphocytes % (Manual) (20-50) % Monocytes % (Manual) (2-8) % PT (9.0-12.0) SEC INR (0.9-1.2) ABG pH 7.47 H (7.35-7.45) ABG pCO2 50 H (35-45) mmHg ABG pO2 56 L (70-100) mmHg ABG HCO3 35.3 H (22-26) mmol/L ABG O2 Saturation 88 L (95-100) % ABG Base Excess 10 H ((-2)-(+3)) mmol/L Gray Test Performed O2 Delivery Device Room air Sodium (136-145) mmol/L Potassium (3.5-5.1) mmol/L Chloride (98-107) mmol/L Carbon Dioxide (21-32) mmol/L Anion Gap (7-13) mEq/L BUN (7-18) mg/dL Creatinine (0.55-1.02) mg/dL Est Cr Clr Drug Dosing mL/min Estimated GFR (MDRD) Glucose (70-99) mg/dL Calcium (8.5-10.1) mg/dL B-Natriuretic Peptide (0-100) pg/ml Matthew Results Last 24 Hours: Microbiology 01/25/21 04:10 Aerobic Blood Culture - Preliminary Blood - Arm, Left NO GROWTH AFTER 4 DAYS Anaerobic Blood Culture - Final Med Orders - Current: Current Medications Acetaminophen (Acetaminophen 325 Mg Tab) 650 mg PO Q4H PRN PRN Reason: Pain (Mild 1-3)/fever Last Admin: 01/29/21 13:36 Dose: 650 mg Documented by: Albuterol/Ipratropium (Albuterol/Ipratropium 3.0-0.5 Mg/3 Ml Neb Soln) 3 ml NEB Q6HRRT [facility] Last Admin: 01/29/21 21:01 Dose: Not Given Documented by: Albuterol/Ipratropium (Albuterol/Ipratropium 3.0-0.5 Mg/3 Ml Neb Soln) 3 ml NEB Q2H PRN PRN Reason: sob Benzonatate (Benzonatate 100 Mg Cap) 100 mg PO TID [facility] Last Admin: 01/29/21 21:00 Dose: 100 mg Documented by: Budesonide (Budesonide 0.5 Mg/2 Ml Neb Susp) 0.5 mg NEB BIDRT [facility] Last Admin: 01/29/21 21:01 Dose: Not Given Documented by: Carvedilol (Carvedilol 25 Mg Tab) 25 mg PO BID [facility] Last Admin: 01/29/21 21:00 Dose: 25 mg Documented by: Docusate Sodium (Docusate Sodium 100 Mg Cap) 100 mg PO BID PRN PRN Reason: Constipation Furosemide (Furosemide 20 Mg/2 Ml Vial) 20 mg IVPUSH BIDDIURETIC [facility] Last Admin: 01/29/21 13:38 Dose: 20 mg Documented by: Gabapentin (Gabapentin 100 Mg Cap) 200 mg PO BEDTIME [facility] Last Admin: 01/29/21 21:01 Dose: 200 mg Documented by: Gabapentin (Gabapentin 100 Mg Cap) 100 mg PO DAILY [facility] Last Admin: 01/29/21 08:45 Dose: 100 mg Documented by: Azithromycin 500 mg/ Sodium (Chloride) 250 mls @ 250 mls/hr IV Q24H [facility] Last Infusion: 01/29/21 10:55 Dose: Infused Documented by: Lorazepam (Lorazepam 0.5 Mg Tab) 0.5 mg PO BEDTIME PRN PRN Reason: Sleep Losartan Potassium (Losartan 50 Mg Tab) 100 mg PO DAILY [facility] Last Admin: 01/29/21 08:44 Dose: 100 mg Documented by: Vit C/E/Zn/Coppr/Lutein/Zeaxan [ Preservision Areds 2 Soft Gel] *Own Med* 2 cap PO DAILY [facility] Last Admin: 01/29/21 08:45 Dose: 2 cap Documented by: Ondansetron HCl (Ondansetron 4 Mg/2 Ml Sdv) 4 mg IVPUSH Q6H PRN PRN Reason: Nausea/Vomiting Pantoprazole Sodium (Pantoprazole 40 Mg Tab.Cr) 40 mg PO ACBREAKFAST [facility] Last Admin: 01/29/21 06:05 Dose: 40 mg Documented by: Pravastatin Sodium (Pravastatin 20 Mg Tab) 40 mg PO BEDTIME [facility] Last Admin: 01/29/21 21:01 Dose: 40 mg Documented by: Prednisone (Prednisone 20 Mg Tab) 20 mg PO BIDMEALS [facility] Stop: 01/30/21 08:01 Last Admin: 01/29/21 17:31 Dose: 20 mg Documented by: Prednisone (Prednisone 10 Mg Tab) 10 mg PO BIDMEALS [facility] Stop: 02/01/21 08:01 Prednisone (Prednisone 5 Mg Tab) 5 mg PO BIDMEALS [facility] Stop: 02/03/21 08:01 Prednisone (Prednisone 5 Mg Tab) 5 mg PO DAILY@0800 [facility] Stop: 02/05/21 08:01 Saccharomyces Boulardii (Saccharomyces Boulardii (Probiotic) 250 Mg Cap) 250 mg PO BID [facility] Last Admin: 01/29/21 21:01 Dose: 250 mg Documented by: Sodium Chloride (Sodium Chloride 0.9% 10 Ml Syringe) 10 ml FLUSH ASDIRECTED PRN PRN Reason: Keep Vein Open Spironolactone (Spironolactone 25 Mg Tab) 50 mg PO DAILY [facility] Last Admin: 01/29/21 08:44 Dose: 50 mg Documented by: Temazepam (Temazepam 15 Mg Cap) 15 mg PO BEDTIME PRN PRN Reason: Sleep Last Admin: 01/28/21 02:15 Dose: 15 mg Documented by: Warfarin Sodium (Pharmacy To Dose - Warfarin) 1 dose .XX ASDIRECTED [facility] Discontinued Medications Albuterol (Albuterol 0.083% 2.5 Mg/3 Ml Neb Soln) 2.5 mg NEB ONETIME ONE Stop: 01/25/21 04:40 Last Admin: 01/25/21 04:48 Dose: 2.5 mg Documented by: Furosemide (Furosemide 40 Mg/4 Ml Vial) 40 mg IVPUSH ONETIME ONE Stop: 01/25/21 04:13 Last Admin: 01/25/21 04:22 Dose: 40 mg Documented by: Gabapentin (Gabapentin 100 Mg Cap) 200 mg PO BID [facility] Losartan Potassium (Losartan 25 Mg Tab) 25 mg PO BID PRN PRN Reason: Tachycardia Losartan Potassium (Losartan 25 Mg Tab) 25 mg PO BID [facility] Last Admin: 01/28/21 09:19 Dose: 25 mg Documented by: Losartan Potassium (Losartan 25 Mg Tab) 75 mg PO ONETIME ONE Stop: 01/28/21 10:01 Last Admin: 01/28/21 10:37 Dose: 75 mg Documented by: Methylprednisolone Sodium Succinate (Methylprednisolone Sodium Succinate 125 Mg/2 Ml Sdv) 125 mg IVPUSH ONETIME ONE Stop: 01/25/21 04:39 Last Admin: 01/25/21 04:48 Dose: 125 mg Documented by: Methylprednisolone Sodium Succinate (Methylprednisolone Sodium Succinate 40 Mg/1 Ml Sdv) 40 mg IVPUSH Q8H [facility] Last Admin: 01/27/21 08:56 Dose: 40 mg Documented by: Methylprednisolone Sodium Succinate (Methylprednisolone Sodium Succinate 40 Mg/1 Ml Sdv) 40 mg IVPUSH BID [facility] Last Admin: 01/28/21 09:18 Dose: 40 mg Documented by: Spironolactone (Spironolactone 25 Mg Tab) 25 mg PO DAILY [facility] Last Admin: 01/28/21 10:53 Dose: Not Given Documented by: Spironolactone (Spironolactone 25 Mg Tab) 25 mg PO ONETIME ONE Stop: 01/28/21 09:11 Last Admin: 01/28/21 10:37 Dose: 25 mg Documented by: Tolterodine Tartrate (Tolterodine 2 Mg Cap.Er) 4 mg PO DAILY [facility] Last Admin: 01/25/21 11:02 Dose: Not Given Documented by: Warfarin Sodium (Warfarin 1 Mg Tab) 1 mg PO ONETIME ONE Stop: 01/25/21 14:01 Last Admin: 01/25/21 14:43 Dose: 1 mg Documented by: Warfarin Sodium (Warfarin 1 Mg Tab) 1 mg PO ONETIME ONE Stop: 01/26/21 14:01 Last Admin: 01/26/21 15:11 Dose: Not Given Documented by: Warfarin Sodium (Warfarin 1 Mg Tab) 1 mg PO ONETIME ONE Stop: 01/27/21 14:01 Last Admin: 01/27/21 13:19 Dose: 1 mg Documented by: Warfarin Sodium (Warfarin 1 Mg Tab) 1 mg PO ONETIME ONE Stop: 01/28/21 14:01 Last Admin: 01/28/21 14:29 Dose: 1 mg Documented by: Warfarin Sodium (Warfarin 1 Mg Tab) 1 mg PO ONETIME ONE Stop: 01/29/21 14:01 Last Admin: 01/29/21 13:36 Dose: 1 mg Documented by: - Exam Quality Assessment: No: Supplemental Oxygen General: Alert, Oriented Lungs: Rales (Lung bases bilaterally. Prolonged expiratory phase.) Cardiovascular: Regular Rate, Regular Rhythm. No: Murmurs - Patient Data Lab Results Last 24 hrs: Laboratory Results - last 24 hr 01/29/21 01/29/21 01/29/21 Range/Units 06:00 06:00 06:00 WBC 9.0 (5.0-10.0) 10^3/uL RBC 4.30 (4.2-5.4) 10^6/uL Hgb 13.2 (12.0-16.0) g/dL Hct 42.5 (37.0-47.0) % MCV 98.8 (80-100) fL MCH 30.7 (27.0-34.0) pg MCHC 31.1 L (33.0-35.0) g/dL RDW Not Reportable RDW Coeff of Sallie Not Reportable Plt Count 187 (150-450) 10^3/uL MPV Not Reportable Neutrophils % (Manual) 88 H (42-75) % Band Neutrophils % 3 % Lymphocytes % (Manual) 6 L (20-50) % Monocytes % (Manual) 3 (2-8) % PT 23.6 H (9.0-12.0) SEC INR 2.4 H (0.9-1.2) ABG pH (7.35-7.45) ABG pCO2 (35-45) mmHg ABG pO2 (70-100) mmHg ABG HCO3 (22-26) mmol/L ABG O2 Saturation (95-100) % ABG Base Excess ((-2)-(+3)) mmol/L Gray Test O2 Delivery Device Sodium 144 (136-145) mmol/L Potassium 3.4 L (3.5-5.1) mmol/L Chloride 100 (98-107) mmol/L Carbon Dioxide 42 H* (21-32) mmol/L Anion Gap 5.4 L (7-13) mEq/L BUN 38 H (7-18) mg/dL Creatinine 1.28 H (0.55-1.02) mg/dL Est Cr Clr Drug Dosing 29.26 mL/min Estimated GFR (MDRD) 40 Glucose 124 H (70-99) mg/dL Calcium 8.2 L (8.5-10.1) mg/dL B-Natriuretic Peptide 192 H (0-100) pg/ml 01/29/21 Range/Units 10:59 WBC (5.0-10.0) 10^3/uL RBC (4.2-5.4) 10^6/uL Hgb (12.0-16.0) g/dL Hct (37.0-47.0) % MCV (80-100) fL MCH (27.0-34.0) pg MCHC (33.0-35.0) g/dL RDW RDW Coeff of Sallie Plt Count (150-450) 10^3/uL MPV Neutrophils % (Manual) (42-75) % Band Neutrophils % % Lymphocytes % (Manual) (20-50) % Monocytes % (Manual) (2-8) % PT (9.0-12.0) SEC INR (0.9-1.2) ABG pH 7.47 H (7.35-7.45) ABG pCO2 50 H (35-45) mmHg ABG pO2 56 L (70-100) mmHg ABG HCO3 35.3 H (22-26) mmol/L ABG O2 Saturation 88 L (95-100) % ABG Base Excess 10 H ((-2)-(+3)) mmol/L Gray Test Performed O2 Delivery Device Room air Sodium (136-145) mmol/L Potassium (3.5-5.1) mmol/L Chloride (98-107) mmol/L Carbon Dioxide (21-32) mmol/L Anion Gap (7-13) mEq/L BUN (7-18) mg/dL Creatinine (0.55-1.02) mg/dL Est Cr Clr Drug Dosing mL/min Estimated GFR (MDRD) Glucose (70-99) mg/dL Calcium (8.5-10.1) mg/dL B-Natriuretic Peptide (0-100) pg/ml Result Diagrams: 01/29/21 06:00 01/29/21 06:00 Matthew Results Last 24 hrs: Microbiology 01/25/21 04:10 Aerobic Blood Culture - Preliminary Blood - Arm, Left NO GROWTH AFTER 4 DAYS Anaerobic Blood Culture - Final Sepsis Event Note - Evaluation Sepsis Screening Result: No Definite Risk - Focused Exam Vital Signs: Vital Signs Temp Pulse Pulse Resp BP BP Pulse Ox 01/29/21 21:00 76 136/66 01/29/21 20:18 97.3 F 81 20 110/71 93 L 01/29/21 16:19 97.0 F 84 20 109/69 93 L 01/29/21 13:00 82 01/29/21 11:46 98.3 F 93 18 117/69 91 L Pulse Ox 01/29/21 21:00 01/29/21 20:18 01/29/21 16:19 01/29/21 13:00 90 L 01/29/21 11:46 - Problem List & Annotations (1) Acute diastolic (congestive) heart failure SNOMED Code(s): 332183105, 943120166 Code(s): I50.31 - ACUTE DIASTOLIC (CONGESTIVE) HEART FAILURE Status: Acute Priority: Medium Current Visit: Yes Onset Date: ~01/28/21 (2) Afib SNOMED Code(s): 91108895 Code(s): I48.91 - UNSPECIFIED ATRIAL FIBRILLATION Status: Acute Current Visit: Yes (3) RSV (respiratory syncytial virus pneumonia) Status: Acute Current Visit: Yes (4) Acute kidney injury SNOMED Code(s): 69916192, 18825419 Code(s): N17.9 - ACUTE KIDNEY FAILURE, UNSPECIFIED Status: Acute Current Visit: No - Problem List Review Problem List Initiated/Reviewed/Updated: Yes - My Orders Last 24 Hours: My Active Orders 01/29/21 14:00 Benzonatate [Tessalon Perles] 100 mg PO TID 01/29/21 21:00 Saccharomyces Boulardii [Florastor] 250 mg PO BID - Assessment Assessment:: - Acute hypoxemic respiratory failure due to RSV Will supplement oxygen as needed - Acute pneumonia, Negative, RSV positive Blood cx: pending - neg for now cont azithromycin for now - Acute copd exacerbation still sob and wheezing but improved Treat with iv solumedrol, duoneb, pulmicort decrease solumedrol - Acute chf diastolic h/o EF 50-55%, grade II diastolic dysfunction Continue losartan, spironolactone, and Coreg Monitor ins and outs - Afib Rate control with coreg - Anticoagulation for afib Coumadin Check INR daily Adjust for goal INR 2-3 - Htn Treat with coreg cont losartan - CKD stage III Follow elytes and renal fx with diuretics in AM Code status:DNR as d/w pt
[2021-01-30] MEDS: Albuterol/Ipratropium 3.0-0.5 MG/3 ML Neb Soln NEB SCH ×4 (01:16→18:28)
[2021-01-30] MEDS: Pantoprazole 40 MG Tab.CR PO SCH (05:34)
[2021-01-30] MEDS: Acetaminophen 325 MG Tab PO PRN ×2 (05:34→20:56)
[2021-01-30] MEDS: Budesonide 0.5 MG/2 ML Neb Susp NEB SCH ×2 (08:08→18:29)
[2021-01-30] MEDS: Carvedilol 25 MG Tab PO SCH ×2 (08:28→20:55)
[2021-01-30] MEDS: predniSONE 20 MG Tab PO SCH (08:28)
[2021-01-30] MEDS: Spironolactone 25 MG Tab PO SCH (08:28)
[2021-01-30] MEDS: Losartan 50 MG Tab PO SCH (08:28)
[2021-01-30] MEDS: Benzonatate 100 MG Cap PO SCH ×3 (08:29→20:55)
[2021-01-30] MEDS: Saccharomyces Boulardii (Probiotic) 250 MG Cap PO SCH ×2 (08:29→20:55)
[2021-01-30] MEDS: [UNRECOGNIZED DRUG - OTHER] PO SCH (08:29)
[2021-01-30] MEDS: Gabapentin 100 MG Cap PO SCH ×2 (08:29→20:55)
[2021-01-30] MEDS: Furosemide 40 MG Tab PO SCH (09:26)
[2021-01-30] MEDS: Calcium Carbonate/Vitamin D3 1250 MG-5 MCG Tab PO SCH (09:26)
[2021-01-30] MEDS: Furosemide 20 MG/2 ML VIAL IVPUSH SCH (09:27)
[2021-01-30] MEDS: Polyethylene Glycol 3350 Powder 17 GM Packet PO SCH (10:54)
[2021-01-30] MEDS: Azithromycin 500 MG in Sodium Chloride 0.9% 250 ML IV SCH (11:45)
--- NOTE | 2021-01-30 11:45 | PCM.PN ---
- General Info Date of Service: 01/30/21 Admission Dx/Problem (Free Text): Admission Diagnosis/Problem Pneumonia Subjective Update: Radha is feeling better today and thinks her energy level is elevated as compared to yesterday. Her cough is stable with right-sided rib pain treated with Tylenol. She denies fever, chills, nausea, and vomiting. Functional Status: Reports: Pain Controlled - Review of Systems General: Reports: No Symptoms Pulmonary: Reports: Cough Cardiovascular: Reports: No Symptoms Musculoskeletal: Reports: No Symptoms Skin: Reports: No Symptoms - Patient Data Vitals - Most Recent: Last Vital Signs Temp 98.6 F 01/30/21 07:51 Pulse 94 01/30/21 08:28 Resp 18 01/30/21 07:51 BP 151/99 H 01/30/21 08:28 Pulse Ox 97 01/30/21 07:51 Weight - Most Recent: 163 lb 3.2 oz I&O - Last 24 Hours: Intake & Output 01/29/21 01/30/21 01/30/21 22:59 06:59 14:59 Intake Total 150 100 320 Output Total 800 Balance 150 -700 320 Lab Results Last 24 Hours: Laboratory Results - last 24 hr 01/30/21 01/30/21 Range/Units 06:00 06:00 PT 26.2 H (9.0-12.0) SEC INR 2.6 H (0.9-1.2) Sodium 138 (136-145) mmol/L Potassium 4.0 (3.5-5.1) mmol/L Chloride 97 L (98-107) mmol/L Carbon Dioxide 40 H (21-32) mmol/L Anion Gap 5.0 L (7-13) mEq/L BUN 39 H (7-18) mg/dL Creatinine 1.26 H (0.55-1.02) mg/dL Est Cr Clr Drug Dosing 29.73 mL/min Estimated GFR (MDRD) 41 Glucose 128 H (70-99) mg/dL Calcium 7.8 L (8.5-10.1) mg/dL Matthew Results Last 24 Hours: Microbiology 01/25/21 04:10 Aerobic Blood Culture - Final Blood - Arm, Left NO GROWTH AFTER 5 DAYS Anaerobic Blood Culture - Final Med Orders - Current: Current Medications Acetaminophen (Acetaminophen 325 Mg Tab) 650 mg PO Q4H PRN PRN Reason: Pain (Mild 1-3)/fever Last Admin: 01/30/21 05:34 Dose: 650 mg Documented by: Albuterol/Ipratropium (Albuterol/Ipratropium 3.0-0.5 Mg/3 Ml Neb Soln) 3 ml NEB Q6HRRT [facility] Last Admin: 01/30/21 08:07 Dose: 3 ml Documented by: Albuterol/Ipratropium (Albuterol/Ipratropium 3.0-0.5 Mg/3 Ml Neb Soln) 3 ml NEB Q2H PRN PRN Reason: sob Benzonatate (Benzonatate 100 Mg Cap) 100 mg PO TID [facility] Last Admin: 01/30/21 08:29 Dose: 100 mg Documented by: Budesonide (Budesonide 0.5 Mg/2 Ml Neb Susp) 0.5 mg NEB BIDRT [facility] Last Admin: 01/30/21 08:08 Dose: 0.5 mg Documented by: Calcium Carbonate (Calcium Carbonate/Vitamin D3 1250 Mg-5 Mcg Tab) 1 tab PO DAILY [facility] Last Admin: 01/30/21 09:26 Dose: 1 tab Documented by: Carvedilol (Carvedilol 25 Mg Tab) 25 mg PO BID [facility] Last Admin: 01/30/21 08:28 Dose: 25 mg Documented by: Docusate Sodium (Docusate Sodium 100 Mg Cap) 100 mg PO BID PRN PRN Reason: Constipation Furosemide (Furosemide 40 Mg Tab) 40 mg PO DAILY [facility] Last Admin: 01/30/21 09:26 Dose: 40 mg Documented by: Gabapentin (Gabapentin 100 Mg Cap) 200 mg PO BEDTIME [facility] Last Admin: 01/29/21 21:01 Dose: 200 mg Documented by: Gabapentin (Gabapentin 100 Mg Cap) 100 mg PO DAILY [facility] Last Admin: 01/30/21 08:29 Dose: 100 mg Documented by: Azithromycin 500 mg/ Sodium (Chloride) 250 mls @ 250 mls/hr IV Q24H [facility] Last Infusion: 01/29/21 10:55 Dose: Infused Documented by: Lorazepam (Lorazepam 0.5 Mg Tab) 0.5 mg PO BEDTIME PRN PRN Reason: Sleep Losartan Potassium (Losartan 50 Mg Tab) 100 mg PO DAILY [facility] Last Admin: 01/30/21 08:28 Dose: 100 mg Documented by: Vit C/E/Zn/Coppr/Lutein/Zeaxan [ Preservision Areds 2 Soft Gel] *Own Med* 2 cap PO DAILY [facility] Last Admin: 01/30/21 08:29 Dose: 2 cap Documented by: Ondansetron HCl (Ondansetron 4 Mg/2 Ml Sdv) 4 mg IVPUSH Q6H PRN PRN Reason: Nausea/Vomiting Pantoprazole Sodium (Pantoprazole 40 Mg Tab.Cr) 40 mg PO ACBREAKFAST [facility] Last Admin: 01/30/21 05:34 Dose: 40 mg Documented by: Polyethylene Glycol (Polyethylene Glycol 3350 Powder 17 Gm Packet) 17 gm PO DAILY [facility] Last Admin: 01/30/21 10:54 Dose: 17 gm Documented by: Pravastatin Sodium (Pravastatin 20 Mg Tab) 40 mg PO BEDTIME [facility] Last Admin: 01/29/21 21:01 Dose: 40 mg Documented by: Prednisone (Prednisone 10 Mg Tab) 10 mg PO BIDMEALS [facility] Stop: 02/01/21 08:01 Prednisone (Prednisone 5 Mg Tab) 5 mg PO BIDMEALS [facility] Stop: 02/03/21 08:01 Prednisone (Prednisone 5 Mg Tab) 5 mg PO DAILY@0800 [facility] Stop: 02/05/21 08:01 Saccharomyces Boulardii (Saccharomyces Boulardii (Probiotic) 250 Mg Cap) 250 mg PO BID [facility] Last Admin: 01/30/21 08:29 Dose: 250 mg Documented by: Sodium Chloride (Sodium Chloride 0.9% 10 Ml Syringe) 10 ml FLUSH ASDIRECTED PRN PRN Reason: Keep Vein Open Last Admin: 01/30/21 08:33 Dose: 10 ml Documented by: Spironolactone (Spironolactone 25 Mg Tab) 50 mg PO DAILY [facility] Last Admin: 01/30/21 08:28 Dose: 50 mg Documented by: Temazepam (Temazepam 15 Mg Cap) 15 mg PO BEDTIME PRN PRN Reason: Sleep Last Admin: 01/28/21 02:15 Dose: 15 mg Documented by: Warfarin Sodium (Pharmacy To Dose - Warfarin) 1 dose .XX ASDIRECTED [facility] Warfarin Sodium (Warfarin 1 Mg Tab) 1 mg PO ONETIME ONE Stop: 01/30/21 14:01 Discontinued Medications Albuterol (Albuterol 0.083% 2.5 Mg/3 Ml Neb Soln) 2.5 mg NEB ONETIME ONE Stop: 10/31/21 04:40 Last Admin: 01/25/21 04:48 Dose: 2.5 mg Documented by: Furosemide (Furosemide 40 Mg/4 Ml Vial) 40 mg IVPUSH ONETIME ONE Stop: 01/25/21 04:13 Last Admin: 01/25/21 04:22 Dose: 40 mg Documented by: Furosemide (Furosemide 20 Mg/2 Ml Vial) 20 mg IVPUSH BIDDIURETIC [facility] Last Admin: 01/30/21 09:27 Dose: Not Given Documented by: Gabapentin (Gabapentin 100 Mg Cap) 200 mg PO BID [facility] Losartan Potassium (Losartan 25 Mg Tab) 25 mg PO BID PRN PRN Reason: Tachycardia Losartan Potassium (Losartan 25 Mg Tab) 25 mg PO BID [facility] Last Admin: 01/28/21 09:19 Dose: 25 mg Documented by: Losartan Potassium (Losartan 25 Mg Tab) 75 mg PO ONETIME ONE Stop: 01/28/21 10:01 Last Admin: 01/28/21 10:37 Dose: 75 mg Documented by: Methylprednisolone Sodium Succinate (Methylprednisolone Sodium Succinate 125 Mg/2 Ml Sdv) 125 mg IVPUSH ONETIME ONE Stop: 01/25/21 04:39 Last Admin: 01/25/21 04:48 Dose: 125 mg Documented by: Methylprednisolone Sodium Succinate (Methylprednisolone Sodium Succinate 40 Mg/1 Ml Sdv) 40 mg IVPUSH Q8H [facility] Last Admin: 01/27/21 08:56 Dose: 40 mg Documented by: Methylprednisolone Sodium Succinate (Methylprednisolone Sodium Succinate 40 Mg/1 Ml Sdv) 40 mg IVPUSH BID [facility] Last Admin: 01/28/21 09:18 Dose: 40 mg Documented by: Prednisone (Prednisone 20 Mg Tab) 20 mg PO BIDMEALS [facility] Stop: 01/30/21 08:01 Last Admin: 01/30/21 08:28 Dose: 20 mg Documented by: Spironolactone (Spironolactone 25 Mg Tab) 25 mg PO DAILY [facility] Last Admin: 01/28/21 10:53 Dose: Not Given Documented by: Spironolactone (Spironolactone 25 Mg Tab) 25 mg PO ONETIME ONE Stop: 01/28/21 09:11 Last Admin: 01/28/21 10:37 Dose: 25 mg Documented by: Tolterodine Tartrate (Tolterodine 2 Mg Cap.Er) 4 mg PO DAILY [facility] Last Admin: 01/25/21 11:02 Dose: Not Given Documented by: Warfarin Sodium (Warfarin 1 Mg Tab) 1 mg PO ONETIME ONE Stop: 01/25/21 14:01 Last Admin: 01/25/21 14:43 Dose: 1 mg Documented by: Warfarin Sodium (Warfarin 1 Mg Tab) 1 mg PO ONETIME ONE Stop: 01/26/21 14:01 Last Admin: 01/26/21 15:11 Dose: Not Given Documented by: Warfarin Sodium (Warfarin 1 Mg Tab) 1 mg PO ONETIME ONE Stop: 01/27/21 14:01 Last Admin: 01/27/21 13:19 Dose: 1 mg Documented by: Warfarin Sodium (Warfarin 1 Mg Tab) 1 mg PO ONETIME ONE Stop: 01/28/21 14:01 Last Admin: 01/28/21 14:29 Dose: 1 mg Documented by: Warfarin Sodium (Warfarin 1 Mg Tab) 1 mg PO ONETIME ONE Stop: 01/29/21 14:01 Last Admin: 01/29/21 13:36 Dose: 1 mg Documented by: - Exam Quality Assessment: Supplemental Oxygen General: Alert, Oriented Lungs: Rales (In all lung álvarez) Cardiovascular: Regular Rate, Regular Rhythm Extremities: Normal Inspection, Normal Range of Motion, Non-Tender, No Pedal Edema, Normal Capillary Refill Psy/Mental Status: Alert, Normal Affect, Normal Mood - Patient Data Lab Results Last 24 hrs: Laboratory Results - last 24 hr 01/30/21 01/30/21 Range/Units 06:00 06:00 PT 26.2 H (9.0-12.0) SEC INR 2.6 H (0.9-1.2) Sodium 138 (136-145) mmol/L Potassium 4.0 (3.5-5.1) mmol/L Chloride 97 L (98-107) mmol/L Carbon Dioxide 40 H (21-32) mmol/L Anion Gap 5.0 L (7-13) mEq/L BUN 39 H (7-18) mg/dL Creatinine 1.26 H (0.55-1.02) mg/dL Est Cr Clr Drug Dosing 29.73 mL/min Estimated GFR (MDRD) 41 Glucose 128 H (70-99) mg/dL Calcium 7.8 L (8.5-10.1) mg/dL Result Diagrams: 01/29/21 06:00 01/30/21 06:00 Matthew Results Last 24 hrs: Microbiology 01/25/21 04:10 Aerobic Blood Culture - Final Blood - Arm, Left NO GROWTH AFTER 5 DAYS Anaerobic Blood Culture - Final Sepsis Event Note - Evaluation Sepsis Screening Result: No Definite Risk - Focused Exam Vital Signs: Vital Signs Temp Pulse Pulse Resp BP BP BP 01/30/21 08:28 94 151/99 H 01/30/21 07:51 98.6 F 94 18 151/99 H 01/30/21 07:00 88 01/30/21 04:00 97.6 F 80 18 112/76 Pulse Ox Pulse Ox 01/30/21 08:28 01/30/21 07:51 97 01/30/21 07:00 90 L 01/30/21 04:00 94 L - Problem List & Annotations (1) Acute diastolic (congestive) heart failure SNOMED Code(s): 366832856, 232391046 Code(s): I50.31 - ACUTE DIASTOLIC (CONGESTIVE) HEART FAILURE Status: Acute Priority: Medium Current Visit: Yes Onset Date: ~01/28/21 (2) Afib SNOMED Code(s): 73231004 Code(s): I48.91 - UNSPECIFIED ATRIAL FIBRILLATION Status: Acute Current Visit: Yes (3) RSV (respiratory syncytial virus pneumonia) Status: Acute Current Visit: Yes (4) Acute kidney injury SNOMED Code(s): 03017516, 71294265 Code(s): N17.9 - ACUTE KIDNEY FAILURE, UNSPECIFIED Status: Acute Current Visit: No (5) RSV (respiratory syncytial virus pneumonia) Status: Acute Priority: High Current Visit: Yes (6) Constipation SNOMED Code(s): 33538638 Code(s): K59.00 - CONSTIPATION, UNSPECIFIED Status: Acute Current Visit: Yes - Problem List Review Problem List Initiated/Reviewed/Updated: Yes - My Orders Last 24 Hours: My Active Orders 01/29/21 14:00 Benzonatate [Tessalon Perles] 100 mg PO TID 01/29/21 21:00 Saccharomyces Boulardii [Florastor] 250 mg PO BID 01/30/21 06:00 PROCALCITONIN [REF] Routine 01/30/21 09:00 Calcium Carbonate/Vitamin D3 [Calcium Carbonate/Vitamin D 1250 MG - 5 MCG] 1 tab PO DAILY Furosemide [Lasix] 40 mg PO DAILY 01/30/21 09:35 Chest 2V [CR] Routine 01/30/21 09:45 polyethylene glycoL 3350 [MiraLAX] 17 gm PO DAILY 01/30/21 14:00 Warfarin [Coumadin] 1 mg PO ONETIME ONE - Assessment Assessment:: - Acute hypoxemic respiratory failure due to RSV Will supplement oxygen as needed We will treat with regular albuterol nebulizers every 4 hours Chest x-ray wet read showed left lower fluid collection in right mid lobe anterior pneumonia - Acute pneumonia, Negative, RSV positive Blood cx: pending - neg for now cont azithromycin for total of 5 days Due to lung findings, I recommend leaving in an IV. The nursing staff has had difficulty starting the IV. We will call anesthesia for possible midline the left arm. The right arm will be avoided as she had breast cancer with lymph no de removal on the right, however, this happened 25 years ago. So if the left arm does not work, we will use the right arm. - Acute copd exacerbation Is on a steroid taper - Acute chf diastolic h/o EF 50-55%, grade II diastolic dysfunction Continue losartan, spironolactone, and Coreg Monitor ins and outs - Afib Rate control with coreg - Anticoagulation for afib Coumadin Check INR daily Adjust for goal INR 2-3 - Htn Treat with coreg cont losartan -Constipation Continue with Colace Start MiraLAX daily - CKD stage III Follow elytes and renal fx with diuretics in AM Code status:DNR as d/w pt
--- NOTE | 2021-01-30 13:36 | CR ---
EXAMINATION: Chest 2V SEX: Female AGE: 80 years CLINICAL HISTORY: 80-year-old female with clinical "wheezing". Comparison CXR 28 January and December,. Interpretation: Right mastectomy. Chronic mild cardiomegaly without new signs of heart failure i.e. no pulmonary vascular congestion, new cephalization of flow, alveolar edema or dependent pleural fluid accumulation. Chronic right midlung atelectasis medially. Old pleural parenchymal scarring left base. Chronic asymmetric prominence right hilum. No new lung mass or hilar lymphadenopathy. No new alveolar consolidation, air bronchograms, or peripheral "groundglass" interstitial lung densities. Calcifications arch of the ectatic thoracic aorta. Scoliosis, multilevel disc degeneration and spondylosis T-L spine. No pneumothorax or pneumomediastinum. No air trapping. CONCLUSION: No acute new cardiopulmonary abnormality.
[2021-01-30] MEDS: predniSONE 10 MG Tab PO SCH (17:24)
[2021-01-30] MEDS: Pravastatin 20 MG Tab PO SCH (20:55)
[2021-01-31] MEDS: Albuterol/Ipratropium 3.0-0.5 MG/3 ML Neb Soln NEB SCH ×4 (01:36→18:59)
[2021-01-31] MEDS: Pantoprazole 40 MG Tab.CR PO SCH (06:04)
[2021-01-31 06:48] LABS: ANION GAP 5.4 mEq/L (7-13)
[2021-01-31] MEDS: Budesonide 0.5 MG/2 ML Neb Susp NEB SCH ×2 (07:37→19:03)
[2021-01-31] MEDS ORDERED: hydrALAZINE 20 MG/ML SDV IVPUSH PRN (08:10)
--- NOTE | 2021-01-31 08:11 | PCM.PN ---
- General Info Date of Service: 01/31/21 Admission Dx/Problem (Free Text): Admission Diagnosis/Problem Pneumonia Subjective Update: Ms Garcia is feeling fine today. Her cough is stable with right-sided rib pain with cough. No rib pain without cough. Denies fever, chills, nausea, and vomiting. BP is not well controlled She is now on 1L INR 2.5 Creatinine 1.27. Creatinine 1.2 on 03/10/2018 - Review of Systems General: Reports: No Symptoms HEENT: Reports: No Symptoms Pulmonary: Reports: Cough, Other (rib pain with cough) Cardiovascular: Reports: No Symptoms Gastrointestinal: Reports: No Symptoms Genitourinary: Reports: No Symptoms Musculoskeletal: Reports: No Symptoms Skin: Reports: No Symptoms Neurological: Reports: No Symptoms Psychiatric: Reports: No Symptoms - Patient Data Vitals - Most Recent: Last Vital Signs Temp 33.8 C L 01/31/21 07:39 Pulse 99 01/31/21 07:39 Resp 20 01/31/21 07:39 BP 166/82 H 01/31/21 07:39 Pulse Ox 93 L 01/31/21 07:39 Weight - Most Recent: 74.298 kg I&O - Last 24 Hours: Intake & Output 01/30/21 01/31/21 01/31/21 22:59 06:59 14:59 Intake Total 325 Output Total 650 800 Balance -325 -800 Lab Results Last 24 Hours: Laboratory Results - last 24 hr 01/30/21 01/31/21 01/31/21 Range/Units 06:00 06:05 06:05 PT 24.6 H (9.0-12.0) SEC INR 2.5 H (0.9-1.2) Sodium 139 (136-145) mmol/L Potassium 4.4 (3.5-5.1) mmol/L Chloride 99 (98-107) mmol/L Carbon Dioxide 39 H (21-32) mmol/L Anion Gap 5.4 L (7-13) mEq/L BUN 36 H (7-18) mg/dL Creatinine 1.27 H (0.55-1.02) mg/dL Est Cr Clr Drug Dosing 29.49 mL/min Estimated GFR (MDRD) 40 Glucose 123 H (70-99) mg/dL Calcium 8.5 (8.5-10.1) mg/dL Procalcitonin <0.05 ng/mL Matthew Results Last 24 Hours: Microbiology 01/25/21 04:10 Aerobic Blood Culture - Final Blood - Arm, Left NO GROWTH AFTER 5 DAYS Anaerobic Blood Culture - Final Med Orders - Current: Current Medications Acetaminophen (Acetaminophen 325 Mg Tab) 650 mg PO Q4H PRN PRN Reason: Pain (Mild 1-3)/fever Last Admin: 01/30/21 20:56 Dose: 650 mg Documented by: Albuterol/Ipratropium (Albuterol/Ipratropium 3.0-0.5 Mg/3 Ml Neb Soln) 3 ml NEB Q6HRRT [facility] Last Admin: 01/31/21 07:43 Dose: 3 ml Documented by: Albuterol/Ipratropium (Albuterol/Ipratropium 3.0-0.5 Mg/3 Ml Neb Soln) 3 ml NEB Q2H PRN PRN Reason: sob Amlodipine Besylate (Amlodipine 5 Mg Tab) 2.5 mg PO DAILY [facility] Benzonatate (Benzonatate 100 Mg Cap) 100 mg PO TID [facility] Last Admin: 01/30/21 20:55 Dose: 100 mg Documented by: Budesonide (Budesonide 0.5 Mg/2 Ml Neb Susp) 0.5 mg NEB BIDRT [facility] Last Admin: 01/31/21 07:37 Dose: 0.5 mg Documented by: Calcium Carbonate (Calcium Carbonate/Vitamin D3 1250 Mg-5 Mcg Tab) 1 tab PO DAILY [facility] Last Admin: 01/30/21 09:26 Dose: 1 tab Documented by: Carvedilol (Carvedilol 25 Mg Tab) 25 mg PO BID [facility] Last Admin: 01/30/21 20:55 Dose: 25 mg Documented by: Docusate Sodium (Docusate Sodium 100 Mg Cap) 100 mg PO BID PRN PRN Reason: Constipation Last Admin: 01/30/21 20:55 Dose: 100 mg Documented by: Furosemide (Furosemide 40 Mg Tab) 40 mg PO DAILY [facility] Last Admin: 01/30/21 09:26 Dose: 40 mg Documented by: Gabapentin (Gabapentin 100 Mg Cap) 200 mg PO BEDTIME [facility] Last Admin: 01/30/21 20:55 Dose: 200 mg Documented by: Gabapentin (Gabapentin 100 Mg Cap) 100 mg PO DAILY [facility] Last Admin: 01/30/21 08:29 Dose: 100 mg Documented by: Azithromycin 500 mg/ Sodium (Chloride) 250 mls @ 250 mls/hr IV Q24H [facility] Last Infusion: 01/30/21 13:11 Dose: Infused Documented by: Lorazepam (Lorazepam 0.5 Mg Tab) 0.5 mg PO BEDTIME PRN PRN Reason: Sleep Losartan Potassium (Losartan 50 Mg Tab) 100 mg PO DAILY [facility] Last Admin: 01/30/21 08:28 Dose: 100 mg Documented by: Vit C/E/Zn/Coppr/Lutein/Zeaxan [ Preservision Areds 2 Soft Gel] *Own Med* 2 cap PO DAILY [facility] Last Admin: 01/30/21 08:29 Dose: 2 cap Documented by: Ondansetron HCl (Ondansetron 4 Mg/2 Ml Sdv) 4 mg IVPUSH Q6H PRN PRN Reason: Nausea/Vomiting Pantoprazole Sodium (Pantoprazole 40 Mg Tab.Cr) 40 mg PO ACBREAKFAST [facility] Last Admin: 01/31/21 06:04 Dose: Not Given Documented by: Polyethylene Glycol (Polyethylene Glycol 3350 Powder 17 Gm Packet) 17 gm PO DAILY [facility] Last Admin: 01/30/21 10:54 Dose: 17 gm Documented by: Pravastatin Sodium (Pravastatin 20 Mg Tab) 40 mg PO BEDTIME [facility] Last Admin: 01/30/21 20:55 Dose: 40 mg Documented by: Prednisone (Prednisone 10 Mg Tab) 10 mg PO BIDMEALS [facility] Stop: 02/01/21 08:01 Last Admin: 01/30/21 17:24 Dose: 10 mg Documented by: Prednisone (Prednisone 5 Mg Tab) 5 mg PO BIDMEALS [facility] Stop: 02/03/21 08:01 Prednisone (Prednisone 5 Mg Tab) 5 mg PO DAILY@0800 [facility] Stop: 02/05/21 08:01 Saccharomyces Boulardii (Saccharomyces Boulardii (Probiotic) 250 Mg Cap) 250 mg PO BID [facility] Last Admin: 01/30/21 20:55 Dose: 250 mg Documented by: Sodium Chloride (Sodium Chloride 0.9% 10 Ml Syringe) 10 ml FLUSH ASDIRECTED PRN PRN Reason: Keep Vein Open Last Admin: 01/30/21 08:33 Dose: 10 ml Documented by: Spironolactone (Spironolactone 25 Mg Tab) 50 mg PO DAILY [facility] Last Admin: 01/30/21 08:28 Dose: 50 mg Documented by: Temazepam (Temazepam 15 Mg Cap) 15 mg PO BEDTIME PRN PRN Reason: Sleep Last Admin: 01/28/21 02:15 Dose: 15 mg Documented by: Warfarin Sodium (Pharmacy To Dose - Warfarin) 1 dose .XX ASDIRECTED [facility] Warfarin Sodium (Warfarin 1 Mg Tab) 1 mg PO ONETIME ONE Stop: 01/31/21 14:01 Discontinued Medications Albuterol (Albuterol 0.083% 2.5 Mg/3 Ml Neb Soln) 2.5 mg NEB ONETIME ONE Stop: 01/25/21 04:40 Last Admin: 01/25/21 04:48 Dose: 2.5 mg Documented by: Furosemide (Furosemide 40 Mg/4 Ml Vial) 40 mg IVPUSH ONETIME ONE Stop: 01/25/21 04:13 Last Admin: 01/25/21 04:22 Dose: 40 mg Documented by: Furosemide (Furosemide 20 Mg/2 Ml Vial) 20 mg IVPUSH BIDDIURETIC [facility] Last Admin: 01/30/21 09:27 Dose: Not Given Documented by: Gabapentin (Gabapentin 100 Mg Cap) 200 mg PO BID [facility] Losartan Potassium (Losartan 25 Mg Tab) 25 mg PO BID PRN PRN Reason: Tachycardia Losartan Potassium (Losartan 25 Mg Tab) 25 mg PO BID [facility] Last Admin: 01/28/21 09:19 Dose: 25 mg Documented by: Losartan Potassium (Losartan 25 Mg Tab) 75 mg PO ONETIME ONE Stop: 01/28/21 10:01 Last Admin: 01/28/21 10:37 Dose: 75 mg Documented by: Methylprednisolone Sodium Succinate (Methylprednisolone Sodium Succinate 125 Mg/2 Ml Sdv) 125 mg IVPUSH ONETIME ONE Stop: 01/25/21 04:39 Last Admin: 01/25/21 04:48 Dose: 125 mg Documented by: Methylprednisolone Sodium Succinate (Methylprednisolone Sodium Succinate 40 Mg/1 Ml Sdv) 40 mg IVPUSH Q8H [facility] Last Admin: 01/27/21 08:56 Dose: 40 mg Documented by: Methylprednisolone Sodium Succinate (Methylprednisolone Sodium Succinate 40 Mg/1 Ml Sdv) 40 mg IVPUSH BID [facility] Last Admin: 01/28/21 09:18 Dose: 40 mg Documented by: Prednisone (Prednisone 20 Mg Tab) 20 mg PO BIDMEALS [facility] Stop: 01/30/21 08:01 Last Admin: 01/30/21 08:28 Dose: 20 mg Documented by: Spironolactone (Spironolactone 25 Mg Tab) 25 mg PO DAILY [facility] Last Admin: 01/28/21 10:53 Dose: Not Given Documented by: Spironolactone (Spironolactone 25 Mg Tab) 25 mg PO ONETIME ONE Stop: 01/28/21 09:11 Last Admin: 01/28/21 10:37 Dose: 25 mg Documented by: Tolterodine Tartrate (Tolterodine 2 Mg Cap.Er) 4 mg PO DAILY [facility] Last Admin: 01/25/21 11:02 Dose: Not Given Documented by: Warfarin Sodium (Warfarin 1 Mg Tab) 1 mg PO ONETIME ONE Stop: 01/25/21 14:01 Last Admin: 01/25/21 14:43 Dose: 1 mg Documented by: Warfarin Sodium (Warfarin 1 Mg Tab) 1 mg PO ONETIME ONE Stop: 01/26/21 14:01 Last Admin: 01/26/21 15:11 Dose: Not Given Documented by: Warfarin Sodium (Warfarin 1 Mg Tab) 1 mg PO ONETIME ONE Stop: 01/27/21 14:01 Last Admin: 01/27/21 13:19 Dose: 1 mg Documented by: Warfarin Sodium (Warfarin 1 Mg Tab) 1 mg PO ONETIME ONE Stop: 01/28/21 14:01 Last Admin: 01/28/21 14:29 Dose: 1 mg Documented by: Warfarin Sodium (Warfarin 1 Mg Tab) 1 mg PO ONETIME ONE Stop: 01/29/21 14:01 Last Admin: 01/29/21 13:36 Dose: 1 mg Documented by: Warfarin Sodium (Warfarin 1 Mg Tab) 1 mg PO ONETIME ONE Stop: 01/30/21 14:01 Last Admin: 01/30/21 14:40 Dose: 1 mg Documented by: - Exam General: Alert, Oriented, Cooperative HEENT: Pupils Equal, Pupils Reactive, EOMI Neck: Supple, No JVD Lungs: Normal Respiratory Effort, Decreased Breath Sounds, Rales Cardiovascular: Regular Rate, Regular Rhythm GI/Abdominal Exam: Normal Bowel Sounds, Soft, Non-Tender, No Organomegaly Extremities: Normal Inspection, Normal Range of Motion, Non-Tender, No Pedal Edema Skin: Warm, Dry, Intact Neurological: No New Focal Deficit, Normal Speech, Normal Tone, Strength Equal Bilateral, Reflexes Equal Bilateral, Sensation Intact Psy/Mental Status: Alert, Normal Affect, Normal Mood - Patient Data Lab Results Last 24 hrs: Laboratory Results - last 24 hr 01/30/21 01/31/21 01/31/21 Range/Units 06:00 06:05 06:05 PT 24.6 H (9.0-12.0) SEC INR 2.5 H (0.9-1.2) Sodium 139 (136-145) mmol/L Potassium 4.4 (3.5-5.1) mmol/L Chloride 99 (98-107) mmol/L Carbon Dioxide 39 H (21-32) mmol/L Anion Gap 5.4 L (7-13) mEq/L BUN 36 H (7-18) mg/dL Creatinine 1.27 H (0.55-1.02) mg/dL Est Cr Clr Drug Dosing 29.49 mL/min Estimated GFR (MDRD) 40 Glucose 123 H (70-99) mg/dL Calcium 8.5 (8.5-10.1) mg/dL Procalcitonin <0.05 ng/mL Result Diagrams: 01/29/21 06:00 01/31/21 06:05 Matthew Results Last 24 hrs: Microbiology 01/25/21 04:10 Aerobic Blood Culture - Final Blood - Arm, Left NO GROWTH AFTER 5 DAYS Anaerobic Blood Culture - Final Sepsis Event Note - Evaluation Sepsis Screening Result: No Definite Risk - Focused Exam Vital Signs: Vital Signs Temp Pulse Pulse Resp BP BP Pulse Ox 01/31/21 07:39 33.8 C L 99 20 166/82 H 93 L 01/31/21 07:00 88 01/31/21 04:00 37.1 C 72 18 115/82 96 01/30/21 20:55 78 147/77 H Pulse Ox Pulse Ox 01/31/21 07:39 01/31/21 07:00 93 L 91 L 01/31/21 04:00 01/30/21 20:55 - Problem List Review Problem List Initiated/Reviewed/Updated: Yes - My Orders Last 24 Hours: My Active Orders 01/31/21 08:10 hydrALAZINE [Apresoline] 10 mg IVPUSH Q4H PRN 01/31/21 09:00 amLODIPine [Norvasc] 2.5 mg PO DAILY - Assessment Assessment:: Acute hypoxemic respiratory failure due to RSV Will supplement oxygen as needed We will treat with regular albuterol nebulizers every 4 hours Chest x-ray wet read showed left lower fluid collection in right mid lobe anterior pneumonia Acute pneumonia, RSV positive Blood cx: pending - neg for now completed a course of azithromycin today Due to lung findings, I recommend leaving in an IV. The nursing staff has had difficulty starting the IV. We will call anesthesia for possible midline the left arm. The right arm will be avoided as she had breast cancer with lymph node removal on the right, however, this happened 25 years ago. So if the left arm does not work, we will use the right arm. Acute copd exacerbation Is on prednisone taper Acute chf diastolic h/o EF 50-55%, grade II diastolic dysfunction Continue losartan, spironolactone, and Coreg Continue lasix 40mg po daily Monitor ins and outs Afib Rate control with coreg Continue warfarin, IRN 2.5 today Anticoagulation for afib Coumadin Check INR daily Adjust for goal INR 2-3 Htn Continue coreg and losartan added amlodipine 2.5mg daily hydralazine prn Constipation Continue with Colace Start MiraLAX daily CKD stage III Follow elytes and renal fx with diuretics in AM DVT prophylaxis: warfarin Code status: DNR as d/w pt - Plan Plan:: 01/28/21 afebrile b.p elavated / vss otherwise. cough loosening up some . on o2 sats stable rsv positive serology. chest xray atelectasis and no consolidation day 3 antibiotics// steroids//o2 little forward progress yet. eating better. diuresis attempts net neutral // edema 3plus no ulcers. lungs decreased throughout with wheezes rt base. cor irreg/irreg 80s abd benign. ext: edema 2-3 plus induration of lower legs repeat chest xray no infiltrate but atelectasis and increased marking c/w rsv pneumonia cultures neg x 3 days. increased spironolactone to 50 mg day increase losartin to 100 mg day to impact heart failure better and help correct k. cont i.v. lasix today change to oral steroids. taper over one week sec. to rsv. p.t stable. repeat lab in am for k and other. boh
[2021-01-31] MEDS: Calcium Carbonate/Vitamin D3 1250 MG-5 MCG Tab PO SCH (09:19)
[2021-01-31] MEDS: amLODIPine 5 MG Tab PO SCH (09:19)
[2021-01-31] MEDS: predniSONE 10 MG Tab PO SCH ×2 (09:19→17:45)
[2021-01-31] MEDS: Spironolactone 25 MG Tab PO SCH (09:19)
[2021-01-31] MEDS: Polyethylene Glycol 3350 Powder 17 GM Packet PO SCH (09:19)
[2021-01-31] MEDS: Carvedilol 25 MG Tab PO SCH ×2 (09:19→21:09)
[2021-01-31] MEDS: Benzonatate 100 MG Cap PO SCH ×3 (09:20→21:09)
[2021-01-31] MEDS: Losartan 50 MG Tab PO SCH (09:20)
[2021-01-31] MEDS: Saccharomyces Boulardii (Probiotic) 250 MG Cap PO SCH ×2 (09:21→21:09)
[2021-01-31] MEDS: Gabapentin 100 MG Cap PO SCH ×2 (09:21→21:09)
[2021-01-31] MEDS: Furosemide 40 MG Tab PO SCH (09:21)
[2021-01-31] MEDS: [UNRECOGNIZED DRUG - OTHER] PO SCH (09:27)
[2021-01-31] MEDS: Azithromycin 500 MG in Sodium Chloride 0.9% 250 ML IV SCH (09:43)
[2021-01-31] MEDS: Pravastatin 20 MG Tab PO SCH (21:09)
[2021-02-01] MEDS: Acetaminophen 325 MG Tab PO PRN ×2 (01:18→05:14)
[2021-02-01] MEDS: Albuterol/Ipratropium 3.0-0.5 MG/3 ML Neb Soln NEB SCH ×4 (01:20→19:04)
[2021-02-01] MEDS: Pantoprazole 40 MG Tab.CR PO SCH (05:15)
[2021-02-01] MEDS: Budesonide 0.5 MG/2 ML Neb Susp NEB SCH ×2 (07:24→21:21)
[2021-02-01] MEDS: Polyethylene Glycol 3350 Powder 17 GM Packet PO SCH (09:32)
[2021-02-01] MEDS: Spironolactone 25 MG Tab PO SCH (09:32)
[2021-02-01] MEDS: Losartan 50 MG Tab PO SCH (09:33)
[2021-02-01] MEDS: Gabapentin 100 MG Cap PO SCH ×2 (09:33→21:16)
[2021-02-01] MEDS: amLODIPine 5 MG Tab PO SCH (09:33)
[2021-02-01] MEDS: Calcium Carbonate/Vitamin D3 1250 MG-5 MCG Tab PO SCH (09:34)
[2021-02-01] MEDS: Benzonatate 100 MG Cap PO SCH ×3 (09:34→21:16)
[2021-02-01] MEDS: predniSONE 10 MG Tab PO SCH (09:34)
[2021-02-01] MEDS: Carvedilol 25 MG Tab PO SCH (09:34)
[2021-02-01] MEDS: Saccharomyces Boulardii (Probiotic) 250 MG Cap PO SCH ×2 (09:34→21:16)
[2021-02-01] MEDS: Furosemide 40 MG Tab PO SCH (09:34)
[2021-02-01] MEDS: [UNRECOGNIZED DRUG - OTHER] PO SCH (09:36)
[2021-02-01] MEDS: guaiFENesin 600 MG Tab.ER PO SCH ×2 (09:39→21:16)
--- NOTE | 2021-02-01 09:43 | PN ---
DATE: 02/01/2021 SUBJECTIVE: The patient is an 80-year-old lady, who was admitted with acute hypoxemic respiratory failure due to RSV and also with acute pneumonia and COPD exacerbation as well as acute CHF with diastolic heart failure. She has also atrial fibrillation, on anticoagulation with Coumadin, and also hypertension. The patient is doing fairly well. She still has some congested cough, but she denies any chest pain, orthopnea, fever, chills, abdominal pain, nausea, vomiting, or any other significant complaints. LABORATORY WORKUP: This morning, protime is 23.2, INR is 2.3. OBJECTIVE: Vital Signs: Blood pressure is 121/73, pulse of 82, respirations 18, temperature of 98, and saturation is 98% on 2 L per nasal cannula. Heart: Regular rate and rhythm. No gallops. No rubs. Lungs: Still remarkable for rhonchi in both lung álvarez. Abdomen: Soft, nontender. Bowel sounds positive. Extremities: Negative for any calf tenderness. There is trace bilateral pedal edema. ASSESSMENT AND PLAN: 1. Pneumonia. The patient is slowly improving, but we will continue with her albuterol nebulization. We will also put her on Mucinex as mucolytic and we will continue with her prednisone. 2. Congestive heart failure. The patient is compensated. We will continue with her spironolactone. 3. Atrial fibrillation, on anticoagulation. Ventricular response within normal limits and protime is therapeutic. We will continue with her Coumadin and Coreg. [facility] /[id number]
[2021-02-01] MEDS: predniSONE 5 MG Tab PO SCH (17:29)
[2021-02-01] MEDS: Pravastatin 20 MG Tab PO SCH (21:16)
[2021-02-02] MEDS: Albuterol/Ipratropium 3.0-0.5 MG/3 ML Neb Soln NEB SCH ×6 (01:29→23:32)
[2021-02-02] MEDS: Pantoprazole 40 MG Tab.CR PO SCH (05:57)
[2021-02-02] MEDS: Budesonide 0.5 MG/2 ML Neb Susp NEB SCH ×2 (07:35→18:45)
[2021-02-02] MEDS: guaiFENesin 600 MG Tab.ER PO SCH ×2 (08:15→20:20)
[2021-02-02] MEDS: Calcium Carbonate/Vitamin D3 1250 MG-5 MCG Tab PO SCH (08:15)
[2021-02-02] MEDS: Benzonatate 100 MG Cap PO SCH ×4 (08:15→20:20)
[2021-02-02] MEDS: predniSONE 5 MG Tab PO SCH (08:16)
[2021-02-02] MEDS: Saccharomyces Boulardii (Probiotic) 250 MG Cap PO SCH ×2 (08:16→20:21)
[2021-02-02] MEDS: Polyethylene Glycol 3350 Powder 17 GM Packet PO SCH (08:16)
[2021-02-02] MEDS: Furosemide 40 MG Tab PO SCH (08:16)
[2021-02-02] MEDS: Gabapentin 100 MG Cap PO SCH ×2 (08:16→20:21)
[2021-02-02] MEDS: Carvedilol 25 MG Tab PO SCH ×2 (08:17→20:22)
[2021-02-02] MEDS: Spironolactone 25 MG Tab PO SCH (08:17)
[2021-02-02] MEDS: amLODIPine 5 MG Tab PO SCH (08:17)
[2021-02-02] MEDS: Losartan 50 MG Tab PO SCH (08:18)
[2021-02-02] MEDS: [UNRECOGNIZED DRUG - OTHER] PO SCH (08:20)
[2021-02-02] MEDS ORDERED: predniSONE 10 MG Tab PO ONE (11:15)
[2021-02-02] MEDS: Pravastatin 20 MG Tab PO SCH (20:20)
--- NOTE | 2021-02-02 20:45 | PCM.PN ---
- General Info Date of Service: 02/02/21 Admission Dx/Problem (Free Text): Pt feels OK today. She however continues to have a wet cough, chest congestion and audible wheezes. - Patient Data Vitals - Most Recent: Last Vital Signs Temp 97 F 02/02/21 19:28 Pulse 84 02/02/21 20:22 Resp 18 02/02/21 19:28 BP 88/55 L 02/02/21 20:22 Pulse Ox 95 02/02/21 19:28 Weight - Most Recent: 160 lb 3.2 oz I&O - Last 24 Hours: Intake & Output 02/02/21 02/02/21 02/02/21 06:59 14:59 22:59 Intake Total 520 Balance 520 Lab Results Last 24 Hours: Laboratory Results - last 24 hr 02/02/21 Range/Units 05:50 PT 25.4 H (9.0-12.0) SEC INR 2.6 H (0.9-1.2) Med Orders - Current: Current Medications Acetaminophen (Acetaminophen 325 Mg Tab) 650 mg PO Q4H PRN PRN Reason: Pain (Mild 1-3)/fever Last Admin: 02/01/21 05:14 Dose: 650 mg Documented by: Albuterol/Ipratropium (Albuterol/Ipratropium 3.0-0.5 Mg/3 Ml Neb Soln) 3 ml NEB Q2H PRN PRN Reason: sob Albuterol/Ipratropium (Albuterol/Ipratropium 3.0-0.5 Mg/3 Ml Neb Soln) 3 ml NEB Q4HRRT [facility] Last Admin: 02/02/21 18:45 Dose: 3 ml Documented by: Benzonatate (Benzonatate 100 Mg Cap) 100 mg PO TID [facility] Last Admin: 02/02/21 20:20 Dose: 100 mg Documented by: Budesonide (Budesonide 0.5 Mg/2 Ml Neb Susp) 0.5 mg NEB BIDRT [facility] Last Admin: 02/02/21 18:45 Dose: 0.5 mg Documented by: Calcium Carbonate (Calcium Carbonate/Vitamin D3 1250 Mg-5 Mcg Tab) 1 tab PO CALVIN LY [facility] Last Admin: 02/02/21 08:15 Dose: 1 tab Documented by: Carvedilol (Carvedilol 25 Mg Tab) 25 mg PO BID [facility] Last Admin: 02/02/21 20:22 Dose: Not Given Documented by: Docusate Sodium (Docusate Sodium 100 Mg Cap) 100 mg PO BID PRN PRN Reason: Constipation Last Admin: 01/30/21 20:55 Dose: 100 mg Documented by: Gabapentin (Gabapentin 100 Mg Cap) 200 mg PO BEDTIME [facility] Last Admin: 02/02/21 20:21 Dose: 200 mg Documented by: Gabapentin (Gabapentin 100 Mg Cap) 100 mg PO DAILY [facility] Last Admin: 02/02/21 08:16 Dose: 100 mg Documented by: Guaifenesin (Guaifenesin 600 Mg Tab.Er) 1,200 mg PO BID [facility] Last Admin: 02/02/21 20:20 Dose: 1,200 mg Documented by: Hydralazine HCl (Hydralazine 20 Mg/Ml Sdv) 10 mg IVPUSH Q4H PRN PRN Reason: Hypertension Lorazepam (Lorazepam 0.5 Mg Tab) 0.5 mg PO BEDTIME PRN PRN Reason: Sleep Losartan Potassium (Losartan 50 Mg Tab) 100 mg PO DAILY [facility] Last Admin: 02/02/21 08:18 Dose: 100 mg Documented by: Vit C/E/Zn/Coppr/Lutein/Zeaxan [ Preservision Areds 2 Soft Gel] *Own Med* 2 cap PO DAILY [facility] Last Admin: 02/02/21 08:20 Dose: 2 cap Documented by: Ondansetron HCl (Ondansetron 4 Mg/2 Ml Sdv) 4 mg IVPUSH Q6H PRN PRN Reason: Nausea/Vomiting Pantoprazole Sodium (Pantoprazole 40 Mg Tab.Cr) 40 mg PO ACBREAKFAST [facility] Last Admin: 02/02/21 05:57 Dose: 40 mg Documented by: Polyethylene Glycol (Polyethylene Glycol 3350 Powder 17 Gm Packet) 17 gm PO DAILY [facility] Last Admin: 02/02/21 08:16 Dose: 17 gm Documented by: Pravastatin Sodium (Pravastatin 20 Mg Tab) 40 mg PO BEDTIME [facility] Last Admin: 02/02/21 20:20 Dose: 40 mg Documented by: Prednisone (Prednisone 20 Mg Tab) 40 mg PO WITHBREAKFAST [facility] Saccharomyces Boulardii (Saccharomyces Boulardii (Probiotic) 250 Mg Cap) 250 mg PO BID [facility] Last Admin: 02/02/21 20:21 Dose: 250 mg Documented by: Sodium Chloride (Sodium Chloride 0.9% 10 Ml Syringe) 10 ml FLUSH ASDIRECTED PRN PRN Reason: Keep Vein Open Last Admin: 01/30/21 08:33 Dose: 10 ml Documented by: Spironolactone (Spironolactone 25 Mg Tab) 50 mg PO DAILY [facility] Last Admin: 02/02/21 08:17 Dose: 50 mg Documented by: Temazepam (Temazepam 15 Mg Cap) 15 mg PO BEDTIME PRN PRN Reason: Sleep Last Admin: 01/28/21 02:15 Dose: 15 mg Documented by: Warfarin Sodium (Pharmacy To Dose - Warfarin) 1 dose .XX ASDIRECTED CHERRY Discontinued Medications Albuterol (Albuterol 0.083% 2.5 Mg/3 Ml Neb Soln) 2.5 mg NEB ONETIME ONE Stop: 01/25/21 04:40 Last Admin: 01/25/21 04:48 Dose: 2.5 mg Documented by: Albuterol/Ipratropium (Albuterol/Ipratropium 3.0-0.5 Mg/3 Ml Neb Soln) 3 ml NEB Q6HRRT [facility] Last Admin: 02/02/21 07:36 Dose: 3 ml Documented by: Amlodipine Besylate (Amlodipine 5 Mg Tab) 2.5 mg PO DAILY [facility] Last Admin: 02/02/21 08:17 Dose: 2.5 mg Documented by: Furosemide (Furosemide 40 Mg/4 Ml Vial) 40 mg IVPUSH ONETIME ONE Stop: 01/25/21 04:13 Last Admin: 01/25/21 04:22 Dose: 40 mg Documented by: Furosemide (Furosemide 20 Mg/2 Ml Vial) 20 mg IVPUSH BIDDIURETIC [facility] Last Admin: 01/30/21 09:27 Dose: Not Given Documented by: Furosemide (Furosemide 40 Mg Tab) 40 mg PO DAILY [facility] Last Admin: 02/02/21 08:16 Dose: 40 mg Documented by: Gabapentin (Gabapentin 100 Mg Cap) 200 mg PO BID [facility] Azithromycin 500 mg/ Sodium (Chloride) 250 mls @ 250 mls/hr IV Q24H [facility] Last Infusion: 01/31/21 10:59 Dose: Infused Documented by: Losartan Potassium (Losartan 25 Mg Tab) 25 mg PO BID PRN PRN Reason: Tachycardia Losartan Potassium (Losartan 25 Mg Tab) 25 mg PO BID [facility] Last Admin: 01/28/21 09:19 Dose: 25 mg Documented by: Losartan Potassium (Losartan 25 Mg Tab) 75 mg PO ONETIME ONE Stop: 01/28/21 10:01 Last Admin: 01/28/21 10:37 Dose: 75 mg Documented by: Methylprednisolone Sodium Succinate (Methylprednisolone Sodium Succinate 125 Mg/2 Ml Sdv) 125 mg IVPUSH ONETIME ONE Stop: 01/25/21 04:39 Last Admin: 01/25/21 04:48 Dose: 125 mg Documented by: Methylprednisolone Sodium Succinate (Methylprednisolone Sodium Succinate 40 Mg/1 Ml Sdv) 40 mg IVPUSH Q8H [facility] Last Admin: 01/27/21 08:56 Dose: 40 mg Documented by: Methylprednisolone Sodium Succinate (Methylprednisolone Sodium Succinate 40 Mg/1 Ml Sdv) 40 mg IVPUSH BID [facility] Last Admin: 01/28/21 09:18 Dose: 40 mg Documented by: Prednisone (Prednisone 20 Mg Tab) 20 mg PO BIDMEALS [facility] Stop: 01/30/21 08:01 Last Admin: 01/30/21 08:28 Dose: 20 mg Documented by: Prednisone (Prednisone 10 Mg Tab) 10 mg PO BIDMEALS [facility] Stop: 02/01/21 08:01 Last Admin: 02/01/21 09:34 Dose: 10 mg Documented by: Prednisone (Prednisone 5 Mg Tab) 5 mg PO BIDMEALS [facility] Stop: 02/03/21 08:01 Last Admin: 02/02/21 08:16 Dose: 5 mg Documented by: Prednisone (Prednisone 5 Mg Tab) 5 mg PO DAILY@0800 [facility] Stop: 02/05/21 08:01 Prednisone (Prednisone 10 Mg Tab) 35 mg PO ONETIME ONE Stop: 02/02/21 11:16 Last Admin: 02/02/21 12:27 Dose: 35 mg Documented by: Spironolactone (Spironolactone 25 Mg Tab) 25 mg PO DAILY [facility] Last Admin: 01/28/21 10:53 Dose: Not Given Documented by: Spironolactone (Spironolactone 25 Mg Tab) 25 mg PO ONETIME ONE Stop: 01/28/21 09:11 Last Admin: 01/28/21 10:37 Dose: 25 mg Documented by: Tolterodine Tartrate (Tolterodine 2 Mg Cap.Er) 4 mg PO DAILY [facility] Last Admin: 01/25/21 11:02 Dose: Not Given Documented by: Warfarin Sodium (Warfarin 1 Mg Tab) 1 mg PO ONETIME ONE Stop: 01/25/21 14:01 Last Admin: 01/25/21 14:43 Dose: 1 mg Documented by: Warfarin Sodium (Warfarin 1 Mg Tab) 1 mg PO ONETIME ONE Stop: 01/26/21 14:01 Last Admin: 01/26/21 15:11 Dose: Not Given Documented by: Warfarin Sodium (Warfarin 1 Mg Tab) 1 mg PO ONETIME ONE Stop: 01/27/21 14:01 Last Admin: 01/27/21 13:19 Dose: 1 mg Documented by: Warfarin Sodium (Warfarin 1 Mg Tab) 1 mg PO ONETIME ONE Stop: 01/28/21 14:01 Last Admin: 01/28/21 14:29 Dose: 1 mg Documented by: Warfarin Sodium (Warfarin 1 Mg Tab) 1 mg PO ONETIME ONE Stop: 01/29/21 14:01 Last Admin: 01/29/21 13:36 Dose: 1 mg Documented by: Warfarin Sodium (Warfarin 1 Mg Tab) 1 mg PO ONETIME ONE Stop: 01/30/21 14:01 Last Admin: 01/30/21 14:40 Dose: 1 mg Documented by: Warfarin Sodium (Warfarin 1 Mg Tab) 1 mg PO ONETIME ONE Stop: 01/31/21 14:01 Last Admin: 01/31/21 14:05 Dose: 1 mg Documented by: Warfarin Sodium (Warfarin 1 Mg Tab) 1 mg PO ONETIME ONE Stop: 02/01/21 14:01 Last Admin: 02/01/21 14:46 Dose: 1 mg Documented by: Warfarin Sodium (Warfarin 1 Mg Tab) 1 mg PO ONETIME ONE Stop: 02/02/21 14:01 Last Admin: 02/02/21 13:03 Dose: Not Given Documented by: - Exam Physical Findings Comments:: General: Elderly female. In no distress. CVS: S1S2 appreciated. RRR lungs: diminished bilaterally with wheezing R> L pa: soft, non tender. Bowel sounds present ext: no clubbing, cyanosis or edema Neuro: moves all extremities. - Patient Data Lab Results Last 24 hrs: Laboratory Results - last 24 hr 02/02/21 Range/Units 05:50 PT 25.4 H (9.0-12.0) SEC INR 2.6 H (0.9-1.2) Result Diagrams: 01/29/21 06:00 01/31/21 06:05 Sepsis Event Note - Evaluation Sepsis Screening Result: No Definite Risk - Focused Exam Vital Signs: Vital Signs Temp Pulse Pulse Resp BP BP Pulse Ox 02/02/21 20:22 84 88/55 L 02/02/21 19:28 97 F 84 18 88/55 L 95 02/02/21 18:41 87 02/02/21 16:00 97.8 F 90 18 101/71 93 L 02/02/21 11:45 94.4 F L 85 18 106/84 85 L 02/02/21 11:37 88 Pulse Ox 02/02/21 20:22 02/02/21 19:28 02/02/21 18:41 87 L 02/02/21 16:00 02/02/21 11:45 02/02/21 11:37 - Problem List & Annotations (1) Acute exacerbation of chronic obstructive pulmonary disease (COPD) SNOMED Code(s): 225507527 Code(s): J44.1 - CHRONIC OBSTRUCTIVE PULMONARY DISEASE W (ACUTE) EXACERBATION Status: Acute Current Visit: Yes (2) Chronic atrial fibrillation SNOMED Code(s): 200054876 Code(s): I48.20 - CHRONIC ATRIAL FIBRILLATION, UNSPECIFIED Status: Acute Priority: Medium Current Visit: Yes (3) RSV (respiratory syncytial virus pneumonia) Status: Acute Current Visit: Yes (4) Acute kidney injury SNOMED Code(s): 69527965, 41166234 Code(s): N17.9 - ACUTE KIDNEY FAILURE, UNSPECIFIED Status: Acute Current Visit: No (5) Weakness SNOMED Code(s): 44085364 Code(s): R53.1 - WEAKNESS Status: Acute Current Visit: No - Problem List Review Problem List Initiated/Reviewed/Updated: Yes - My Orders Last 24 Hours: My Active Orders 02/02/21 09:10 RT Aerosol Therapy [RC] ASDIRECTED 02/02/21 10:36 RT Chest Physiotherapy [RC] ASDIRECTED 02/02/21 11:00 Albuterol/Ipratropium [DuoNeb 3.0-0.5 MG/3 ML] 3 ml NEB Q4HRRT 02/03/21 06:00 INR,PT,PROTHROMBIN TIME [COAG] DAILY 02/03/21 08:00 predniSONE 40 mg PO WITHBREAKFAST 02/04/21 06:00 INR,PT,PROTHROMBIN TIME [COAG] DAILY 02/05/21 06:00 INR,PT,PROTHROMBIN TIME [COAG] DAILY 02/06/21 06:00 INR,PT,PROTHROMBIN TIME [COAG] DAILY 02/07/21 06:00 INR,PT,PROTHROMBIN TIME [COAG] DAILY 02/08/21 06:00 INR,PT,PROTHROMBIN TIME [COAG] DAILY 02/09/21 06:00 INR,PT,PROTHROMBIN TIME [COAG] DAILY - Assessment Assessment:: Acute hypoxemic respiratory failure due to RSV Will supplement oxygen as needed We will treat with regular albuterol nebulizers every 4 hours Chest x-ray wet read showed left lower fluid collection in right mid lobe anterior pneumonia Acute viral pneumonia due to RSV infection. Blood cx: pending - neg for now completed a course of azithromycin today Due to lung findings, I recommend leaving in an IV. The nursing staff has had difficulty starting the IV. We will call anesthesia for possible midline the left arm. The right arm will be avoided as she had breast cancer with lymph node removal on the right, however, this happened 25 years ago. So if the left arm does not work, we will use the right arm. Acute Copd exacerbation increase steroids and Duonebs to Q4 and Q2 hrs prn. Acute on chronic with preserved EF chf diastolic h/o EF 50-55%, grade II diastolic dysfunction Continue losartan, spironolactone, and Coreg DC lasix now. Afib Rate control with coreg Continue warfarin, IRN 2.5 today Anticoagulation for afib Coumadin Check INR daily Adjust for goal INR 2-3 Htn Continue coreg and losartan added amlodipine 2.5mg daily hydralazine prn Constipation Continue with Colace Start MiraLAX daily CKD stage III Follow elytes and renal fx with diuretics in AM DVT prophylaxis: warfarin Code status: DNR as d/w pt - Plan Plan:: 01/28/21 afebrile b.p elavated / vss otherwise. cough loosening up some . on o2 sats stable rsv positive serology. chest xray atelectasis and no consolidation day 3 antibiotics// steroids//o2 little forward progress yet. eating better. diuresis attempts net neutral // edema 3plus no ulcers. lungs decreased throughout with wheezes rt base. cor irreg/irreg 80s abd benign. ext: edema 2-3 plus induration of lower legs repeat chest xray no infiltrate but atelectasis and increased marking c/w rsv pneumonia cultures neg x 3 days. increased spironolactone to 50 mg day increase losartin to 100 mg day to impact heart failure better and help correct k. cont i.v. lasix today change to oral steroids. taper over one week sec. to rsv. p.t stable. repeat lab in am for k and other. boh
[2021-02-03] MEDS: Albuterol/Ipratropium 3.0-0.5 MG/3 ML Neb Soln NEB SCH ×5 (03:29→18:45)
[2021-02-03] MEDS: Pantoprazole 40 MG Tab.CR PO SCH (05:52)
[2021-02-03] MEDS: predniSONE 20 MG Tab PO SCH (09:05)
[2021-02-03] MEDS: Benzonatate 100 MG Cap PO SCH ×3 (09:05→20:10)
[2021-02-03] MEDS: Losartan 50 MG Tab PO SCH (09:06)
[2021-02-03] MEDS: Gabapentin 100 MG Cap PO SCH ×2 (09:06→20:10)
[2021-02-03] MEDS: guaiFENesin 600 MG Tab.ER PO SCH ×2 (09:07→20:10)
[2021-02-03] MEDS: Carvedilol 25 MG Tab PO SCH ×2 (09:08→20:15)
[2021-02-03] MEDS: Saccharomyces Boulardii (Probiotic) 250 MG Cap PO SCH ×2 (09:08→20:10)
[2021-02-03] MEDS: Calcium Carbonate/Vitamin D3 1250 MG-5 MCG Tab PO SCH (09:09)
[2021-02-03] MEDS: Spironolactone 25 MG Tab PO SCH (09:09)
[2021-02-03] MEDS: [UNRECOGNIZED DRUG - OTHER] PO SCH (09:10)
[2021-02-03] MEDS: Polyethylene Glycol 3350 Powder 17 GM Packet PO SCH (09:11)
[2021-02-03] MEDS: Budesonide 0.5 MG/2 ML Neb Susp NEB SCH ×2 (11:34→18:46)
--- NOTE | 2021-02-03 12:11 | PCM.PN ---
- General Info Date of Service: 02/03/21 Admission Dx/Problem (Free Text): Patient's respiratory status is better today compared to yesterday. She has been doing nebulizers more frequently. She also has been walking with the incentive spirometer as well as a flutter valve. She is able to inspire at least 900 cc on the IS. She still has a productive cough - Patient Data Vitals - Most Recent: Last Vital Signs Temp 97.9 F 02/03/21 08:00 Pulse 89 02/03/21 09:08 Resp 95 H 02/03/21 08:00 BP 124/85 02/03/21 09:08 Pulse Ox 1 L 02/03/21 08:00 Weight - Most Recent: 160 lb 3.2 oz I&O - Last 24 Hours: Intake & Output 02/02/21 02/03/21 02/03/21 22:59 06:59 14:59 Intake Total 420 500 120 Balance 420 500 120 Lab Results Last 24 Hours: Laboratory Results - last 24 hr 02/03/21 Range/Units 06:26 PT 21.2 H (9.0-12.0) SEC INR 2.1 H (0.9-1.2) Med Orders - Current: Current Medications Acetaminophen (Acetaminophen 325 Mg Tab) 650 mg PO Q4H PRN PRN Reason: Pain (Mild 1-3)/fever Last Admin: 02/01/21 05:14 Dose: 650 mg Documented by: Albuterol/Ipratropium (Albuterol/Ipratropium 3.0-0.5 Mg/3 Ml Neb Soln) 3 ml NEB Q2H PRN PRN Reason: sob Albuterol/Ipratropium (Albuterol/Ipratropium 3.0-0.5 Mg/3 Ml Neb Soln) 3 ml NEB Q4HRRT [facility] Last Admin: 02/03/21 11:34 Dose: 3 ml Documented by: Benzonatate (Benzonatate 100 Mg Cap) 100 mg PO TID [facility] Last Admin: 02/03/21 09:05 Dose: 100 mg Documented by: Budesonide (Budesonide 0.5 Mg/2 Ml Neb Susp) 0.5 mg NEB BIDRT [facility] Last Admin: 02/03/21 11:34 Dose: 0.5 mg Documented by: Calcium Carbonate (Calcium Carbonate/Vitamin D3 1250 Mg-5 Mcg Tab) 1 tab PO CALVIN LY [facility] Last Admin: 02/03/21 09:09 Dose: 1 tab Documented by: Carvedilol (Carvedilol 25 Mg Tab) 25 mg PO BID [facility] Last Admin: 02/03/21 09:08 Dose: 25 mg Documented by: Docusate Sodium (Docusate Sodium 100 Mg Cap) 100 mg PO BID PRN PRN Reason: Constipation Last Admin: 01/30/21 20:55 Dose: 100 mg Documented by: Gabapentin (Gabapentin 100 Mg Cap) 200 mg PO BEDTIME [facility] Last Admin: 02/02/21 20:21 Dose: 200 mg Documented by: Gabapentin (Gabapentin 100 Mg Cap) 100 mg PO DAILY [facility] Last Admin: 02/03/21 09:06 Dose: 100 mg Documented by: Guaifenesin (Guaifenesin 600 Mg Tab.Er) 1,200 mg PO BID [facility] Last Admin: 02/03/21 09:07 Dose: 1,200 mg Documented by: Hydralazine HCl (Hydralazine 20 Mg/Ml Sdv) 10 mg IVPUSH Q4H PRN PRN Reason: Hypertension Lorazepam (Lorazepam 0.5 Mg Tab) 0.5 mg PO BEDTIME PRN PRN Reason: Sleep Losartan Potassium (Losartan 50 Mg Tab) 100 mg PO DAILY [facility] Last Admin: 02/03/21 09:06 Dose: 100 mg Documented by: Vit C/E/Zn/Coppr/Lutein/Zeaxan [ Preservision Areds 2 Soft Gel] *Own Med* 2 cap PO DAILY [facility] Last Admin: 02/03/21 09:10 Dose: 2 cap Documented by: Ondansetron HCl (Ondansetron 4 Mg/2 Ml Sdv) 4 mg IVPUSH Q6H PRN PRN Reason: Nausea/Vomiting Pantoprazole Sodium (Pantoprazole 40 Mg Tab.Cr) 40 mg PO ACBREAKFAST [facility] Last Admin: 02/03/21 05:52 Dose: 40 mg Documented by: Polyethylene Glycol (Polyethylene Glycol 3350 Powder 17 Gm Packet) 17 gm PO DAILY [facility] Last Admin: 02/03/21 09:11 Dose: 17 gm Documented by: Pravastatin Sodium (Pravastatin 20 Mg Tab) 40 mg PO BEDTIME [facility] Last Admin: 02/02/21 20:20 Dose: 40 mg Documented by: Prednisone (Prednisone 20 Mg Tab) 40 mg PO WITHBREAKFAST [facility] Last Admin: 02/03/21 09:05 Dose: 40 mg Documented by: Saccharomyces Boulardii (Saccharomyces Boulardii (Probiotic) 250 Mg Cap) 250 mg PO BID [facility] Last Admin: 02/03/21 09:08 Dose: 250 mg Documented by: Sodium Chloride (Sodium Chloride 0.9% 10 Ml Syringe) 10 ml FLUSH ASDIRECTED PRN PRN Reason: Keep Vein Open Last Admin: 01/30/21 08:33 Dose: 10 ml Documented by: Spironolactone (Spironolactone 25 Mg Tab) 50 mg PO DAILY [facility] Last Admin: 02/03/21 09:09 Dose: 50 mg Documented by: Temazepam (Temazepam 15 Mg Cap) 15 mg PO BEDTIME PRN PRN Reason: Sleep Last Admin: 01/28/21 02:15 Dose: 15 mg Documented by: Warfarin Sodium (Pharmacy To Dose - Warfarin) 1 dose .XX ASDIRECTED [facility] Warfarin Sodium (Warfarin 2 Mg Tab) 2 mg PO ONETIME ONE Stop: 02/03/21 14:01 Discontinued Medications Albuterol (Albuterol 0.083% 2.5 Mg/3 Ml Neb Soln) 2.5 mg NEB ONETIME ONE Stop: 01/25/21 04:40 Last Admin: 01/25/21 04:48 Dose: 2.5 mg Documented by: Albuterol/Ipratropium (Albuterol/Ipratropium 3.0-0.5 Mg/3 Ml Neb Soln) 3 ml NEB Q6HRRT [facility] Last Admin: 02/02/21 07:36 Dose: 3 ml Documented by: Amlodipine Besylate (Amlodipine 5 Mg Tab) 2.5 mg PO DAILY [facility] Last Admin: 02/02/21 08:17 Dose: 2.5 mg Documented by: Furosemide (Furosemide 40 Mg/4 Ml Vial) 40 mg IVPUSH ONETIME ONE Stop: 01/25/21 04:13 Last Admin: 01/25/21 04:22 Dose: 40 mg Documented by: Furosemide (Furosemide 20 Mg/2 Ml Vial) 20 mg IVPUSH BIDDIURETIC [facility] Last Admin: 01/30/21 09:27 Dose: Not Given Documented by: Furosemide (Furosemide 40 Mg Tab) 40 mg PO DAILY [facility] Last Admin: 02/02/21 08:16 Dose: 40 mg Documented by: Gabapentin (Gabapentin 100 Mg Cap) 200 mg PO BID [facility] Azithromycin 500 mg/ Sodium (Chloride) 250 mls @ 250 mls/hr IV Q24H [facility] Last Infusion: 01/31/21 10:59 Dose: Infused Documented by: Losartan Potassium (Losartan 25 Mg Tab) 25 mg PO BID PRN PRN Reason: Tachycardia Losartan Potassium (Losartan 25 Mg Tab) 25 mg PO BID [facility] Last Admin: 01/28/21 09:19 Dose: 25 mg Documented by: Losartan Potassium (Losartan 25 Mg Tab) 75 mg PO ONETIME ONE Stop: 01/28/21 10:01 Last Admin: 01/28/21 10:37 Dose: 75 mg Documented by: Methylprednisolone Sodium Succinate (Methylprednisolone Sodium Succinate 125 Mg/2 Ml Sdv) 125 mg IVPUSH ONETIME ONE Stop: 01/25/21 04:39 Last Admin: 01/25/21 04:48 Dose: 125 mg Documented by: Methylprednisolone Sodium Succinate (Methylprednisolone Sodium Succinate 40 Mg/1 Ml Sdv) 40 mg IVPUSH Q8H [facility] Last Admin: 01/27/21 08:56 Dose: 40 mg Documented by: Methylprednisolone Sodium Succinate (Methylprednisolone Sodium Succinate 40 Mg/1 Ml Sdv) 40 mg IVPUSH BID [facility] Last Admin: 01/28/21 09:18 Dose: 40 mg Documented by: Prednisone (Prednisone 20 Mg Tab) 20 mg PO BIDMEALS [facility] Stop: 01/30/21 08:01 Last Admin: 01/30/21 08:28 Dose: 20 mg Documented by: Prednisone (Prednisone 10 Mg Tab) 10 mg PO BIDMEALS [facility] Stop: 02/01/21 08:01 Last Admin: 02/01/21 09:34 Dose: 10 mg Documented by: Prednisone (Prednisone 5 Mg Tab) 5 mg PO BIDMEALS [facility] Stop: 02/03/21 08:01 Last Admin: 02/02/21 08:16 Dose: 5 mg Documented by: Prednisone (Prednisone 5 Mg Tab) 5 mg PO DAILY@0800 [facility] Stop: 02/05/21 08:01 Prednisone (Prednisone 10 Mg Tab) 35 mg PO ONETIME ONE Stop: 02/02/21 11:16 Last Admin: 02/02/21 12:27 Dose: 35 mg Documented by: Spironolactone (Spironolactone 25 Mg Tab) 25 mg PO DAILY [facility] Last Admin: 01/28/21 10:53 Dose: Not Given Documented by: Spironolactone (Spironolactone 25 Mg Tab) 25 mg PO ONETIME ONE Stop: 01/28/21 09:11 Last Admin: 01/28/21 10:37 Dose: 25 mg Documented by: Tolterodine Tartrate (Tolterodine 2 Mg Cap.Er) 4 mg PO DAILY [facility] Last Admin: 01/25/21 11:02 Dose: Not Given Documented by: Warfarin Sodium (Warfarin 1 Mg Tab) 1 mg PO ONETIME ONE Stop: 01/25/21 14:01 Last Admin: 01/25/21 14:43 Dose: 1 mg Documented by: Warfarin Sodium (Warfarin 1 Mg Tab) 1 mg PO ONETIME ONE Stop: 01/26/21 14:01 Last Admin: 01/26/21 15:11 Dose: Not Given Documented by: Warfarin Sodium (Warfarin 1 Mg Tab) 1 mg PO ONETIME ONE Stop: 01/27/21 14:01 Last Admin: 01/27/21 13:19 Dose: 1 mg Documented by: Warfarin Sodium (Warfarin 1 Mg Tab) 1 mg PO ONETIME ONE Stop: 01/28/21 14:01 Last Admin: 01/28/21 14:29 Dose: 1 mg Documented by: Warfarin Sodium (Warfarin 1 Mg Tab) 1 mg PO ONETIME ONE Stop: 01/29/21 14:01 Last Admin: 01/29/21 13:36 Dose: 1 mg Documented by: Warfarin Sodium (Warfarin 1 Mg Tab) 1 mg PO ONETIME ONE Stop: 01/30/21 14:01 Last Admin: 01/30/21 14:40 Dose: 1 mg Documented by: Warfarin Sodium (Warfarin 1 Mg Tab) 1 mg PO ONETIME ONE Stop: 01/31/21 14:01 Last Admin: 01/31/21 14:05 Dose: 1 mg Documented by: Warfarin Sodium (Warfarin 1 Mg Tab) 1 mg PO ONETIME ONE Stop: 02/01/21 14:01 Last Admin: 02/01/21 14:46 Dose: 1 mg Documented by: Warfarin Sodium (Warfarin 1 Mg Tab) 1 mg PO ONETIME ONE Stop: 02/02/21 14:01 Last Admin: 02/02/21 13:03 Dose: Not Given Documented by: - Exam Physical Findings Comments:: General: Elderly female. In no distress. Able to speak in full sentences. Sitting in a chair. CVS: S1S2 appreciated. RRR lungs: wheezes bilaterally L > R PA: soft, non tender. Bowel sounds present ext: no clubbing, cyanosis or edema neuro: no focal deficits. Moves all extremities. psych: stable mood and affect. - Patient Data Lab Results Last 24 hrs: Laboratory Results - last 24 hr 02/03/21 Range/Units 06:26 PT 21.2 H (9.0-12.0) SEC INR 2.1 H (0.9-1.2) Result Diagrams: 01/29/21 06:00 01/31/21 06:05 Sepsis Event Note - Evaluation Sepsis Screening Result: No Definite Risk - Focused Exam Vital Signs: Vital Signs Temp Pulse Pulse Resp BP BP BP 02/03/21 09:08 89 124/85 02/03/21 09:06 124/85 02/03/21 08:00 97.9 F 89 95 H 124/85 02/03/21 03:38 97.8 F 94 16 149/80 H Pulse Ox 02/03/21 09:08 02/03/21 09:06 02/03/21 08:00 1 L 02/03/21 03:38 98 - Problem List & Annotations (1) Acute exacerbation of chronic obstructive pulmonary disease (COPD) SNOMED Code(s): 362769694 Code(s): J44.1 - CHRONIC OBSTRUCTIVE PULMONARY DISEASE W (ACUTE) EXACERBATION Status: Acute Current Visit: Yes (2) Chronic atrial fibrillation SNOMED Code(s): 778537447 Code(s): I48.20 - CHRONIC ATRIAL FIBRILLATION, UNSPECIFIED Status: Acute Priority: Medium Current Visit: Yes (3) RSV (respiratory syncytial virus pneumonia) Status: Acute Current Visit: Yes (4) Acute kidney injury SNOMED Code(s): 11806290, 89720079 Code(s): N17.9 - ACUTE KIDNEY FAILURE, UNSPECIFIED Status: Acute Current Visit: No (5) Weakness SNOMED Code(s): 95998060 Code(s): R53.1 - WEAKNESS Status: Acute Current Visit: No - Problem List Review Problem List Initiated/Reviewed/Updated: Yes - My Orders Last 24 Hours: My Active Orders 02/03/21 08:00 predniSONE 40 mg PO WITHBREAKFAST 02/03/21 14:00 Warfarin [Coumadin] 2 mg PO ONETIME ONE 02/04/21 06:00 INR,PT,PROTHROMBIN TIME [COAG] DAILY 02/05/21 06:00 INR,PT,PROTHROMBIN TIME [COAG] DAILY 02/06/21 06:00 INR,PT,PROTHROMBIN TIME [COAG] DAILY 02/07/21 06:00 INR,PT,PROTHROMBIN TIME [COAG] DAILY 02/08/21 06:00 INR,PT,PROTHROMBIN TIME [COAG] DAILY 02/09/21 06:00 INR,PT,PROTHROMBIN TIME [COAG] DAILY - Assessment Assessment:: Acute hypoxemic respiratory failure due to RSV Continue with supportive measures. Acute Copd exacerbation Continue with prednisone 40mg daily and Duonebs to Q4 and Q2 hrs prn. Acute on chronic with preserved EF chf diastolic h/o EF 50-55%, grade II diastolic dysfunction Continue losartan, spironolactone, and Coreg DC lasix now. Afib Rate control with coreg Continue warfarin, INR is therapeutic. HTN Continue with current BP meds. Constipation Continue with Colace Start MiraLAX daily CKD stage III follow bun/cr as needed. Avoid any nephrotoxins DVT prophylaxis: warfarin Code status: DNR I anticipate patient being able to go home in the next 1-2 days on a long steroid taper. - Plan Plan:: 01/28/21 afebrile b.p elavated / vss otherwise. cough loosening up some . on o2 sats stable rsv positive serology. chest xray atelectasis and no consolidation day 3 antibiotics// steroids//o2 little forward progress yet. eating better. diuresis attempts net neutral // edema 3plus no ulcers. lungs decreased throughout with wheezes rt base. cor irreg/irreg 80s abd benign. ext: edema 2-3 plus induration of lower legs repeat chest xray no infiltrate but atelectasis and increased marking c/w rsv pneumonia cultures neg x 3 days. increased spironolactone to 50 mg day increase losartin to 100 mg day to impact heart failure better and help correct k. cont i.v. lasix today change to oral steroids. taper over one week sec. to rsv. p.t stable. repeat lab in am for k and other. boh
[2021-02-03] MEDS ORDERED: Warfarin 2 MG Tab PO ONE (14:00)
[2021-02-03] MEDS: Pravastatin 20 MG Tab PO SCH (20:10)
[2021-02-04] MEDS: Albuterol/Ipratropium 3.0-0.5 MG/3 ML Neb Soln NEB SCH ×3 (00:03→08:44)
[2021-02-04] MEDS: Pantoprazole 40 MG Tab.CR PO SCH (06:01)
[2021-02-04] MEDS ORDERED: predniSONE 5 MG Tab PO SCH (08:00)
[2021-02-04 08:34] LABS: ANION GAP 6.7 mEq/L (7-13)
[2021-02-04] MEDS: Budesonide 0.5 MG/2 ML Neb Susp NEB SCH (08:44)
[2021-02-04] MEDS: Calcium Carbonate/Vitamin D3 1250 MG-5 MCG Tab PO SCH (09:08)
[2021-02-04] MEDS: Carvedilol 25 MG Tab PO SCH (09:08)
[2021-02-04] MEDS: predniSONE 20 MG Tab PO SCH (09:08)
[2021-02-04] MEDS: Spironolactone 25 MG Tab PO SCH (09:08)
[2021-02-04] MEDS: guaiFENesin 600 MG Tab.ER PO SCH (09:09)
[2021-02-04] MEDS: Benzonatate 100 MG Cap PO SCH ×2 (09:09→13:06)
[2021-02-04] MEDS: Gabapentin 100 MG Cap PO SCH (09:09)
[2021-02-04] MEDS: Saccharomyces Boulardii (Probiotic) 250 MG Cap PO SCH (09:09)
[2021-02-04] MEDS: Losartan 50 MG Tab PO SCH (09:09)
[2021-02-04] MEDS: Polyethylene Glycol 3350 Powder 17 GM Packet PO SCH (09:11)
[2021-02-04] MEDS: [UNRECOGNIZED DRUG - OTHER] PO SCH (10:33)
--- NOTE | 2021-02-04 10:47 | PCM.DCSUM1 ---
Discharge Summary - Hospital Course Free Text/Narrative:: presented woith sob, cough Acute hypoxemic respiratory failure resolved required supplemental oxygen but by the time of discharge she is stable without oxygen, had walking desat study which showed no need for supplemental oxygen Acute pneumonia, Blood cx: neg Likely viral RSV positive respiratory isolation Possible bacterial superinfection check Procalcitonin - finished azithromycin course Acute copd exacerbation Treated with iv solumedrol, duoneb, pulmicort return to home inhalers taper prednisone Acute chf diastolic h/o EF 50-55%, grade II diastolic dysfunction resolved treat with lasix, coreg, spironolactone Afib Rate control with coreg Anticoagulation for afib Coumadin follow INR with PMD Htn Treat with coreg increased losartan CKD stage III Follow elytes and renal fx with diuretics periodically Diagnosis: Stroke: No - Discharge Data Discharge Date: 02/04/21 Discharge Disposition: Home, Self-Care 01 Condition: Good - Referral to Home Health Primary Care Physician: PCP None - Discharge Diagnosis/Problem(s) (1) Hyponatremia SNOMED Code(s): 41563418 ICD Code: E87.1 - HYPO-OSMOLALITY AND HYPONATREMIA Status: Acute Current Visit: Yes (2) Acute diastolic (congestive) heart failure SNOMED Code(s): 941019810, 622142495 ICD Code: I50.31 - ACUTE DIASTOLIC (CONGESTIVE) HEART FAILURE Status: Acute Priority: Medium Current Visit: Yes Onset Date: ~01/28/21 (3) Afib SNOMED Code(s): 30156332 ICD Code: I48.91 - UNSPECIFIED ATRIAL FIBRILLATION Status: Acute Current Visit: Yes (4) Acute exacerbation of chronic obstructive pulmonary disease (COPD) SNOMED Code(s): 918176455 ICD Code: J44.1 - CHRONIC OBSTRUCTIVE PULMONARY DISEASE W (ACUTE) EXACERBATION Status: Acute Current Visit: Yes (5) Acute hypoxemic respiratory failure SNOMED Code(s): 779376725 ICD Code: J96.01 - ACUTE RESPIRATORY FAILURE WITH HYPOXIA Status: Acute Current Visit: Yes (6) RSV (respiratory syncytial virus pneumonia) Status: Acute Current Visit: Yes (7) Afib SNOMED Code(s): 34488896 ICD Code: I48.91 - UNSPECIFIED ATRIAL FIBRILLATION Status: Acute Priority: Medium Current Visit: No Onset Date: ~01/28/21 Qualifiers: Atrial fibrillation type: longstanding persistent Qualified Code(s): I48.11 - Longstanding persistent atrial fibrillation (8) History of CHF (congestive heart failure) SNOMED Code(s): 047642826 ICD Code: Z86.79 - PERSONAL HISTORY OF OTHER DISEASES OF THE CIRCULATORY SYSTEM Status: Acute Priority: Medium Current Visit: No Onset Date: ~01/28/21 Problem Details: not able to diures or improve/ delay dc cont i.v. lasix/ increased losartin and added back spironolactone. prev. hx of hyperkalemia noted. (9) Hypertension SNOMED Code(s): 37256213 ICD Code: I10 - ESSENTIAL (PRIMARY) HYPERTENSION Status: Acute Priority: Medium Current Visit: No Onset Date: ~01/28/21 Problem Details: renal dysfunction with gfr 35-49 Qualifiers: Hypertension type: primary hypertension Qualified Code(s): I10 - Essential (primary) hypertension (10) Chronic anticoagulation SNOMED Code(s): 015131404 ICD Code: Z79.01 - LONGTERM (CURRENT) USE OF ANTICOAGULANTS Status: Chronic Priority: Medium Current Visit: Yes Onset Date: ~01/28/21 Problem Details: p.t good. - Patient Summary/Data Consults: Consultations 01/26/21 09:27 OT Evaluation and Treatment [CONS] Routine PT Evaluation and Treatment [CONS] Routine - Patient Instructions Diet: Heart Healthy Diet Activity: As Tolerated - Discharge Plan *PRESCRIPTION DRUG MONITORING PROGRAM REVIEWED*: Not Applicable *COPY OF PRESCRIPTION DRUG MONITORING REPORT IN PATIENT DEREK: Not Applicable Prescriptions/Med Rec: Spironolactone [Aldactone] 50 mg PO DAILY #30 tablet Losartan [Cozaar] 100 mg PO DAILY #30 tablet guaiFENesin [Mucinex] 1,200 mg PO BID #28 tab.er predniSONE 40 mg PO WITHBREAKFAST #5 tablet Home Medications: Home Meds Furosemide [Lasix] 20 mg PO DAILY 08/02/16 [History] Pravastatin [Pravachol] 40 mg PO BEDTIME 08/02/16 [History] carvediloL [Carvedilol] 25 mg PO BID 08/02/16 [History] Albuterol Sulfate [Proair Hfa] 2 puff IH Q6HR PRN 02/25/17 [History] Gabapentin [Neurontin] 100 mg PO DAILY 08/16/20 [History] Fluticasone Propion/Salmeterol [Advair Hfa 230-21 Mcg Inhaler] 1 puff INH BID 09/25/20 [History] Warfarin Sodium [Jantoven] 2 mg PO DAILY 10/08/20 [History] Acetaminophen [Acetaminophen Extra Strength] 500 mg PO DAILY PRN 01/25/21 [History] Acetaminophen [Tylenol Arthritis] 650 mg PO DAILY PRN 01/25/21 [History] Gabapentin [Neurontin] 200 mg PO DAILY 01/25/21 [History] Trospium Chloride [Trospium Chloride ER] 60 mg PO DAILY 01/25/21 [History] Vit C/E/Zn/Coppr/Lutein/Zeaxan [Preservision Areds 2 Softgel] 2 cap PO DAILY 01/26/21 [History] Albuterol/Ipratropium [DuoNeb 3.0-0.5 MG/3 ML] 3 ml NEB Q2H PRN neb 02/04/21 [Rx] Albuterol/Ipratropium [DuoNeb 3.0-0.5 MG/3 ML] 3 ml NEB Q4HRRT neb 02/04/21 [Rx] Benzonatate [Tessalon Perles] 100 mg PO TID cap 02/04/21 [Rx] Budesonide [Pulmicort] 0.5 mg NEB BIDRT neb 02/04/21 [Rx] Calcium Carbonate/Vitamin D3 [Calcium Carbonate/Vitamin D 1250 MG - 5 MCG] 1 tab PO DAILY tablet 02/04/21 [Rx] Losartan [Cozaar] 100 mg PO DAILY #30 tablet 02/04/21 [Rx] Spironolactone [Aldactone] 50 mg PO DAILY #30 tablet 02/04/21 [Rx] guaiFENesin [Mucinex] 1,200 mg PO BID #28 tab.er 02/04/21 [Rx] predniSONE 40 mg PO WITHBREAKFAST #5 tablet 02/04/21 [Rx] Referrals: Kristal Avitia NP [Ordering Only Provider] - - Discharge Summary/Plan Comment DC Time >30 min.: No Total # of Minutes for Discharge Time: 25 min - General Info Date of Service: 02/04/21 Admission Dx/Problem (Free Text: admitted with hypoxemia, respiratory failure secondary to RSV, possible bacterial pneumonia Subjective Update: feeling well, up and walking with walker Functional Status: Reports: Pain Controlled, Tolerating Diet - Review of Systems General: Denies: Fever Pulmonary: Denies: Shortness of Breath Cardiovascular: Denies: Chest Pain, Edema Neurological: Denies: Confusion - Patient Data Vitals - Most Recent: Last Vital Signs Temp 96.5 F L 02/04/21 07:54 Pulse 79 02/04/21 09:08 Resp 18 02/04/21 07:54 BP 117/78 02/04/21 09:09 Pulse Ox 97 02/04/21 07:54 Weight - Most Recent: 159 lb 12.8 oz I&O - Last 24 hours: Intake & Output 02/03/21 02/04/21 02/04/21 22:59 06:59 14:59 Intake Total 120 120 120 Balance 120 120 120 Lab Results - Last 24 hrs: Laboratory Results - last 24 hr 02/04/21 02/04/21 02/04/21 Range/Units 06:22 06:22 06:22 WBC 16.0 H (5.0-10.0) 10^3/uL RBC 4.32 (4.2-5.4) 10^6/uL Hgb 13.1 (12.0-16.0) g/dL Hct 41.3 (37.0-47.0) % MCV 95.6 D (80-100) fL MCH 30.3 (27.0-34.0) pg MCHC 31.7 L (33.0-35.0) g/dL Plt Count 211 (150-450) 10^3/uL Neut % (Auto) 89.3 H (42.2-75.2) % Lymph % (Auto) 4.2 L (20.5-50.1) % [place] % (Auto) 5.9 (2-8) % Eos % (Auto) 0.5 L (1.0-3.0) % Baso % (Auto) 0.1 (0.0-1.0) % Add Manual Diff PT 20.4 H (9.0-12.0) SEC INR 2.1 H (0.9-1.2) Sodium 135 L (136-145) mmol/L Potassium 4.7 (3.5-5.1) mmol/L Chloride 98 (98-107) mmol/L Carbon Dioxide 35 H (21-32) mmol/L Anion Gap 6.7 L (7-13) mEq/L BUN 46 H (7-18) mg/dL Creatinine 1.36 H (0.55-1.02) mg/dL Est Cr Clr Drug Dosing 27.06 mL/min Estimated GFR (MDRD) 37 Glucose 115 H (70-99) mg/dL Calcium 8.6 (8.5-10.1) mg/dL Med Orders - Current: Current Medications Acetaminophen (Acetaminophen 325 Mg Tab) 650 mg PO Q4H PRN PRN Reason: Pain (Mild 1-3)/fever Last Admin: 02/01/21 05:14 Dose: 650 mg Documented by: Albuterol/Ipratropium (Albuterol/Ipratropium 3.0-0.5 Mg/3 Ml Neb Soln) 3 ml NEB Q2H PRN PRN Reason: sob Albuterol/Ipratropium (Albuterol/Ipratropium 3.0-0.5 Mg/3 Ml Neb Soln) 3 ml NEB Q4HRRT [facility] Last Admin: 02/04/21 08:44 Dose: 3 ml Documented by: Benzonatate (Benzonatate 100 Mg Cap) 100 mg PO TID [facility] Last Admin: 02/04/21 09:09 Dose: 100 mg Documented by: Budesonide (Budesonide 0.5 Mg/2 Ml Neb Susp) 0.5 mg NEB BIDRT [facility] Last Admin: 02/04/21 08:44 Dose: 0.5 mg Documented by: Calcium Carbonate (Calcium Carbonate/Vitamin D3 1250 Mg-5 Mcg Tab) 1 tab PO DAILY [facility] Last Admin: 02/04/21 09:08 Dose: 1 tab Documented by: Carvedilol (Carvedilol 25 Mg Tab) 25 mg PO BID [facility] Last Admin: 02/04/21 09:08 Dose: 25 mg Documented by: Docusate Sodium (Docusate Sodium 100 Mg Cap) 100 mg PO BID PRN PRN Reason: Constipation Last Admin: 01/30/21 20:55 Dose: 100 mg Documented by: Gabapentin (Gabapentin 100 Mg Cap) 200 mg PO BEDTIME [facility] Last Admin: 02/03/21 20:10 Dose: 200 mg Documented by: Gabapentin (Gabapentin 100 Mg Cap) 100 mg PO DAILY [facility] Last Admin: 02/04/21 09:09 Dose: 100 mg Documented by: Guaifenesin (Guaifenesin 600 Mg Tab.Er) 1,200 mg PO BID [facility] Last Admin: 02/04/21 09:09 Dose: 1,200 mg Documented by: Hydralazine HCl (Hydralazine 20 Mg/Ml Sdv) 10 mg IVPUSH Q4H PRN PRN Reason: Hypertension Lorazepam (Lorazepam 0.5 Mg Tab) 0.5 mg PO BEDTIME PRN PRN Reason: Sleep Losartan Potassium (Losartan 50 Mg Tab) 100 mg PO DAILY [facility] Last Admin: 02/04/21 09:09 Dose: 100 mg Documented by: Vit C/E/Zn/Coppr/Lutein/Zeaxan [ Preservision Areds 2 Soft Gel] *Own Med* 2 cap PO DAILY [facility] Last Admin: 02/04/21 10:33 Dose: 2 cap Documented by: Ondansetron HCl (Ondansetron 4 Mg/2 Ml Sdv) 4 mg IVPUSH Q6H PRN PRN Reason: Nausea/Vomiting Pantoprazole Sodium (Pantoprazole 40 Mg Tab.Cr) 40 mg PO ACBREAKFAST [facility] Last Admin: 02/04/21 06:01 Dose: 40 mg Documented by: Polyethylene Glycol (Polyethylene Glycol 3350 Powder 17 Gm Packet) 17 gm PO DAILY [facility] Last Admin: 02/04/21 09:11 Dose: 17 gm Documented by: Pravastatin Sodium (Pravastatin 20 Mg Tab) 40 mg PO BEDTIME [facility] Last Admin: 02/03/21 20:10 Dose: 40 mg Documented by: Prednisone (Prednisone 20 Mg Tab) 40 mg PO WITHBREAKFAST [facility] Last Admin: 02/04/21 09:08 Dose: 40 mg Documented by: Saccharomyces Boulardii (Saccharomyces Boulardii (Probiotic) 250 Mg Cap) 250 mg PO BID [facility] Last Admin: 02/04/21 09:09 Dose: 250 mg Documented by: Sodium Chloride (Sodium Chloride 0.9% 10 Ml Syringe) 10 ml FLUSH ASDIRECTED PRN PRN Reason: Keep Vein Open Last Admin: 01/30/21 08:33 Dose: 10 ml Documented by: Spironolactone (Spironolactone 25 Mg Tab) 50 mg PO DAILY [facility] Last Admin: 02/04/21 09:08 Dose: 50 mg Documented by: Temazepam (Temazepam 15 Mg Cap) 15 mg PO BEDTIME PRN PRN Reason: Sleep Last Admin: 01/28/21 02:15 Dose: 15 mg Documented by: Warfarin Sodium (Pharmacy To Dose - Warfarin) 1 dose .XX ASDIRECTED [facility] Warfarin Sodium (Warfarin 2 Mg Tab) 2 mg PO ONETIME ONE Stop: 02/04/21 14:01 Discontinued Medications Albuterol (Albuterol 0.083% 2.5 Mg/3 Ml Neb Soln) 2.5 mg NEB ONETIME ONE Stop: 01/25/21 04:40 Last Admin: 01/25/21 04:48 Dose: 2.5 mg Documented by: Albuterol/Ipratropium (Albuterol/Ipratropium 3.0-0.5 Mg/3 Ml Neb Soln) 3 ml NEB Q6HRRT [facility] Last Admin: 02/02/21 07:36 Dose: 3 ml Documented by: Amlodipine Besylate (Amlodipine 5 Mg Tab) 2.5 mg PO DAILY [facility] Last Admin: 02/02/21 08:17 Dose: 2.5 mg Documented by: Furosemide (Furosemide 40 Mg/4 Ml Vial) 40 mg IVPUSH ONETIME ONE Stop: 01/25/21 04:13 Last Admin: 01/25/21 04:22 Dose: 40 mg Documented by: Furosemide (Furosemide 20 Mg/2 Ml Vial) 20 mg IVPUSH BIDDIURETIC [facility] Last Admin: 01/30/21 09:27 Dose: Not Given Documented by: Furosemide (Furosemide 40 Mg Tab) 40 mg PO DAILY [facility] Last Admin: 02/02/21 08:16 Dose: 40 mg Documented by: Gabapentin (Gabapentin 100 Mg Cap) 200 mg PO BID [facility] Azithromycin 500 mg/ Sodium (Chloride) 250 mls @ 250 mls/hr IV Q24H [facility] Last Infusion: 01/31/21 10:59 Dose: Infused Documented by: Losartan Potassium (Losartan 25 Mg Tab) 25 mg PO BID PRN PRN Reason: Tachycardia Losartan Potassium (Losartan 25 Mg Tab) 25 mg PO BID [facility] Last Admin: 01/28/21 09:19 Dose: 25 mg Documented by: Losartan Potassium (Losartan 25 Mg Tab) 75 mg PO ONETIME ONE Stop: 01/28/21 10:01 Last Admin: 01/28/21 10:37 Dose: 75 mg Documented by: Methylprednisolone Sodium Succinate (Methylprednisolone Sodium Succinate 125 Mg/2 Ml Sdv) 125 mg IVPUSH ONETIME ONE Stop: 01/25/21 04:39 Last Admin: 01/25/21 04:48 Dose: 125 mg Documented by: Methylprednisolone Sodium Succinate (Methylprednisolone Sodium Succinate 40 Mg/1 Ml Sdv) 40 mg IVPUSH Q8H [facility] Last Admin: 01/27/21 08:56 Dose: 40 mg Documented by: Methylprednisolone Sodium Succinate (Methylprednisolone Sodium Succinate 40 Mg/1 Ml Sdv) 40 mg IVPUSH BID [facility] Last Admin: 01/28/21 09:18 Dose: 40 mg Documented by: Prednisone (Prednisone 20 Mg Tab) 20 mg PO BIDMEALS [facility] Stop: 01/30/21 08:01 Last Admin: 01/30/21 08:28 Dose: 20 mg Documented by: Prednisone (Prednisone 10 Mg Tab) 10 mg PO BIDMEALS [facility] Stop: 02/01/21 08:01 Last Admin: 02/01/21 09:34 Dose: 10 mg Documented by: Prednisone (Prednisone 5 Mg Tab) 5 mg PO BIDMEALS [facility] Stop: 02/03/21 08:01 Last Admin: 02/02/21 08:16 Dose: 5 mg Documented by: Prednisone (Prednisone 5 Mg Tab) 5 mg PO DAILY@0800 [facility] Stop: 02/05/21 08:01 Prednisone (Prednisone 10 Mg Tab) 35 mg PO ONETIME ONE Stop: 02/02/21 11:16 Last Admin: 02/02/21 12:27 Dose: 35 mg Documented by: Spironolactone (Spironolactone 25 Mg Tab) 25 mg PO DAILY [facility] Last Admin: 01/28/21 10:53 Dose: Not Given Documented by: Spironolactone (Spironolactone 25 Mg Tab) 25 mg PO ONETIME ONE Stop: 01/28/21 09:11 Last Admin: 01/28/21 10:37 Dose: 25 mg Documented by: Tolterodine Tartrate (Tolterodine 2 Mg Cap.Er) 4 mg PO DAILY [facility] Last Admin: 01/25/21 11:02 Dose: Not Given Documented by: Warfarin Sodium (Warfarin 1 Mg Tab) 1 mg PO ONETIME ONE Stop: 01/25/21 14:01 Last Admin: 01/25/21 14:43 Dose: 1 mg Documented by: Warfarin Sodium (Warfarin 1 Mg Tab) 1 mg PO ONETIME ONE Stop: 01/26/21 14:01 Last Admin: 01/26/21 15:11 Dose: Not Given Documented by: Warfarin Sodium (Warfarin 1 Mg Tab) 1 mg PO ONETIME ONE Stop: 01/27/21 14:01 Last Admin: 01/27/21 13:19 Dose: 1 mg Documented by: Warfarin Sodium (Warfarin 1 Mg Tab) 1 mg PO ONETIME ONE Stop: 01/28/21 14:01 Last Admin: 01/28/21 14:29 Dose: 1 mg Documented by: Warfarin Sodium (Warfarin 1 Mg Tab) 1 mg PO ONETIME ONE Stop: 01/29/21 14:01 Last Admin: 01/29/21 13:36 Dose: 1 mg Documented by: Warfarin Sodium (Warfarin 1 Mg Tab) 1 mg PO ONETIME ONE Stop: 01/30/21 14:01 Last Admin: 01/30/21 14:40 Dose: 1 mg Documented by: Warfarin Sodium (Warfarin 1 Mg Tab) 1 mg PO ONETIME ONE Stop: 01/31/21 14:01 Last Admin: 01/31/21 14:05 Dose: 1 mg Documented by: Warfarin Sodium (Warfarin 1 Mg Tab) 1 mg PO ONETIME ONE Stop: 02/01/21 14:01 Last Admin: 02/01/21 14:46 Dose: 1 mg Documented by: Warfarin Sodium (Warfarin 1 Mg Tab) 1 mg PO ONETIME ONE Stop: 02/02/21 14:01 Last Admin: 02/02/21 13:03 Dose: Not Given Documented by: Warfarin Sodium (Warfarin 2 Mg Tab) 2 mg PO ONETIME ONE Stop: 02/03/21 14:01 Last Admin: 02/03/21 14:10 Dose: 2 mg Documented by: - Exam General: Reports: Alert, Oriented Neck: Reports: Supple Lungs: Reports: Decreased Breath Sounds, Rhonchi Cardiovascular: Reports: Irregular Rhythm GI/Abdominal Exam: Normal Bowel Sounds, Soft, Non-Tender Extremities: No Pedal Edema Skin: Reports: Warm, Dry Neurological: Reports: No New Focal Deficit Psy/Mental Status: Reports: Alert, Normal Affect, Normal Mood
[2021-02-04 13:38] VITALS: BP 80/50; PULSE 70
[2021-02-04] MEDS ORDERED: Warfarin 2 MG Tab PO ONE (14:00)
== END 2021-02-04 12:27 | disposition home or self-care (01) | DRG 291 ==
LOC: DL.ED 03:53 → DL.MS 07:03
PROVIDERS: ADMIT Internal Medicine; ATTEND Hospitalist
DX: I13.0 Hypertensive heart and chronic kidney disease with heart failure and stage 1 through stage 4 chronic kidney disease, or unspecified chronic kidney disease (principal); I50.9 Heart failure, unspecified; R09.02 Hypoxemia; J96.01 Acute respiratory failure with hypoxia; I48.20 Chronic atrial fibrillation, unspecified; H35.30 Unspecified macular degeneration; J12.1 Respiratory syncytial virus pneumonia; J15.9 Unspecified bacterial pneumonia; I50.23 Acute on chronic systolic (congestive) heart failure; I11.0 Hypertensive heart disease with heart failure; J44.0 Chronic obstructive pulmonary disease with (acute) lower respiratory infection; J44.1 Chronic obstructive pulmonary disease with (acute) exacerbation; E87.1 Hypo-osmolality and hyponatremia; I48.11 Longstanding persistent atrial fibrillation; N17.9 Acute kidney failure, unspecified; Z66 Do not resuscitate; I42.9 Cardiomyopathy, unspecified; N18.30 Chronic kidney disease, stage 3 unspecified; H54.7 Unspecified visual loss; E78.00 Pure hypercholesterolemia, unspecified; Z85.828 Personal history of other malignant neoplasm of skin; R32 Unspecified urinary incontinence; Z92.21 Personal history of antineoplastic chemotherapy; Z88.1 Allergy status to other antibiotic agents; M19.90 Unspecified osteoarthritis, unspecified site; M54.2 Cervicalgia; G89.29 Other chronic pain; M06.9 Rheumatoid arthritis, unspecified; Z20.822 Contact with and (suspected) exposure to COVID-19; G62.9 Polyneuropathy, unspecified; M81.0 Age-related osteoporosis without current pathological fracture; D64.9 Anemia, unspecified; Z85.3 Personal history of malignant neoplasm of breast; Z88.8 Allergy status to other drugs, medicaments and biological substances; Z79.899 Other long term (current) drug therapy; Z79.01 Long term (current) use of anticoagulants; Z79.52 Long term (current) use of systemic steroids; Z88.5 Allergy status to narcotic agent; Z86.16 Personal history of COVID-19; Z86.19 Personal history of other infectious and parasitic diseases; Z98.49 Cataract extraction status, unspecified eye; Z90.49 Acquired absence of other specified parts of digestive tract; Z90.11 Acquired absence of right breast and nipple; K59.00 Constipation, unspecified
CPT/HCPCS: 0241U; 36415; 36600; 71045; 71046; 80048; 80053; 82803; 83605; 83735; 83880; 84145; 84484; 85007; 85025; 85027; 85610; 87040; 93005; 94640; 94667; 96374; 96375; 97116; 97161; 97165; 97530; 97535; 99285; A9270-GY; J0456; J1940; J2920; J2930; J7050; J7512; J7613-GY; J7620-GY

== ENCOUNTER 2021-08-05 22:52 | Emergency (ER) | payer MEDICARE, OTHER ==
[~2021-08-05 22:52] MED LIST changes: -Clindamycin Phosphate 600 MG in Sodium Chloride 0.9% 100 ML IV ONE; -Lactated Ringers 1,000 ML IV SCH; +Ondansetron 4 MG/2 ML SDV IVPUSH ONE; -Sodium Chloride 0.9% 10 ML Syringe FLUSH PRN; -ceFAZolin 2 GM in Premix Bag 1 BAG IV ONE; +fentaNYL 100 MCG/2 ML SDV IVPUSH ONE
[2021-08-05 23:30] LABS: ANION GAP 10.3 mEq/L (7-13); CHLORIDE,CL 98 mmol/L (98-107); SODIUM,NA 136 mmol/L (136-145)
[2021-08-05] MEDS ORDERED: Furosemide 40 MG/4 ML VIAL IVPUSH ONE (23:38)
[2021-08-05] MEDS ORDERED: Diltiazem 25 MG/5 ML SDV IVPUSH ONE (23:39)
[2021-08-06 00:24] LABS: CORONAVIRUS COVID-19 NAA NEGATIVE (NEGATIVE)
[2021-08-06 01:32] VITALS: BP 125/81; PULSE 100
== END 2021-08-06 01:16 ==
LOC: DL.ED 22:52
DX: S72.001A Fracture of unspecified part of neck of right femur, initial encounter for closed fracture (principal); I48.91 Unspecified atrial fibrillation; R77.8 Other specified abnormalities of plasma proteins; R79.89 Other specified abnormal findings of blood chemistry; M19.90 Unspecified osteoarthritis, unspecified site; J44.9 Chronic obstructive pulmonary disease, unspecified; I11.0 Hypertensive heart disease with heart failure; I50.9 Heart failure, unspecified; E78.00 Pure hypercholesterolemia, unspecified; Z88.5 Allergy status to narcotic agent; Z88.1 Allergy status to other antibiotic agents; Z88.8 Allergy status to other drugs, medicaments and biological substances; Z79.01 Long term (current) use of anticoagulants; Z79.899 Other long term (current) drug therapy; Z20.822 Contact with and (suspected) exposure to COVID-19; W18.30XA Fall on same level, unspecified, initial encounter
CPT/HCPCS: 0240U; 36415; 71045; 72192; 73090-RT; 80053; 81001; 83880; 84484; 85025; 85610; 93005; 93010; 96374; 96375; 99285; 99285-25; J1940; J2405; J3490